=== PATIENT | female | born 1955 | race Caucasian/White ===

== ENCOUNTER 2020-03-01 07:33 | Outpatient (CLI) | payer BC, SELFPAY ==
--- NOTE | 2020-03-01 07:39 | US_ITS ---
WS: [id number] DIAGNOSTIC BILATERAL DIGITAL MAMMOGRAM WITH CAD LEFT breast ultrasound, limited HISTORY: LT BREAST MASS COMPARISON: 08/14/2010 05/18/2009 TECHNIQUE: Bilateral craniocaudad, mediolateral oblique, and mediolateral views are submitted. Spot c ompression LEFT CC. Computer aided detection utilized. Breast composition: The breasts are heterogeneously dense, which may obscure small masses. Palpable m arker is placed along the inferior medial LEFT breast posteriorly. No definite mass is identified. Th ere may be a nodule posterior against the chest wall beyond the [id number] imaging. This area will be better evaluated by ultrasound. Mild increased density upper outer quadrant LEFT breast. There is a benign calcification in the RIGHT breast. LEFT breast ultrasound, limited. In the region of palpable abnormality there is a hypoechoic mass measuring 1.8 x 0.8 x 1.4 cm with so me mild peripheral increased vascularity. Mass is at the posterior 8:00 axis, 3 cm from the nipple. M argins are slightly irregular but not spiculated. This corresponds to the palpable abnormality. Addit ional evaluation upper outer quadrant is negative. Ultrasound-guided biopsy recommended of the mass in the LEFT breast at 8:00. Notified Rey CORINNA Cox at 03/01/2020 12:16 PM. Unable to contact [facility] at this time as the clin ic was closed. US/US breast LT limited* [id number] IMPRESSION: BI-RADS: 4B-Suspicious: Intermediate FOLLOW UP: Biopsy Recommended
== END 2020-03-01 07:34 | disposition home or self-care (01) ==
LOC: RADSHAW 07:35
PROVIDERS: Family Provider Nurse Practitioner Family; PCP Nurse Practitioner Family; Visit Provider Nurse Practitioner Family
DX: N63.24 Unspecified lump in the left breast, lower inner quadrant (principal)
CPT/HCPCS: 76642; 77066

== ENCOUNTER 2020-03-09 06:46 | Outpatient (CLI) | payer BC, SELFPAY ==
--- NOTE | 2020-03-09 06:58 | US_ITS ---
WS: [id number] ULTRASOUND SOFT TISSUES LEFT axilla HISTORY: lymph node enlargement COMPARISON: None available. TECHNIQUE: 2-D and color Doppler imaging is submitted. There is a single normal lymph node in the LEFT axilla measuring 13 mm. There is a normal preserved f atty hilum. Normal hypoechoic cortex. The central hilar vasculature is normal. There is no asymmetry or focal enlargement the lymph node. This lymph node is very closely associated with the arteries and veins in the axilla. US/US soft tissue/extremity [id number] IMPRESSION: Single normal LEFT axillary lymph node. No biopsy will be performed today due t o its normal appearance and the adjacent surrounding vascular structures.
--- NOTE | 2020-03-09 07:18 | US_ITS ---
WS: [id number] ULTRASOUND-GUIDED LEFT BREAST BIOPSY HISTORY: LEFT BREAST MASS COMPARISON: 03/01/2020 Procedure, risks and complications are explained to the patient. Medications are reviewed. Consent is obtained. The mass in the LEFT breast is localized with ultrasound. Palpable mass at 8:00 LEFT breast. Skin is cleansed with ChloraPrep and anesthetized with 1% buffered lidocaine. Small dermatome is made. Under sterile conditions mass is biopsied with a 14-gauge Achieve needle. Multiple core biopsies are perfor med. Material placed in formalin and sent to pathology for review. No complications encountered. Breast tissue marker (Bard ultrasound enhanced ribbon): Single Patient left the radiology suite with no complications. Patient is instructed to return to [facility] [place] or [facility] with any concerns. 1. Uncomplicated core needle biopsy LEFT breast at 8:00. 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 RECOMMENDATION: Follow-up with Dr. Blood and oncology.
[2020-03-29 15:50] LABS: Miscellaneous Test See Scanned Lab Rpt
== END 2020-03-09 06:47 | disposition home or self-care (01) ==
PROVIDERS: PCP Nurse Practitioner Family; Visit Provider Surgery
DX: R92.8 Other abnormal and inconclusive findings on diagnostic imaging of breast (principal); C50.912 Malignant neoplasm of unspecified site of left female breast; R59.9 Enlarged lymph nodes, unspecified
CPT/HCPCS: 19083; 76882; 76942; 88305; J2001

== ENCOUNTER 2020-04-04 14:47 | Outpatient (CLI) | payer BC, SELFPAY ==
--- NOTE | 2020-04-04 17:37 | ONC CON_ITS ---
Dr. Nowak New Patient Note Patient: Paris Bae Unit #: [id number]: 1955 Dicatated By: Petra Nowak M.D.Date of Visit: Apr 04, 2020 Onc MED New Patient/Consult Referring Physician: Shakira Recinos History of Present Illness: Ms. Paris Bae, is a 65-year-old female with a history of progressive left breast mass underwent mammogram on March 07, 2020 which showed in the region of palpable abnormality there is a hypoechoic mass measuring 1.8 x 0.8 x 1.4 cm with some mild peripheral increased vascularity at 8 o'clock position 3 cm from the nipple. And right breast showed benign calcification., On March 09, 2020 she underwent ultrasound guided left breast mass biopsy which showed high-grade invasive ductal carcinoma with chronic inflammation surrounding the tumor. Prognostic profiling confirmed triple negative disease e.g. ER less than 1% positive ME less than 1% and HER-2/jasmyn negative. Patient denies any bony pains, denies any weight loss, denies any nipple discharge, denies any headaches blurred vision double vision, denies any jaundice. Patient has no history of previous breast biopsies, no family history of breast cancer, menarche started at age 13 and she is G3, with no miscarriages. No breast-feeding. Past Medical History: Ms. Bae's medical history is unremarkable. Past Surgical History: Ms. Bae's surgical/procedural history consists of breast biopsy, colonoscopy, and exploratory laparotomy. Medications: Citalopram Hydrobromide 1 Tablet (of 40 mg) Oral daily Allergies: No Known Allergies. Social History: Ms. Bae is . Ms. Bae quit smoking 30 years ago but had smoked for 5 years. She has no history of drinking. Ms. Bae reports the following support systems: lives with spouse, significant other, family, or friends, lives in own house, supportive family/friends willing to assist with needs, and adequate transportation available for expected visits. Her diet consists of regular meals. She indicates her activity level as: regular exercise. Family History: Ms. Bae's mother at age 69: stomach cancer. Ms. Bae's father at age 72: lung cancer. Ms. Bae has 1 brother who is : colon cancer. Review Of Symptoms: Review of Systems is not available for this patient. Vital Signs: Performed on Apr 04, 2020 16:11: 0, 23.05, 1.63 sq.m, 63.50 in, 100 %, 56 /min (LOW), 18 /min, 115/59 mm(hg), 97.8 F (LOW), and 132.2 lbs (HIGH). Performance Status: 0 - Fully active, able to carry on all predisease activities without restrictions. (ECOG) Physical Examination: ENMT - No mouth sores, no thrush, no jaundice, Respiratory - Lungs are clear, Cardiovascular - Regular rate and rhythm of heart, Breasts - Tenderness and fullness in left lower quadrant with mild erythema at biopsy site but no discharge, no nipple discharge or retraction. Right breast no mass palpable. There is about 1 cm questionable mass palpable bilateral axilla nontender and mobile, lymph node versus prominent connective tissue, Abdomen - Soft, bowel sounds present, Extremities - No visible edema or rash. Lab/Imaging: Most recent lab results are not available for this patient. Impression: High-grade invasive ductal carcinoma per ultrasound-guided left breast biopsy done on March 09, 2020 prognostic profiling showed triple negative disease, ER less than 1%, ME less than 1% and HER-2/jasmyn negative, Ki-67 95%. Plan: Discussed with patient regarding her disease status and treatment options, being triple negative, patient would be candidate for chemotherapy either neoadjuvant or adjuvant. Patient has small size breast but would consider breast preservation if is possible, in that case neoadjuvant chemotherapy is an appropriate option moreover good response to neoadjuvant chemotherapy may have prognostic value. But on physical exam she has palpable abnormality in both axilla more prominent on the left, although lymph drainage for left breast inner quadrant area, most likely, is internal mammary region lymph nodes. In that case we will consider CT PET scan to complete staging work-up as well as evaluate bilateral axillary prominence e.g. to rule out metastatic disease. In the meantime we will obtain echocardiogram as in case neoadjuvant chemotherapy is considered, will consider dose dense Adriamycin/Cytoxan every 2 weeks x 4 followed by weekly Taxol x12 followed by evaluation for lumpectomy versus mastectomy based on the response to neoadjuvant chemotherapy. We will also request Dr. vivar for Port-A-Cath placement. All the side effects possible benefits associated with chemotherapy with Adriamycin/Cytoxan/Taxol including but not limited to bone marrow suppression, hair loss, generalized weakness and fatigue, peripheral neuropathy, cystitis were mentioned further teaching will be done by chemotherapy nurse. Patient return to clinic after CT PET scan and echocardiogram for further discussion and planning. Signed By: Petra Nowak M.D. <<Signature on File>>
== END 2020-04-04 14:48 | disposition home or self-care (01) ==
LOC: ONCMED 14:55
PROVIDERS: PCP Nurse Practitioner Family; Referring Provider Nurse Practitioner Family; Visit Provider Internal Medicine Hematology & Oncology
DX: C50.512 Malignant neoplasm of lower-outer quadrant of left female breast (principal); Z17.0 Estrogen receptor positive status [ER+]
CPT/HCPCS: 99203

== ENCOUNTER 2020-04-10 09:51 | Day surgery (SDC) | payer BC, SELFPAY ==
[2020-04-07 11:01] VITALS: BMI 23.3
--- NOTE | 2020-04-10 | SCC_ITS ---
24.3 seconds of fluoroscopic guidance, for a cumulative dose of 2.14 mGy, was provided to Dr. Blood by the radiology department. C-arm images of the chest were saved for the patient's permanent record. [facility]
--- NOTE | 2020-04-10 10:00 | SC_ITS ---
WS: [id number] INTRAOPERATIVE TECHNIQUE: 5 Spot fluoroscopic images for intraoperative purposes. FLUOROSCOPY TIME: 20.9 seconds CLINICAL INFORMATION: Port-A-Cath placement COMPARISON: None. FINDINGS: Right Port-A-Cath tip in the mid to distal SVC. No pneumothorax. SC/C-arm FL for CVA [id number] IMPRESSION: Images obtained for intraoperative purposes.
[2020-04-10 10:05] VITALS: BP 117/59; PULSE 58; RESP 18; TEMP 37.4; O2SAT 99
[2020-04-10] MEDS: sodium chloride 0.9% 1,000 ML 30 ML IV (10:22)
[2020-04-10] MEDS: sodium chloride 0.9% 1,000 ML 100 ML IV (10:25)
--- NOTE | 2020-04-10 10:26 | ANES.PREANE2 ---
Pre-Anesthetic Assessment Pre-Anesthetic Assessment: Height/Weight: Height 1.61 m Weight 60.781 kg Temp Pulse Resp BP Pulse Ox 99.4 F 58 L 18 117/59 99 04/10/20 10:05 04/10/20 10:05 04/10/20 10:05 04/10/20 10:05 04/10/20 10:05 Preop Diagnosis: Breast cancer requiring long-term IV access Proposed Procedure: Operation Date: 04/10/20 11:20 Proposed Procedures p Portacath Placement 60290 C50.919(Not Applicable) - Stuart Blood MD Was Beta Nory taken within 24 hours: N/A Last intake: Intake Last Liquid Date 04/09/20 Last Liquid Time 19:00 Last Solid Date 04/09/20 Last Solid Time 16:00 Social: Social History: No alcohol and No tobacco Exam: Pre-Anes Outpt Exam: alert, oriented x 3, clear to auscultation bilaterally and regular rate & rhythm Airway: Submandibular: WNL Cervical ROM: WNL MP: 1 History/ROS: No significant complaints Pulmonary: Pulmonary: None reported CV/HEM: CV/HEM: None reported : : None reported Hepatic: Hepatic: None reported GI: GI: None reported Metabolic: Metabolic: None reported Neuropsych: Neuropsych: None reported Anesthetic Plan: ASA status: 2 Anesthesia: MAC Meds/Allergies Current Medications: Current Medications Generic Name Dose Route Start Last Admin Trade Name Freq PRN Reason Stop Dose Admin Sodium Chloride 1,000 mls @ 30 ml s/hr 04/10/20 10:00 04/10/20 10:22 Sodium Chloride 0.9% IV 04/11/20 09:59 30 mls/hr .Q24H ESTRADA Administration PFSH Anesthesia PFSH: Medical History Invasive ductal carcinoma of breast Surgical History History of colonoscopy History of exploratory laparotomy Family History Denies family history of Anesthesia complication Bleeding disorder Social History Smoking and tobacco status: never smoked Data Anesthesia Cardiac Studies: No Data to Display
--- NOTE | 2020-04-10 11:43 | W.PM.OPSUD ---
Surgery/Procedure H&P Update DATE OF PROCEDURE: April 10, 2020 DATE H&P PERFORMED: 04/06/20 H&P UPDATE INFORMATION: I have reviewed H&P completed within last 30 days, I have examined patient prior to procedure and No changes to prior documentation PREOP DIAGNOSIS: Breast cancer requiring long-term IV access PRIMARY INDICATION FOR PROCEDURE: The same PLANNED PROCEDURE: Operation Date: 04/10/20 11:20 Proposed Procedures p Portacath Placement 36445 C50.919(Not Applicable) - Stuart Blood MD
[2020-04-10] MEDS: heparin, porcine 1,000 unit/mL INJ 10 mL 10000 UNIT HE (13:14)
[2020-04-10] MEDS: lidocaine 2% INJ 20 mL INJECTION (13:17)
--- NOTE | 2020-04-10 13:21 | PM.OP ---
Operative Report Date of procedure: April 10, 2020 Pre-op Diagnosis: Breast cancer requiring long-term IV access Post-op diagnosis: same Procedure Done: Right subclavian vein PowerPort placement Under fluoroscopic guidance and all interpretation was done by me through the whole entire procedure Surgeon: Stuart Blood Professor Of Practice: technologies division chair Santos Circulating nurses Leela and Jocelyne Anesthesia: MAC (Sidra Alberto) Estimated blood loss (mL): 15 Condition: stable Disposition: same day Brief History: This is a pleasant 65 years old female patient with known history of left breast cancer was diagnosed with triple negative disease and will require neoadjuvant chemotherapy . plan of care; After thorough history physical examination and reviewing the chart, I counseled the patient for Port-A-Cath placement, indications, risks including pneumothorax and injury of major vascular structures, benefits,indications and alternatives were all discussed with the patient, patient understands and is interested to proceed. Rationale was carefully and clearly discussed with the patient.Appropriate informed consent have been reviewed and signed. Procedure: Patient was identified in the holding area and taken to the operative room and placed in supine position IV propofol was given by the anesthesia provider ,both arms were tucked,Time-out was done verifying the patient's name/date of /planned procedure and destination after the procedure, all were in agreement. SCDs confirmed to be functioning, preoperative antibiotics administered per protocol, and beta trevor protocol was confirmed, appropriate positioning of the patient was done by me. Medications were reviewed to assess for anticoagulant usage. Risks and benefits and prevention of central line associated blood stream infection (CLABSI) were discussed with the patient/CPOA, and a consent was obtained. Monitors were in place and monitored throughout the procedure. All necessary supplies were available prior to start. Hand hygiene was completed prior to starting. Maximum barrier technique was utilized including a sterile gown, sterile gloves with a hat and mask. Site was was prepped with [chlorhexidine] and a full body drape was placed. 5 mL of 2% lidocaine was injected into the skin with a 25 gauge needle. Prep& drape was done under the usual sterile technique, lidocaine 2% was injected at the site of the stick, started by right subclavian stick that retrieved venous blood was obtained from the first stick, a guidewire was then threaded and under the guidance of fluoroscopy position was confirmed to be in the IVC and my interpretation, there was some PVC changes and I had to pull on the wire back and PVCs were gone, at that point the guidewire was secured to the drapes with a hemostat and the needle was taken out, attention was then deviated towards creation of a pocket for the port were lidocaine 2% was injected using an 15 blade knife skin incision was created dissection using the Bovie to create a pocket for the Port-A-Cath to be accommodated, hemostasis was secured, after the port being appropriately flushed it was inserted into the pocket and a tunneler was used to accommodate the catheter of the port cath to be delivered through the incision first created at the site of the stick, at that point under fluoroscopy an estimated length was measured for the catheter and was cut at the designed level, followed by that a dilator with the sheath introduced onto the guidewire the dilator and the wire were retrieved and the catheter of the port was introduced via the sheath where it was peeled off and the catheter maintained to be in the SVC that was confirmed with fluoroscopy, and the fluoroscopy interpretation was done by me throughout the entire procedure. The port was kept in its original pocket and was flushing well, 3-0 Vicryl deep subdermal interrupted sutures, skin was then closed by 4-0 Monocryl as subcuticular closure. The stick site was closed by 3-0 Vicryl and Dermabond was used followed by dressing. Patient tolerated the procedure well was taken to the recovery area Count was correct at the end of the procedure I was present for the whole entire procedure. Position of the catheter was checked with a postoperative chest x-ray and it was in good position without evidence of pneumothorax
--- NOTE | 2020-04-10 13:25 | XR_ITS ---
WS: [id number] CHEST XRAY TECHNIQUE: Portable chest. CLINICAL INFORMATION: Right subclavian PowerPort placement COMPARISON: None. FINDINGS: Right Port-A-Cath with tip in the distal SVC. No pneumothorax. Heart: Normal cardiac silhouette. Lungs: Lungs are clear. No consolidation or pleural effusion. Bones: Normal visualized bony structures. XR/XR chest 1V portable [id number] IMPRESSION: Right Port-A-Cath with tip in good position
[2020-04-10 13:31] VITALS: BP 144/67; PULSE 61; RESP 18; TEMP 36.6; O2SAT 97
[2020-04-10 13:44] VITALS: BP 114/62; PULSE 53; RESP 18; O2SAT 98
== END 2020-04-10 14:05 | disposition home or self-care (01) ==
PROVIDERS: PCP Nurse Practitioner Family; Visit Provider Surgery
PROC: (CPT 36561; principal; 2020-04-10 11:20)
DX: C50.919 Malignant neoplasm of unspecified site of unspecified female breast (principal)
CPT/HCPCS: 36561; 12345; 71045; 76000; 77001; C1788; J0690; J1644; J2704; J3010; J7030

== ENCOUNTER 2020-04-11 10:09 | Outpatient (CLI) | payer BC, SELFPAY ==
--- NOTE | 2020-04-11 10:19 | USCV_ITS ---
Paris Bae Age: 65 Gender: F : 1955 Exam Date: 04/11/2020 10:38 Ordering Phys: Petra Nowak MD Technologist: Los Valderrama Exam Location: [facility] [place] Indication: HIGH RISK MED BP: 100 / 60 HR: 52 Rhythm: Sinus Technical Quality: MEASUREMENTS (Male / Female) Normal Values 2D ECHO LV Diastolic Diameter PLAX 3.3 cm 4.2 - 5.9 / 3.9 - 5.3 cm LV Systolic Diameter PLAX 2.8 cm IVS Diastolic Thickness 1.0 cm 0.6 - 1.0 / 0.6 - 0.9 cm IVS Systolic Thickness 1.3 cm LVPW Diastolic Thickness 1.1 cm 0.6 - 1.0 / 0.6 - 0.9 cm LVPW Systolic Thickness 1.6 cm LVOT Diameter 2.0 cm LV Ejection Fraction 2D Teich 32.9 % LV Ejection Fraction MOD 2C 63.4 % LV Ejection Fraction 2C AL 61.6 % LA Diameter 3.7 cm LA Width 4.1 cm LA Height 4.4 cm RA Width 3.6 cm RA Height 4.1 cm M-MODE LV Diastolic Diameter MM 4.6 cm 4.2 - 5.9 / 3.9 - 5.3 cm LV Systolic Diameter MM 2.8 cm LV Ejection Fraction MM Teich 71.2 % IVS Diastolic Thickness MM 0.7 cm 0.6 - 1.0 / 0.6 - 0.9 cm IVS Systolic Thickness MM 1.3 cm LVPW Diastolic Thickness MM 1.0 cm 0.6 - 1.0 / 0.6 - 0.9 cm LVPW Systolic Thickness MM 1.4 cm RV Diastolic Diameter MM 1.5 cm Aortic Annulus Diameter 3.5 cm LA Ao Ratio MM 1.1 MV E Point Septal Separation 0.6 cm DOPPLER AV Peak Velocity 151.0 cm/s LVOT Peak Velocity 106.0 cm/s AV Area Cont Eq vti 2.7 cm squared AV Area Cont Eq pk 2.3 cm squared MV Area PHT 5.0 cm squared Mitral E to A Ratio 1.0 MV E' Velocity 13.0 cm/s Mitral E to MV E' Ratio 5.8 Mitral E to LV E' Lateral Ratio 6.2 Mitral E to LV E' Septal Ratio 5.5 TR Peak Velocity 187.0 cm/s TR Peak Gradient 14.0 mmHg TV Peak E Velocity 87.0 cm/s Right Atrial Pressure 3.0 mmHg Pulmonary Artery Systolic Pressu 17.0 mmHg FINDINGS Left Ventricle Normal left ventricular size and systolic function, EF 65 %. Mild left ventricular hypertrophy. No regional wall motion abnormalities. Right Ventricle The right ventricle is normal in size and function. Right Atrium The right atrium is normal in size. Left Atrium The left atrium is normal in size. Mitral Valve Thickened mitral valve. Mild mitral valve regurgitation. Aortic Valve Thickened aortic valve. Moderate aortic valve regurgitation. Tricuspid Valve No gross abnormalities noted Pulmonic Valve Pulmonic valve not well visualized. Pericardium No pericardial effusion. Aorta Mildly dilated aortic root measuring 3.6 cm in diameter CONCLUSIONS Normal left ventricular size and systolic function, EF 65 %. Mild left ventricular hypertrophy. No regional wall motion abnormalities. Thickened mitral valve. Mild mitral valve regurgitation. Thickened aortic valve. Moderate aortic valve regurgitation. Mildly dilated aortic root measuring 3.6 cm in diameter. There is no pericardial effusion. There are no intracardiac masses. No previous study is available for comparison. Dr Emilee Mathew MD FAC (Electronically Signed) Final Date: 11 April 2020 18:50 S
== END 2020-04-11 10:10 | disposition home or self-care (01) ==
LOC: RAD 10:11
PROVIDERS: PCP Nurse Practitioner Family; Visit Provider Internal Medicine Hematology & Oncology
DX: C50.512 Malignant neoplasm of lower-outer quadrant of left female breast (principal); I08.0 Rheumatic disorders of both mitral and aortic valves; Z79.899 Other long term (current) drug therapy
CPT/HCPCS: 93306

== ENCOUNTER 2020-05-15 05:38 | Outpatient (RCR) | payer BC, SELFPAY ==
[2020-05-08 08:58] LABS: Basophils % 0.8 %; Eosinophils # 0.2 10^3/uL (0.0-0.8); Eosinophils % 3.1 %; Hematocrit 36.5 % (37.0-47.0); Hemoglobin 11.7 g/dL (11.5-15.3); Lymphocytes # 1.8 10^3/uL (0.8-4.8); Lymphocytes % 35.3 %; Mean Corpuscular HGB Conc 32.1 g/dL (30.0-36.0); Mean Corpuscular Hemoglobin 29.7 pg (28.0-34.0); Mean Corpuscular Volume 92.6 fL (81-99); Monocytes # 0.5 10^3/uL (0.2-0.9); Monocytes % 10.5 %; Neutrophils # 2.57 10^3/uL (1.8-7.7); Neutrophils % 50.1 %; Nucleated Red Blood Cells % 0 %; Platelet Count 237 10^3/cmm (130-400); Red Blood Count 3.94 10^6/uL (4.1-5.3); Red Cell Distribution Width 12.1 % (12.1-15.1); White Blood Count 5.1 10^3/uL (4.0-10.0)
[2020-05-08 09:16] LABS: Alanine Aminotransferase 8 U/L (0-33); Albumin Level 4.3 g/dL (3.5-5.2); Alkaline Phosphatase 29 IU/L (35-105); Anion Gap 13.4 (5-19); Aspartate Amino Transferase 17 U/L (0-32); Blood Urea Nitrogen 13 mg/dL (8-23); Calcium 8.9 mg/dL (8.5-10.5); Carbon Dioxide 26 mmol/L (22-29); Chloride 104 mmol/L (98-107); Globulin 3.3 g/dL (1.3-4.6); Glomerular Filtration Rate 124.6 mL/min (90-130); Glucose 110 mg/dL (65-115); Osmolality Calculated 285 mOsm/kg (285-295); Potassium 4.4 mmol/L (3.5-5.1); Sodium 139 mmol/L (136-145); Total Bilirubin 0.5 mg/dL (0.15-1.2); Total Protein 7.6 g/dL (6.6-8.7)
[2020-05-08] MEDS: sodium chloride 0.9% 250 ML 999 ML IV (11:10)
[2020-05-08] MEDS: pegfilgrastim 6 mg/0.6 mL Kit (onpro) SUBCUT (13:35)
--- NOTE | 2020-05-08 17:06 | ONC FU_ITS ---
Dr. Nowak follow up note Patient: Paris Bae Unit #: [id number]: 1955 Dicatated By: Petra Nowak M.D.Date of Visit:May 08, 2020 Onc Med Follow-up/Prog Note History of Present Illness: Ms. Paris Bae, is a 65-year-old female with a history of progressive left breast mass underwent mammogram on March 07, 2020 which showed in the region of palpable abnormality there is a hypoechoic mass measuring 1.8 x 0.8 x 1.4 cm with some mild peripheral increased vascularity at 8 o'clock position 3 cm from the nipple. And right breast showed benign calcification., On March 09, 2020 she underwent ultrasound guided left breast mass biopsy which showed high-grade invasive ductal carcinoma with chronic inflammation surrounding the tumor. Prognostic profiling confirmed triple negative disease e.g. ER less than 1% positive NH less than 1% and HER-2/jasmyn negative. Because of location And locally advanced disease e.g. inner lower quadrant left breast, follow-up CT PET scan done on on May 02, 2020 showed left breast mass in the lower inner quadrant measuring 5.8 x 3.1 cm demonstrate SUV of 23.20 Level 1 left axillary lymph node demonstrates a maximum SUV of 1.62 no other abnormality seen, no distant mets seen Left lower paratracheal 1.0 x 2.2 cm lymph node demonstrating maximum SUV of 2.59 reflect inflammatory changes only Echocardiogram done on April 11, 2020 showed ejection fractions 65% with mild left ventricular hypertrophy Patient denies any bony pains, denies any weight loss, denies any nipple discharge, denies any headaches blurred vision double vision, denies any jaundice. Patient has no history of previous breast biopsies, no family history of breast cancer, menarche started at age 13 and she is G3, with no miscarriages. No breast-feeding. Came for follow-up, denies any specific complaint except progressive fullness and overlying skin changes in her left breast lesion., No traumabut no fever chills, no nausea or vomiting, no diarrhea constipation Medications: Citalopram Hydrobromide 1 Tablet (of 40 mg) Oral daily Allergies: No Known Allergies. Review of Systems: Constitutional - Appetite is good and weight is stable. No fever, night sweats, or hot flashes. Energy level is good, ENMT - No sinus congestion/drainage. No mouth sores. No sore throat or difficulty swallowing, Hematologic/Lymphatic - No abnormal bruising or bleeding, Respiratory - No shortness of breath. No cough. No pleuritic pain or hemoptysis, Cardiovascular - No angina pain. No palpitations, Gastrointestinal - No nausea or vomiting. No heartburn or acid reflux. No diarrhea or constipation. No blood in the stool or black stools, Genitourinary (F) - No dysuria or hematuria. No urinary frequency. No urgency or incontinence, Musculoskeletal - No joint or bone pain, Integumentary - Pt reports redness and swelling around left breast, Neurologic - No headache or dizziness. No numbness or tingling. No other focal neurologic symptoms, Psychiatric - No anxiety or depression. No insomnia. Vital Signs: Performed on May 08, 2020 10:04 Height - 63.50 in Weight - 132.2 lbs BSA - 1.63 sq.m BMI - 23.05 Temperature - 98.4 F Pulse - 65 /min Respiration - 20 /min BP - 125/56 mm(hg) O2 Sat - 99 % Pain - 3 Performance Status: 0 - Fully active, able to carry on all predisease activities without restrictions. (ECOG) Physical Examination: Respiratory - Lungs are clear, Cardiovascular - Regular rate and rhythm of heart, Breasts - Redness and fullness in her left lower breast more in the inner lower quadrant, about 6 cm sized mass palpable, mobile, nontender, no nipple discharge, Gastrointestinal - Soft, bowel sounds present, Extremities - No visible edema. Lab/Imaging: Most recent lab results are not available for this patient. Impression: High-grade invasive ductal carcinoma per ultrasound-guided left breast biopsy done on March 09, 2020 prognostic profiling showed triple negative disease, ER less than 1%, NH less than 1% and HER-2/jasmyn negative, Ki-67 95%. Staging CT PET scan done on May 02, 2020 showed left breast mass in lower inner quadrant sized 5.8 x 3.1 cm hypermetabolic mass with SUV of 23.20 With no distant metastatic disease , Clinical stage II, (more than 5 cm) N0,M0 Echocardiogram done on April 11, 2020 showed ejection fraction 65% Started on neoadjuvant chemotherapy with dose dense Adriamycin Cytoxan every 2 weeks with Neulasta support x4 followed by Taxol on May 08, 2020 Plan: Discussed with patient regarding her labs white blood count 5.1 hemoglobin 11.7 crit 36.5 platelets 237,000 CMP within normal limits, echo done on April 11, 2020 showed ejection fraction within normal range at 65%, CT PET scan done on May 02, 2020 showed locally advanced disease in left breast inner quadrant size more than 5 cm with no lymphadenopathy or distant mets Clinically, patient is doing well, now being started on neoadjuvant chemotherapy for locally advanced, triple negative left breast carcinoma as neoadjuvant chemotherapy carries prognostic value e.g. if good response, better prognosis, and as well as may assist surgeon to obtain clear surgical margins as clinically it appears tumor replacing one third of her small breast.. Patient will proceed with her first cycle of chemotherapy with dose dense Adriamycin/Cytoxan with Neulasta support to prevent chemotherapy-induced neutropenia/leukopenia and then she will return to clinic in 1 week with CBC CMP. Signed By: Petra Nowak M.D. <<Signature on File>>
[2020-05-15 12:12] LABS: Basophils % 3.3 %; Eosinophils # 0.1 10^3/uL (0.0-0.8); Eosinophils % 13.2 %; Hematocrit 34.1 % (37.0-47.0); Lymphocytes # 0.7 10^3/uL (0.8-4.8); Lymphocytes % 74.7 %; Mean Corpuscular HGB Conc 32.3 g/dL (30.0-36.0); Mean Corpuscular Hemoglobin 29.1 pg (28.0-34.0); Mean Corpuscular Volume 90.2 fL (81-99); Mean Platelet Volume 11.5 fL (7.4-10.4); Monocytes % 3.3 %; Neutrophils % 5.5 %; Nucleated Red Blood Cells % 0 %; Platelet Count 111 10^3/cmm (130-400); Red Blood Count 3.78 10^6/uL (4.1-5.3); Red Cell Distribution Width 11.5 % (12.1-15.1)
[2020-05-15 12:24] LABS: Alanine Aminotransferase 6 U/L (0-33); Albumin Level 4.1 g/dL (3.5-5.2); Alkaline Phosphatase 33 IU/L (35-105); Anion Gap 14.1 (5-19); Aspartate Amino Transferase 11 U/L (0-32); Blood Urea Nitrogen 16 mg/dL (8-23); Calcium 9.2 mg/dL (8.5-10.5); Carbon Dioxide 27 mmol/L (22-29); Chloride 100 mmol/L (98-107); Globulin 3.1 g/dL (1.3-4.6); Glomerular Filtration Rate 124.6 mL/min (90-130); Glucose 97 mg/dL (65-115); Osmolality Calculated 280 mOsm/kg (285-295); Potassium 4.1 mmol/L (3.5-5.1); Sodium 137 mmol/L (136-145); Total Bilirubin 0.3 mg/dL (0.15-1.2); Total Protein 7.2 g/dL (6.6-8.7)
[2020-05-15 12:58] LABS: White Blood Count 0.9 10^3/uL (4.0-10.0)
[2020-05-15 12:59] LABS: Neutrophils # 0.05 10^3/uL (1.8-7.7); Slide Review Slide Review Perform
--- NOTE | 2020-05-16 18:42 | ONC FU_ITS ---
Dr. Nowak follow up note Patient: Paris Bae Unit #: [id number]: 1955 Dicatated By: Petra Nowak M.D.Date of Visit:May 15, 2020 Onc Med Follow-up/Prog Note History of Present Illness: Ms. Paris Bae, is a 65-year-old female with a history of progressive left breast mass underwent mammogram on March 07, 2020 which showed in the region of palpable abnormality there is a hypoechoic mass measuring 1.8 x 0.8 x 1.4 cm with some mild peripheral increased vascularity at 8 o'clock position 3 cm from the nipple. And right breast showed benign calcification., On March 09, 2020 she underwent ultrasound guided left breast mass biopsy which showed high-grade invasive ductal carcinoma with chronic inflammation surrounding the tumor. Prognostic profiling confirmed triple negative disease e.g. ER less than 1% positive [place] less than 1% and HER-2/jasmyn negative. Because of location And locally advanced disease e.g. inner lower quadrant left breast, follow-up CT PET scan done on on May 02, 2020 showed left breast mass in the lower inner quadrant measuring 5.8 x 3.1 cm demonstrate SUV of 23.20 Level 1 left axillary lymph node demonstrates a maximum SUV of 1.62 no other abnormality seen, no distant mets seen Left lower paratracheal 1.0 x 2.2 cm lymph node demonstrating maximum SUV of 2.59 reflect inflammatory changes only Echocardiogram done on April 11, 2020 showed ejection fractions 65% with mild left ventricular hypertrophy Patient denies any bony pains, denies any weight loss, denies any nipple discharge, denies any headaches blurred vision double vision, denies any jaundice. Patient has no history of previous breast biopsies, no family history of breast cancer, menarche started at age 13 and she is G3, with no miscarriages. No breast-feeding. Started on neoadjuvant chemotherapy with dose dense Adriamycin/Cytoxan with Neulasta support on May 08, 2020 Came for follow-up, complaining of generalized weakness and fatigue and off and on low-grade fever up to 100.4 for the last couple of days, no nausea or vomiting, no sore throat, no burning micturition or dysuria but patient did notice some discharge from lower inner left breast where she had small pustule and also feeling lightheaded and dizzy as she did not drink enough fluids in the last day or 2. Medications: Citalopram Hydrobromide 1 Tablet (of 40 mg) Oral daily Allergies: No Known Allergies. Review of Systems: Constitutional - Appetite is good and weight is stable. Positive for fever. No night sweats, or hot flashes. Energy level is good, ENMT - No sinus congestion/drainage. No mouth sores. No sore throat or difficulty swallowing, Hematologic/Lymphatic - No abnormal bruising or bleeding, Respiratory - No shortness of breath. No cough. No pleuritic pain or hemoptysis, Cardiovascular - No angina pain. No palpitations, Gastrointestinal - No nausea or vomiting. No heartburn or acid reflux. No diarrhea or constipation. No blood in the stool or black stools, Genitourinary (F) - No dysuria or hematuria. No urinary frequency. No urgency or incontinence, Musculoskeletal - No joint or bone pain, Integumentary - Pt reports redness and swelling around left breast, Neurologic - No headache or dizziness. No numbness or tingling. No other focal neurologic symptoms, Psychiatric - No anxiety or depression. No insomnia. Vital Signs: Performed on May 15, 2020 13:00 Height - 63.50 in Weight - 128.2 lbs (LOW) BSA - 1.61 sq.m BMI - 22.35 Temperature - 98.9 F (HIGH) Pulse - 56 /min (LOW) Respiration - 18 /min BP - 114/57 mm(hg) O2 Sat - 98 % Pain - 0 Performance Status: 2 - Ambulatory/capable of all self-care, unable to perform any work activities. Up and about more than 50% of waking hours. (ECOG) Physical Examination: Respiratory - Lungs are clear, Cardiovascular - Regular rate and rhythm of heart, Gastrointestinal - Soft, bowel sounds present, Extremities - No visible edema or rash, Oral exam, dry oral mucosa but no thrush. Lab/Imaging: Most recent lab results are not available for this patient. Impression: High-grade invasive ductal carcinoma per ultrasound-guided left breast biopsy done on March 09, 2020 prognostic profiling showed triple negative disease, ER less than 1%, [place] less than 1% and HER-2/jasmyn negative, Ki-67 95%. Staging CT PET scan done on May 02, 2020 showed left breast mass in lower inner quadrant sized 5.8 x 3.1 cm hypermetabolic mass with SUV of 23.20 With no distant metastatic disease , Clinical stage II, (more than 5 cm) N0,M0 Echocardiogram done on April 11, 2020 showed ejection fraction 65% Started on neoadjuvant chemotherapy with dose dense Adriamycin Cytoxan every 2 weeks with Neulasta support x4 followed by Taxol on May 08, 2020 Plan: Discussed with patient regarding her labs white blood count 0.9 hemoglobin 11 hematocrit 34.1 platelets 111,000 ANC 50 CMP within normal limits Clinically, patient is in mild to moderate distress due to generalized weakness and fatigue, probably due to dehydration as her blood pressure was 109/53 with a pulse 57 while sitting and dropped to 93/50 with a pulse 73 upon standing, other possibility could be sepsis as patient is severely neutropenic and has been running low-grade fever and recently noted discharge from her left breast primary, she was sent to the emergency room, case was discussed with ER physician for further evaluation and possible inpatient care. Signed By: Petra Nowak M.D. <<Signature on File>>
== END 2020-05-15 23:59 | disposition home or self-care (01) ==
LOC: ONCMED 05:38
PROVIDERS: PCP Nurse Practitioner Family; Visit Provider Internal Medicine Hematology & Oncology
DX: Z51.11 Encounter for antineoplastic chemotherapy (principal); C50.312 Malignant neoplasm of lower-inner quadrant of left female breast; Z17.1 Estrogen receptor negative status [ER-]; Z76.89 Persons encountering health services in other specified circumstances; Z79.899 Other long term (current) drug therapy
CPT/HCPCS: 36591; 80053; 85025; 96367; 96372; 96411; 96413; 99214; J1100; J1200; J1453; J2469; J2505; J7040; J7050; J9000; J9070

== ENCOUNTER 2020-05-15 13:46 | Inpatient (IN) | payer BC, SELFPAY ==
[2020-05-15 13:50] VITALS: BP 111/60; PULSE 54; RESP 18; TEMP 36.9; O2SAT 99; BMI 21.9
--- NOTE | 2020-05-15 14:49 | XR_ITS ---
WS: [id number] EXAM: AP CHEST: PORTABLE UPRIGHT DATE OF EXAM: 05/15/2020, 1546 hours COMPARISON: Prior chest x-ray from 04/10/2020 HISTORY: Patient is 65 years old with low blood pressure, low white blood cell count, dehydrated. Chemotherapy last Friday. FINDINGS: The cardiac silhouette is normal in size. The mediastinal contours are similar. Right subclavian p ort catheter remains in place ending in the distal SVC region. Hilar regions are normal. The pulmon camille vascularity is normal. Chronic lung changes seen. Lungs are clear of consolidation. No infiltrat e, effusion or pneumothorax. There are findings of a lateral left T6 rib fracture of uncertain age. XR/XR chest 1V [id number] IMPRESSION: Chronic lung changes. No acute pulmonary disease. Lateral left T6 rib fracture uncertain age.
--- NOTE | 2020-05-15 14:53 | PC.NURSE ---
Chaperoned breast exam with Dr Hutchins. Pt left breast reddened and warm to touch with drainage from biopsy site. Pt reports induration that started after her biopsy.
[2020-05-15] MEDS: piperacillin-tazobactam 3.375 GM in sodium chloride 0.9% (plus) 50 ML IV (15:20)
--- NOTE | 2020-05-15 15:25 | US_ITS ---
WS: [id number] ULTRASOUND LEFT BREAST HISTORY: breast abscess COMPARISON: 03/09/2020 TECHNIQUE: 2-D and Doppler. Solid collection with very small amount of adjacent fluid at 8:00, 3 cm from the nipple. This collect ion measures 3.5 x 2.1 x 3.6 cm. Corresponds to the area of the previously described neoplasm on 03/09. There is some very mild peripheral increased vascularity. There is very minimal liquid compone nt and no liquefaction. US/US breast LT limited* [id number] IMPRESSION: BI-RADS: 6-Known Biopsy-Proven Malignancy FOLLOW-UP: See Report Patient has a known LEFT breast neoplasm for which chemotherapy is being perfor med prior to surgery. Collection at the site of erythema is a solid mass with v alba little drainable component. No abscess.
[2020-05-15 15:26] VITALS: BP 108/73
[2020-05-15 15:35] LABS: Add Urine Microscopic? NO
[2020-05-15 15:38] LABS: Lactic Sepsis W/Reflex 0.9 mmol/L (0.5-2.2)
[2020-05-15 15:42] LABS: Bilirubin Urine Neg (NEGATIVE); Blood Urine Neg (Negative); Glucose Urine UA Norm (Normal); Ketones Urine Negative (Negative); Leukocyte Esterase Urine Negative (Negative); Nitrate Urine Negative (Negative); Protein Urine Neg (Negative); Urine Appearance Clear (CLEAR); Urine Color Straw (Yellow); Urobilinogen Urine Norm (Negative); pH Urine 7 (5-7)
[2020-05-15 15:49] LABS: Procalcitonin 0.11 ng/mL (0-0.5)
--- NOTE | 2020-05-15 15:49 | ED_ITS ---
HPI - Recheck/Abnormal Lab/Rx General: Chief Complaint: Recheck/Abnormal Lab/Rx Stated Complaint: low wb count/dehydrated Time Seen by Provider: 05/15/20 14:16 History of Present Illness: HPI narrative: This 65-year-old female was recently diagnosed with left breast cancer last month following a biopsy of a breast lump that was discovered 2 months ago. She has been seen by oncology and was started on chemotherapy 1 week ago. She was started with Adriamycin/Cytoxan and Neulasta. She went to the oncology clinic today for 1 week check and was found to be severely neutropenic. She was therefore sent here for evaluation. She had also complained about drainage from the biopsy site on her left breast. She complained of purulent drainage. The patient denies nausea or vomiting. She however had a low-grade fever last week and temperature has been about 99 today at home. She otherwise appears to be doing well MD complaint: abnormal lab Review of Systems General: Reports: 10 or more systems reviewed and unremarkable except in HPI and below Const: Reports: fever(s); Denies: chills or body aches Eyes: Denies: change in vision or blurry vision ENMT: Denies: throat pain, enlarged tonsils, odynophagia, hoarseness, mouth pain or swelling of lips/tongue Card: Denies: palpitations, irregular heart rhythm, edema or swelling of feet/ankles Resp: Denies: dyspnea, productive cough or non-productive cough GI: Denies: abdominal pain, nausea or vomiting : Denies: flank pain, difficulty voiding, dysuria, urinary frequency, urinary urgency or urinary hesitancy Musc: Denies: neck pain, back pain or extremity swelling Skin/Breast: Denies: rash, pruritus or erythema Neuro: Denies: headache(s), numbness in extremities or weakness in extremities Endo: Denies: polyuria, polydipsia or tired all the time PFSH ED PFSH: Medical History (Reviewed 05/15/20 @ 16:47 by Morena Hutchins MD, [facility] [place]) Invasive ductal carcinoma of breast Port-A-Cath in place (~03/2020) Surgical History (Reviewed 05/15/20 @ 16:47 by Morena Hutchins MD, [facility] [place]) History of colonoscopy History of exploratory laparotomy Family History (Reviewed 05/15/20 @ 16:47 by Morena Hutchins MD, [facility] [place]) Denies family history of Anesthesia complication Bleeding disorder Social History (Reviewed 05/15/20 @ 16:47 by Morena Hutchins MD, [facility] [place]) Smoking and tobacco status: never smoked Physical Exam Const: COMMON NORMALS: no acute distress, average body habitus, patient oriented x3, no limitations, healthy appearing, alert and well nourished HENMT: COMMON NORMALS: normocephalic, atraumatic and moist oral mucous membranes HEAD & SCALP: normocephalic and atraumatic Neck/C-Spine: COMMON NORMALS: no meningeal signs and no JVD Chest: BREAST/AXILLA INSPECTION: Yes abnormal inspection of the breast (There is about a 4 cm area of induration with an open area. The indurated area is also erythematous and warm and mildly tender. I was unable to express any drainage from the wound.) left lower inner Resp: COMMON NORMALS: normal respiratory effort, No retractions, No use of accessory muscles, clear to auscultation bilaterally and percussion normal AUSCULTATION: clear to auscultation bilaterally PERCUSSION: percussion normal Cardio: COMMON NORMALS: no JVD, regular rate, regular rhythm, S1 normal heart sound present, S2 normal heart sound present, No gallops present (Cardio), No clicks present (Cardio), No murmurs present (Cardio), No rub (Cardio) and Peripheral pulses 2+ throughout RATE: regular rate RHYTHM: regular rhythm HEART SOUNDS: S1 normal heart sound present and S2 normal heart sound present PERIPHERAL PULSES: Peripheral pulses 2+ throughout GI: COMMON NORMALS: Normal to inspection, nondistended, normoactive bowel sounds present, Soft to palpation, non-tender, No hepatosplenomegaly present, no masses and no bruits PALPATION: Yes Soft to palpation and Yes No hepatosplenomegaly present Extremity: COMMON NORMALS: normal to inspection, full ROM, capillary refill normal, no calf tenderness and no pedal edema Neuro: COMMON NORMALS: patient oriented x3 SENSORIUM/ORIENTATION: Yes alert MENINGEAL SIGNS: Yes no meningeal signs Skin: COMMON NORMALS: no rashes or lesions noted, no wounds, turgor normal, no jaundice, no petechiae and no mottling GENERAL SKIN EXAM: no rashes or lesions noted and turgor normal Course Consultations: Consultation #1: Discussed with Dr. Nowak, her oncologist and he advised that the patient be admitted, cultures obtained, started on broad- spectrum antibiotics. He expects that her white cell count will start to rise since she has received Neulasta. Time: 14:33 Consultation #2: Spoke with Dr. Chloé Hercules, hospitalist and she kindly accepted the patient to her service Time: 15:10 Vital Signs: Vital signs: Vital Signs Temperature 98.4 F 05/15/20 13:50 Pulse Rate 54 L 05/15/20 13:50 Respiratory Rate 18 05/15/20 13:50 Blood Pressure 111/60 05/15/20 13:50 Pulse Oximetry 99 05/15/20 13:50 MDM - Recheck/Abnormal Lab/Rx MDM Narrative: Medical decision making narrative: 65-year-old female with a recent diagnosis of left breast cancer who presents emergency department with severe neutropenia and drainage from a left breast biopsy site. She is admitted to the hospitalist service for broad-spectrum antibiotics, wound care. She is placed on neutropenic precautions. Medical Records: Attestation: I reviewed the patient's medical records. Lab Data: Attestation: I reviewed the patient's lab results. Labs: Lab Results 05/15/20 05/15/20 05/15/20 Range/Units 15:04 15:14 15:14 Lactic Acid 0.9 (0.5-2.2) mmol/L Procalcitonin 0.11 (0-0.5) ng/mL Urine Color Straw (Yellow) Urine Appearance Clear (CLEAR) Urine pH 7 (5-7) Ur Specific Gravit y 1.010 (1.005-1.030) Urine Protein Neg (Negative) Urine Glucose (UA) Norm (Normal) Urine Ketones Negative (Negative) Urine Blood Neg (Negative) Urine Nitrate Negative (Negative) Urine Bilirubin Neg (NEGATIVE) Urine Urobilinogen Norm (Negative) mg/dL Ur Leukocyte Nilsa ase Negative (Negative) Imaging Data^: US: Radiologist's impression: [address] [address] Ultrasound Report Signed Patient: Paris Bae [place] #: [id number] : 7Acct#:[id number] Age/Sex: 65 / FADM Date: 05/15/20 Loc: ERRoom/Bed: Attending Dr: Ordering Provider/Ordering MD: Morena Hutchins MD, [facility] [place] Date of Service: 05/15/20 Procedure(s): US breast LT limited* [id number] Accession Number(s): [id number] Report Number: [id number] WS: [id number] ULTRASOUND LEFT BREAST HISTORY: breast abscess COMPARISON: 03/09/2020 TECHNIQUE: 2-D and Doppler. Solid collection with very small amount of adjacent fluid at 8:00, 3 cm from the nipple. This collection measures 3.5 x 2.1 x 3.6 cm. Corresponds to the area of the previously described neoplasm on 03/09/2020. There is some very mild peripheral increased vascularity. There is very minimal liquid component and no liquefaction. US/US breast LT limited* [id number] IMPRESSION: BI-RADS: 6-Known Biopsy-Proven Malignancy FOLLOW-UP: See Report Patient has a known LEFT breast neoplasm for which chemotherapy is being performed prior to surgery. Collection at the site of erythema is a solid mass with very little drainable component. No abscess. Dictated By:Brittney Parker DO Signed By:Brittney Parker DOSigned Date/Time:05/15/20 1555 DD/ 1549 CXR: Radiologist's impression: [address] [address] XRay Report Signed Patient: Paris Bae #: [id number] : 7Acct#:[id number] Age/Sex: 65 / FADM Date: 05/15/20 Loc: ERRoom/Bed: Attending Dr: Ordering Provider/Ordering MD: Morena Hutchins MD, [facility] [place] Date of Service: 05/15/20 Procedure(s): XR chest 1V [id number] Accession Number(s): [id number] Report Number: [id number] WS: [id number] EXAM: AP CHEST: PORTABLE UPRIGHT DATE OF EXAM: 05/15/2020, 1546 hours COMPARISON: Prior chest x-ray from 04/10/2020 HISTORY: Patient is 65 years old with low blood pressure, low white blood cell count, dehydrated. Chemotherapy last Friday. FINDINGS: The cardiac silhouette is normal in size. The mediastinal contours are similar. Right subclavian port catheter remains in place ending in the distal SVC region. Hilar regions are normal. The pulmonary vascularity is normal. Chronic lung changes seen. Lungs are clear of consolidation. No infiltrate, effusion or pneumothorax. There are findings of a lateral left T6 rib fracture of uncertain age. XR/XR chest 1V [id number] IMPRESSION: Chronic lung changes. No acute pulmonary disease. Lateral left T6 rib fracture uncertain age. 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
[2020-05-15 16:00] VITALS: BP 119/92; PULSE 74; RESP 16; O2SAT 99
--- NOTE | 2020-05-15 16:06 | PC.NURSE ---
VO WITH READBACK FROM DR. SHELL TO INCREASE RATE OF ZOYSN TO 100ML/HR. RATE THEN INCREASED TO 100ML/HR ON ZOYSN 3.375/ 50ML.
--- NOTE | 2020-05-15 16:32 | PC.NURSE ---
ATTEMPTED REPORT NURSE UNAVAILABLE.
[2020-05-15] MEDS: vancomycin 750 MG in sodium chloride 0.9% 250 ML 250 MG IV (16:33)
--- NOTE | 2020-05-15 16:47 | PC.NURSE ---
REPORT GIVEN TO NICK TRIVEDI.
[2020-05-15 16:50] VITALS: PULSE 76; RESP 14; O2SAT 99
--- NOTE | 2020-05-15 17:20 | P.HP_ITS ---
Providers/Chief Complaint Admitting Physician: Myrtle Bragg MD Primary Care Provider: Brooke Rey APN Chief Complaint: low wb count/dehydrated History of Present Illness Paris Bae is a 65 year old female recently dignosed to have High-grade invasive ductal carcinoma per ultrasound-guided left breast biopsy done on March 09, 2020. Started on neoadjuvant chemotherapy with dose dense Adriamycin Cytoxan every 2 weeks with Neulasta support x4 followed by Taxol on May 08, 2020. Presented in outpatient follow up to Dr. Nowak today where noted to have abnormal labs with WBc 0.9, ANC 0.05, hb 11, plt 11. no bleeding. From [facility] there was concern for cellulitis around the recent biopsy site. US breast noted Solid collection with very small amount of adjacent fluid at 8:00, 3 cm from the nipple. This collection measures 3.5 x 2.1 x 3.6 cm. Corresponds to the area of the previously described neoplasm on 03/09/2020. No abscess. He states that the area of erythema and cellulitis started soon after she underwent a biopsy. Initially it was thought she may have an underlying hematoma. However the this is slowly continued to progress to the point where she was unable to wear a bra because of pain. After starting chemo a week ago, she states that the cellulitis became a little bit worse, had some pus pointing which eventually burst and drained fluid. There is no current drainage at this time. Since the drainage she thinks that this is getting better. Over the past week she has had some low-grade fevers of 100.4. At the oncology office today, she was noted to appear somewhat dehydrated, and felt weak, had orthostatic blood pressure drop with concomitant tachycardia and was therefore sent over for IV antibiotics and hydration. Review of Systems General: Reports: 10 or more systems reviewed and unremarkable except in HPI and below Const: Reports: fever(s) and chills; Denies: body aches Eyes: Denies: change in vision, blurry vision or photophobia ENMT: Reports: hoarseness; Denies: throat pain, enlarged tonsils, odynophagia or nasal congestion Card: Denies: chest pain, palpitations, irregular heart rhythm, edema, swelling of feet/ankles, lightheadedness, pre-syncope, dyspnea on exertion or orthopnea Resp: Denies: dyspnea, productive cough, non-productive cough, wheezing, stridor, pain on inspiration, change in phlegm color, hemoptysis or chest congestion GI: Denies: abdominal pain, nausea, vomiting, hematemesis, coffee ground emesis, dysphagia, heartburn, diarrhea, constipation, GI cramping, change in stool character, hematochezia or melena : Denies: flank pain, difficulty voiding, dysuria, urinary frequency, urinary urgency, urinary hesitancy or hematuria Musc: Denies: neck pain, back pain, extremity pain, joint swelling, joint warmth or deformity Neuro: Denies: headache(s), numbness in extremities, weakness in extremities, sensory changes, difficulty walking, frequent falls, dizziness, vertigo, behavioral changes, Slurred speech present or seizure-like activity Psych: Denies: anxiety, depression, suicidal ideation or homicidal ideation Endo: Denies: polyuria, polydipsia, tired all the time, cold intolerance or hot flashes Lam/Lymph: Denies: easy bruising or easy bleeding Medications/Allergies Home Medications Medication Instructions Recorded Confirmed Last Taken Type citalopram [Celexa] 40 mg PO DAILY 04/07/20 05/15/20 05/15/20 History ibuprofen 200 mg PO PRN 05/15/20 05/15/20 05/14/20 History Allergies Allergy/AdvReac Type Severity Reaction Status Date / Time No Known Allergies Allergy Verified 05/15/20 14:13 PFSH Acute PFSH: Medical History Invasive ductal carcinoma of breast Port-A-Cath in place (~03/2020) Surgical History History of colonoscopy History of exploratory laparotomy Family History Denies family history of Anesthesia complication Bleeding disorder Social History Smoking and tobacco status: never smoked Vitals/I&O/Wt Last Vital Signs Temp 98.4 F 05/15/20 13:50 Pulse 76 05/15/20 16:50 Resp 14 05/15/20 16:50 BP 119/92 05/15/20 16:00 Pulse Ox 99 05/15/20 16:50 Weight last 48 hrs Weight 58.06 kg Physical Exam Narrative: EXAM NARRATIVE: GEN: Awake, alert and oriented, no acute distress CVS: S1S2 N RS: CTA B/L Abd: Soft, nt/nd , bs+ VELVET WEAVER: no focal neuro deficits Ext: left breast 7 o clock position with induration, warmth and erythema, no gross drainage at this time. Overlying warmth and mild tenderness + Data Micro: Microbiology 05/15/20 15:10 Blood Culture - Preliminary Blood SPECIMEN COLLECTED 05/15/20 15:14 Blood Culture - Preliminary Blood SPECIMEN COLLECTED A&P Assessment and plan (1) Severe neutropenia: Status: Acute (2) Invasive ductal carcinoma of breast: Status: Acute Qualifiers: Laterality: left Qualified Code(s): C50.912 - Malignant neoplasm of unspecified site of left female breast (3) Cellulitis of breast: Status: Acute Additional A&P Information Admit to inpatient. #Febrile neutropenia. Most likely source at this time appears to be left breast cellulitis which a ppears to have worsened over the past week. She has low-grade temperature of 100.4, which may be related to cellulitis versus neutropenic state. Last received Neulasta on day of chemo about 1 week ago. Hold off on any additional fill gastrim at this time. Start her on broad-spectrum antibiotic coverage with cefepime and vancomycin. Would prefer to keep both agents to cover additionally for Pseudomonas as long as she remains neutropenic. ANC is currently at 50 neutropenic precautions no other symptoms such as abd pain/nausea/vomiting/diarrhea # left breast cellulitis abx coverage as above Us without signs of underlying abscess If any drainage noted, will send for cx Full code Dvt ppx: lovenox Attestations Medical Necessity Statement*: need for iv abx, fever and neutropenia Coding Level of Care Code Acute Cobol Application Developer for [facility] Fwd Diagnoses Severe neutropenia D70.9 Invasive ductal carcinoma of breast C50.912 Laterality: left Cellulitis of breast N61.0
[2020-05-15 17:56] VITALS: BP 100/50; PULSE 65; RESP 18; TEMP 36.9; O2SAT 100
[2020-05-15] MEDS: enoxaparin 40 mg/0.4 mL Syringe SUBCUT (18:34)
[2020-05-15] MEDS: dextrose 5%-sod chloride 0.9% 1,000 ML 75 ML IV (19:04)
[2020-05-15 20:00] VITALS: BP 95/53; PULSE 71; RESP 20; TEMP 37; O2SAT 99
[2020-05-15] MEDS: cefepime 2,000 MG in sodium chloride 0.9% (plus) 50 ML 100 MG IV (21:14)
[2020-05-16] VITALS (7 sets, daily range): BP systolic 97–105; BP diastolic 47–62; PULSE 55–70; RESP 14–20; TEMP 36.8–37.3; O2SAT 97–98
[2020-05-16] MEDS: vancomycin 1,000 MG in sodium chloride 0.9% 250 ML 250 MG IV ×2 (03:11→13:33)
[2020-05-16] MEDS: cefepime 2,000 MG in sodium chloride 0.9% (plus) 50 ML 100 MG IV ×3 (03:14→18:21)
[2020-05-16 04:31] LABS: Eosinophils # 0.2 10^3/uL (0.0-0.8); Eosinophils % 15.7 %; Hematocrit 31.8 % (37.0-47.0); Hemoglobin 10.2 g/dL (11.5-15.3); Lymphocytes # 0.7 10^3/uL (0.8-4.8); Lymphocytes % 68.6 %; Mean Corpuscular HGB Conc 32.1 g/dL (30.0-36.0); Mean Corpuscular Hemoglobin 29.4 pg (28.0-34.0); Mean Corpuscular Volume 91.6 fL (81-99); Monocytes # 0.1 10^3/uL (0.2-0.9); Monocytes % 6.9 %; Neutrophils % 6.8 %; Nucleated Red Blood Cells % 0 %; Platelet Count 80 10^3/cmm (130-400); Red Blood Count 3.47 10^6/uL (4.1-5.3); Red Cell Distribution Width 11.6 % (12.1-15.1)
[2020-05-16 04:57] LABS: Anion Gap 10.7 (5-19); Blood Urea Nitrogen 18 mg/dL (8-23); Calcium 8.8 mg/dL (8.5-10.5); Carbon Dioxide 27 mmol/L (22-29); Chloride 105 mmol/L (98-107); Glomerular Filtration Rate 124.6 mL/min (90-130); Glucose 117 mg/dL (65-115); Osmolality Calculated 284 mOsm/kg (285-295); Potassium 4.7 mmol/L (3.5-5.1); Sodium 138 mmol/L (136-145)
[2020-05-16] MEDS: dextrose 5%-sod chloride 0.9% 1,000 ML 75 ML IV (05:47)
[2020-05-16 05:53] LABS: Slide Review Slide Review Perform
[2020-05-16 05:54] LABS: Neutrophils # 0.07 10^3/uL (1.8-7.7)
[2020-05-16] MEDS: citalopram 20 mg Tablet 40 MG PO (09:52)
--- NOTE | 2020-05-16 11:14 | PC.CHAP ---
Pastoral Care Encounter/Spiritual Assessment Type of Contact [] Declined manager game visit [] Patient/Family/Request visit [] Outpatient visit [] Follow-up visit [] Physician referral [] Code/Alert [] Routine visit [] Staff referral [] Actively dying [] Patient sleeping [] Family support [] [] Out of room [] Palliative care [] [] Receiving care in room [] Pre-surgical visit [] Trauma [] Long length of stay [] ICU visit [x] Other: Isolation Relational/Emotional Strength [] Patient feels connected with others/family/visitors/staff [] Distress [] Loneliness/isolation [] Abandonment Spirituality of Patient [] Person of Anny [] Attends Holiness of their Anny [] Believes in Prayer [] Reads Bible or Latter Day materials [] There are Spiritual issues to be addressed Home Health Physical Therapist Interventions [] Prayer [] Active listening [] Non-anxious presence [] Spiritual/emotional support [] Crisis/trauma care [] Spiritual counseling [] Bereavement support [] Provided bereavement packet [] Provided Bible/devotional materials [] Provided toy/stuffed animal, coloring book to patient or family member [] Provided Communion [] Anointing/[place] [] Salvation [] Completed spiritual assessment [] Other: Impact on Illness or Injury [] Angry [] Fearful [] Anxious [] Often cries [] Exhaustion [] Unable to work [] Unable to attend latter-day [] Unable to walk/stand [] Unable to read [] Unable to drive [] Unable to eat/drink [] Unable to sleep [] Unable to be with family [] Patient intubated [] Other: Summary Isolation Time spent with patient 5 mins
--- NOTE | 2020-05-16 12:46 | PM.PN ---
Subjective Subjective: Interval history: . Cellulitis appears to be improving today. continues to be neutropenic, ANC is at 70 today. No further fevers. 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 Data : 05/16/20 03:58 05/16/20 03:58 Micro: Microbiology 05/15/20 15:10 Blood Culture - Preliminary Blood SPECIMEN COLLECTED 05/15/20 15:14 Blood Culture - Preliminary Blood SPECIMEN COLLECTED A&P Assessment and plan (1) Severe neutropenia: Status: Acute (2) Invasive ductal carcinoma of breast: Status: Acute Qualifiers: Laterality: left Qualified Code(s): C50.912 - Malignant neoplasm of unspecified site of left female breast (3) Cellulitis of breast: Status: Acute Additional A&P Information Admit to inpatient. #Fever and neutropenia. Most likely source at this time appears to be left breast cellulitis which appears to have worsened over the past week. Currently improving on empiric antimicrobial regimen of cefepime and vancomycin. Last received Neulasta on day of chemo about 1 week ago. Hold off on any additional fill gastrim at this time. This was discussed with her outpatient oncologist Dr. Nowak. Would prefer to keep both agents to cover additionally for Pseudomonas as long as she remains neutropenic. ANC is currently at 70 neutropenic precautions no other symptoms such as abd pain/nausea/vomiting/diarrhea Have improving cellulitis, anticipate discharge in the next 24 hours on an empiric regimen of Augmentin and levofloxacin. # left breast cellulitis abx coverage as above Us without signs of underlying abscess If any drainage noted, will send for cx Full code Dvt ppx: lovenox Attestations Medical Necessity Statement*: Ongoing need for IV antibiotics Coding Level of Care Code Acute Sweeping Compound Blender for Chg Fwd Diagnoses Severe neutropenia D70.9 Invasive ductal carcinoma of breast C50.912 Laterality: left Cellulitis of breast N61.0
[2020-05-16] MEDS: enoxaparin 40 mg/0.4 mL Syringe SUBCUT (17:05)
[2020-05-17] MEDS: dextrose 5%-sod chloride 0.9% 1,000 ML 75 ML IV ×2 (00:02→09:16)
[2020-05-17] MEDS: vancomycin 1,000 MG in sodium chloride 0.9% 250 ML 250 MG IV (03:00)
[2020-05-17 04:00] VITALS: BP 92/49; PULSE 52; TEMP 36.7; O2SAT 98
[2020-05-17] MEDS: cefepime 2,000 MG in sodium chloride 0.9% (plus) 50 ML 100 MG IV ×2 (05:00→11:58)
[2020-05-17 07:40] VITALS: BP 110/64; PULSE 52; RESP 18; TEMP 36.7; O2SAT 98
[2020-05-17] MEDS: citalopram 20 mg Tablet 40 MG PO (09:16)
[2020-05-17 10:49] LABS: Eosinophils # 0.2 10^3/uL (0.0-0.8); Eosinophils % 11.3 %; Hematocrit 31.6 % (37.0-47.0); Hemoglobin 10.1 g/dL (11.5-15.3); Lymphocytes % 48.3 %; Mean Corpuscular Hemoglobin 29.9 pg (28.0-34.0); Mean Corpuscular Volume 93.5 fL (81-99); Mean Platelet Volume 11.9 fL (7.4-10.4); Monocytes # 0.3 10^3/uL (0.2-0.9); Monocytes % 12.8 %; Neutrophils % 24.6 %; Nucleated Red Blood Cells % 0 %; Platelet Count 104 10^3/cmm (130-400); Red Blood Count 3.38 10^6/uL (4.1-5.3); Red Cell Distribution Width 11.4 % (12.1-15.1)
[2020-05-17 11:11] VITALS: BP 102/48; PULSE 58; RESP 18; TEMP 36.8; O2SAT 99
[2020-05-17 11:24] LABS: Slide Review Slide Review Perform
--- NOTE | 2020-05-17 12:24 | PM.DCS ---
Discharge Providers Date of Admission: 05/15/20 15:54 Date of Discharge: May 17, 2020 Attending Provider at Admission: Myrtle Bragg MD Attending Provider at Discharge: Myrtle Bragg MD Primary Care Provider: Brooke Rey APN Diagnoses at Discharge Discharge Diagnosis (1) Severe neutropenia: Status: Acute (2) Invasive ductal carcinoma of breast: Status: Acute Qualifiers: Laterality: left Qualified Code(s): C50.912 - Malignant neoplasm of unspecified site of left female breast (3) Cellulitis of breast: Status: Acute Reason for Visit Reason for Visit: low wb count/dehydrated Hospital Course Discharge Summary: Paris Bae is a 65 year old female recently dignosed to have High-grade invasive ductal carcinoma per ultrasound-guided left breast biopsy done on March 09, 2020. Started on neoadjuvant chemotherapy with dose dense Adriamycin Cytoxan every 2 weeks with Neulasta support x4 followed by Taxol on May 08, 2020. Presented in outpatient follow up to Dr. Nowak today where noted to have abnormal labs with WBc 0.9, ANC 0.05, hb 11, plt 11. no bleeding. She had also been experiencing some redness and cellulitic changes since she underwent a breast biopsy in February. Postchemotherapy she noted that this area was becoming more warm tender with occasional discharge over left medial breast. Overall picture was concerning that of cellulitis. Ultrasound was done which did not show any underlying abscess, she was treated empirically with cefepime and vancomycin during the admission and improved. Cellulitis is nearly resolved at this time. Erythema persists, however the tenderness and warmth is gone. There has been no noted discharge during the course of admission. Her white blood cell count has continued to improve. ANC is up from 50 to 500 at the day of discharge. Total count is at 2000. She is being discharged today on Levofloxacin. She will follow-up with Dr. Nowak as an outpatient in 1 week at which time Levaquin may be discontinued if cellulitis and neutropenia is resolved. She has remained afebrile since admission. Had fever of 100.4 prior to admission. 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 Discharge Data Data Completed and Pending: Completed Studies During Hospitalization Category Date Time Status XR chest 1V [id number] Stat Exams 05/15/20 14:49 Completed US breast LT limi carmen* [id number] Urgent Ultrasound 05/15/20 15:25 Completed Pending at discharge Category Date Time Status Blood Culture Sta t Lab 05/15/20 15:10 Results Vancomycin Trough Timed Lab 05/17/20 13:00 Ordered Labs from last 24 hours 05/17/20 10:21 WBC 2.0 L RBC 3.38 L Hgb 10.1 L Hct 31.6 L MCV 93.5 MCH 29.9 MCHC 32.0 RDW 11.4 L Plt Count 104 L MPV 11.9 H Neut % (Auto) 24.6 Lymph % (Auto) 48.3 [place] % (Auto) 12.8 Eos % (Auto) 11.3 Baso % (Auto) 2.0 Neut # (Auto) 0.50 L* Lymph # (Auto) 1.0 [place] # (Auto) 0.3 Eos # (Auto) 0.2 Baso # (Auto) 0.0 Nucleated RBC % (a uto) 0 Nucleated RBCs # 0.0 Vitals: Last Vital Signs Temp 98.2 F 05/17/20 11:11 Pulse 58 L 05/17/20 11:11 Resp 18 05/17/20 11:11 BP 102/48 05/17/20 11:11 Pulse Ox 99 05/17/20 11:11 Discharge Plan Discharge Patient Disposition: Home Condition: Stable Prescriptions: New levofloxacin [Levaquin] 750 mg tablet 750 mg PO DAILY 10 Days RF: 0 Continued citalopram [Celexa] 40 mg Tablet 40 mg PO DAILY RF: 0 ibuprofen 200 mg Tablet 200 mg PO PRN RF: 0 Discharge Orders: Discharge Order (Routine); Ordered 05/17/20 Ordered By: Myrtle Bragg Referrals: Petra Nowak MD [Staff Physician] - 1 week Discharge Diet: Usual diet and As Directed Discharge Activity: Resume usual activity Discharge Attestations Time Spent in Discharge Care*: less than 30 min Quality Metrics Clinical Quality Measures During this hospital stay, did patient experience: None Coding Level of Care Code Acute Manager Ethics for Chg Fwd Diagnoses Severe neutropenia D70.9 Invasive ductal carcinoma of breast C50.912 Laterality: left Cellulitis of breast N61.0
[2020-05-17 13:23] VITALS: BP 102/48; PULSE 58; RESP 18; TEMP 36.8; O2SAT 99
== END 2020-05-17 14:01 | disposition home or self-care (01) | DRG 810 ==
LOC: ER 14:16 → MEDSURG 16:27
PROVIDERS: Family Medicine; Admitting Provider Student in an Organized Health Care Education/Training Program; PCP Nurse Practitioner Family; Visit Provider Student in an Organized Health Care Education/Training Program
DX: D70.1 Agranulocytosis secondary to cancer chemotherapy (principal); E86.0 Dehydration; C50.912 Malignant neoplasm of unspecified site of left female breast; N61.0 Mastitis without abscess
CPT/HCPCS: 12345; 36415; 71045; 76642; 80048; 81003; 83605; 84145; 85025; 87040; 96372; 99283; J0692; J1650; J2543; J3370; J7050

== ENCOUNTER 2020-05-29 05:35 | Outpatient (RCR) | payer BC, SELFPAY ==
[2020-05-19 11:03] LABS: Basophils # 0.1 10^3/uL (0.0-0.1); Eosinophils # 0.2 10^3/uL (0.0-0.8); Eosinophils % 2.6 %; Hematocrit 30.8 % (37.0-47.0); Hemoglobin 9.7 g/dL (11.5-15.3); Lymphocytes # 1.6 10^3/uL (0.8-4.8); Lymphocytes % 27.8 %; Mean Corpuscular HGB Conc 31.5 g/dL (30.0-36.0); Mean Corpuscular Volume 92.2 fL (81-99); Monocytes # 0.8 10^3/uL (0.2-0.9); Monocytes % 13.1 %; Neutrophils # 2.85 10^3/uL (1.8-7.7); Neutrophils % 49.9 %; Nucleated Red Blood Cells % 0 %; Platelet Count 193 10^3/cmm (130-400); Red Blood Count 3.34 10^6/uL (4.1-5.3); Red Cell Distribution Width 11.8 % (12.1-15.1); White Blood Count 5.7 10^3/uL (4.0-10.0)
[2020-05-19 11:11] LABS: Slide Review Slide Review Perform
[2020-05-19 11:25] LABS: Alanine Aminotransferase 6 U/L (0-33); Alkaline Phosphatase 31 IU/L (35-105); Anion Gap 11.3 (5-19); Aspartate Amino Transferase 11 U/L (0-32); Blood Urea Nitrogen 15 mg/dL (8-23); Calcium 8.3 mg/dL (8.5-10.5); Carbon Dioxide 27 mmol/L (22-29); Chloride 104 mmol/L (98-107); Globulin 2.6 g/dL (1.3-4.6); Glomerular Filtration Rate 124.6 mL/min (90-130); Glucose 109 mg/dL (65-115); Osmolality Calculated 283 mOsm/kg (285-295); Potassium 4.3 mmol/L (3.5-5.1); Sodium 138 mmol/L (136-145); Total Bilirubin 0.2 mg/dL (0.15-1.2); Total Protein 6.6 g/dL (6.6-8.7)
[2020-05-22] MEDS: sodium chloride 0.9% 250 ML 999 ML IV (09:35)
[2020-05-22] MEDS: pegfilgrastim 6 mg/0.6 mL Kit (onpro) SUBCUT (11:43)
--- NOTE | 2020-05-23 21:43 | ONC FU_ITS ---
[facility] Patient Note Patient: Paris Bae Unit #: [id number]: 1955 Dictated By: Rey MensahDate of Visit: May 22, 2020 Onc MED Follow-Up/Prog Note Chief Complaint: Left breast cancer History of Present Illness: Ms. Bae is a 65-year-old female with a history of progressive left breast mass. She underwent mammogram on March 07, 2020 which showed in the region of palpable abnormality. There was a hypoechoic mass measuring 1.8 x 0.8 x 1.4 cm with some mild peripheral increased vascularity at 8 o'clock position 3 cm from the nipple. And right breast showed benign calcification., On March 09, 2020 she underwent ultrasound guided left breast mass biopsy which showed high-grade invasive ductal carcinoma with chronic inflammation surrounding the tumor. Prognostic profiling confirmed triple negative disease e.g. ER less than 1% positive, [place] less than 1% and HER-2/jasmyn negative. Because of location and locally advanced disease e.g. inner lower quadrant left breast, a follow-up CT PET scan was done on on May 02, 2020. It reported the left breast mass in the lower inner quadrant measuring 3.1x 5.8 cm demonstrate SUV of 23.20; Level 1 left axillary lymph node demonstrates a maximum SUV of 1.62 no other abnormality seen, no distant mets seen; Left lower paratracheal 1.0 x 2.2 cm lymph node demonstrating maximum SUV of 2.59 reflecting inflammatory changes only. Echocardiogram done on April 11, 2020 showed ejection fractions 65% with mild left ventricular hypertrophy Ms Bae has no history of previous breast biopsies; no family history of breast cancer. menarche started at age 13 and she is G3, with no miscarriages. No breast-feeding. Ms Bae started on neoadjuvant chemotherapy with dose dense Adriamycin/Cytoxan with Neulasta support on May 08, 2020. Despite the Neulasta, she developed severe chemotherapy induced neutropenia on day 8 with an ANC of 5. She was [place] [facility] [place] for severe neutropenia with fever of 100.6 and left breast abcess. She was treated with IV antibiotics and discharged on levofloxacinon 05/16/2020.. She is here today for followup and is due for ruby 2 adriamycin/Cytoxan. She states she is doing well. She states that the drainage has stopped in the left breast and the area that was open before has now scabbed over. She states is not nearly as red and is no longer tender. She did start the antibiotics on for 10 days. She states she feels good. Her energy waxes and wanes but for the most part is good. She states that because the antibiotic she is now having some yeast infection in her perineal area. She states it is worse in the anal area right now. She has not been on any antifungal treatment. She denies any fever or chills. She denies any mouth sores, sore throat or difficulty swallowing. She has began to have some alopecia. She states that her hair is coming out of all handfuls . She has not had complete alopecia yet. She denies any nausea or vomiting. She denies any pain. She states her bowels have been normal for her. She states her appetite is good. She denies any nausea or vomiting. She states she just felt a little washed out the first few days after treatment but thinks this was more related to the infection than anything. Her ECOG is 0. Past Medical History: Ms. Bae's medical history is unremarkable. Past Surgical History: Breast biopsy Colonoscopy Exploratory laparotomy Allergies: No Known Allergies. Medications: Citalopram Hydrobromide 1 Tablet (of 40 mg) Oral daily Family History: Ms. Bae's mother at age 69: stomach cancer. Ms. Bae's father at age 72: lung cancer. Ms. Bae has 1 brother who is : colon cancer. Social History: Ms. Bae is . Ms. Bae quit smoking 30 years ago but had smoked for 5 years. She has no history of drinking. Ms. Bae reports the following support systems: lives with spouse, significant other, family, or friends, lives in own house, supportive family/friends willing to assist with needs, and adequate transportation available for expected visits. Her diet consists of regular meals. She indicates her activity level as: regular exercise. Review Of Symptoms: Constitutional Denies fevers, chills, night sweats, excessive fatigue or weight loss. Having hair thinning/loss. Allergic/Immunologic No reactions. Eyes Denies significant visual changes. No diplopia. No amaurosis. ENMT Denies changes in hearing, sore throat, mouth sores, difficulty or changes in swallowing ability, and/or sinus drainage. Endocrine No diabetes, thyroid disease or hormone replacement. Denies hot flashes or night sweats. Hematologic/Lymphatic Denies easy bruising or bleeding. The patient denies any tender or palpable lymph nodes. Respiratory Denies dyspnea on exertion, chest pain, cough or hemoptysis. Denies orthopnea. Cardiovascular Denies anginal chest pain, palpitations or orthopnea. Gastrointestinal Denies nausea, vomiting, diarrhea, GI bleeding, or constipation. Denies change in bowel habits and/or stool color, no heartburn or early satiety. Genitourinary (F) No hematuria, hesitancy, incontinence, vaginal bleeding, discharge or other problems with urination. Musculoskeletal Denies joint pain, swelling or redness. No decreased range of motion. Integumentary Denies chronic rashes, inflammation, ulcerations or skin changes. Neurologic Denies headache, blurred vision, and no areas of focal weakness or numbness. Normal gait. No sensory problems. Psychiatric Denies insomnia, depression, jelena or mood swings. Vital Signs: Performed on May 22, 2020 08:52 Height - 63.50 in Weight - 132.0 lbs (HIGH) BSA - 1.63 sq.m BMI - 23.02 Temperature - 98.3 F (LOW) Pulse - 67 /min Respiration - 17 /min BP - 115/52 mm(hg) O2 Sat - 100 % Pain - 0,0 - Fully active, able to carry on all predisease activities without restrictions. (ECOG) Physical Examination: Constitutional Alert, oriented, no acute distress. Skin pink, warm and dry. Head Normocephalic; atraumatic. Eyes Conjunctivae and sclerae are clear and without icterus. Pupils are reactive and equal. Neck Supple without masses or thyromegaly. No jugular venous distension. Hematologic/Lymphatic No petechiae or purpura. No tender or palpable lymph nodes in the cervical or supraclavicular areas. Respiratory Lungs are clear to auscultation without rhonchi or wheezing. Cardiovascular Regular rate and rhythm of heart without murmurs,clicks, gallops or rubs. Breasts Left breast has small scabbed area at 3 o'clock position. lower part of the LEFT breast is mildly erythematous but no swelling, warmth or streaking. Right breast is unremarkable. Back/Spine Non-tender to palpation. Extremities No visible deformities, no cyanosis, clubbing or edema. Musculoskeletal No tenderness or swelling, normal range of motion without obvious weakness. Integumentary No rashes or lesions. Neurologic No sensory or motor deficits, normal cerebellar function, normal gait. Psychiatric Alert and oriented times three. Coherent speech. Verbalizes understanding of our discussions today. Laboratory:see below from 05/19/2020 Impression: High-grade invasive ductal carcinoma per ultrasound-guided left breast biopsy done on March 09, 2020 prognostic profiling showed triple negative disease, ER less than 1%, [place] less than 1% and HER-2/jasmyn negative, Ki-67 95%. Staging CT PET scan done on May 02, 2020 showed left breast mass in lower inner quadrant sized 5.8 x 3.1 cm hypermetabolic mass with SUV of 23.20 With no distant metastatic disease , Clinical stage II, (more than 5 cm) N0,M0 Echocardiogram done on April 11, 2020 showed ejection fraction 65% Started on neoadjuvant chemotherapy with dose dense Adriamycin Cytoxan every 2 weeks with Neulasta support x4 followed by Taxol on May 08, 2020. She developed severe chemotherapy induced neutropenia with a day 8 ANC of 5. This did require hospital admission and she received IV antibiotics for a left breast abscess. She was discharged on oral levofloxacin on 05/16/2020. The breast abscess did clear with the antibiotics. Her neutropenia has recovered as well. Plan: 1. Proceed with cycle 2 Adriamycin Cytoxan. She will continue the Neulasta support. 2. I have asked her to complete her current dose of levofloxacin. Will make sure it is refilled in case her ANC drops again or she develops any signs or symptoms of the left breast abscess. It is currently healed. 3. Labs from 821 were reviewed in detail and discussed with Ms. Bae and a copy was given to her. WBC 5.7, hemoglobin 9.7 platelets 193,000 ANC 2850 potassium 4.3 creatinine 0.5 LFTs were normal. 4. We will also give her prescription for Diflucan 100 mg p.o. daily for 7 days for treatment of antibiotic-induced yeast in the perineal area. 5. We will plan to follow-up with CBC in 1 week and visit with CBC CMP in 2 weeks at which time she will be due for cycle 3 Adriamycin Cytoxan. 5. Mrs. Bae instructed to contact us in interim should questions or problems arise. 6. It is noted that on her chest x-ray from admission on 05/15/2020 that there was a lateral left T6 rib fracture of uncertain age. There is no signs of bone metastasis on her PET/CT from May 02, 2020. She is not complaining of any pain. Signed By: Rey Mensah-, AOCNP Petra Nowak MD <<Signature on File>>
== END 2020-05-29 23:59 | disposition home or self-care (01) ==
LOC: ONCMED 05:35
PROVIDERS: Internal Medicine Hematology & Oncology; PCP Nurse Practitioner Family; Visit Provider Nurse Practitioner
DX: Z51.11 Encounter for antineoplastic chemotherapy (principal); C50.312 Malignant neoplasm of lower-inner quadrant of left female breast; D70.1 Agranulocytosis secondary to cancer chemotherapy; T45.1X5A Adverse effect of antineoplastic and immunosuppressive drugs, initial encounter; Z17.1 Estrogen receptor negative status [ER-]; Z79.899 Other long term (current) drug therapy; Z87.891 Personal history of nicotine dependence
CPT/HCPCS: 36591; 80053; 85025; 96367; 96372; 96411; 96413; 99214; J1100; J1200; J1453; J2469; J2505; J7040; J7050; J9000; J9070

== ENCOUNTER 2020-06-11 14:28 | Emergency (ER) | payer BC, SELFPAY ==
[2020-06-11 14:28] VITALS: BP 122/70; PULSE 77; RESP 18; O2SAT 100
[2020-06-11 14:30] VITALS: BP 108/61; PULSE 70; RESP 17; TEMP 37.1; O2SAT 98; BMI 23.0
--- NOTE | 2020-06-11 14:46 | ED_ITS ---
HPI - Weakness General: Chief complaint: General Medical Stated complaint: CHEMO FRIDAY NEEDS FLUIDS Time Seen by Provider: 06/11/20 14:38 Source: patient Mode of arrival: ambulatory Limitations: no limitations History of Present Illness: HPI Narrative: 65-year-old female who has a history of breast cancer and is currently on chemotherapy. Patient continued to receive chemotherapy last Friday and she states that she has been feeling severely weak and worn down since then. She has had nausea with no vomiting. Patient states that she is felt like this after every chemo treatment. She feels like she needs IV fluids. She denies any fever. Denies any vomiting or diarrhea. Complaint: generalized weakness Onset (ago): day(s) Associated symptoms: Reports nausea; Denies chest pain, chills, dysuria, easy bruising or fever(s) Review of Systems Const: Denies: fever(s), chills, body aches or change in appetite Eyes: Denies: blurry vision or eye discomfort ENMT: Denies: throat pain or dental pain Card: Denies: chest pain Resp: Denies: dyspnea GI: Reports: nausea : Denies: dysuria Musc: Denies: neck pain or back pain Skin/Breast: Denies: rash Neuro: Reports: weakness in extremities Psych: Denies: depression Lam/Lymph: Denies: easy bruising All/Imm: Denies: urticaria PFSH ED PFSH: Medical History Invasive ductal carcinoma of breast Port-A-Cath in place (~03/2020) Surgical History History of colonoscopy History of exploratory laparotomy Family History Denies family history of Anesthesia complication Bleeding disorder Social History Smoking and tobacco status: never smoked Physical Exam Const: COMMON NORMALS: no acute distress, patient oriented x3 and healthy appearing HENMT: COMMON NORMALS: normocephalic and atraumatic HEAD & SCALP: normocephalic and atraumatic Eye: COMMON NORMALS: Equal, round and reactive pupils present and EOMs intact bilaterally PUPIL: Yes Equal, round and reactive pupils present Neck/C-Spine: COMMON NORMALS: full ROM and supple Chest: COMMONS NORMALS: normal inspection of the chest and normal palpation of entire chest wall Resp: COMMON NORMALS: normal respiratory effort, No retractions, No use of accessory muscles and clear to auscultation bilaterally AUSCULTATION: clear to auscultation bilaterally Cardio: COMMON NORMALS: regular rate, regular rhythm and No murmurs present (Cardio) RATE: regular rate RHYTHM: regular rhythm GI: COMMON NORMALS: Normal to inspection, nondistended, normoactive bowel sounds present, Soft to palpation, non-tender and no masses PALPATION: Yes Soft to palpation Extremity: COMMON NORMALS: normal to inspection and full ROM Neuro: COMMON NORMALS: patient oriented x3, moves all extremities and no focal motor deficits Psych: COMMON NORMALS: mental status grossly normal, Normal thought process present and cooperative THOUGHT PROCESS: Normal thought process present Skin: COMMON NORMALS: no rashes or lesions noted and no wounds GENERAL SKIN EXAM: no rashes or lesions noted Course Vital Signs: Vital signs: Vital Signs Temperature 98.8 F 06/11/20 14:30 Pulse Rate 79 06/11/20 16:28 Respiratory Rate 17 06/11/20 16:28 Blood Pressure 128/75 06/11/20 16:28 Pulse Oximetry 100 06/11/20 16:28 MDM - Weakness MDM Narrative: Medical decision making narrative: Patient presents here with generalized weakness likely from her chemo. She feels improved after IV fluids. Lab work here is normal. She is to follow-up with her PCP as scheduled return if worsening. She understands and agrees to the plan. Lab Data: Labs: Lab Results 06/11/20 06/11/20 Range/Units 14:58 14:58 WBC 11.8 H (4.0-10.0) 10^3/ uL RBC 3.37 L (4.1-5.3) 10^6/u L Hgb 10.0 L (11.5-15.3) g/dL Hct 30.6 L (37.0-47.0) % MCV 90.8 (81-99) fL MCH 29.7 (28.0-34.0) pg MCHC 32.7 (30.0-36.0) g/dL RDW 13.5 (12.1-15.1) % Plt Count 139 (130-400) 10^3/c mm MPV 10.3 (7.4-10.4) fL Neut % (Auto) 93.8 % Lymph % (Auto) 5.1 % [place] % (Auto) 0.5 % Eos % (Auto) 0.3 % Baso % (Auto) 0.3 % Neut # (Auto) 9.29 H (1.8-7.7) 10^3/u L Lymph # (Auto) 0.6 L (0.8-4.8) 10^3/u L [place] # (Auto) 0.1 L (0.2-0.9) 10^3/u L Eos # (Auto) 0.0 (0.0-0.8) 10^3/u L Baso # (Auto) 0.0 (0.0-0.1) 10^3/u L Nucleated RBC % (a uto) 0 % Nucleated RBCs # 0.0 /100WBC Sodium 136 (136-145) mmol/L Potassium 4.1 (3.5-5.1) mmol/L Chloride 103 (98-107) mmol/L Carbon Dioxide 21 L (22-29) mmol/L Anion Gap 16.1 (5-19) BUN 17 (8-23) mg/dL Creatinine 0.5 (0.5-0.9) mg/dL GFR Calculation 124.6 (90-130) mL/min Glucose 114 (65-115) mg/dL Calculated Osmolal ity 279 L (285-295) mOsm/k g Calcium 8.8 (8.5-10.5) mg/dL Total Bilirubin 0.5 (0.15-1.2) mg/dL AST 12 (0-32) U/L ALT 9 (0-33) U/L Alkaline Phosphata se 59 (35-105) IU/L Total Protein 6.3 L (6.6-8.7) g/dL Albumin 3.8 (3.5-5.2) g/dL Globulin 2.5 (1.3-4.6) g/dL Discharge Plan Discharge Patient Disposition: Home Clinical Impression: Weakness, Invasive ductal carcinoma of breast Condition: Stable Prescriptions: No Action citalopram [Celexa] 40 mg Tablet 40 mg PO DAILY RF: 0 ibuprofen 200 mg Tablet 200 mg PO PRN RF: 0 Discharge Orders: Discharge Order (Routine); Ordered 06/11/20 Ordered By: Malik Hale Referrals: Candido,CORINNA Cox [Primary Care Provider] - 4-7 days Discharge Diet: Advance as tolerated Discharge Activity: Resume usual activity Coding Level of Care 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
[2020-06-11 15:04] LABS: Basophils % 0.3 %; Eosinophils % 0.3 %; Hematocrit 30.6 % (37.0-47.0); Lymphocytes # 0.6 10^3/uL (0.8-4.8); Lymphocytes % 5.1 %; Mean Corpuscular HGB Conc 32.7 g/dL (30.0-36.0); Mean Corpuscular Hemoglobin 29.7 pg (28.0-34.0); Mean Corpuscular Volume 90.8 fL (81-99); Mean Platelet Volume 10.3 fL (7.4-10.4); Monocytes # 0.1 10^3/uL (0.2-0.9); Monocytes % 0.5 %; Neutrophils # 9.29 10^3/uL (1.8-7.7); Nucleated Red Blood Cells % 0 %; Platelet Count 139 10^3/cmm (130-400); Red Blood Count 3.37 10^6/uL (4.1-5.3); Red Cell Distribution Width 13.5 % (12.1-15.1); White Blood Count 11.8 10^3/uL (4.0-10.0)
[2020-06-11] MEDS: sodium chloride 0.9% 1,000 ML 999 ML IV (15:18)
[2020-06-11 15:28] VITALS: BP 159/82; PULSE 79; RESP 18; O2SAT 99
[2020-06-11 15:29] LABS: Alanine Aminotransferase 9 U/L (0-33); Albumin Level 3.8 g/dL (3.5-5.2); Alkaline Phosphatase 59 IU/L (35-105); Anion Gap 16.1 (5-19); Aspartate Amino Transferase 12 U/L (0-32); Blood Urea Nitrogen 17 mg/dL (8-23); Calcium 8.8 mg/dL (8.5-10.5); Carbon Dioxide 21 mmol/L (22-29); Chloride 103 mmol/L (98-107); Globulin 2.5 g/dL (1.3-4.6); Glomerular Filtration Rate 124.6 mL/min (90-130); Glucose 114 mg/dL (65-115); Osmolality Calculated 279 mOsm/kg (285-295); Potassium 4.1 mmol/L (3.5-5.1); Sodium 136 mmol/L (136-145); Total Bilirubin 0.5 mg/dL (0.15-1.2); Total Protein 6.3 g/dL (6.6-8.7)
[2020-06-11 15:34] LABS: Neutrophils % 93.8 %
[2020-06-11 15:35] LABS: Slide Review Slide Review Perform
[2020-06-11 16:28] VITALS: BP 128/75; PULSE 79; RESP 17; O2SAT 100
[2020-06-11 17:26] VITALS: BP 126/74; PULSE 78; RESP 18; O2SAT 98
== END 2020-06-11 17:27 | disposition home or self-care (01) ==
PROVIDERS: Emergency Provider Emergency Medicine; PCP Nurse Practitioner Family
DX: R53.1 Weakness (principal); C50.919 Malignant neoplasm of unspecified site of unspecified female breast; Z79.899 Other long term (current) drug therapy
CPT/HCPCS: 12345; 80053; 85025; 96360; 99282; 99283; J1642; J7030

== ENCOUNTER 2020-06-26 05:40 | Outpatient (RCR) | payer BC, SELFPAY ==
[2020-06-06 10:43] LABS: Basophils % 0.5 %; Eosinophils % 0.3 %; Hematocrit 31.5 % (37.0-47.0); Hemoglobin 10.1 g/dL (11.5-15.3); Lymphocytes # 1.3 10^3/uL (0.8-4.8); Lymphocytes % 16.1 %; Mean Corpuscular HGB Conc 32.1 g/dL (30.0-36.0); Mean Corpuscular Hemoglobin 29.7 pg (28.0-34.0); Mean Corpuscular Volume 92.6 fL (81-99); Mean Platelet Volume 10.3 fL (7.4-10.4); Monocytes % 12.4 %; Neutrophils % 66.9 %; Nucleated Red Blood Cells % 0 %; Platelet Count 220 10^3/cmm (130-400); Red Cell Distribution Width 12.8 % (12.1-15.1); White Blood Count 7.9 10^3/uL (4.0-10.0)
[2020-06-06 11:02] LABS: Alanine Aminotransferase 17 U/L (0-33); Alkaline Phosphatase 36 IU/L (35-105); Anion Gap 13.8 (5-19); Aspartate Amino Transferase 17 U/L (0-32); Blood Urea Nitrogen 14 mg/dL (8-23); Calcium 8.6 mg/dL (8.5-10.5); Carbon Dioxide 26 mmol/L (22-29); Chloride 106 mmol/L (98-107); Globulin 2.6 g/dL (1.3-4.6); Glomerular Filtration Rate 124.6 mL/min (90-130); Glucose 129 mg/dL (65-115); Osmolality Calculated 292 mOsm/kg (285-295); Potassium 3.8 mmol/L (3.5-5.1); Sodium 142 mmol/L (136-145); Total Bilirubin 0.2 mg/dL (0.15-1.2); Total Protein 6.6 g/dL (6.6-8.7)
[2020-06-06] MEDS: sodium chloride 0.9% 250 ML 999 ML IV (12:43)
[2020-06-06] MEDS: pegfilgrastim 6 mg/0.6 mL Kit (onpro) SUBCUT (14:35)
--- NOTE | 2020-06-10 15:58 | ONC FU_ITS ---
Nancy Aguayo Patient Note Patient: Paris Bae Unit #: [id number]: 1955 Dictated By: Rey MensahDate of Visit: Jun 06, 2020 Onc MED Follow-Up/Prog Note Chief Complaint: Left breast cancer History of Present Illness: Ms. Bae is a 65-year-old female with a history of progressive left breast mass. She underwent mammogram on March 07, 2020 which showed in the region of palpable abnormality. There was a hypoechoic mass measuring 1.8 x 0.8 x 1.4 cm with some mild peripheral increased vascularity at 8 o'clock position 3 cm from the nipple. And right breast showed benign calcification., On March 09, 2020 she underwent ultrasound guided left breast mass biopsy which showed high-grade invasive ductal carcinoma with chronic inflammation surrounding the tumor. Prognostic profiling confirmed triple negative disease e.g. ER less than 1% positive, OH less than 1% and HER-2/jasmyn negative. Because of location and locally advanced disease e.g. inner lower quadrant left breast, a follow-up CT PET scan was done on on May 02, 2020. It reported the left breast mass in the lower inner quadrant measuring 3.1x 5.8 cm demonstrate SUV of 23.20; Level 1 left axillary lymph node demonstrates a maximum SUV of 1.62 no other abnormality seen, no distant mets seen; Left lower paratracheal 1.0 x 2.2 cm lymph node demonstrating maximum SUV of 2.59 reflecting inflammatory changes only. Echocardiogram done on April 11, 2020 showed ejection fractions 65% with mild left ventricular hypertrophy Ms Bae has no history of previous breast biopsies; no family history of breast cancer. menarche started at age 13 and she is G3, with no miscarriages. No breast-feeding. Ms Bae started on neoadjuvant chemotherapy with dose dense Adriamycin/Cytoxan with Neulasta support on May 08, 2020. Despite the Neulasta, she developed severe chemotherapy induced neutropenia on day 8 with an ANC of 5. She was admitted to [facility] [place] on 05/15/2020 for severe neutropenia and left breast abcess. She was treated with IV antibiotics and discharged on levofloxacinon 05/16/2020.. She is here today for followup and is due for ruby 3 adriamycin/Cytoxan. Overall she is done well. She has developed a rash over the last week on her anterior chest wall. It is red raised lesions that are very itchy. She states is not on her arms or legs but she did note some itching on her back. She denies any shortness of breath orthopnea. She has had no fever or chills. She states that she did have some really lightheadedness after her last treatment lasted about for 5 days just right after treatment and she had significant constipation. The lightheadedness and the constipation both are resolved currently. She states they lasted 4 to 6 days. She denies any nausea. She said no vomiting. She states her bowels are moving normal now. She is eating good. Energy is fair and she is active. She denies any mouth sores, sore throat or difficulty swallowing. She denies any neuropathy. She is had almost complete alopecia at this point. She denies any bladder symptoms. She did take antibiotics for prophylaxis due to chemo induced neutropenia and did develop some yeast infection symptoms. She did take fluconazole not resolved. She does have refills in the event that she needs to repeat that process. Other than the rash and the lightheadedness/constipation she has no new concerns today. Her ECOG is 1. Past Medical History: Ms. Bae's medical history is unremarkable. Past Surgical History: Breast biopsy Colonoscopy Exploratory laparotomy Allergies: No Known Allergies. Medications: Citalopram Hydrobromide 1 Tablet (of 40 mg) Oral daily Family History: Ms. Bae's mother at age 69: stomach cancer. Ms. Bae's father at age 72: lung cancer. Ms. Bae has 1 brother who is : colon cancer. Social History: Ms. Bae is . Ms. Bae quit smoking 30 years ago but had smoked for 5 years. She has no history of drinking. Ms. Bae reports the following support systems: lives with spouse, significant other, family, or friends, lives in own house, supportive family/friends willing to assist with needs, and adequate transportation available for expected visits. Her diet consists of regular meals. She indicates her activity level as: regular exercise. Review Of Symptoms: Constitutional Denies fevers, chills, night sweats, excessive fatigue or weight loss. Having hair thinning/loss. Allergic/Immunologic No reactions. Eyes Denies significant visual changes. No diplopia. No amaurosis. ENMT Denies changes in hearing, sore throat, mouth sores, difficulty or changes in swallowing ability, and/or sinus drainage. Endocrine No diabetes, thyroid disease or hormone replacement. Denies hot flashes or night sweats. Hematologic/Lymphatic Denies easy bruising or bleeding. The patient denies any tender or palpable lymph nodes. Respiratory Denies dyspnea on exertion, chest pain, cough or hemoptysis. Denies orthopnea. Cardiovascular Denies anginal chest pain, palpitations or orthopnea. Gastrointestinal Denies nausea, vomiting, diarrhea, GI bleeding, or constipation. Denies change in bowel habits and/or stool color, no heartburn or early satiety. Genitourinary (F) No hematuria, hesitancy, incontinence, vaginal bleeding, discharge or other problems with urination. Musculoskeletal Denies joint pain, swelling or redness. No decreased range of motion. Integumentary itchy rash on chest wall-has been there about 1 week-not improving. No pustules. Neurologic Denies headache, blurred vision, and no areas of focal weakness or numbness. Normal gait. No sensory problems. Psychiatric Denies insomnia, depression, jelena or mood swings. Vital Signs: Performed on Jun 06, 2020 11:38 Height - 63.50 in Weight - 128.8 lbs (LOW) BSA - 1.61 sq.m BMI - 22.46 Temperature - 99.4 F (HIGH) Pulse - 55 /min (LOW) Respiration - 18 /min BP - 93/49 mm(hg) O2 Sat - 99 % Pain - 0,0 - Fully active, able to carry on all predisease activities without restrictions. (ECOG) Physical Examination: Constitutional Alert, oriented, no acute distress. Skin pink, warm and dry. Head Normocephalic; atraumatic. Eyes Conjunctivae and sclerae are clear and without icterus. Pupils are reactive and equal. Neck Supple without masses or thyromegaly. No jugular venous distension. Hematologic/Lymphatic No petechiae or purpura. No tender or palpable lymph nodes in the cervical or supraclavicular areas. Respiratory Lungs are clear to auscultation without rhonchi or wheezing. Cardiovascular Regular rate and rhythm of heart without murmurs,clicks, gallops or rubs. Chest red, raised, papules without pustules noted scattered across chest wall and mild on back. Itching. Back/Spine Non-tender to palpation. Extremities No visible deformities, no cyanosis, clubbing or edema. Musculoskeletal No tenderness or swelling, normal range of motion without obvious weakness. Integumentary No rashes or lesions. Neurologic No sensory or motor deficits, normal cerebellar function, normal gait. Psychiatric Alert and oriented times three. Coherent speech. Verbalizes understanding of our discussions today. Laboratory:Test performed on Jun 06, 2020 10:08 Sodium 142 mmol/L Potassium 3.8 mmol/L Chloride 106 mmol/L CO2 26 mmol/L Anion Gap 13.8 BUN 14 mg/dL Creatinine 0.5 mg/dL Cr Clearance (Est) 109.0200 mL/min eGFR 124.6 mL/min Glucose 129 mg/dL Calcium 8.6 mg/dL Protein, Total 6.6 g/dL Albumin 4.0 g/dL Globulin 2.6 g/dL Bilirubin, Total 0.2 mg/dL ALT (SGPT) 17 U/L AST (SGOT) 17 U/L Alkaline Phosphatase 36 IU/L WBC 7.9 10 3/uL RBC 3.40 10 6/uL HGB 10.1 g/dL HCT 31.5 % MCV 92.6 fL MCH 29.7 pg MCHC 32.1 g/dL RDW 12.8 % Platelet Count 220 10 3/cmm MPV 10.3 fL Neutrophils 5.30 10 3/uL Lymphocytes 1.3 10 3/uL Monocytes 1.0 10 3/uL Eosinophils 0.0 10 3/uL Basophils 0.0 10 3/uL Neutrophil % 66.9 % Lymphocyte % 16.1 % Monocyte % 12.4 % Eosinophil % 0.3 % Basophils % 0.5 % NRBC % 0 % Impression: High-grade invasive ductal carcinoma per ultrasound-guided left breast biopsy done on March 09, 2020 prognostic profiling showed triple negative disease, ER less than 1%, OH less than 1% and HER-2/jasmyn negative, Ki-67 95%. Staging CT PET scan done on May 02, 2020 showed left breast mass in lower inner quadrant sized 5.8 x 3.1 cm hypermetabolic mass with SUV of 23.20 With no distant metastatic disease , Clinical stage II, (more than 5 cm) N0,M0 Echocardiogram done on April 11, 2020 showed ejection fraction 65% Started on neoadjuvant chemotherapy with dose dense Adriamycin Cytoxan every 2 weeks with Neulasta support x 4 followed by Taxol on May 08, 2020. She developed severe chemotherapy induced neutropenia with a day 8 ANC of 5. This did require hospital admission and she received IV antibiotics for a left breast abscess. She was discharged on oral levofloxacin on 05/16/2020. The breast abscess did clear with the antibiotics. Her neutropenia has recovered as well. Plan: 1. Proceed with cycle 3 Adriamycin Cytoxan. She will continue the Neulasta support. 2. Solu-Medrol Dosepak as directed on the pack for treatment of her rash. It is uncertain if this is due to the Levaquin, the Neulasta, the Diflucan, the chemotherapy, etc. 3. Labs from today were reviewed in detail and discussed with Ms. Bae and a copy was given to her. WBC 7.9, hemoglobin 10.1, platelets 220,000, ANC is 5300. Random glucose 129 creatinine 0.5 LFTs are normal. 4. We will refill her prescription for Diflucan 100 mg p.o. daily for 7 days for treatment of antibiotic-induced yeast in the perineal area. 5. We will plan to follow-up with CBC in 1 week and visit with CBC CMP in 2 weeks at which time she will be due for cycle 4 Adriamycin Cytoxan. 5. Mrs. Bae instructed to contact us in interim should questions or problems arise. 6. It is noted that on her chest x-ray from admission on 05/15/2020 that there was a lateral left T6 rib fracture of uncertain age. There is no signs of bone metastasis on her PET/CT from May 02, 2020. She is not complaining of any pain. Signed By: AMANDEEP Mensah, STANISLAV Nowka MD <<Signature on File>>
[2020-06-19 09:34] LABS: Basophils # 0.1 10^3/uL (0.0-0.1); Eosinophils % 0.1 %; Hematocrit 27.5 % (37.0-47.0); Hemoglobin 8.8 g/dL (11.5-15.3); Lymphocytes % 11.6 %; Mean Corpuscular Hemoglobin 29.8 pg (28.0-34.0); Mean Corpuscular Volume 93.2 fL (81-99); Mean Platelet Volume 10.5 fL (7.4-10.4); Monocytes % 11.6 %; Neutrophils # 5.82 10^3/uL (1.8-7.7); Neutrophils % 69.4 %; Nucleated Red Blood Cells % 0 %; Platelet Count 195 10^3/cmm (130-400); Red Blood Count 2.95 10^6/uL (4.1-5.3); Red Cell Distribution Width 14.3 % (12.1-15.1); White Blood Count 8.4 10^3/uL (4.0-10.0)
[2020-06-19 09:59] LABS: Alanine Aminotransferase 7 U/L (0-33); Albumin Level 3.9 g/dL (3.5-5.2); Alkaline Phosphatase 34 IU/L (35-105); Anion Gap 13.6 (5-19); Aspartate Amino Transferase 12 U/L (0-32); Blood Urea Nitrogen 9 mg/dL (8-23); Calcium 8.4 mg/dL (8.5-10.5); Carbon Dioxide 26 mmol/L (22-29); Chloride 108 mmol/L (98-107); Globulin 2.5 g/dL (1.3-4.6); Glomerular Filtration Rate 124.6 mL/min (90-130); Glucose 109 mg/dL (65-115); Osmolality Calculated 297 mOsm/kg (285-295); Potassium 3.6 mmol/L (3.5-5.1); Sodium 144 mmol/L (136-145); Total Bilirubin 0.2 mg/dL (0.15-1.2); Total Protein 6.4 g/dL (6.6-8.7)
[2020-06-19 10:30] LABS: Slide Review Slide Review Perform
[2020-06-19] MEDS: sodium chloride 0.9% 500 ML IV (11:10)
--- NOTE | 2020-06-19 11:11 | ONC FU_ITS ---
Dr. Nowak follow up note Patient: Paris Bae Unit #: [id number]: 1955 Dicatated By: Petra Nowak M.D.Date of Visit:Jun 19, 2020 Onc Med Follow-up/Prog Note History of Present Illness: Ms. Bae is a 65-year-old female with a history of progressive left breast mass. She underwent mammogram on March 07, 2020 which showed in the region of palpable abnormality. There was a hypoechoic mass measuring 1.8 x 0.8 x 1.4 cm with some mild peripheral increased vascularity at 8 o'clock position 3 cm from the nipple. And right breast showed benign calcification., On March 09, 2020 she underwent ultrasound guided left breast mass biopsy which showed high-grade invasive ductal carcinoma with chronic inflammation surrounding the tumor. Prognostic profiling confirmed triple negative disease e.g. ER less than 1% positive, FL less than 1% and HER-2/jasmyn negative. Because of location and locally advanced disease e.g. inner lower quadrant left breast, a follow-up CT PET scan was done on on May 02, 2020. It reported the left breast mass in the lower inner quadrant measuring 3.1x 5.8 cm demonstrate SUV of 23.20; Level 1 left axillary lymph node demonstrates a maximum SUV of 1.62 no other abnormality seen, no distant mets seen; Left lower paratracheal 1.0 x 2.2 cm lymph node demonstrating maximum SUV of 2.59 reflecting inflammatory changes only. Echocardiogram done on April 11, 2020 showed ejection fractions 65% with mild left ventricular hypertrophy Ms Bae has no history of previous breast biopsies; no family history of breast cancer. menarche started at age 13 and she is G3, with no miscarriages. No breast-feeding. Ms Bae started on neoadjuvant chemotherapy with dose dense Adriamycin/Cytoxan with Neulasta support on May 08, 2020. Despite the Neulasta, she developed severe chemotherapy induced neutropenia on day 8 with an ANC of 5. She was admitted to [facility] [place] on 05/15/2020 for severe neutropenia and left breast abcess. She was treated with IV antibiotics and discharged on levofloxacinon 05/16/2020.. Came for follow-up, complaining of diarrhea but now improving, also complaining of right shoulder pain but no swelling and earlier movement in her right shoulder were restricted but now improving as well as right shoulder pain. Also complaining of generalized weakness and fatigue, patient said she went to hospital recently and got IV fluid that did help. Also had episode of fresh blood in her rectum, which resolved on its own.No fever chills, no nausea or vomiting . Medications: Citalopram Hydrobromide 1 Tablet (of 40 mg) Oral daily Allergies: No Known Allergies. Review of Systems: Constitutional - Appetite is good and weight is stable. Positive for fever. No night sweats, or hot flashes. Energy level is good, ENMT - No sinus congestion/drainage. No mouth sores. No sore throat or difficulty swallowing, Hematologic/Lymphatic - No abnormal bruising or bleeding, Respiratory - No shortness of breath. No cough. No pleuritic pain or hemoptysis, Cardiovascular - No angina pain. No palpitations, Gastrointestinal - No nausea or vomiting. No heartburn or acid reflux. Positive for diarrhea and constipation. No blood in the stool or black stools, Genitourinary (F) - No dysuria or hematuria. No urinary frequency. No urgency or incontinence, Musculoskeletal - No joint or bone pain, Neurologic - No headache or dizziness. No numbness or tingling. No other focal neurologic symptoms, Psychiatric - No anxiety or depression. No insomnia. Vital Signs: Performed on Jun 19, 2020 10:34 Height - 63.50 in Weight - 129.2 lbs (HIGH) BSA - 1.62 sq.m BMI - 22.53 Temperature - 99.7 F (HIGH) Pulse - 69 /min Respiration - 22 /min BP - 105/47 mm(hg) O2 Sat - 100 % Pain - 3 Performance Status: 1 - No physically strenuous activity, but ambulatory and able to carry out light or sedentary work (e.g. office work, light house work). (ECOG) Physical Examination: Respiratory - Lungs are clear, Cardiovascular - Regular rate and rhythm of heart, Gastrointestinal - Soft, bowel sounds present, Extremities - Trace edema. Lab/Imaging: Test performed on Jun 06, 2020 10:08 Sodium 142 mmol/L Potassium 3.8 mmol/L Chloride 106 mmol/L CO2 26 mmol/L Anion Gap 13.8 BUN 14 mg/dL Creatinine 0.5 mg/dL Cr Clearance (Est) 109.0200 mL/min eGFR 124.6 mL/min Glucose 129 mg/dL Calcium 8.6 mg/dL Protein, Total 6.6 g/dL Albumin 4.0 g/dL Globulin 2.6 g/dL Bilirubin, Total 0.2 mg/dL ALT (SGPT) 17 U/L AST (SGOT) 17 U/L Alkaline Phosphatase 36 IU/L Impression: High-grade invasive ductal carcinoma per ultrasound-guided left breast biopsy done on March 09, 2020 prognostic profiling showed triple negative disease, ER less than 1%, FL less than 1% and HER-2/jasmyn negative, Ki-67 95%. Staging CT PET scan done on May 02, 2020 showed left breast mass in lower inner quadrant sized 5.8 x 3.1 cm hypermetabolic mass with SUV of 23.20 With no distant metastatic disease , Clinical stage II, (more than 5 cm) N0,M0 Echocardiogram done on April 11, 2020 showed ejection fraction 65% Started on neoadjuvant chemotherapy with dose dense Adriamycin Cytoxan every 2 weeks with Neulasta support x 4 followed by Taxol on May 08, 2020. She developed severe chemotherapy induced neutropenia with a day 8 ANC of 5. This did require hospital admission and she received IV antibiotics for a left breast abscess. She was discharged on oral levofloxacin on 05/16/2020. The breast abscess did clear with the antibiotics. Her neutropenia has recovered as well. Plan: Discussed with patient regarding her labs white blood count 8.4 hemoglobin 8.8 hematocrit 27.5 platelets 195,000 CMP within normal limits Clinically, patient is doing reasonably well now with generalized weakness and fatigue which could be multifactorial including due to chemotherapy as well as mild dehydration due to diarrhea and diarrhea could be due to Pepto which she was taking for constipation. Patient was advised to stop taking Pepto and we will hold her chemotherapy for 1 week and give her normal saline 500 cc today and monitor her hemoglobin as well as electrolytes, then she will return to clinic in 1 week with CBC CMP and magnesiumAs far as right shoulder pain is concerned, there is no swelling or focal tenderness, could be musculoskeletal in origin, patient was advised to use heating pad and [id number] NSAID if needed. If no improvement will consider radiological evaluation Signed By: Petra Nowak M.D. <<Signature on File>>
[2020-06-26 08:30] LABS: Basophils # 0.1 10^3/uL (0.0-0.1); Basophils % 0.4 %; Eosinophils % 0.2 %; Hemoglobin 9.7 g/dL (11.5-15.3); Lymphocytes # 0.6 10^3/uL (0.8-4.8); Lymphocytes % 4.4 %; Mean Corpuscular HGB Conc 32.3 g/dL (30.0-36.0); Mean Corpuscular Hemoglobin 29.5 pg (28.0-34.0); Mean Corpuscular Volume 91.2 fL (81-99); Mean Platelet Volume 9.6 fL (7.4-10.4); Monocytes # 1.6 10^3/uL (0.2-0.9); Monocytes % 11.1 %; Neutrophils # 12.07 10^3/uL (1.8-7.7); Neutrophils % 83.3 %; Nucleated Red Blood Cells % 0 %; Platelet Count 378 10^3/cmm (130-400); Red Blood Count 3.29 10^6/uL (4.1-5.3); Red Cell Distribution Width 14.5 % (12.1-15.1); White Blood Count 14.5 10^3/uL (4.0-10.0)
[2020-06-26 08:56] LABS: Alanine Aminotransferase 13 U/L (0-33); Albumin Level 3.9 g/dL (3.5-5.2); Alkaline Phosphatase 31 IU/L (35-105); Anion Gap 13.8 (5-19); Aspartate Amino Transferase 21 U/L (0-32); Blood Urea Nitrogen 17 mg/dL (8-23); Calcium 9.1 mg/dL (8.5-10.5); Carbon Dioxide 24 mmol/L (22-29); Chloride 104 mmol/L (98-107); Glomerular Filtration Rate 124.6 mL/min (90-130); Glucose 133 mg/dL (65-115); Magnesium 1.9 mg/dL (1.7-2.3); Osmolality Calculated 289 mOsm/kg (285-295); Potassium 3.8 mmol/L (3.5-5.1); Sodium 138 mmol/L (136-145); Total Bilirubin 0.3 mg/dL (0.15-1.2); Total Protein 6.9 g/dL (6.6-8.7)
[2020-06-26 11:26] LABS: SARS Covid-2 Antigen Negative (Negative)
--- NOTE | 2020-07-02 20:25 | ONC FU_ITS ---
[facility] Patient Note Patient: Paris Bae Unit #: [id number]: 1955 Dictated By: Petra Nowak M.D.Date of Visit: Jun 26, 2020 Onc MED Follow-Up/Prog Note Chief Complaint: Left breast cancer History of Present Illness: Ms. Bae is a 65-year-old female with a history of progressive left breast mass. She underwent mammogram on March 07, 2020 which showed in the region of palpable abnormality. There was a hypoechoic mass measuring 1.8 x 0.8 x 1.4 cm with some mild peripheral increased vascularity at 8 o'clock position 3 cm from the nipple. And right breast showed benign calcification., On March 09, 2020 she underwent ultrasound guided left breast mass biopsy which showed high-grade invasive ductal carcinoma with chronic inflammation surrounding the tumor. Prognostic profiling confirmed triple negative disease e.g. ER less than 1% positive, WV less than 1% and HER-2/jasmyn negative. Because of location and locally advanced disease e.g. inner lower quadrant left breast, a follow-up CT PET scan was done on on May 02, 2020. It reported the left breast mass in the lower inner quadrant measuring 3.1x 5.8 cm demonstrate SUV of 23.20; Level 1 left axillary lymph node demonstrates a maximum SUV of 1.62 no other abnormality seen, no distant mets seen; Left lower paratracheal 1.0 x 2.2 cm lymph node demonstrating maximum SUV of 2.59 reflecting inflammatory changes only. Echocardiogram done on April 11, 2020 showed ejection fractions 65% with mild left ventricular hypertrophy Ms Bae has no history of previous breast biopsies; no family history of breast cancer. menarche started at age 13 and she is G3, with no miscarriages. No breast-feeding. Ms Bae started on neoadjuvant chemotherapy with dose dense Adriamycin/Cytoxan with Neulasta support on May 08, 2020. Despite the Neulasta, she developed severe chemotherapy induced neutropenia on day 8 with an ANC of 50. She was admitted to [facility] [place] on 05/15/2020 for severe neutropenia and left breast abcess. She was treated with IV antibiotics and discharged on levofloxacinon 05/16/2020. Ms. Bae is here today for follow-up. She is due for Adriamycin Cytoxan. Her last treatment was on June 06, 2020. She continues with growth factor support with Neulasta. Her treatment was held last week due to generalized weakness fatigue and mild dehydration due to diarrhea. She had been taking Pepto-Bismol per Dr. Nowak's note. She is here today for consideration of treatment. She continues to have persistent diarrhea and states she really has no improvement in her overall generalized weakness and fatigue. She states it is no worse but certainly no better. She denies any fever or chills. She has had no signs or symptoms of infection for at least the last 72 hours. She states her wpvfoh-ci-get tested positive but was asymptomatic. The earepx-hw-dzp did come to Ms. Bae house about 7-8 days ago but Ms. Bae was not in direct contact with her and stayed in the bedroom during the dqelqn-[id number]'s visit. She states that she has had a low-grade fever although she has not checked it over the last couple of days. She denies any cough. She has had no hemoptysis. She denies any new shortness of breath. She denies headaches or vision changes. She continues to have fatigue but no worse than prior to being around the [id number]. She states she just felt achy. Her temperature here in the clinic today is 100.3 thus warranting a COVID-19 swab. She denies any cough or shortness of breath. She states her breathing has not been a problem. She denies any wheezing. She denies nausea or vomiting. She just had the persistent diarrhea. It sounds as if she has tried Lomotil but not consistently. She denies any bladder concerns. She denies any new pain other than the shoulder pain she has been having over the last couple of weeks. Was initially felt to be from Neulasta however her last Neulasta injection was on June 07, 2020. She has not had any pain medication for the shoulder but it is keeping her up at night and keeping her from doing her ADLs. Her ECOG currently is 2. . Past Medical History: Ms. Ashleys medical history is unremarkable. Past Surgical History: Breast biopsy Colonoscopy Exploratory laparotomy Allergies: No Known Allergies. Medications: Citalopram Hydrobromide 1 Tablet (of 40 mg) Oral daily traMADol HCl 1 Tablet (of 50 mg) Oral q 4 hours PRN Family History: Ms. Bae's mother at age 69: stomach cancer. Ms. Bae's father at age 72: lung cancer. Ms. Bae has 1 brother who is : colon cancer. Social History: Ms. Bae is . Ms. Bae quit smoking 30 years ago but had smoked for 5 years. She has no history of drinking. Ms. Bae reports the following support systems: lives with spouse, significant other, family, or friends, lives in own house, supportive family/friends willing to assist with needs, and adequate transportation available for expected visits. Her diet consists of regular meals. She indicates her activity level as: regular exercise. Review Of Symptoms: Constitutional Denies fevers, chills, night sweats, excessive fatigue or weight loss. Low grade fever for several days. Allergic/Immunologic No reactions. Eyes Denies significant visual changes. No diplopia. No amaurosis. ENMT Denies changes in hearing, sore throat, mouth sores, difficulty or changes in swallowing ability, and/or sinus drainage. Endocrine No diabetes, thyroid disease or hormone replacement. Denies hot flashes or night sweats. Hematologic/Lymphatic Denies easy bruising or bleeding. The patient denies any tender or palpable lymph nodes. Respiratory Denies dyspnea on exertion, chest pain, cough or hemoptysis. Denies orthopnea. Cardiovascular Denies anginal chest pain, palpitations or orthopnea. Gastrointestinal Denies nausea, vomiting, GI bleeding, or constipation. Denies change in bowel habits and/or stool color, no heartburn or early satiety. persistent diarrhea Genitourinary (F) No hematuria, hesitancy, incontinence, vaginal bleeding, discharge or other problems with urination. Musculoskeletal Denies joint pain, swelling or redness. No decreased range of motion. Generalized bone pain-shoulder, arms, legs, knees and back Integumentary rash resolved Neurologic Denies headache, blurred vision, and no areas of focal weakness or numbness. Limping today due to knee pain. No sensory problems. Psychiatric Denies insomnia, depression, jelena or mood swings. Vital Signs: Performed on Jun 26, 2020 09:40 Height - 63.50 in Weight - 125.6 lbs (LOW) BSA - 1.60 sq.m BMI - 21.90 Temperature - 100.3 F (HIGH) Pulse - 95 /min Respiration - 20 /min BP - 101/60 mm(hg) O2 Sat - 98 % Pain - 9,1 - No physically strenuous activity, but ambulatory and able to carry out light or sedentary work (e.g. office work, light house work). (ECOG) Physical Examination: Constitutional Alert, oriented, no acute distress. Skin pink, warm and dry. Head Normocephalic; atraumatic. Eyes Conjunctivae and sclerae are clear and without icterus. Pupils are reactive and equal. Neck Supple without masses or thyromegaly. No jugular venous distension. Hematologic/Lymphatic No petechiae or purpura. No tender or palpable lymph nodes in the cervical or supraclavicular areas. Respiratory Lungs are clear to auscultation without rhonchi or wheezing. Cardiovascular Regular rate and rhythm of heart without murmurs,clicks, gallops or rubs. Back/Spine Non-tender to palpation. Extremities No visible deformities, no cyanosis, clubbing or edema. Musculoskeletal No tenderness or swelling, normal range of motion without obvious weakness. Integumentary No rashes or lesions. Neurologic No sensory or motor deficits, normal cerebellar function, normal gait. Psychiatric Alert and oriented times three. Coherent speech. Verbalizes understanding of our discussions today. Laboratory:Test performed on Jun 26, 2020 10:25 SARS CoV-2 Ag Negative The results are negative with the test specificity 100%, sensitivity 97%, and positive predictive value 100%. If the patient shows clinical signs and symptoms of SARS-CoV-2, kindly defer to a NAAT detection method. Test performed on Jun 26, 2020 10:00 C. Difficile, PCR C. difficile toxin B gene DNA detected CCRB Y CCRBTECH GOOAM CCRBTO LEDAS2 CCRDATE1 20200626 CCRTIME1 1225 CDIFFMAX P Test performed on Jun 26, 2020 08:13 Magnesium 1.9 mg/dL Sodium 138 mmol/L Potassium 3.8 mmol/L Chloride 104 mmol/L CO2 24 mmol/L Anion Gap 13.8 BUN 17 mg/dL Creatinine 0.5 mg/dL Cr Clearance (Est) 109.0200 mL/min eGFR 124.6 mL/min Glucose 133 mg/dL Osmolality - Calculated 289 mOsm/kg Calcium 9.1 mg/dL Protein, Total 6.9 g/dL Albumin 3.9 g/dL Globulin 3.0 g/dL Bilirubin, Total 0.3 mg/dL ALT (SGPT) 13 U/L AST (SGOT) 21 U/L Alkaline Phosphatase 31 IU/L WBC 14.5 10 3/uL RBC 3.29 10 6/uL HGB 9.7 g/dL HCT 30.0 % MCV 91.2 fL MCH 29.5 pg MCHC 32.3 g/dL RDW 14.5 % Platelet Count 378 10 3/cmm MPV 9.6 fL Neutrophils 12.07 10 3/uL Lymphocytes 0.6 10 3/uL Monocytes 1.6 10 3/uL Eosinophils 0.0 10 3/uL Basophils 0.1 10 3/uL Neutrophil % 83.3 % Lymphocyte % 4.4 % Monocyte % 11.1 % Eosinophil % 0.2 % Basophils % 0.4 % NRBC % 0 % Impression: High-grade invasive ductal carcinoma per ultrasound-guided left breast biopsy done on March 09, 2020 prognostic profiling showed triple negative disease, ER less than 1%, WV less than 1% and HER-2/jasmyn negative, Ki-67 95%. Staging CT PET scan done on May 02, 2020 showed left breast mass in lower inner quadrant sized 5.8 x 3.1 cm hypermetabolic mass with SUV of 23.20 With no distant metastatic disease , Clinical stage II, (more than 5 cm) N0,M0 Echocardiogram done on April 11, 2020 showed ejection fraction 65% Started on neoadjuvant chemotherapy with dose dense Adriamycin Cytoxan every 2 weeks with Neulasta support x 4 followed by Taxol on May 08, 2020. She developed severe chemotherapy induced neutropenia with a day 8 ANC of 5. This did require hospital admission and she received IV antibiotics for a left breast abscess. She was discharged on oral levofloxacin on 05/16/2020. The breast abscess did clear with the antibiotics. Her neutropenia has recovered as well. Her last chemotherapy was on 06/06/2020. Plan: 1. Delay planned treatment today due to persistent diarrhea, generalized bone pain and low grade fever. 2. COVID-19 rapid screening today: REPORTED NEGATIVE 3. Cipro 500 mg po BID x 7 days for persistent diarrhea and low grade fever. 4. Stool sample today for C-diff testing due to persistent diarrhea. This was reported as POSITIVE: Flagyl 500 mg 1 3 times daily for 10 days was added to the Cipro prescription. 5. Hydrocodone 5/325 mg 11 or 2 every 4-6 hours prn pain. 6. Lomotil prn diarrhea. 7. Today's labs were reviewed in detail and discussed with Ms Bae and a copy was given to her. WBC 14.6, hemoglobin 9.7, platelets 378,000 ANC is 12,000 potassium 3.8 random glucose 133 creatinine 0.5 BUN is 17 LFTs are normal magnesium 1.9. Her weight is down 3-1/2 pounds from last visit. Blood pressure stable 101/60. 8. We will plan to see her back in 1 week with CBC CMP and follow-up of her generalized fatigue, low-grade fever and now C. difficile diagnosis. 9. Ms. Bae instructed to call us in the interim should questions or problems arise. Signed By: AMARA Mensah, AOISABEL Nowak M.D. <<Signature on File>>
== END 2020-06-28 23:59 | disposition home or self-care (01) ==
LOC: ONCMED 05:40
PROVIDERS: Nurse Practitioner; PCP Nurse Practitioner Family; Visit Provider Internal Medicine Hematology & Oncology
DX: Z51.12 Encounter for antineoplastic immunotherapy (principal); Z51.11 Encounter for antineoplastic chemotherapy; C50.512 Malignant neoplasm of lower-outer quadrant of left female breast; Z17.1 Estrogen receptor negative status [ER-]; D70.1 Agranulocytosis secondary to cancer chemotherapy; T45.1X5A Adverse effect of antineoplastic and immunosuppressive drugs, initial encounter; A04.72 Enterocolitis due to Clostridium difficile, not specified as recurrent
CPT/HCPCS: 36591; 80053; 83735; 85025; 87426; 87493; 96360; 96361; 96367; 96372; 96413; 96417; 99214; J1100; J1200; J1453; J2405; J2505; J7040; J7050; J9000; J9070

== ENCOUNTER 2020-07-08 11:32 | Emergency (ER) | payer BC, SELFPAY ==
[2020-07-08 11:57] VITALS: BP 96/62; PULSE 91; RESP 14; TEMP 36.7; O2SAT 100; BMI 22.1
[2020-07-08 12:42] LABS: Basophils % 1.2 %; Eosinophils # 0.1 10^3/uL (0.0-0.8); Eosinophils % 1.5 %; Hematocrit 31.8 % (37.0-47.0); Hemoglobin 10.3 g/dL (11.5-15.3); Lymphocytes # 0.5 10^3/uL (0.8-4.8); Lymphocytes % 13.8 %; Mean Corpuscular HGB Conc 32.4 g/dL (30.0-36.0); Mean Corpuscular Hemoglobin 29.2 pg (28.0-34.0); Mean Corpuscular Volume 90.1 fL (81-99); Mean Platelet Volume 10.5 fL (7.4-10.4); Monocytes % 0.3 %; Neutrophils # 2.76 10^3/uL (1.8-7.7); Neutrophils % 82.9 %; Nucleated Red Blood Cells % 0 %; Platelet Count 230 10^3/cmm (130-400); Red Blood Count 3.53 10^6/uL (4.1-5.3); Red Cell Distribution Width 15.6 % (12.1-15.1); White Blood Count 3.3 10^3/uL (4.0-10.0)
[2020-07-08 12:55] LABS: Alanine Aminotransferase 8 U/L (0-33); Albumin Level 3.9 g/dL (3.5-5.2); Alkaline Phosphatase 24 IU/L (35-105); Anion Gap 14.5 (5-19); Aspartate Amino Transferase 12 U/L (0-32); Blood Urea Nitrogen 11 mg/dL (8-23); Calcium 9.4 mg/dL (8.5-10.5); Carbon Dioxide 22 mmol/L (22-29); Chloride 102 mmol/L (98-107); Creatine Phosphokinase 13 U/L (26-192); Globulin 2.6 g/dL (1.3-4.6); Glomerular Filtration Rate 161.2 mL/min (90-130); Glucose 122 mg/dL (65-115); Lactic Sepsis W/Reflex 0.8 mmol/L (0.5-2.2); Lipase 24 U/L (13-60); Magnesium 1.9 mg/dL (1.7-2.3); Osmolality Calculated 281 mOsm/kg (285-295); Potassium 3.5 mmol/L (3.5-5.1); Sodium 135 mmol/L (136-145); Total Bilirubin 0.5 mg/dL (0.15-1.2); Total Protein 6.5 g/dL (6.6-8.7)
[2020-07-08] MEDS: ondansetron 2 mg/ML SDV 2 mL 4 MG IVP (12:56)
[2020-07-08] MEDS: sodium chloride 0.9% 1,000 ML 999 ML IV ×2 (12:56→15:34)
[2020-07-08 12:57] LABS: Slide Review Slide Review Perform
[2020-07-08 13:15] VITALS: BP 100/56; PULSE 88; RESP 18; O2SAT 97
[2020-07-08 14:15] VITALS: BP 103/60; PULSE 88; RESP 18; O2SAT 98
--- NOTE | 2020-07-08 14:20 | W.ED.NAVMDI ---
HPI - Nausea/Vomiting/Diarrhea General: Chief complaint: Nausea/Vomiting/Diarrhea Stated complaint: sent her after chemo for fluids Time Seen by Provider: 07/08/20 12:06 History of Present Illness: HPI Narrative: This patient is a 65-year-old female who presents today with nausea vomiting and diarrhea. She is being treated for cancer and had chemotherapy on Friday. She said this is happened one other time with the same treatment and she had to come in later in the week for fluids. She does not feel like there is nothing different about this episode. She has some medicine for nausea at home and says it does help somewhat. She has not really been able to keep anything down and what she does keep down she says she loses in the diarrhea. She denies abdominal pain. She feels like she has had some low-grade fevers which is also typical after her chemotherapy. Her oncologist is Dr. Nowak. elicited complaint: nausea, vomiting and diarrhea Pertinent past history: other (Chemotherapy) Onset (ago): day(s) (5) Description of vomiting: watery Description of diarrhea: watery Associated nausea: Yes Associated abdominal pain: No Associated symtoms: Reports fatigue, malaise and nausea; Denies change in vision, chest pain or headache(s) Review of Systems General: Reports: 10 or more systems reviewed and unremarkable except in HPI and below Const: Reports: fever(s), fatigue and malaise; Denies: chills Eyes: Denies: change in vision ENMT: Denies: odynophagia Card: Denies: chest pain or swelling of feet/ankles Resp: Reports: dyspnea; Denies: productive cough or non-productive cough GI: Reports: nausea : Denies: flank pain or difficulty voiding Musc: Denies: neck pain or back pain Skin/Breast: Denies: rash Neuro: Denies: headache(s), numbness in extremities or weakness in extremities Lam/Lymph: Denies: easy bruising or easy bleeding PFSH ED PFSH: Medical History Invasive ductal carcinoma of breast Port-A-Cath in place (~03/2020) Surgical History History of colonoscopy History of exploratory laparotomy Family History Denies family history of Anesthesia complication Bleeding disorder Social History Smoking and tobacco status: never smoked Physical Exam Const: COMMON NORMALS: no acute distress, patient oriented x3, no limitations and alert GENERAL APPEARANCE: cooperative and comfortable HENMT: HEAD & SCALP: normal to inspection FACE & SINUS: normal facial exam Eye: GENERAL EYE: appearance normal, both eyes and all related structures Neck/C-Spine: COMMON NORMALS: supple, no meningeal signs and no JVD Chest: COMMONS NORMALS: normal inspection of the chest Resp: COMMON NORMALS: normal respiratory effort, No use of accessory muscles and clear to auscultation bilaterally AUSCULTATION: clear to auscultation bilaterally Cardio: COMMON NORMALS: no JVD, regular rate, regular rhythm and No murmurs present (Cardio) RATE: regular rate RHYTHM: regular rhythm GI: COMMON NORMALS: Normal to inspection, nondistended, normoactive bowel sounds present, Soft to palpation and non-tender INSPECTION: Yes normal to inspection AUSCULTATION: Yes normoactive bowel sounds PALPATION: Yes Soft to palpation Back/Pelvis: COMMON NORMALS: thoracic and lumbar spine normal to inspection Extremity: COMMON NORMALS: normal to inspection Neuro: COMMON NORMALS: patient oriented x3, moves all extremities, no focal motor deficits and no sensory deficits noted SENSORIUM/ORIENTATION: Yes alert MENINGEAL SIGNS: Yes no meningeal signs Psych: COMMON NORMALS: mental status grossly normal, cooperative and normal affect Skin: COMMON NORMALS: no rashes or lesions noted and turgor normal GENERAL SKIN EXAM: no rashes or lesions noted and turgor normal Course ED course: This patient felt much better after some fluids. She had some mild evidence of a UTI and given her immunocompromise status I did elect to go ahead and treat this. She got a dose of Rocephin in the ER and a prescription for cephalexin. I encouraged her to follow-up with her oncologist to let them know about her reactions in case that impacts further treatments. Vital Signs: Vital signs: Vital Signs Temperature 98.0 F 07/08/20 11:57 Pulse Rate 88 07/08/20 16:11 Respiratory Rate 18 07/08/20 16:11 Blood Pressure 97/67 07/08/20 16:11 Pulse Oximetry 99 07/08/20 16:11 MDM - Nausea/Vomiting/Diarrhea Lab Data: Labs: Lab Results 07/08/20 07/08/20 07/08/20 Range/Units 12:25 12:25 12:25 WBC 3.3 L (4.0-10.0) 10^3/ uL RBC 3.53 L (4.1-5.3) 10^6/u L Hgb 10.3 L (11.5-15.3) g/dL Hct 31.8 L (37.0-47.0) % MCV 90.1 (81-99) fL MCH 29.2 (28.0-34.0) pg MCHC 32.4 (30.0-36.0) g/dL RDW 15.6 H (12.1-15.1) % Plt Count 230 (130-400) 10^3/c mm MPV 10.5 H (7.4-10.4) fL Neut % (Auto) 82.9 % Lymph % (Auto) 13.8 % [place] % (Auto) 0.3 % Eos % (Auto) 1.5 % Baso % (Auto) 1.2 % Neut # (Auto) 2.76 (1.8-7.7) 10^3/u L Lymph # (Auto) 0.5 L (0.8-4.8) 10^3/u L [place] # (Auto) 0.0 L (0.2-0.9) 10^3/u L Eos # (Auto) 0.1 (0.0-0.8) 10^3/u L Baso # (Auto) 0.0 (0.0-0.1) 10^3/u L Nucleated RBC % (a uto) 0 % Nucleated RBCs # 0.0 /100WBC Sodium 135 L (136-145) mmol/L Potassium 3.5 (3.5-5.1) mmol/L Chloride 102 (98-107) mmol/L Carbon Dioxide 22 (22-29) mmol/L Anion Gap 14.5 (5-19) BUN 11 (8-23) mg/dL Creatinine 0.4 L (0.5-0.9) mg/dL GFR Calculation 161.2 H (90-130) mL/min Glucose 122 H (65-115) mg/dL Calculated Osmolal ity 281 L (285-295) mOsm/k g Lactic Acid 0.8 (0.5-2.2) mmol/L Calcium 9.4 (8.5-10.5) mg/dL Magnesium 1.9 (1.7-2.3) mg/dL Total Bilirubin 0.5 (0.15-1.2) mg/dL AST 12 (0-32) U/L ALT 8 (0-33) U/L Alkaline Phosphata se 24 L (35-105) IU/L Creatine Kinase 13 L (26-192) U/L Total Protein 6.5 L (6.6-8.7) g/dL Albumin 3.9 (3.5-5.2) g/dL Globulin 2.6 (1.3-4.6) g/dL Lipase 24 (13-60) U/L Urine Color (Yellow) Urine Appearance (CLEAR) Urine pH (5-7) Ur Specific Gravit y (1.005-1.030) Urine Protein (Negative) Urine Glucose (UA) (Normal) Urine Ketones (Negative) Urine Blood (Negative) Urine Nitrate (Negative) Urine Bilirubin (Negative) Urine Urobilinogen (Negative) mg/dL Ur Leukocyte [place] ase (Negative) Urine RBC (0-2) /hpf Urine WBC (0-5) /hpf Ur Squamous Epith Cells (0-5) /hpf Amorphous Sediment /hpf Urine Bacteria (NONE) /hpf Urine Mucus /hpf 10/10/20 Range/Units 14:05 WBC (4.0-10.0) 10^3/ uL RBC (4.1-5.3) 10^6/u L Hgb (11.5-15.3) g/dL Hct (37.0-47.0) % MCV (81-99) fL MCH (28.0-34.0) pg MCHC (30.0-36.0) g/dL RDW (12.1-15.1) % Plt Count (130-400) 10^3/c mm MPV (7.4-10.4) fL Neut % (Auto) % Lymph % (Auto) % [place] % (Auto) % Eos % (Auto) % Baso % (Auto) % Neut # (Auto) (1.8-7.7) 10^3/u L Lymph # (Auto) (0.8-4.8) 10^3/u L [place] # (Auto) (0.2-0.9) 10^3/u L Eos # (Auto) (0.0-0.8) 10^3/u L Baso # (Auto) (0.0-0.1) 10^3/u L Nucleated RBC % (a uto) % Nucleated RBCs # /100WBC Sodium (136-145) mmol/L Potassium (3.5-5.1) mmol/L Chloride (98-107) mmol/L Carbon Dioxide (22-29) mmol/L Anion Gap (5-19) BUN (8-23) mg/dL Creatinine (0.5-0.9) mg/dL GFR Calculation (90-130) mL/min Glucose (65-115) mg/dL Calculated Osmolal ity (285-295) mOsm/k g Lactic Acid (0.5-2.2) mmol/L Calcium (8.5-10.5) mg/dL Magnesium (1.7-2.3) mg/dL Total Bilirubin (0.15-1.2) mg/dL AST (0-32) U/L ALT (0-33) U/L Alkaline Phosphata se (35-105) IU/L Creatine Kinase (26-192) U/L Total Protein (6.6-8.7) g/dL Albumin (3.5-5.2) g/dL Globulin (1.3-4.6) g/dL Lipase (13-60) U/L Urine Color Dark yellow (Yellow) Urine Appearance Sl hazy (CLEAR) Urine pH 6 (5-7) Ur Specific Gravit y 1.020 (1.005-1.030) Urine Protein Neg (Negative) Urine Glucose (UA) Norm (Normal) Urine Ketones Negative (Negative) Urine Blood Neg (Negative) Urine Nitrate Negative (Negative) Urine Bilirubin Neg (Negative) Urine Urobilinogen Norm (Negative) mg/dL Ur Leukocyte [place] ase Trace H (Negative) Urine RBC None (0-2) /hpf Urine WBC 5-10 H (0-5) /hpf Ur Squamous Epith Cells Rare (0-5) /hpf Amorphous Sediment 2+ /hpf Urine Bacteria Trace (NONE) /hpf Urine Mucus 1+ /hpf Discharge Plan Discharge Patient Disposition: Home Clinical Impression: Dehydration, Chemotherapy induced nausea and vomiting, Chemotherapy induced diarrhea, Acute UTI Condition: Stable Prescriptions: New cephalexin 250 mg capsule 250 mg PO TID 7 Days Qty: 21 RF: 0 No Action citalopram [Celexa] 40 mg Tablet 40 mg PO DAILY RF: 0 ibuprofen 200 mg Tablet 200 mg PO PRN RF: 0 Discharge Orders: Discharge Order (Routine); Ordered 07/08/20 Ordered By: Petra Graves Referrals: Brooke Rey APN [Primary Care Provider] - Discharge Diet: Advance as tolerated Discharge Activity: Resume usual activity Patient Instructions: Dehydration (ED) Activity Restrictions/Additional Instructions: Return to the emergency department if you are unable to tolerate food or fluids. You may start the antibiotic for the urinary tract infection tomorrow morning. Follow-up with your doctor to let them know how you are doing. Discharge Date/Time: 07/08/20 17:00 Coding Level of Care Code ED High Speed Warper Tender for Chg Fwd Exam Comprehensive
[2020-07-08 14:32] LABS: Urine Appearance SL Hazy (CLEAR); Urine Color Dark Yellow (Yellow); pH Urine 6 (5-7)
[2020-07-08 14:33] LABS: Add Urine Culture? No; Add Urine Microscopic? YES; Amorphous Sediment Urine 2+ /hpf; Bacteria Urine TRACE /hpf; Bilirubin Urine Neg (Negative); Blood Urine Neg (Negative); Glucose Urine UA Norm (Normal); Ketones Urine Negative (Negative); Leukocyte Esterase Urine Trace (Negative); Mucus Urine 1+ /hpf; Nitrate Urine Negative (Negative); Protein Urine Neg (Negative); Squamous Epithelial Cell Urine RARE /hpf (0-5); Urobilinogen Urine Norm (Negative)
[2020-07-08 15:00] VITALS: BP 102/58; PULSE 88; RESP 18; O2SAT 98
[2020-07-08] MEDS: cefTRIAXone 1,000 MG in sodium chloride 0.9% (plus) 50 ML 100 MG IV (15:35)
[2020-07-08 16:00] VITALS: BP 97/67; PULSE 88; RESP 18; O2SAT 99
[2020-07-08 16:11] VITALS: BP 97/67; PULSE 88; RESP 18; O2SAT 99
== END 2020-07-08 17:00 | disposition home or self-care (01) ==
PROVIDERS: Emergency Provider Emergency Medicine; PCP Nurse Practitioner Family
DX: K52.1 Toxic gastroenteritis and colitis (principal); T45.1X5A Adverse effect of antineoplastic and immunosuppressive drugs, initial encounter; N39.0 Urinary tract infection, site not specified; E86.0 Dehydration; Z79.899 Other long term (current) drug therapy
CPT/HCPCS: 12345; 80053; 81001; 82550; 83605; 83690; 83735; 85025; 96361; 96365; 96375; 99283; 99284; J0696; J2405; J7030

== ENCOUNTER 2020-07-26 05:33 | Outpatient (RCR) | payer BC, SELFPAY ==
[2020-07-03 11:55] LABS: Basophils # 0.1 10^3/uL (0.0-0.1); Basophils % 1.9 %; Eosinophils % 0.7 %; Hematocrit 31.3 % (37.0-47.0); Lymphocytes # 1.1 10^3/uL (0.8-4.8); Lymphocytes % 18.6 %; Mean Corpuscular HGB Conc 31.9 g/dL (30.0-36.0); Mean Corpuscular Hemoglobin 28.9 pg (28.0-34.0); Mean Corpuscular Volume 90.5 fL (81-99); Mean Platelet Volume 10.1 fL (7.4-10.4); Monocytes # 0.8 10^3/uL (0.2-0.9); Monocytes % 14.2 %; Neutrophils # 3.64 10^3/uL (1.8-7.7); Neutrophils % 64.1 %; Nucleated Red Blood Cells % 0 %; Platelet Count 366 10^3/cmm (130-400); Red Blood Count 3.46 10^6/uL (4.1-5.3); Red Cell Distribution Width 14.9 % (12.1-15.1); White Blood Count 5.7 10^3/uL (4.0-10.0)
[2020-07-03 12:32] LABS: Alanine Aminotransferase 20 U/L (0-33); Albumin Level 4.1 g/dL (3.5-5.2); Alkaline Phosphatase 29 IU/L (35-105); Anion Gap 13.8 (5-19); Aspartate Amino Transferase 37 U/L (0-32); Blood Urea Nitrogen 14 mg/dL (8-23); Calcium 9.2 mg/dL (8.5-10.5); Carbon Dioxide 27 mmol/L (22-29); Chloride 101 mmol/L (98-107); Globulin 2.8 g/dL (1.3-4.6); Glomerular Filtration Rate 124.6 mL/min (90-130); Glucose 102 mg/dL (65-115); Osmolality Calculated 287 mOsm/kg (285-295); Potassium 3.8 mmol/L (3.5-5.1); Sodium 138 mmol/L (136-145); Total Bilirubin 0.2 mg/dL (0.15-1.2); Total Protein 6.9 g/dL (6.6-8.7)
--- NOTE | 2020-07-03 14:42 | ONC FU_ITS ---
Dr. Nowak follow up note Patient: Paris Bae Unit #: [id number]: 1955 Dicatated By: Petra Nowak M.D.Date of Visit:Jul 03, 2020 Onc Med Follow-up/Prog Note History of Present Illness: Ms. Bae is a 65-year-old female with a history of progressive left breast mass. She underwent mammogram on March 07, 2020 which showed in the region of palpable abnormality. There was a hypoechoic mass measuring 1.8 x 0.8 x 1.4 cm with some mild peripheral increased vascularity at 8 o'clock position 3 cm from the nipple. And right breast showed benign calcification., On March 09, 2020 she underwent ultrasound guided left breast mass biopsy which showed high-grade invasive ductal carcinoma with chronic inflammation surrounding the tumor. Prognostic profiling confirmed triple negative disease e.g. ER less than 1% positive, GA less than 1% and HER-2/jasmyn negative. Because of location and locally advanced disease e.g. inner lower quadrant left breast, a follow-up CT PET scan was done on on May 02, 2020. It reported the left breast mass in the lower inner quadrant measuring 3.1x 5.8 cm demonstrate SUV of 23.20; Level 1 left axillary lymph node demonstrates a maximum SUV of 1.62 no other abnormality seen, no distant mets seen; Left lower paratracheal 1.0 x 2.2 cm lymph node demonstrating maximum SUV of 2.59 reflecting inflammatory changes only. Echocardiogram done on April 11, 2020 showed ejection fractions 65% with mild left ventricular hypertrophy Ms Bae has no history of previous breast biopsies; no family history of breast cancer. menarche started at age 13 and she is G3, with no miscarriages. No breast-feeding. Ms Bae started on neoadjuvant chemotherapy with dose dense Adriamycin/Cytoxan with Neulasta support on May 08, 2020. Despite the Neulasta, she developed severe chemotherapy induced neutropenia on day 8 with an ANC of 50. She was admitted to [facility] [place] on 05/15/2020 for severe neutropenia and left breast abcess. She was treated with IV antibiotics and discharged on levofloxacinon 05/16/2020. Came for follow-up, denies any specific complaints, no fever chills, no nausea or vomiting, no diarrhea or constipation, shoulder pain resolves with treatment of diarrhea with antibiotics. Tolerating neoadjuvant chemotherapy well . Medications: Citalopram Hydrobromide 1 Tablet (of 40 mg) Oral daily, traMADol HCl 1 Tablet (of 50 mg) Oral q 4 hours PRN Allergies: No Known Allergies. Review of Systems: Review of Systems is not available for this patient. Vital Signs: Performed on Jul 03, 2020 12:53 Height - 63.50 in Weight - 122.8 lbs (LOW) BSA - 1.58 sq.m BMI - 21.41 Temperature - 99.4 F (HIGH) Pulse - 66 /min Respiration - 18 /min BP - 107/53 mm(hg) O2 Sat - 99 % Pain - 5 Performance Status: 0 - Fully active, able to carry on all predisease activities without restrictions. (ECOG) Physical Examination: Respiratory - Lungs are clear, Cardiovascular - Regular rate and rhythm of heart, Gastrointestinal - Soft, bowel sounds present, Extremities - No visible edema or rash. Lab/Imaging: Test performed on Jun 26, 2020 10:25 SARS CoV-2 Ag Negative The results are negative with the test specificity 100%, sensitivity 97%, and positive predictive value 100%. If the patient shows clinical signs and symptoms of SARS-CoV-2, kindly defer to a NAAT detection method. Test performed on Jun 26, 2020 10:00 C. Difficile, PCR C. difficile toxin B gene DNA detected CCRB Y CCRBTECH GOOAM CCRBTO LEDAS2 CCRDATE1 20200626 CCRTIME1 1225 CDIFFMAX P Test performed on Jun 26, 2020 08:13 Magnesium 1.9 mg/dL Sodium 138 mmol/L Potassium 3.8 mmol/L Chloride 104 mmol/L CO2 24 mmol/L Anion Gap 13.8 BUN 17 mg/dL Creatinine 0.5 mg/dL Cr Clearance (Est) 109.0200 mL/min eGFR 124.6 mL/min Glucose 133 mg/dL Osmolality - Calculated 289 mOsm/kg Calcium 9.1 mg/dL Protein, Total 6.9 g/dL Albumin 3.9 g/dL Globulin 3.0 g/dL Bilirubin, Total 0.3 mg/dL ALT (SGPT) 13 U/L AST (SGOT) 21 U/L Alkaline Phosphatase 31 IU/L WBC 14.5 10 3/uL RBC 3.29 10 6/uL HGB 9.7 g/dL HCT 30.0 % MCV 91.2 fL MCH 29.5 pg MCHC 32.3 g/dL RDW 14.5 % Platelet Count 378 10 3/cmm MPV 9.6 fL Neutrophils 12.07 10 3/uL Lymphocytes 0.6 10 3/uL Monocytes 1.6 10 3/uL Eosinophils 0.0 10 3/uL Basophils 0.1 10 3/uL Neutrophil % 83.3 % Lymphocyte % 4.4 % Monocyte % 11.1 % Eosinophil % 0.2 % Basophils % 0.4 % NRBC % 0 % Impression: High-grade invasive ductal carcinoma per ultrasound-guided left breast biopsy done on March 09, 2020 prognostic profiling showed triple negative disease, ER less than 1%, GA less than 1% and HER-2/jasmyn negative, Ki-67 95%. Staging CT PET scan done on May 02, 2020 showed left breast mass in lower inner quadrant sized 5.8 x 3.1 cm hypermetabolic mass with SUV of 23.20 With no distant metastatic disease , Clinical stage II, (more than 5 cm) N0,M0 Echocardiogram done on April 11, 2020 showed ejection fraction 65% Started on neoadjuvant chemotherapy with dose dense Adriamycin Cytoxan every 2 weeks with Neulasta support x 4 followed by Taxol on May 08, 2020. She developed severe chemotherapy induced neutropenia with a day 8 ANC of 5. This did require hospital admission and she received IV antibiotics for a left breast abscess. She was discharged on oral levofloxacin on 05/16/2020. The breast abscess did clear with the antibiotics. Her neutropenia has recovered as well. Her last chemotherapy was on 06/06/2020. Plan: Discussed with patient regarding her labs white blood count 5.7 hemoglobin 10 hematocrit 31.3 platelets 366,000 CMP within normal limits Clinically, patient is doing well, tolerating neoadjuvant chemotherapy with Adriamycin/Cytoxan well but with expected side effects. We will proceed with cycle #4/4 of Adriamycin/Cytoxan today with Neulasta support to prevent chemotherapy-induced neutropenia and then she will return to clinic in 2 weeks with CBC CMP and follow-up ultrasound of left breast to assess disease response And if shows good response then will consider switching her to weekly Taxol x12 neoadjuvant fashion. Signed By: Petra Nowak M.D. <<Signature on File>>
[2020-07-03] MEDS: sodium chloride 0.9% 250 ML 999 ML IV (14:55)
[2020-07-03] MEDS: pegfilgrastim 6 mg/0.6 mL Kit (onpro) SUBCUT (16:30)
--- NOTE | 2020-07-05 15:00 | US_ITS ---
WS: [id number] ULTRASOUND BREAST LEFT TECHNIQUE: Ultrasound left breast focused area of concern. CLINICAL INFORMATION: BREAST CANCER COMPARISON: May 15, 2020 and March 09, 2020 FINDINGS: Ultrasound left breast at the 8:00 position 3 cm from the nipple. Comparison prior examination May 15, 2020. Continued decrease in size of the left breast neoplasm at the 8:00 position. Previously th is measured 3.5 x 2.1 x 3.6 cm with heterogeneous echogenicity. Continued decrease in size today with an ovoid configuration measuring approximately 4.0 x 0.7 x 1.9 cm. Persistent central echogenic biop sy clip. Today the lesion has a hypoechoic heterogeneous appearance with decreased soft tissue compon ent. US/US breast LT complete [id number] IMPRESSION: Interval improvement of the left breast neoplasm with neoadjuvant therapy descr ibed above. BI-RADS 6: Known biopsy-proven malignancy Follow up: See report
[2020-07-13] MEDS: sodium chloride 0.9% 1,000 ML 999 ML IV (12:00)
== END 2020-07-29 23:59 | disposition home or self-care (01) ==
LOC: ONCMED 05:33
PROVIDERS: PCP Nurse Practitioner Family; Visit Provider Internal Medicine Hematology & Oncology
DX: Z51.11 Encounter for antineoplastic chemotherapy (principal); C50.312 Malignant neoplasm of lower-inner quadrant of left female breast; A04.72 Enterocolitis due to Clostridium difficile, not specified as recurrent; D70.1 Agranulocytosis secondary to cancer chemotherapy; T45.1X5A Adverse effect of antineoplastic and immunosuppressive drugs, initial encounter; Z17.1 Estrogen receptor negative status [ER-]; Z79.899 Other long term (current) drug therapy
CPT/HCPCS: 76641; 80053; 85025; 87493; 96360; 96367; 96372; 96413; 96417; 99214; J1100; J1200; J1453; J2405; J2505; J7030; J7040; J7050; J9000; J9070

== ENCOUNTER 2020-08-07 05:33 | Outpatient (RCR) | payer BC, SELFPAY ==
[2020-08-04] MEDS: sodium chloride 0.9% 1,000 ML 999 ML IV (09:22)
[2020-08-04 09:31] LABS: Hematocrit 28.6 % (37.0-47.0); Hemoglobin 9.1 g/dL (11.5-15.3); Mean Corpuscular HGB Conc 31.8 g/dL (30.0-36.0); Mean Corpuscular Hemoglobin 29.9 pg (28.0-34.0); Mean Corpuscular Volume 94.1 fL (81-99); Mean Platelet Volume 10.6 fL (7.4-10.4); Platelet Count 169 10^3/cmm (130-400); Red Blood Count 3.04 10^6/uL (4.1-5.3); Red Cell Distribution Width 17.3 % (12.1-15.1); White Blood Count 2.9 10^3/uL (4.0-10.0)
[2020-08-04 09:49] LABS: Alanine Aminotransferase 6 U/L (0-33); Alkaline Phosphatase 22 IU/L (35-105); Anion Gap 14.2 (5-19); Aspartate Amino Transferase 13 U/L (0-32); Blood Urea Nitrogen 13 mg/dL (8-23); Calcium 9.3 mg/dL (8.5-10.5); Carbon Dioxide 25 mmol/L (22-29); Chloride 102 mmol/L (98-107); Globulin 3.1 g/dL (1.3-4.6); Glomerular Filtration Rate 124.6 mL/min (90-130); Glucose 117 mg/dL (65-115); Osmolality Calculated 287 mOsm/kg (285-295); Potassium 3.2 mmol/L (3.5-5.1); Sodium 138 mmol/L (136-145); Total Bilirubin 0.4 mg/dL (0.15-1.2); Total Protein 7.1 g/dL (6.6-8.7)
[2020-08-04 10:51] LABS: Slide Review Slide Review Perform
[2020-08-04 10:56] LABS: Absolute Neutrophil 1.7 10^3/cmm (1.4-6.5); Absolute Segmented Neutrophil 1.4 10/cmm (1.6-7.1); Band Neutrophils Absolute 0.3 10^3/cmm (0.0-1.2); Eosinophils 1 %; Lymphocytes 21 %; Monocytes Absolute 0.5 10^3/cmm (0.1-0.6); Platelet Estimate Normal (Normal); Segmented Neutrophils 48 %; Total Cells Counted 100 (0-100)
--- NOTE | 2020-08-07 10:05 | ONC FU_ITS ---
Dr. Nowak follow up note Patient: Paris Bae Unit #: [id number]: [id number] Dicatated By: Petra Nowak M.D.Date of Visit:Aug 07, 2020 Onc Med Follow-up/Prog Note History of Present Illness: Ms. Bae is a 65-year-old female with a history of progressive left breast mass. She underwent mammogram on March 07, 2020 which showed in the region of palpable abnormality. There was a hypoechoic mass measuring 1.8 x 0.8 x 1.4 cm with some mild peripheral increased vascularity at 8 o'clock position 3 cm from the nipple. And right breast showed benign calcification., On March 09, 2020 she underwent ultrasound guided left breast mass biopsy which showed high-grade invasive ductal carcinoma with chronic inflammation surrounding the tumor. Prognostic profiling confirmed triple negative disease e.g. ER less than 1% positive, UT less than 1% and HER-2/jasmyn negative. Because of location and locally advanced disease e.g. inner lower quadrant left breast, a follow-up CT PET scan was done on on May 02, 2020. It reported the left breast mass in the lower inner quadrant measuring 3.1x 5.8 cm demonstrate SUV of 23.20; Level 1 left axillary lymph node demonstrates a maximum SUV of 1.62 no other abnormality seen, no distant mets seen; Left lower paratracheal 1.0 x 2.2 cm lymph node demonstrating maximum SUV of 2.59 reflecting inflammatory changes only. Echocardiogram done on April 11, 2020 showed ejection fractions 65% with mild left ventricular hypertrophy Ms Bae has no history of previous breast biopsies; no family history of breast cancer. menarche started at age 13 and she is G3, with no miscarriages. No breast-feeding. Ms Bae started on neoadjuvant chemotherapy with dose dense Adriamycin/Cytoxan with Neulasta support on May 08, 2020. Despite the Neulasta, she developed severe chemotherapy induced neutropenia on day 8 with an ANC of 50. [place] [facility] [place] for severe neutropenia and left breast abcess. She was treated with IV antibiotics and discharged on levofloxacinon 05/16/2020.Subsequently patient tolerated neoadjuvant chemotherapy with Adriamycin/Cytoxan and recommended completed 4 cycles on July 03, 2020 but subsequently patient developed diarrhea and C. difficile was done which came back positive treated with antibiotics and the repeat C. difficile on July 13 was still positive and patient stayed on antibiotics till last week and now came to office today complaining of bone pains and off and on diarrhea but being controlled with Imodium and was also running fever as high as 101.4 on last Friday. Patient had a follow-up left breast sonogram done on July 05, 2020 which showed interval improvement of left breast neoplasm with neoadjuvant chemotherapy. Patient is complaining of generalized weakness and fatigue, no sore throat, no dysuria, no productive cough. No port site tenderness. . Medications: Citalopram Hydrobromide 1 Tablet (of 40 mg) Oral daily, traMADol HCl 1 Tablet (of 50 mg) Oral q 4 hours PRN Allergies: No Known Allergies. Review of Systems: Constitutional - Appetite is good and weight is stable. Positive for fever. No night sweats, or hot flashes. Energy level is fair, ENMT - No sinus congestion/drainage. No mouth sores. No sore throat or difficulty swallowing, Hematologic/Lymphatic - No abnormal bruising or bleeding, Respiratory - No shortness of breath. No cough. No pleuritic pain or hemoptysis, Cardiovascular - No angina pain. No palpitations, Gastrointestinal - No nausea or vomiting. No heartburn or acid reflux. Positive for diarrhea and constipation. No blood in the stool or black stools, Genitourinary (F) - No dysuria or hematuria. No urinary frequency. No urgency or incontinence, Musculoskeletal - Pt reports occasional bone pain, Integumentary - Pt reports tenderness around left breast, Neurologic - No headache or dizziness. No numbness or tingling. No other focal neurologic symptoms, Psychiatric - No anxiety or depression. No insomnia. Vital Signs: Performed on Aug 07, 2020 09:22 Height - 63.50 in Weight - 117.4 lbs (LOW) BSA - 1.55 sq.m BMI - 20.47 Temperature - 99.6 F (HIGH) Pulse - 84 /min Respiration - 20 /min BP - 108/60 mm(hg) O2 Sat - 97 % Pain - 7 Performance Status: 1 - No physically strenuous activity, but ambulatory and able to carry out light or sedentary work (e.g. office work, light house work). (ECOG) Physical Examination: Respiratory - Lungs are clear to auscultation, Cardiovascular - Regular rate and rhythm of heart, Breasts - Left breast exam shows no nipple discharge no overlying skin changes no palpable mass or tenderness no left axillary lymph node palpated., Port-A-Cath in the right chest shows no tenderness .no skin changes, Gastrointestinal - Soft, bowel sounds present, Extremities - No visible edema or rash. Lab/Imaging: Test performed on Jul 03, 2020 11:05 Sodium 138 mmol/L Potassium 3.8 mmol/L Chloride 101 mmol/L CO2 27 mmol/L Anion Gap 13.8 BUN 14 mg/dL Creatinine 0.5 mg/dL Cr Clearance (Est) 109.0200 mL/min eGFR 124.6 mL/min Glucose 102 mg/dL Osmolality - Calculated 287 mOsm/kg Calcium 9.2 mg/dL Protein, Total 6.9 g/dL Albumin 4.1 g/dL Globulin 2.8 g/dL Bilirubin, Total 0.2 mg/dL ALT (SGPT) 20 U/L AST (SGOT) 37 U/L Alkaline Phosphatase 29 IU/L WBC 5.7 10 3/uL RBC 3.46 10 6/uL HGB 10.0 g/dL HCT 31.3 % MCV 90.5 fL MCH 28.9 pg MCHC 31.9 g/dL RDW 14.9 % Platelet Count 366 10 3/cmm MPV 10.1 fL Neutrophils 3.64 10 3/uL Lymphocytes 1.1 10 3/uL Monocytes 0.8 10 3/uL Eosinophils 0.0 10 3/uL Basophils 0.1 10 3/uL Neutrophil % 64.1 % Lymphocyte % 18.6 % Monocyte % 14.2 % Eosinophil % 0.7 % Basophils % 1.9 % NRBC % 0 % Test performed on Jun 26, 2020 10:25 SARS CoV-2 Ag Negative The results are negative with the test specificity 100%, sensitivity 97%, and positive predictive value 100%. If the patient shows clinical signs and symptoms of SARS-CoV-2, kindly defer to a NAAT detection method. Test performed on Jun 26, 2020 10:00 C. Difficile, PCR C. difficile toxin B gene DNA detected CCRB Y CCRBTECH GOOAM CCRBTO LEDAS2 CCRDATE1 [id number] CCRTIME1 1225 CDIFFMAX P Test performed on Jun 26, 2020 08:13 Magnesium 1.9 mg/dL Test performed on Jun 19, 2020 08:40 CBC Slide Review Slide Review Perform SLIDE REVIEW AGREES WITH AUTOMATED RESULTS ST Impression: High-grade invasive ductal carcinoma per ultrasound-guided left breast biopsy done on March 09, 2020 prognostic profiling showed triple negative disease, ER less than 1%, UT less than 1% and HER-2/jasmyn negative, Ki-67 95%. Staging CT PET scan done on May 02, 2020 showed left breast mass in lower inner quadrant sized 5.8 x 3.1 cm hypermetabolic mass with SUV of 23.20 With no distant metastatic disease , Clinical stage II, (more than 5 cm) N0,M0 Echocardiogram done on April 11, 2020 showed ejection fraction 65% Started on neoadjuvant chemotherapy with dose dense Adriamycin Cytoxan every 2 weeks with Neulasta support x 4 followed by Taxol on May 08, 2020. She developed severe chemotherapy induced neutropenia with a day 8 ANC of 5. This did require hospital admission and she received IV antibiotics for a left breast abscess. She was discharged on oral levofloxacin on 05/16/2020. The breast abscess did clear with the antibiotics. Her neutropenia has recovered as well. Tolerated further treatment with Adriamycin Cytoxan well and completed Adriamycin/Cytoxan x4 on July 03, 2020. Further neoadjuvant chemotherapy with Taxol was delayed because of persistent leukopenia and C. difficile positive diarrhea Plan: Discussed with patient regarding her labs white blood count 2.9 hemoglobin 9.1 hematocrit 28.6 platelets [id number], ANC 1700 CMP within normal limits except potassium 3.2 Clinically, patient doing reasonably well but no in mild to moderate distress because of persistent diarrhea and generalized bone pains and off and on fever, and feverish feeling, as per patient her fever was 101.4 on last Friday, and etiology of fever remained unclear but could be due to persistent C. difficile diarrhea and other concern is if she has a port colonization and or recurrence of left breast abscess although on exam there was no tenderness or mass palpable and her follow-up sonogram done recently showed significant improvement in her left breast primary with neoadjuvant chemotherapy. Because of persistent fever or feverish feeling and persistent neutropenia and diarrhea, it was decided to admit her to the hospital for further evaluation. And will suggest hospitalist to consider blood culture from Port-A-Cath and antibiotic infusion through Port-A-Cath and also follow her for C. difficile diarrhea and consult surgery regarding left breast evaluation as patient has history of locally advanced breast cancer now being treated with neoadjuvant chemotherapy which was complicated by development of left breast abscess after her first cycle of neoadjuvant chemotherapy in April 2020. Patient was scheduled to start her further neoadjuvant chemotherapy with weekly Taxol today but her lab work-up shows persistent neutropenia/leukopenia, will hold her chemotherapy and also get approval for Neupogen 480 mcg subcu daily for 3 days in between weekly Taxol, to maintain chemotherapy schedule and minimize risk of chemotherapy-induced neutropenia. In the meantime we will send her to the ER for evaluation regarding persistent fever, C. difficile positive diarrhea, no concern but recurrence of left breast abscess although left breast exam is unremarkable or Port-A-Cath infection. Signed By: Petra Nowak M.D. <<Signature on File>>
== END 2020-08-07 09:30 | disposition home or self-care (01) ==
LOC: ONCMED 05:33
PROVIDERS: PCP Nurse Practitioner Family; Visit Provider Internal Medicine Hematology & Oncology
DX: D70.1 Agranulocytosis secondary to cancer chemotherapy (principal); T45.1X5A Adverse effect of antineoplastic and immunosuppressive drugs, initial encounter; C50.512 Malignant neoplasm of lower-outer quadrant of left female breast; A04.72 Enterocolitis due to Clostridium difficile, not specified as recurrent; Z17.1 Estrogen receptor negative status [ER-]; Z79.899 Other long term (current) drug therapy
CPT/HCPCS: 80053; 85007; 85025; 96360; 99215; J7030

== ENCOUNTER 2020-08-07 10:03 | Emergency (ER) | payer BC, SELFPAY ==
[2020-08-07 10:04] VITALS: BP 108/71; PULSE 87; RESP 16; TEMP 36.4; O2SAT 95; BMI 20.7
--- NOTE | 2020-08-07 10:10 | XR_ITS ---
WS: [id number] XR chest 1V portable [id number] REASON FOR EXAM: dyspnea/cough FINDINGS: The chest is unchanged compared to 05/15/2020. The heart and mediastinum are within normal limits. Properly positioned chemotherapy infusion port ov er the right chest with the catheter through the left subclavian vein into the superior vena cava. No active pulmonary parenchymal or pleural disease is identified. No significant abnormality of the b luciano thorax. XR/XR chest 1V portable [id number] IMPRESSION: No acute abnormality.
--- NOTE | 2020-08-07 10:27 | ED_ITS ---
HPI - General Adult General: Chief complaint: General Medical Stated complaint: Skin infection/Sent from oncology Time Seen by Provider: 08/07/20 10:08 History of Present Illness: HPI narrative: 65-year-old female presents the emergency room with a known history of breast cancer and complaints of diarrhea fever and shortness of breath. She has had significant difficulty tolerating the treatment. She has stage II triple negative breast cancer, there was no evidence of any distant metastasis on PET scan. She initially went through Adriamycin treatment and now is supposed to be on Taxol but has been off for the last month. She is convinced that she is getting infections from her port. She has diarrhea regularly she is taken some Imodium for it that helps she denies any hematochezia recently there is 1 mention of some bright red blood per rectum and a note from the oncologist which she says she has not had any lately. She has had a bit of a cough and shortness of breath. Onset (ago): week(s) Location: abdomen Radiation: non-radiation Severity: moderate Quality: aching Pain Consistency: constant Relieving factors: none Exacerbating factors: none Associated symptoms: Reports cough, dyspnea, headache(s), malaise and nausea; Deny chest pain, confusion, diaphoresis, decreased appetite, fevers/chills, rash, palpitations, seizures, short of breath, syncope or vomiting Review of Systems Const: Reports: malaise; Denies: diaphoresis Card: Denies: chest pain, palpitations or syncope Resp: Reports: dyspnea GI: Reports: nausea; Denies: vomiting Skin/Breast: Denies: rash Neuro: Reports: headache(s); Denies: confusion [facility] ED PFSH: Medical History (Updated 08/08/20 @ 06:14 by Jimbo Rodrigues DO) Invasive ductal carcinoma of breast Port-A-Cath in place (~03/2020) Triple negative malignant neoplasm of breast (~02/2020) Surgical History History of colonoscopy History of exploratory laparotomy Family History Denies family history of Anesthesia complication Bleeding disorder Social History Smoking and tobacco status: never smoked Physical Exam Const: COMMON NORMALS: no acute distress GENERAL APPEARANCE: cooperative and comfortable ORIENTATION/CONSCIOUSNESS: Yes awake, Yes oriented to person, Yes oriented to place and Yes oriented to time HENMT: COMMON NORMALS: normocephalic, atraumatic and hearing grossly normal bilaterally HEAD & SCALP: normocephalic and atraumatic Eye: COMMON NORMALS: Equal, round and reactive pupils present, EOMs intact bi laterally, conjunctivae normal and no scleral icterus CONJUNCTIVA: Yes conjunctivae normal PUPIL: Yes Equal, round and reactive pupils present Neck/C-Spine: COMMON NORMALS: full ROM, no lymphadenopathy, supple and no JVD Lymph: LYMPHATIC: no lymphadenopathy noted and no lymphedema noted Resp: COMMON NORMALS: normal respiratory effort, No retractions, No use of accessory muscles and clear to auscultation bilaterally AUSCULTATION: clear to auscultation bilaterally Cardio: COMMON NORMALS: no JVD, regular rate, regular rhythm and No murmurs present (Cardio) RATE: regular rate RHYTHM: regular rhythm GI: COMMON NORMALS: Soft to palpation and No hepatosplenomegaly present AUSCULTATION: Yes normoactive bowel sounds PALPATION: Yes Soft to palpation, No Tenderness to palpation present (GI), No Guarding due to palpation present (GI) and Yes No hepatosplenomegaly present Extremity: COMMON NORMALS: normal to inspection, capillary refill normal, no clubbing, cyanosis or edema, no calf tenderness and no pedal edema Neuro: SENSORIUM/ORIENTATION: Yes oriented to person, Yes oriented to place and Yes oriented to time Skin: COMMON NORMALS: no rashes or lesions noted GENERAL SKIN EXAM: no rashes or lesions noted Course Vital Signs: Vital signs: Vital Signs Temperature 97.5 F L 08/07/20 10:04 Pulse Rate 75 08/07/20 15:44 Respiratory Rate 15 08/07/20 15:44 Blood Pressure 128/86 08/07/20 15:44 Pulse Oximetry 99 08/07/20 15:44 MDM - General Adult MDM Narrative: Medical decision making narrative: Called Dr. Nowak who had called ahead about this patient to the emergency room. At this point there is no sign of sepsis. Cultures are pending and we have a repeat C. difficile which is pending. At this point I believe the patient could safely be sent home. Cultures are pending, Covid is negative. She was positive for occult blood but her hemoglobin is stable she has not had any gross hematuria. Follow-up with Dr. Nowak later this week to review blood cultures and C. difficile results. If she has any worsening problems return to the emergency room Lab Data: Labs: Lab Results 08/07/20 08/07/20 08/07/20 Range/Units 10:43 10:48 10:48 WBC 6.3 (4.0-10.0) 10^3/ uL RBC 3.05 L (4.1-5.3) 10^6/u L Hgb 9.1 L (11.5-15.3) g/dL Hct 29.0 L (37.0-47.0) % MCV 95.1 (81-99) fL MCH 29.8 (28.0-34.0) pg MCHC 31.4 (30.0-36.0) g/dL RDW 16.7 H (12.1-15.1) % Plt Count 279 (130-400) 10^3/c mm MPV 10.3 (7.4-10.4) fL Neut % (Auto) 61.9 % Lymph % (Auto) 17.9 % [place] % (Auto) 17.8 % Eos % (Auto) 1.0 % Baso % (Auto) 0.8 % Neut # (Auto) 3.90 (1.8-7.7) 10^3/u L Lymph # (Auto) 1.1 (0.8-4.8) 10^3/u L [place] # (Auto) 1.1 H (0.2-0.9) 10^3/u L Eos # (Auto) 0.1 (0.0-0.8) 10^3/u L Baso # (Auto) 0.1 (0.0-0.1) 10^3/u L Nucleated RBC % (a uto) 0 % Nucleated RBCs # 0.0 /100WBC Fibrinogen 470 (174-498) mg/dL D-Dimer 1.12 H (0-0.59) ug/mIFE U Specimen Type Arterial Sample Site Radial, left ABG pH 7.45 (7.35-7.45) ABG pCO2 37.5 (35-45) mmHg ABG pO2 70.3 L (80.0-100.0) mmH g ABG HCO3 25.9 (22-26) mmol/L ABG O2 Saturation 95.8 ABG Base Excess 1.9 (-2.0-2.0) mmol/ L Troy Test Pos A-a O2 Gradient 4.3 L (5-10) mmHg Hematocrit 28.1 L (37-47) % Hgb O2 Saturation 93.7 L (95-100) % Carboxyhemoglobin 1.5 (0.4-20.1) %THgb Methemoglobin 0.7 (0.4-1.5) % Total Hemoglobin 9.2 L (12-16) g/dL Sodium 143.0 (131-143) mmol/L Potassium 3.4 L (3.5-5.0) mmol/L Glucose 96.0 (70-115) mg/dL Ionized Calcium 1.2 (1.1-1.4) mmol/L O2 Delivery Device Room air FiO2 21.0 % Director Prison ID Ed Chloride (98-107) mmol/L Carbon Dioxide (22-29) mmol/L Anion Gap (5-19) BUN (8-23) mg/dL Creatinine (0.5-0.9) mg/dL GFR Calculation (90-130) mL/min Calculated Osmolal ity (285-295) mOsm/k g Lactic Acid (0.5-2.2) mmol/L Calcium (8.5-10.5) mg/dL Ferritin (15-150) ng/mL Total Bilirubin (0.15-1.2) mg/dL AST (0-32) U/L ALT (0-33) U/L Alkaline Phosphata se (35-105) IU/L C-Reactive Protein (0.0-4.9) mg/L Total Protein (6.6-8.7) g/dL Albumin (3.5-5.2) g/dL Globulin (1.3-4.6) g/dL Lipase (13-60) U/L Urine Color (Yellow) Urine Appearance (CLEAR) Urine pH (5-7) Ur Specific Gravit y (1.005-1.030) Urine Protein (Negative) Urine Glucose (UA) (Normal) Urine Ketones (Negative) Urine Blood (Negative) Urine Nitrate (Negative) Urine Bilirubin (Negative) Urine Urobilinogen (Negative) mg/dL Ur Leukocyte Nilsa ase (Negative) SARS-CoV-2 Ag (Rap id) (Negative) 08/07/20 08/07/20 08/07/20 Range/Units 10:48 10:48 10:48 WBC (4.0-10.0) 10^3/ uL RBC (4.1-5.3) 10^6/u L Hgb (11.5-15.3) g/dL Hct (37.0-47.0) % MCV (81-99) fL MCH (28.0-34.0) pg MCHC (30.0-36.0) g/dL RDW (12.1-15.1) % Plt Count (130-400) 10^3/c mm MPV (7.4-10.4) fL Neut % (Auto) % Lymph % (Auto) % [place] % (Auto) % Eos % (Auto) % Baso % (Auto) % Neut # (Auto) (1.8-7.7) 10^3/u L Lymph # (Auto) (0.8-4.8) 10^3/u L [place] # (Auto) (0.2-0.9) 10^3/u L Eos # (Auto) (0.0-0.8) 10^3/u L Baso # (Auto) (0.0-0.1) 10^3/u L Nucleated RBC % (a uto) % Nucleated RBCs # /100WBC Fibrinogen (174-498) mg/dL D-Dimer (0-0.59) ug/mIFE U Specimen Type Sample Site ABG pH (7.35-7.45) ABG pCO2 (35-45) mmHg ABG pO2 (80.0-100.0) mmH g ABG HCO3 (22-26) mmol/L ABG O2 Saturation ABG Base Excess (-2.0-2.0) mmol/ L Troy Test A-a O2 Gradient (5-10) mmHg Hematocrit (37-47) % Hgb O2 Saturation (95-100) % Carboxyhemoglobin (0.4-20.1) %THgb Methemoglobin (0.4-1.5) % Total Hemoglobin (12-16) g/dL Sodium 140 (131-143) mmol/L Potassium 3.3 L (3.5-5.0) mmol/L Glucose 100 (70-115) mg/dL Ionized Calcium (1.1-1.4) mmol/L O2 Delivery Device FiO2 % Director Prison ID Chloride 104 (98-107) mmol/L Carbon Dioxide 24 (22-29) mmol/L Anion Gap 15.3 (5-19) BUN 11 (8-23) mg/dL Creatinine 0.4 L (0.5-0.9) mg/dL GFR Calculation 161.2 H (90-130) mL/min Calculated Osmolal ity 289 (285-295) mOsm/k g Lactic Acid 0.7 (0.5-2.2) mmol/L Calcium 9.2 (8.5-10.5) mg/dL Ferritin 540 H (15-150) ng/mL Total Bilirubin 0.3 (0.15-1.2) mg/dL AST 21 (0-32) U/L ALT 9 (0-33) U/L Alkaline Phosphata se 24 L (35-105) IU/L C-Reactive Protein 16.5 H (0.0-4.9) mg/L Total Protein 6.9 (6.6-8.7) g/dL Albumin 3.7 (3.5-5.2) g/dL Globulin 3.2 (1.3-4.6) g/dL Lipase 16 (13-60) U/L Urine Color (Yellow) Urine Appearance (CLEAR) Urine pH (5-7) Ur Specific Gravit y (1.005-1.030) Urine Protein (Negative) Urine Glucose (UA) (Normal) Urine Ketones (Negative) Urine Blood (Negative) Urine Nitrate (Negative) Urine Bilirubin (Negative) Urine Urobilinogen (Negative) mg/dL Ur Leukocyte Nilsa ase (Negative) SARS-CoV-2 Ag (Rap id) Negative (Negative) 08/07/20 Range/Units 11:27 WBC (4.0-10.0) 10^3/ uL RBC (4.1-5.3) 10^6/u L Hgb (11.5-15.3) g/dL Hct (37.0-47.0) % MCV (81-99) fL MCH (28.0-34.0) pg MCHC (30.0-36.0) g/dL RDW (12.1-15.1) % Plt Count (130-400) 10^3/c mm MPV (7.4-10.4) fL Neut % (Auto) % Lymph % (Auto) % [place] % (Auto) % Eos % (Auto) % Baso % (Auto) % Neut # (Auto) (1.8-7.7) 10^3/u L Lymph # (Auto) (0.8-4.8) 10^3/u L [place] # (Auto) (0.2-0.9) 10^3/u L Eos # (Auto) (0.0-0.8) 10^3/u L Baso # (Auto) (0.0-0.1) 10^3/u L Nucleated RBC % (a uto) % Nucleated RBCs # /100WBC Fibrinogen (174-498) mg/dL D-Dimer (0-0.59) ug/mIFE U Specimen Type Sample Site ABG pH (7.35-7.45) ABG pCO2 (35-45) mmHg ABG pO2 (80.0-100.0) mmH g ABG HCO3 (22-26) mmol/L ABG O2 Saturation ABG Base Excess (-2.0-2.0) mmol/ L Troy Test A-a O2 Gradient (5-10) mmHg Hematocrit (37-47) % Hgb O2 Saturation (95-100) % Carboxyhemoglobin (0.4-20.1) %THgb Methemoglobin (0.4-1.5) % Total Hemoglobin (12-16) g/dL Sodium (131-143) mmol/L Potassium (3.5-5.0) mmol/L Glucose (70-115) mg/dL Ionized Calcium (1.1-1.4) mmol/L O2 Delivery Device FiO2 % Director Prison ID Chloride (98-107) mmol/L Carbon Dioxide (22-29) mmol/L Anion Gap (5-19) BUN (8-23) mg/dL Creatinine (0.5-0.9) mg/dL GFR Calculation (90-130) mL/min Calculated Osmolal ity (285-295) mOsm/k g Lactic Acid (0.5-2.2) mmol/L Calcium (8.5-10.5) mg/dL Ferritin (15-150) ng/mL Total Bilirubin (0.15-1.2) mg/dL AST (0-32) U/L ALT (0-33) U/L Alkaline Phosphata se (35-105) IU/L C-Reactive Protein (0.0-4.9) mg/L Total Protein (6.6-8.7) g/dL Albumin (3.5-5.2) g/dL Globulin (1.3-4.6) g/dL Lipase (13-60) U/L Urine Color Dark yellow (Yellow) Urine Appearance Clear (CLEAR) Urine pH 6 (5-7) Ur Specific Gravit y 1.030 (1.005-1.030) Urine Protein Neg (Negative) Urine Glucose (UA) Norm (Normal) Urine Ketones 2+ H (Negative) Urine Blood Neg (Negative) Urine Nitrate Negative (Negative) Urine Bilirubin Neg (Negative) Urine Urobilinogen Norm (Negative) mg/dL Ur Leukocyte Nilsa ase Negative (Negative) SARS-CoV-2 Ag (Rap id) (Negative) Discharge Plan Discharge Patient Disposition: Home Clinical Impression: Triple negative malignant neoplasm of breast, Port-A-Cath in place Condition: Stable Prescriptions: No Action citalopram [Celexa] 40 mg Tablet 40 mg PO DAILY RF: 0 ibuprofen 200 mg Tablet 200 mg PO Q6H PRN (Reason: Pain) RF: 0 Discharge Orders: Discharge Order (Routine); Ordered 08/07/20 Ordered By: Jimbo Rodrigues Referrals: Candido,CORINNA Cox [Primary Care Provider] - Discharge Diet: Usual diet Discharge Activity: Increase activity as tolerated Activity Restrictions/Additional Instructions: C. difficile is pending we will discharge you home and follow-up with Dr. Nowak as previously scheduled. He will follow up with a blood cultures in the C. difficile results. Coding Level of Care Code ED P[employer] Hat[employer] Manager for Colette Fwd Exam Comprehensive
[2020-08-07 10:53] LABS: ABG PCO2 37.5 mmHg (35-45); ABG PH Result 7.45 (7.35-7.45); Alveolar-Arterial Oxygen Gradi 4.3 mmHg (5-10); Arterial Blood Gas Hematocrit 28.1 % (37-47); Base Excess ABG 1.9 mmol/L (-2.0-2.0); Blood Gas Allen Test Pos; Blood Gas Operator Identificat ED; Blood Gas Sample Site Radial, left; Blood Gas Sample Type Arterial; Carboxyhemoglobin 1.5 %THgb (0.4-20.1); HCO3 ABG 25.9 mmol/L (22-26); HGB O2 Sat 93.7 % (95-100); Ionized Calcium Level - ABG 1.2 mmol/L (1.1-1.4); Methemoglobin 0.7 % (0.4-1.5); Oxygen Device ROOM AIR; Oxygen Saturation ABG 95.8; PO2 ABG 70.3 mmHg (80.0-100.0); Potassium Level - ABG 3.4 mmol/L (3.5-5.0); Total Hemoglobin 9.2 g/dL (12-16)
[2020-08-07 10:59] VITALS: O2SAT 97
[2020-08-07 11:07] LABS: Basophils # 0.1 10^3/uL (0.0-0.1); Basophils % 0.8 %; Eosinophils # 0.1 10^3/uL (0.0-0.8); Hemoglobin 9.1 g/dL (11.5-15.3); Lymphocytes # 1.1 10^3/uL (0.8-4.8); Lymphocytes % 17.9 %; Mean Corpuscular HGB Conc 31.4 g/dL (30.0-36.0); Mean Corpuscular Hemoglobin 29.8 pg (28.0-34.0); Mean Corpuscular Volume 95.1 fL (81-99); Mean Platelet Volume 10.3 fL (7.4-10.4); Monocytes # 1.1 10^3/uL (0.2-0.9); Monocytes % 17.8 %; Neutrophils % 61.9 %; Nucleated Red Blood Cells % 0 %; Platelet Count 279 10^3/cmm (130-400); Red Blood Count 3.05 10^6/uL (4.1-5.3); Red Cell Distribution Width 16.7 % (12.1-15.1); White Blood Count 6.3 10^3/uL (4.0-10.0)
[2020-08-07 11:14] LABS: Fibrinogen 470 mg/dL (174-498)
[2020-08-07 11:17] LABS: D Dimer 1.12 ug/mIFEU (0-0.59)
[2020-08-07 11:20] LABS: Lactic Sepsis W/Reflex 0.7 mmol/L (0.5-2.2)
[2020-08-07 11:21] LABS: Alanine Aminotransferase 9 U/L (0-33); Albumin Level 3.7 g/dL (3.5-5.2); Alkaline Phosphatase 24 IU/L (35-105); Anion Gap 15.3 (5-19); Aspartate Amino Transferase 21 U/L (0-32); Blood Urea Nitrogen 11 mg/dL (8-23); C Reactive Protein 16.5 mg/L (0.0-4.9); Calcium 9.2 mg/dL (8.5-10.5); Carbon Dioxide 24 mmol/L (22-29); Chloride 104 mmol/L (98-107); Ferritin 540 ng/mL (15-150); Globulin 3.2 g/dL (1.3-4.6); Glomerular Filtration Rate 161.2 mL/min (90-130); Glucose 100 mg/dL (65-115); Lipase 16 U/L (13-60); Osmolality Calculated 289 mOsm/kg (285-295); Potassium 3.3 mmol/L (3.5-5.1); Sodium 140 mmol/L (136-145); Total Bilirubin 0.3 mg/dL (0.15-1.2); Total Protein 6.9 g/dL (6.6-8.7)
[2020-08-07 11:22] LABS: SARS Covid-2 Antigen Negative (Negative)
[2020-08-07 11:32] LABS: Add Urine Microscopic? NO
[2020-08-07 11:35] LABS: Bilirubin Urine Neg (Negative); Blood Urine Neg (Negative); Glucose Urine UA Norm (Normal); Ketones Urine 2+ (Negative); Leukocyte Esterase Urine Negative (Negative); Nitrate Urine Negative (Negative); Protein Urine Neg (Negative); Urine Appearance Clear (CLEAR); Urine Color Dark Yellow (Yellow); Urobilinogen Urine Norm (Negative); pH Urine 6 (5-7)
--- NOTE | 2020-08-07 12:09 | CT_ITS ---
WS: [id number] CTA OF THE CHEST WITH PULMONARY EMBOLISM PROTOCOL TECHNIQUE: High-resolution contrast enhanced CTA of the chest with coronal and sagittal reformatted i mages with pulmonary embolism protocol. MIP images are also reviewed. CLINICAL INFORMATION: dyspnea/cough COMPARISON: None. DLP: 404.[address] scans at [facility] use at least one of these dose optimization techniques: automat ed exposure control; mA and/or kV adjustment per patient size (includes targeted exams where dose is matched to clinical indication); or iterative reconstruction. FINDINGS: Proximal main pulmonary arteries are patent. Segmental and subsegmental pulmonary arteries appear pat ent. No evidence for pulmonary embolus. Normal caliber thoracic aorta. Moderate chronic emphysematous changes. No acute pulmonary infiltrates. Subsegmental atelectasis in the lung bases. No focal pneumo tigre or pleural fluid. Adrenal glands are normal. Hypertrophic changes thoracic spine. CT/CT angio chest PE protcl [id number] IMPRESSION: 1. No acute pulmonary embolus. 2. Moderate chronic emphysematous changes. No acute pulmonary infiltrates. 3. No mediastinal or hilar lymphadenopathy. 4. No other significant findings. Attempted notification Jimbo Rodrigues DO at 08/07/2020 2:34 PM.
[2020-08-07] MEDS: potassium chloride oral liq 20 mEq/15 mL UDC 40 MEQ PO (12:25)
[2020-08-07] MEDS: sodium chloride 0.9% 1,000 ML 999 ML IV (12:26)
[2020-08-07] MEDS: iohexol 350 mg/mL 100 mL Btl IV (14:11)
[2020-08-07 15:44] VITALS: BP 128/86; PULSE 75; RESP 15; O2SAT 99
--- NOTE | 2020-08-08 10:06 | PC.NURSE ---
lab called with a positive c-diff. info left with dr. nguyen
== END 2020-08-07 15:45 | disposition home or self-care (01) ==
PROVIDERS: Emergency Provider Family Medicine; PCP Nurse Practitioner Family
DX: C50.919 Malignant neoplasm of unspecified site of unspecified female breast (principal); Z79.899 Other long term (current) drug therapy
CPT/HCPCS: 12345; 36600; 71045; 71275; 80051; 80053; 81003; 82274; 82330; 82728; 82805; 83605; 83690; 85025; 85378; 85384; 86140; 87040; 87426; 87493; 96360; 99282; 99284; J7030; Q9967

== ENCOUNTER → 2020-08-28 10:29 | Outpatient (BNVA) | payer MEDICAID, SELFPAY | PROVIDERS: PCP Nurse Practitioner Family; Visit Provider Internal Medicine Hematology & Oncology | DX: C50.919 Malignant neoplasm of unspecified site of unspecified female breast (principal) | CPT/HCPCS: 80053; 85025 ==

== ENCOUNTER 2020-08-30 05:41 | Outpatient (RCR) | payer BC, SELFPAY ==
--- NOTE | 2020-08-30 12:46 | ONC FU_ITS ---
Dr. Nowak follow up note Patient: Paris Bae Unit #: [id number]: [id number] Dicatated By: Petra Nowak M.D.Date of Visit:Aug 30, 2020 Onc Med Follow-up/Prog Note History of Present Illness: Ms. Bae is a 65-year-old female with a history of progressive left breast mass. She underwent mammogram on March 07, 2020 which showed in the region of palpable abnormality. There was a hypoechoic mass measuring 1.8 x 0.8 x 1.4 cm with some mild peripheral increased vascularity at 8 o'clock position 3 cm from the nipple. And right breast showed benign calcification., On March 09, 2020 she underwent ultrasound guided left breast mass biopsy which showed high-grade invasive ductal carcinoma with chronic inflammation surrounding the tumor. Prognostic profiling confirmed triple negative disease e.g. ER less than 1% positive, IA less than 1% and HER-2/jasmyn negative. Because of location and locally advanced disease e.g. inner lower quadrant left breast, a follow-up CT PET scan was done on on May 02, 2020. It reported the left breast mass in the lower inner quadrant measuring 3.1x 5.8 cm demonstrate SUV of 23.20; Level 1 left axillary lymph node demonstrates a maximum SUV of 1.62 no other abnormality seen, no distant mets seen; Left lower paratracheal 1.0 x 2.2 cm lymph node demonstrating maximum SUV of 2.59 reflecting inflammatory changes only. Echocardiogram done on April 11, 2020 showed ejection fractions 65% with mild left ventricular hypertrophy Ms Bae has no history of previous breast biopsies; no family history of breast cancer. menarche started at age 13 and she is G3, with no miscarriages. No breast-feeding. Ms Bae started on neoadjuvant chemotherapy with dose dense Adriamycin/Cytoxan with Neulasta support on May 08, 2020. Despite the Neulasta, she developed severe chemotherapy induced neutropenia on day 8 with an ANC of 50. She was admitted to [facility] [place] 05/15/2020 for severe neutropenia and left breast abcess. She was treated with IV antibiotics and discharged on levofloxacinon 05/16/2020.Subsequently patient tolerated neoadjuvant chemotherapy with Adriamycin/Cytoxan and recommended completed 4 cycles on July 03, 2020 but subsequently patient developed diarrhea and C. difficile was done which came back positive treated with antibiotics and the repeat C. difficile on July 13 was still positive and patient stayed on antibiotics till last week And continued to have bone pains and off and on diarrhea but being controlled with Imodium and was also running fever as high as 101.4 on last Friday. Patient had a follow-up left breast sonogram done on July 05, 2020 which showed interval improvement of left breast neoplasm with neoadjuvant chemotherapy. Came for follow-up, denies any specific complaints, no fever chills, no nausea or vomiting, no diarrhea or constipation, no bony pains overall feeling much better. . Medications: Citalopram Hydrobromide 1 Tablet (of 40 mg) Oral daily, traMADol HCl 1 Tablet (of 50 mg) Oral q 4 hours PRN Allergies: No Known Allergies. Review of Systems: Review of Systems is not available for this patient. Vital Signs: Performed on Aug 30, 2020 11:57 Height - 63.50 in Weight - 115.4 lbs (LOW) BSA - 1.54 sq.m BMI - 20.12 Temperature - 99.0 F (HIGH) Pulse - 97 /min Respiration - 18 /min BP - 104/60 mm(hg) O2 Sat - 100 % Pain - 0 Performance Status: 0 - Fully active, able to carry on all predisease activities without restrictions. (ECOG) Physical Examination: Respiratory - Lungs are clear to auscultation, Cardiovascular - Regular rate and rhythm of heart, Gastrointestinal - Soft, bowel sounds present, Extremities - No visible edema or rash. Lab/Imaging: Test performed on Aug 04, 2020 09:14 Sodium 138 mmol/L Potassium 3.2 mmol/L Chloride 102 mmol/L CO2 25 mmol/L Anion Gap 14.2 BUN 13 mg/dL Creatinine 0.5 mg/dL Cr Clearance (Est) 96.82 mL/min eGFR 124.6 mL/min Glucose 117 mg/dL Osmolality - Calculated 287 mOsm/kg Calcium 9.3 mg/dL Protein, Total 7.1 g/dL Albumin 4.0 g/dL Globulin 3.1 g/dL Bilirubin, Total 0.4 mg/dL ALT (SGPT) 6 U/L AST (SGOT) 13 U/L Alkaline Phosphatase 22 IU/L WBC 2.9 10 3/uL Manual Segs % 48 % Manual Bands % 12.0 % RBC 3.04 10 6/uL HGB 9.1 g/dL Manual Lymphs % 21 % Atypical Lymphs % 0.0 % HCT 28.6 % MCV 94.1 fL Total Cells Counted 100 Manual Monos % 18.0 % MCH 29.9 pg Manual Eos % 1 % MCHC 31.8 g/dL Manual Basos % 0.0 % RDW 17.3 % Platelet Count 169 10 3/cmm MPV 10.6 fL CBC Slide Review Slide Review Perform Platelet Estimate Normal Manual Segs Abs 1.4 10/cmm Manual Bands Abs 0.3 10 3/cmm Manual Neutrophils Abs 1.7 10 3/cmm Manual Monocytes Abs 0.5 10 3/cmm Manual Eosinophils Abs 0.0 10 3/cmm Manual Basophils Abs 0.0 10 3/cmm Test performed on Jul 03, 2020 11:05 Neutrophils 3.64 10 3/uL Lymphocytes 1.1 10 3/uL Monocytes 0.8 10 3/uL Eosinophils 0.0 10 3/uL Basophils 0.1 10 3/uL Neutrophil % 64.1 % Lymphocyte % 18.6 % Monocyte % 14.2 % Eosinophil % 0.7 % Basophils % 1.9 % NRBC % 0 % Test performed on Jun 26, 2020 10:25 SARS CoV-2 Ag Negative The results are negative with the test specificity 100%, sensitivity 97%, and positive predictive value 100%. If the patient shows clinical signs and symptoms of SARS-CoV-2, kindly defer to a NAAT detection method. Test performed on Jun 26, 2020 10:00 C. Difficile, PCR C. difficile toxin B gene DNA detected CCRB Y CCRBTECH GOOAM CCRBTO LEDAS2 CCRDATE1 [id number] CCRTIME1 1225 CDIFFMAX P Test performed on Jun 26, 2020 08:13 Magnesium 1.9 mg/dL Impression: High-grade invasive ductal carcinoma per ultrasound-guided left breast biopsy done on March 09, 2020 prognostic profiling showed triple negative disease, ER less than 1%, IA less than 1% and HER-2/jasmyn negative, Ki-67 95%. Staging CT PET scan done on May 02, 2020 showed left breast mass in lower inner quadrant sized 5.8 x 3.1 cm hypermetabolic mass with SUV of 23.20 With no distant metastatic disease , Clinical stage II, (more than 5 cm) N0,M0 Echocardiogram done on April 11, 2020 showed ejection fraction 65% Started on neoadjuvant chemotherapy with dose dense Adriamycin Cytoxan every 2 weeks with Neulasta support x 4 followed by Taxol on May 08, 2020. She developed severe chemotherapy induced neutropenia with a day 8 ANC of 5. This did require hospital admission and she received IV antibiotics for a left breast abscess. She was discharged on oral levofloxacin on 05/16/2020. The breast abscess did clear with the antibiotics. Her neutropenia has recovered as well. Tolerated further treatment with Adriamycin Cytoxan well and completed Adriamycin/Cytoxan x4 on July 03, 2020. Further neoadjuvant chemotherapy with Taxol was delayed because of persistent leukopenia and C. difficile positive diarrhea Plan: .Discussed with patient regarding her labs white blood count 4.2 hemoglobin 10.3 hematocrit 33.8 platelets 294,000 CMP within normal limits Clinically, patient doing well, tolerating neoadjuvant chemotherapy well, now has completed 4 cycles of Adriamycin Cytoxan well except posttreatment period Was was complicated by C. difficile infection which caused delay in starting further neoadjuvant chemotherapy with Taxol. Her follow-up breast sonogram after 4 cycles of Adriamycin Cytoxan showed excellent response. Came for follow-up and to restart her neoadjuvant chemotherapy now with a Taxol, but patient has decided to proceed with surgery and would consider chemotherapy after that. Patient is considering left modified mastectomy with sentinel lymph node as she is reluctant to consider radiation therapy to the left chest wall but patient was informed as at the time of diagnosis her tumor was more than 5 cm, she may need postop radiation therapy regardless whether she opted for left breast lumpectomy or mastectomy. At patient request, will hold further neoadjuvant chemotherapy with Taxol and refer her to surgery . Patient will see Dr. vivar tomorrow for further discussion. We will see her back after her surgery and review her final pathology report and consider further chemotherapy with Taxol weekly x12 followed by evaluation for radiation therapy. Signed By: Petra Nowak M.D. <<Signature on File>>
== END 2020-09-28 23:59 | disposition home or self-care (01) ==
LOC: ONCMED 05:41
PROVIDERS: PCP Nurse Practitioner Family; Visit Provider Internal Medicine Hematology & Oncology
DX: C50.512 Malignant neoplasm of lower-outer quadrant of left female breast (principal); Z17.1 Estrogen receptor negative status [ER-]; D70.1 Agranulocytosis secondary to cancer chemotherapy; T45.1X5A Adverse effect of antineoplastic and immunosuppressive drugs, initial encounter; A04.72 Enterocolitis due to Clostridium difficile, not specified as recurrent; Z79.899 Other long term (current) drug therapy
CPT/HCPCS: 99214

== ENCOUNTER → 2020-09-07 15:13 | Outpatient (BNVA) | payer MEDICAID, SELFPAY | PROVIDERS: PCP Nurse Practitioner Family; Visit Provider Surgery | DX: C50.919 Malignant neoplasm of unspecified site of unspecified female breast (principal) | CPT/HCPCS: 87635 ==

== ENCOUNTER → 2020-10-05 14:54 | Outpatient (BNVA) | payer OTHER, SELFPAY | PROVIDERS: PCP Nurse Practitioner Family; Visit Provider Surgery | DX: Z20.828 Contact with and (suspected) exposure to other viral communicable diseases (principal); C50.919 Malignant neoplasm of unspecified site of unspecified female breast | CPT/HCPCS: 87635 ==

== ENCOUNTER 2020-10-10 10:02 | Day surgery (SDC) | payer OTHER, MEDICAID, SELFPAY ==
[2020-10-09 13:43] VITALS: BMI 22.3
[2020-10-10] VITALS (8 sets, daily range): BP systolic 108–124; BP diastolic 51–73; PULSE 47–72; RESP 16–18; TEMP 36.3–36.8; O2SAT 94–100
[2020-10-10] MEDS: sodium chloride 0.9% 1,000 ML 30 ML IV (08:00)
--- NOTE | 2020-10-10 10:14 | NM_ITS ---
WS: [id number] SENTINEL NODE TECHNIQUE: Left sentinel node injection CLINICAL INFORMATION: breast cancer COMPARISON: None. PROCEDURE: The procedure including risks, benefits, and complications were discussed; the patient agr eed to proceed. Patient was prepped and draped in usual sterile fashion. Subsequently, 1% lidocaine p reservative-free was administered at the 12:00, 3:00, 6:00, and 9:00 o'clock positions for local anes thesia. Subsequently, 4 aliquots of filtered technetium 99m sulfur colloid was injected into the subc utaneous soft tissues. A total dose of 1.0 mCi was administered. Patient tolerated the procedure well with no immediate complications. OR/NM sentinel node inject [id number] IMPRESSION: Uncomplicated left breast sentinel node injection with a total dose of 1.0 mCi.
--- NOTE | 2020-10-10 11:36 | ANES.PREANE2 ---
Pre-Anesthetic Assessment Pre-Anesthetic Assessment: Height/Weight: Height 1.63 m Weight 58.967 kg Preop Diagnosis: Left breast cancer Proposed Procedure: Operation Date: 10/10/20 11:00 Proposed Procedures p Mastectomy Simple [id number] C50.919(Left) - Stuart Blood MD s Sentinal Lymph Node Biopsy(Left) - Stuart Blood MD Was Beta Nory taken within 24 hours: N/A Last intake: Intake Last Liquid Date 10/09/20 Last Liquid Time 20:00 Last Solid Date 10/10/20 Last Solid Time 20:00 Social: Social History: No alcohol and No tobacco Exam: Pre-Anes Outpt Exam: alert, oriented x 3, clear to auscultation bilaterally and regular rate & rhythm Airway: Submandibular: WNL Cervical ROM: WNL MP: 2 Dentition: Partials Neuropsych: Neuropsych: Anxiety Anesthetic Plan: ASA status: 2 PFSH Anesthesia PFSH: Medical History Invasive ductal carcinoma of breast Port-A-Cath in place (~03/2020) Triple negative malignant neoplasm of breast (~02/2020) Surgical History History of colonoscopy History of exploratory laparotomy Family History Denies family history of Anesthesia complication Bleeding disorder Social History Smoking and tobacco status: never smoked Data Anesthesia Cardiac Studies: No Data to Display
--- NOTE | 2020-10-10 11:37 | P.HP_ITS ---
Same Day Surgery H&P Indication for Procedure/HPI DATE OF PROCEDURE: October 10, 2020 CHIEF COMPLAINT/INDICATIONFOR SURGICAL PROCEDURE: Left Breast Cancer PREOP DIAGNOSIS: Left breast cancer PLANNED PROCEDRUE: Operation Date: 10/10/20 11:00 Proposed Procedures p Mastectomy Simple [id number] C50.919(Left) - Stuart Blood MD s Sentinal Lymph Node Biopsy(Left) - Stuart Blood MD This is a pleasant 65 years old female patient well-known to me from previous clinical encounter as patient was previously diagnosed with High-grade invasive ductal carcinoma per ultrasound-guided left breast biopsy done on March 09, 2020 prognostic profiling showed triple negative disease, ER less than 1%, OH less than 1% and HER-2/jasmyn negative, Ki-67 95%. Patient undergone neoadjuvant chemotherapy via a right upper chest Port-A-Cath that I did place few months ago. Patient comes today to discuss potential mastectomy and sentinel lymph node biopsy Interim history 10/10/2020 Patient comes today for left total mastectomy and a sentinel lymph node biopsy of the left axillary nodes. ROS All systems have been reviewed negative except as per the above or per problem list Medications/Allergies* Home Medications Medication Instructions Recorded Confirmed Type citalopram [Celexa] 40 mg PO DAILY 04/07/20 10/10/20 History ibuprofen 200 mg PO Q6H PRN 05/15/20 10/10/20 History Allergies/Adverse Reactions Allergy/AdvReac Type Severity Reaction Status Date / Time No Known Allergies Allergy Verified 10/10/20 11:43 Pertinent History/Comorbid Conditions* Medical History (Updated 08/08/20 @ 06:14 by Jimbo Rodrigues DO) Invasive ductal carcinoma of breast Port-A-Cath in place (~03/2020) Triple negative malignant neoplasm of breast (~02/2020) Surgical History (Updated 03/09/20 @ 08:21 by Stuart Blood MD) History of colonoscopy History of exploratory laparotomy Family History (Updated 03/08/20 @ 14:34 by ANA ROSA Fraire) Denies family history of Anesthesia complication Bleeding disorder Social History Smoking and tobacco status: never smoked Pertinent Exam Findings alert, oriented x 3, clear to auscultation bilaterally, regular rate & rhythm, operative site marked and procedure specific exam findings (Left breast examination was done in the presence of female junior systems analyst Sebastian) Pertinent Data PERTINENT DATA: No clinically palpable masses left breast examination Recommendations Surgery/Procedure today (Left total mastectomy and sentinel lymph node biopsy of the left axilla) Coding Level of Care Code Acute Industrial Machine Operator for Colette Zarate
[2020-10-10] MEDS: heparin 5,000 unit/mL INJ 1 mL 2000 UNIT SUBCUT (12:07)
[2020-10-10] MEDS: isosulfan blue 10 mg/mL SDV 5mL SUBCUT (12:17)
--- NOTE | 2020-10-10 14:19 | P.OP_ITS ---
Operative Report Date of procedure: October 10, 2020 Pre-op Diagnosis: Left breast cancer Post-op diagnosis: same Procedure Done: Left total mastectomy and sentinel lymph node biopsy of the left axilla. Implants: 15 [place] rounded Jamal drain Specimens removed/disposition: [place] lymph node #1 in vivo 445 and ex vivo 207 [place] lymph node #2 in vivo 145 and ex vivo 91 Left total mastectomy short sutures marked superior and long sutures marked lateral Surgeon: Stuart Blood Bag Shaker: Surgical techShameka Gottlieb and Radha Circulating nurses Loreta and Sirisha Anesthesia: General (LMA manager home Janie) Estimated blood loss (mL): 50 Condition: stable Disposition: same day Brief History: This is a pleasant 65 years old female patient with history of invasive ductal carcinoma with hormonal status ER less than 1% positive, AR less than 1% and HER-2/jasmyn negative. Patient undergone neoadjuvant chemotherapy and she was counseled for left total mastectomy there after and a sentinel lymph node biopsy of the left axilla. Informed consent per chart Procedure: In the nuclear medicine suite,Procedure was explained to the patient. Informed consent obtained. Time out was performed. The correct breast was marked. The skin at the adrenal skin interface was marked at the 12:00, 3:00, 6:00, 9:00 positions and prepped in a sterile manner. At the skin markings, the subcutaneous soft tissues were anesthetized with buffered 1% lidocaine. At each site, single aliquots of technetium 99m filtered sulfur colloid were administered into the subcutaneous soft tissues (total activity of 1.1 mCi). No apparent post procedure complication. Few hours later, the patient was taken to the operating room after marking the left breast and axilla by myself in the holding area in the presence of female java architect SHIKHA Scanlon, and general anesthesia was induced,Time-out was done verifying the patient's name/date of /planned procedure and destination after the procedure, all were in agreement. SCDs confirmed to be functioning, preoperative antibiotics administered per protocol, and beta trevor protocol was confirmed, appropriate positioning of the patient was done by me. patient was placed in supine position, with her left side being towards the edge of the table, and hand-held gamma probe was used to identify the location of the hottest spot in the axilla .prep and drape was done for the chest including left breast and left arm and axilla, time-out was done verifying the patient's name medical record number and destination after the procedure, all were in agreement, IV antibiotics were given with induction. Lymphazurin blue dye was injected at the subareolar region by myself, this was massaged gently for 5 minutes.Prior to the incision, lidocaine 2% was injected at the incision site, incision was then made over the left axilla at one of the skin crease, the probe was placed in contact with the node/stained blue after appropriate dissect, and a lymph node was excised in its entirety. Opal counts as follows [place] lymph node #1 in vivo 445 and ex vivo 207 [place] lymph node #2 in vivo 145 and ex vivo 91 The above lymph nodes were placed in formalin and passed to the circulating nurse for permanent pathology No additional hot spots were detected, or blue lymphatics were identified.No clinically abnormal nodes were palpated. Irrigation was done then hemostasis was achieved using medium size clips and Bovie cautery, after thorough irrigation of the left axilla, and the wound was closed in layers later using interrupted 3-0 Vicryl followed by 4-0 Monocryl followed by surgical glue. Attention now was deviated towards the left total mastectomy Skin incision(using a fresh 15 blade knife )was made that encompassed the nipple area complex and the previous biopsy scar passed in a generally transverse/oblique direction across the breast Flaps were raised in the avascular plane between the subcutaneous tissue and breast tissue from the clavicle superiorly, the sternum medially, the anterior rectus sheath inferiorly, and anterior border of the latissimus dorsi muscle laterally. Hemostasis was achieved of the flaps. Next the breast tissue underlying pectoralis fascia were excised from the pectoralis major muscle, progressing from medially to laterally in the avascular plane.At the lateral border of the pectoralis major muscle, the breast tissue was swung laterally.A total mastectomy of the left breast was then achieved, the specimen was oriented in the form of short sutures superior and long sutures lateral and passed to the circulating nurse for permanent pathology The wound was irrigated and hemostasis was achieved. A round Jamal drains 15 Northern Irish were placed and brought out through the inferior flap,towards the left pectoral region, drain was stitched to the skin,wound was then closed using deep subdermal 2-0 Vicryl , followed by skin miguel, dry dressing, drain dressings, Telfa, fluffs on top and sports bra was applied. Counts of sponges, needles and instruments were completed at the end of the procedure I was present for the whole entire procedure Patient was then extubated and taken to the recovery room in stable condition
--- NOTE | 2020-10-10 14:36 | SUR.PHASEI ---
PT TO PACU SLEEPY BUT DOES OPEN EYES TO VOICE BUT QUICKLY BACK TO SLEEP WITH GOOD RESP EFFORT VSS. IV PATENT DRESSING TO LT CHEST D/I BRA IN PLACE DRAIN COMPRESSED WITH SMALL AMT RED DRAINAGE NOTED.
--- NOTE | 2020-10-10 14:39 | SUR.PHASEI ---
PT AWAKES EASILY VERBALIZED NO PAIN OR NAUSEA PT ON RA TRIAL
--- NOTE | 2020-10-10 15:31 | ANE.PACU2 ---
Inpatient post-anesthesia follow up: Airway intact: Yes Vital signs: Temperature 97.6 F Pulse Rate 58 Respiratory Rate 16 Blood Pressure 121/51 Pulse Oximetry 96 Oxygen Delivery Me thod Room Air Oxygen Flow Rate 8 Fraction of Inspir ed Oxygen Hydration adequate: Yes Nausea and vomiting: No Pain level: 2 Mental status: Baseline
--- NOTE | 2020-10-10 16:37 | PC.NURSE ---
1600-DRAIN CARE AND DRESSING CHANGE DEMONSTRATED BY KANIKA HALL RN AND DANIEL SCOTT RN TO PT AND HER . WRITTEN INSTRUCTIONS WERE GIVEN ALONG WITH AN DRAIN OUT PUT FLOW SHEET AND MEASURING CUP. PT DEMONSTRATED BACK TO ME HOW TO EMPTY DRAIN.
== END 2020-10-10 16:34 | disposition home or self-care (01) ==
PROVIDERS: PCP Nurse Practitioner Family; Visit Provider Surgery
PROC: (CPT 19303; principal; 2020-10-10 11:00)
PROC: (CPT 19303; 2020-10-10 11:00)
DX: C50.912 Malignant neoplasm of unspecified site of left female breast (principal)
CPT/HCPCS: 19303; 38525; 12345; 38792; 88305; 88309; 96372; A9541; J0690; J1100; J1170; J1644; J2250; J2405; J2704; J3010; J7030; Q9968

== ENCOUNTER 2020-10-17 14:56 | Emergency (ER) | payer OTHER, MEDICAID, SELFPAY ==
[2020-10-17 15:00] VITALS: BP 103/68; PULSE 113; RESP 16; TEMP 36.7; O2SAT 98; BMI 22.3
--- NOTE | 2020-10-17 16:13 | XRR_ITS ---
PROCEDURE INFORMATION: Exam: XR Chest, 1 View Exam date and time: 10/17/2020 4:16 PM Age: 65 years old Clinical indication: Other: Post mastectomy pain, reduced breath sounds; Prior surgery TECHNIQUE: Imaging protocol: XR of the chest Views: 1 view. COMPARISON: CR XR chest 1V portable [id number] 08/07/2020 10:31 AM FINDINGS: Tubes, catheters and devices: Stable right Mediport catheter. Surgical clips over the left axilla. Drainage tube over the left chest. Lungs: Unremarkable. No consolidation. Pleural space: Unremarkable. No pleural effusion. No pneumothorax. Heart/Mediastinum: Unremarkable. No cardiomegaly. Bones/joints: Unremarkable. Soft tissues: Absent left breast shadow with horizontal row of skin miguel over the left chest consistent with recent left mastectomy. XR/XR chest 1V portable [id number] IMPRESSION: 1. Stable right Mediport catheter. 2. Absent left breast shadow with horizontal row of skin miguel over the left chest consistent with recent left mastectomy.
--- NOTE | 2020-10-17 16:15 | ECG_ITS ---
[facility] Test Date: 2020-10-17 Pat Name: Paris Bae Department: Room: Gender: Female Manager Customer: : 1955 Requested By: Hitesh Alamo Order Number: [id number] Acevedo MD: Avril Peralta M.D. Measurements Intervals Shell Rate: 60 P: 73 HI: 192 QRS: 63 QRSD: 94 T: 73 QT: 426 QTc: 428 Interpretive Statements SINUS RHYTHM MODERATE ST DEPRESSION [0.05+ mV ST DEPRESSION] No previous ECG available for comparison Electronically Signed On 10-17-2020 19:57:41 WEB DEVELOPMENT DIRECTOR by Avril Peralta M.D. [id number]
--- NOTE | 2020-10-17 16:17 | W.ED.DIZZY ---
HPI - Dizziness General: Chief Complaint: Dizziness Stated Complaint: KIMBERLY not DRAINING, DIZZY, LT HEADED Time Seen by Provider: 10/17/20 16:03 History of Present Illness: HPI Narrative: The patient is a 65-year-old female with past medical history invasive ductal carcinoma in her left breast with a mastectomy 6 days ago. She has a KIMBERLY drain which she says she thinks is clogged as it only drained 15 cc this morning. There is a few cc bloody drainage in the tube. She says she thinks she had a fever last night but she is not sure as she did not measure her temperature. Denies chills, sweats, nausea, vomiting, diarrhea, abdominal pain. She complains of chronic right wrist pain as well which she has had since she started the chemo. There is some erythema below her surgical scar which is warm and tender which she says is also new since her visit yesterday. Dr. Blood perform the surgery Associated symptoms: Denies chest pain, chills, cough, headache(s), nausea, nasal congestion, palpitations or short of breath Review of Systems General: Reports: 10 or more systems reviewed and unremarkable except in HPI and below Const: Denies: chills Eyes: Denies: change in vision, blurry vision or eye redness ENMT: Denies: throat pain, swelling of lips/tongue, ear or mastoid pain or nasal congestion Card: Denies: chest pain, palpitations, irregular heart rhythm, edema, dyspnea on exertion or orthopnea Resp: Denies: dyspnea, productive cough or non-productive cough GI: Denies: nausea : Denies: flank pain, difficulty voiding, urinary frequency or urinary urgency Musc: Denies: neck pain, back pain, extremity pain, joint pain, joint redness, limited range of motion or muscle weakness Skin/Breast: Reports: rash; Denies: pruritus, erythema, skin pain or skin tenderness Neuro: Denies: headache(s) Psych: Denies: anxiety or depression Endo: Denies: polyuria All/Imm: Denies: urticaria, throat swelling or tongue swelling PFSH ED PFSH: Medical History Invasive ductal carcinoma of breast Port-A-Cath in place (~03/2020) Triple negative malignant neoplasm of breast (~02/2020) Surgical History History of colonoscopy History of exploratory laparotomy Family History Denies family history of Anesthesia complication Bleeding disorder Social History Smoking and tobacco status: never smoked Physical Exam Const: COMMON NORMALS: no acute distress, average body habitus, patient oriented x3, no limitations, healthy appearing, alert and well nourished GENERAL APPEARANCE: cooperative, comfortable, well kempt and well developed ORIENTATION/CONSCIOUSNESS: Yes awake, Yes oriented to person, Yes oriented to place and Yes oriented to time HENMT: COMMON NORMALS: normocephalic, external ears normal and Normal external nose present HEAD & SCALP: normal to inspection and normocephalic NOSE: Normal external nose present EXTERNAL EAR: Yes external ears normal MOUTH: Normal oral and palatal mucosa present THROAT: posterior oropharynx normal Eye: COMMON NORMALS: Equal, round and reactive pupils present and EOMs intact bilaterally GENERAL EYE: appearance normal, both eyes and all related structures PUPIL: Yes Equal, round and reactive pupils present Neck/C-Spine: COMMON NORMALS: full ROM, no lymphadenopathy, no meningeal signs and no JVD GENERAL: Yes normal visual inspection Lymph: LYMPHATIC: no lymphadenopathy noted Chest: COMMONS NORMALS: normal inspection of the chest and normal palpation of entire chest wall Resp: COMMON NORMALS: normal respiratory effort, No retractions, No use of accessory muscles, clear to auscultation bilaterally and percussion normal EFFORT & INSPECTION: Yes able to speak in complete sentences AUSCULTATION: clear to auscultation bilaterally PERCUSSION: percussion normal Cardio: COMMON NORMALS: no JVD, regular rhythm, S1 normal heart sound present, S2 normal heart sound present and Peripheral pulses 2+ throughout RATE: tachycardic (Rate 113 on arrival) RHYTHM: regular rhythm HEART SOUNDS: S1 normal heart sound present and S2 normal heart sound present PERIPHERAL PULSES: Peripheral pulses 2+ throughout GI: COMMON NORMALS: Normal to inspection, nondistended, normoactive bowel sounds present, Soft to palpation, non-tender and no masses INSPECTION: Yes normal to inspection PALPATION: Yes Soft to palpation : COMMON NORMALS: Yes no CVA tenderness BLADDER/KIDNEY EXAM: Yes no CVA tenderness Back/Pelvis: COMMON NORMALS: no CVA tenderness, thoracic and lumbar spine normal to inspection, no thoracic nor lumbar tenderness and thoraco-lumbar ROM normal Extremity: COMMON NORMALS: normal to inspection, full ROM, capillary refill normal, no joint enlargement and no pedal edema GENERAL: Yes normal exam except as noted Neuro: COMMON NORMALS: patient oriented x3, CN's II-XII intact bilaterally, moves all extremities, no focal motor deficits, no sensory deficits noted and gait normal SENSORIUM/ORIENTATION: Yes alert, Yes oriented to person, Yes oriented to place and Yes oriented to time MENINGEAL SIGNS: Yes no meningeal signs Psych: COMMON NORMALS: mental status grossly normal, Normal thought process present, cooperative, normal affect and speech normal APPEARANCE: Yes well kempt ATTITUDE: Yes calm SPEECH: Yes normal speech THOUGHT PROCESS: Normal thought process present Skin: COMMON NORMALS: no rashes or lesions noted NARRATIVE SKIN EXAM: Examination of her chest reveals a mastectomy recently performed approximately age 6 days. Inferior to the surgical scar there are several centimeters of erythema which is warm and mildly tender possibly representing a cellulitis. There are a few cc of bloody drainage from the KIMBERLY drain GENERAL SKIN EXAM: no rashes or lesions noted Course Vital Signs: Vital signs: Vital Signs Temperature 98.1 F 10/17/20 15:00 Pulse Rate 75 10/17/20 17:38 Respiratory Rate 16 10/17/20 17:38 Blood Pressure 101/54 10/17/20 17:38 Pulse Oximetry 98 10/17/20 17:38 MDM - Dizziness MDM Narrative: Medical decision making narrative: The patient comes in for a possible wound infection. She feels much better after liter of fluids. I milked her KIMBERLY drain and it began to drain serous drainage and showed her how to do this as well. I discussed with Dr. Blood who recommended discharging her with Bactrim and possibly seeing her tomorrow afternoon if she would like, otherwise follow-up as they already have planned. Return to the ER with worsening symptoms Lab Data: Labs: Lab Results 10/17/20 10/17/20 10/17/20 Range/Units 16:35 16:35 16:35 WBC 10.7 H (4.0-10.0) 10^3/ uL RBC 3.62 L (4.1-5.3) 10^6/u L Hgb 10.7 L (11.5-15.3) g/dL Hct 33.5 L (37.0-47.0) % MCV 92.5 (81-99) fL MCH 29.6 (28.0-34.0) pg MCHC 31.9 (30.0-36.0) g/dL RDW 13.8 (12.1-15.1) % Plt Count 286 (130-400) 10^3/c mm MPV 10.3 (7.4-10.4) fL Neut % (Auto) 76.5 % Lymph % (Auto) 11.1 % [place] % (Auto) 9.5 % Eos % (Auto) 2.2 % Baso % (Auto) 0.3 % Neut # (Auto) 8.18 H (1.8-7.7) 10^3/u L Lymph # (Auto) 1.2 (0.8-4.8) 10^3/u L [place] # (Auto) 1.0 H (0.2-0.9) 10^3/u L Eos # (Auto) 0.2 (0.0-0.8) 10^3/u L Baso # (Auto) 0.0 (0.0-0.1) 10^3/u L Nucleated RBC % (a uto) 0 % Nucleated RBCs # 0.0 /100WBC Sodium 135 L (136-145) mmol/L Potassium 3.9 (3.5-5.1) mmol/L Chloride 99 (98-107) mmol/L Carbon Dioxide 24 (22-29) mmol/L Anion Gap 15.9 (5-19) BUN 13 (8-23) mg/dL Creatinine 0.5 (0.5-0.9) mg/dL GFR Calculation 124.6 (90-130) mL/min Glucose 107 (65-115) mg/dL Calculated Osmolal ity 281 L (285-295) mOsm/k g Lactate 0.9 (0.5-2.2) mmol/L Calcium 9.2 (8.5-10.5) mg/dL Total Bilirubin 0.3 (0.15-1.2) mg/dL AST 20 (0-32) U/L ALT 18 (0-33) U/L Alkaline Phosphata se 45 (35-105) IU/L Troponin T Baselin e (0-10) ng/L Total Protein 7.2 (6.6-8.7) g/dL Albumin 3.9 (3.5-5.2) g/dL Globulin 3.3 (1.3-4.6) g/dL 10/17/20 Range/Units 16:35 WBC (4.0-10.0) 10^3/ uL RBC (4.1-5.3) 10^6/u L Hgb (11.5-15.3) g/dL Hct (37.0-47.0) % MCV (81-99) fL MCH (28.0-34.0) pg MCHC (30.0-36.0) g/dL RDW (12.1-15.1) % Plt Count (130-400) 10^3/c mm MPV (7.4-10.4) fL Neut % (Auto) % Lymph % (Auto) % [place] % (Auto) % Eos % (Auto) % Baso % (Auto) % Neut # (Auto) (1.8-7.7) 10^3/u L Lymph # (Auto) (0.8-4.8) 10^3/u L [place] # (Auto) (0.2-0.9) 10^3/u L Eos # (Auto) (0.0-0.8) 10^3/u L Baso # (Auto) (0.0-0.1) 10^3/u L Nucleated RBC % (a uto) % Nucleated RBCs # /100WBC Sodium (136-145) mmol/L Potassium (3.5-5.1) mmol/L Chloride (98-107) mmol/L Carbon Dioxide (22-29) mmol/L Anion Gap (5-19) BUN (8-23) mg/dL Creatinine (0.5-0.9) mg/dL GFR Calculation (90-130) mL/min Glucose (65-115) mg/dL Calculated Osmolal ity (285-295) mOsm/k g Lactate (0.5-2.2) mmol/L Calcium (8.5-10.5) mg/dL Total Bilirubin (0.15-1.2) mg/dL AST (0-32) U/L ALT (0-33) U/L Alkaline Phosphata se (35-105) IU/L Troponin T Baselin e 12 H (0-10) ng/L Total Protein (6.6-8.7) g/dL Albumin (3.5-5.2) g/dL Globulin (1.3-4.6) g/dL Discharge Plan Discharge Patient Disposition: Home Clinical Impression: Erythema, Acute dehydration Condition: Stable Prescriptions: New Bactrim DS 800-160 mg tablet 1 tab PO BID 10 Days Qty: 20 RF: 0 No Action citalopram [Celexa] 40 mg Tablet 40 mg PO DAILY RF: 0 ibuprofen 200 mg Tablet 400 mg PO PRN PRN (Reason: Pain) RF: 0 Hold Instructions: Resume on 10/14/20. hydrocodone-acetaminophen [[place]] 5-325 mg tablet 1 tab PO Q6H PRN (Reason: pain) Qty: 28 RF: 0 Discharge Orders: Discharge ED (Routine); Ordered 10/17/20 Ordered By: Hitesh lAamo Discharge Diet: Advance as tolerated Patient Instructions: Cellulitis Activity Restrictions/Additional Instructions: You have some erythema to your surgical scar. It is unclear if this is an infection or not but we will place you on Bactrim twice a day for 10 days to see if this helps. I have also shown you how to milk the tube to your KIMBERLY drain to get the small blood clots out and continue draining from the wound. Please call Dr. Blood tomorrow for an afternoon appointment if you would like to see him then. Keep your appointment on also. Return to the ER if your symptoms worsen. Please drink lots of fluids Coding Level of Care Code ED Energy And Conservation Technician for Colette Fwd Exam Comprehensive
[2020-10-17 16:52] LABS: Basophils % 0.3 %; Eosinophils # 0.2 10^3/uL (0.0-0.8); Eosinophils % 2.2 %; Hematocrit 33.5 % (37.0-47.0); Hemoglobin 10.7 g/dL (11.5-15.3); Lymphocytes # 1.2 10^3/uL (0.8-4.8); Lymphocytes % 11.1 %; Mean Corpuscular HGB Conc 31.9 g/dL (30.0-36.0); Mean Corpuscular Hemoglobin 29.6 pg (28.0-34.0); Mean Corpuscular Volume 92.5 fL (81-99); Mean Platelet Volume 10.3 fL (7.4-10.4); Monocytes % 9.5 %; Neutrophils # 8.18 10^3/uL (1.8-7.7); Neutrophils % 76.5 %; Nucleated Red Blood Cells % 0 %; Platelet Count 286 10^3/cmm (130-400); Red Blood Count 3.62 10^6/uL (4.1-5.3); Red Cell Distribution Width 13.8 % (12.1-15.1); White Blood Count 10.7 10^3/uL (4.0-10.0)
[2020-10-17 17:02] VITALS: BP 102/60; O2SAT 98
[2020-10-17] MEDS: acetaminophen 325 mg Tablet 650 MG PO (17:02)
[2020-10-17] MEDS: piperacillin-tazobactam 3.375 GM in sodium chloride 0.9% (plus) 50 ML IV (17:02)
[2020-10-17] MEDS: sodium chloride 0.9% 1,000 ML 999 ML IV (17:02)
[2020-10-17 17:12] LABS: Lactate (Lactic Acid level) 0.9 mmol/L (0.5-2.2)
[2020-10-17 17:13] LABS: Alanine Aminotransferase 18 U/L (0-33); Albumin Level 3.9 g/dL (3.5-5.2); Alkaline Phosphatase 45 IU/L (35-105); Anion Gap 15.9 (5-19); Aspartate Amino Transferase 20 U/L (0-32); Blood Urea Nitrogen 13 mg/dL (8-23); Calcium 9.2 mg/dL (8.5-10.5); Carbon Dioxide 24 mmol/L (22-29); Chloride 99 mmol/L (98-107); Creatinine Clr Calc Pharmacy 102.5507; Globulin 3.3 g/dL (1.3-4.6); Glomerular Filtration Rate 124.6 mL/min (90-130); Glucose 107 mg/dL (65-115); Osmolality Calculated 281 mOsm/kg (285-295); Potassium 3.9 mmol/L (3.5-5.1); Sodium 135 mmol/L (136-145); Total Bilirubin 0.3 mg/dL (0.15-1.2); Total Protein 7.2 g/dL (6.6-8.7); Troponin(5th) Baseline 12 ng/L (0-10)
[2020-10-17 17:38] VITALS: BP 101/54; PULSE 75; RESP 16; O2SAT 98
[2020-10-17] MEDS: vancomycin 1,000 MG in sodium chloride 0.9% 250 ML 250 MG IV (17:45)
[2020-10-17 18:28] VITALS: BP 102/54; PULSE 87; RESP 16; O2SAT 98
== END 2020-10-17 18:28 | disposition home or self-care (01) ==
PROVIDERS: Emergency Provider Family Medicine
DX: L53.9 Erythematous condition, unspecified (principal); E86.0 Dehydration
CPT/HCPCS: 12345; 36415; 71045; 80053; 83605; 84484; 85025; 87040; 93005; 96365; 96367; 99283; 99284; J2543; J3370; J7030; J7050

== ENCOUNTER 2020-10-27 10:29 | Outpatient (RCR) | payer OTHER, MEDICAID, SELFPAY | END 2020-10-29 23:59 | disposition home or self-care (01) | LOC: ONCMED 10:29 | PROVIDERS: Visit Provider Internal Medicine Hematology & Oncology | DX: Z45.2 Encounter for adjustment and management of vascular access device (principal) | CPT/HCPCS: 96523 ==

== ENCOUNTER → 2020-10-31 14:25 | Outpatient (BNVA) | payer OTHER, MEDICAID, SELFPAY | PROVIDERS: Visit Provider Nurse Practitioner Family | DX: M25.531 Pain in right wrist (principal) | CPT/HCPCS: 73110 ==

== ENCOUNTER → 2020-11-02 10:17 | Outpatient (BNVA) | payer OTHER, SELFPAY | PROVIDERS: Visit Provider Nurse Practitioner Family | DX: M25.50 Pain in unspecified joint (principal) | CPT/HCPCS: 80053; 84550; 85025; 85651; 86038; 86140; 86431 ==

== ENCOUNTER 2020-11-23 08:07 | Outpatient (RCR) | payer OTHER, MEDICAID, SELFPAY ==
--- NOTE | 2020-11-23 11:29 | ONC FU_ITS ---
Dr. Nowak follow up note Patient: Paris Bae Unit #: [id number]: 1955 Dicatated By: Petra Nowak M.D.Date of Visit:Nov 23, 2020 Onc Med Follow-up/Prog Note History of Present Illness: Ms. Bae is a 65-year-old female with a history of progressive left breast mass. She underwent mammogram on March 07, 2020 which showed in the region of palpable abnormality. There was a hypoechoic mass measuring 1.8 x 0.8 x 1.4 cm with some mild peripheral increased vascularity at 8 o'clock position 3 cm from the nipple. And right breast showed benign calcification., On March 09, 2020 she underwent ultrasound guided left breast mass biopsy which showed high-grade invasive ductal carcinoma with chronic inflammation surrounding the tumor. Prognostic profiling confirmed triple negative disease e.g. ER less than 1% positive, DC less than 1% and HER-2/jasmyn negative. Because of location and locally advanced disease e.g. inner lower quadrant left breast, a follow-up CT PET scan was done on on May 02, 2020. It reported the left breast mass in the lower inner quadrant measuring 3.1x 5.8 cm demonstrate SUV of 23.20; Level 1 left axillary lymph node demonstrates a maximum SUV of 1.62 no other abnormality seen, no distant mets seen; Left lower paratracheal 1.0 x 2.2 cm lymph node demonstrating maximum SUV of 2.59 reflecting inflammatory changes only. Echocardiogram done on April 11, 2020 showed ejection fractions 65% with mild left ventricular hypertrophy Ms Bae has no history of previous breast biopsies; no family history of breast cancer. menarche started at age 13 and she is G3, with no miscarriages. No breast-feeding. Ms Bae started on neoadjuvant chemotherapy with dose dense Adriamycin/Cytoxan with Neulasta support on May 08, 2020. Despite the Neulasta, she developed severe chemotherapy induced neutropenia on day 8 with an ANC of 50. She was admitted to [facility] on 05/15/2020 for severe neutropenia and left breast abcess. She was treated with IV antibiotics and discharged on levofloxacinon 05/16/2020.Subsequently patient tolerated neoadjuvant chemotherapy with Adriamycin/Cytoxan and recommended completed 4 cycles on July 03, 2020 but subsequently patient developed diarrhea and C. difficile was done which came back positive treated with antibiotics and the repeat C. difficile on July 13 was still positive and patient stayed on antibiotics till last week And continued to have bone pains and off and on diarrhea but being controlled with Imodium and was also running fever as high as 101.4 on last Friday. Patient had a follow-up left breast sonogram done on July 05, 2020 which showed interval improvement of left breast neoplasm with neoadjuvant chemotherapy. Because of persistent neutropenia despite of Neulasta and C. difficile infection/diarrhea, patient decided to proceed with surgery after 4 cycles of dose dense AC and eventually underwent left total mastectomy with sentinel lymph node biopsy of left axilla on October 10, 2020 and final pathology report showed no evidence of malignancy in 1 lymph node and no residual carcinoma identified in the left breast e.g. complete remission Came for follow-up, denies any specific complaints today, no fever chills, no nausea or vomiting, no diarrhea constipation, patient has recovered well from the left modified radical mastectomy with sentinel lymph node left axilla. Now here to discuss about adjuvant chemotherapy With the Taxol . Medications: Citalopram Hydrobromide 1 Tablet (of 40 mg) Oral daily, traMADol HCl 1 Tablet (of 50 mg) Oral q 4 hours PRN Allergies: No Known Allergies. Review of Systems: Review of Systems is not available for this patient. Vital Signs: Performed on Nov 23, 2020 10:41 Height - 63.50 in Weight - 97.7 lbs (LOW) BSA - 1.43 sq.m BMI - 17.04 (LOW) Temperature - 96.9 F (LOW) Pulse - 69 /min Respiration - 18 /min BP - 130/69 mm(hg) O2 Sat - 98 % Pain - 3 Performance Status: 0 - Fully active, able to carry on all predisease activities without restrictions. (ECOG) Physical Examination: Respiratory - Lungs are clear to auscultation, Cardiovascular - Regular rate and rhythm of heart, Gastrointestinal - Soft, bowel sounds present, Extremities - No visible edema. Lab/Imaging: Test performed on Aug 28, 2020 12:01 Glucose 116 mg/dL BUN 14 mg/dL Creatinine 0.5 mg/dL Cr Clearance (Est) 96.82 mL/min Sodium 141 mmol/L Potassium 3.8 mmol/L Chloride 103 mmol/L CO2 24 mmol/L Calcium 9.8 mg/dL Protein, Total 7.4 g/dL Albumin 4.4 g/dL Globulin 3 g/dL Bilirubin, Total 0.2 mg/dL Alkaline Phosphatase 33 IU/L AST (SGOT) 21 IU/L ALT (SGPT) 14 IU/L WBC 4.2 10^9/L RBC 3.4 10^12/L HGB 10.3 g/dL HCT 33.8 % MCV 99.4 fl MCH 30.3 pg MCHC 30.5 g/dL RDW 15.3 % Platelet Count 294 10^9/L Neutrophils (Gran) 2.33 10^9/L Lymphocytes 1.3 10^9/L Monocytes 0.4 10^9/L Eosinophils 0.2 10^9/L Basophils 0 10^9/L Test performed on Aug 04, 2020 09:14 Anion Gap 14.2 eGFR 124.6 mL/min Osmolality - Calculated 287 mOsm/kg Manual Segs % 48 % Manual Bands % 12.0 % Manual Lymphs % 21 % Atypical Lymphs % 0.0 % Total Cells Counted 100 Manual Monos % 18.0 % Manual Eos % 1 % Manual Basos % 0.0 % MPV 10.6 fL CBC Slide Review Slide Review Perform Platelet Estimate Normal Manual Segs Abs 1.4 10/cmm Manual Bands Abs 0.3 10 3/cmm Manual Neutrophils Abs 1.7 10 3/cmm Manual Monocytes Abs 0.5 10 3/cmm Manual Eosinophils Abs 0.0 10 3/cmm Manual Basophils Abs 0.0 10 3/cmm Test performed on Jul 03, 2020 11:05 Neutrophil % 64.1 % Lymphocyte % 18.6 % Monocyte % 14.2 % Eosinophil % 0.7 % Basophils % 1.9 % NRBC % 0 % Test performed on Jun 26, 2020 10:25 SARS CoV-2 Ag Negative The results are negative with the test specificity 100%, sensitivity 97%, and positive predictive value 100%. If the patient shows clinical signs and symptoms of SARS-CoV-2, kindly defer to a NAAT detection method. Test performed on Jun 26, 2020 10:00 C. Difficile, PCR C. difficile toxin B gene DNA detected CCRB Y CCRBTECH GOOAM CCRBTO LEDAS2 CCRDATE1 [id number] CCRTIME1 1225 CDIFFMAX P Test performed on Jun 26, 2020 08:13 Magnesium 1.9 mg/dL Impression: High-grade invasive ductal carcinoma per ultrasound-guided left breast biopsy done on March 09, 2020 prognostic profiling showed triple negative disease, ER less than 1%, DC less than 1% and HER-2/jasmyn negative, Ki-67 95%. Staging CT PET scan done on May 02, 2020 showed left breast mass in lower inner quadrant sized 5.8 x 3.1 cm hypermetabolic mass with SUV of 23.20 With no distant metastatic disease , Clinical stage II, (more than 5 cm) N0,M0 Echocardiogram done on April 11, 2020 showed ejection fraction 65% Started on neoadjuvant chemotherapy with dose dense Adriamycin Cytoxan every 2 weeks with Neulasta support x 4 followed by Taxol on May 08, 2020. She developed severe chemotherapy induced neutropenia with a day 8 ANC of 5. This did require hospital admission and she received IV antibiotics for a left breast abscess. She was discharged on oral levofloxacin on 05/16/2020. The breast abscess did clear with the antibiotics. Her neutropenia has recovered as well. Tolerated further treatment with Adriamycin Cytoxan well and completed Adriamycin/Cytoxan x4 on July 03, 2020. Further neoadjuvant chemotherapy with Taxol was delayed because of persistent leukopenia and C. difficile positive diarrhea Eventually patient decided to proceed with surgery and on October 10, 2020 she underwent left total mastectomy with sentinel lymph node biopsy of left axilla and final pathology report showed no evidence of disease in the breast and and sentinel lymph node from left axilla e.g. complete remission Plan: .Discussed with patient regarding her disease status, patient underwent left total mastectomy with sentinel lymph node biopsy of left axilla recently and final pathology report showed no evidence of malignancy in the axillary lymph node as well as in the left breast, that needs excellent response to neoadjuvant chemotherapy with dose dense Adriamycin Cytoxan. Now adjuvant chemotherapy with single agent Taxol is under consideration. All the side effects possible benefits including but not limited to bone marrow suppression, hair loss, nausea vomiting, peripheral neuropathy, allergic reaction, hyperglycemia due to steroids was mentioned, further teaching will done by chemotherapy nurse, will consider Taxol 80 mg/m??? weekly x12, will obtain approval from her insurance prior to the treatment and then will do CBC CMP and BRCA I and II on the day of chemo and then we will see her back 1 week after chemotherapy is initiated with CBC CMP As her primary tumor was more than 5 cm, will refer her to radiation oncology for evaluation for postmastectomy radiation therapy Signed By: Petra Nowak M.D. <<Signature on File>>
== END 2020-11-26 23:59 | disposition home or self-care (01) ==
LOC: ONCMED 08:07
PROVIDERS: Visit Provider Internal Medicine Hematology & Oncology
DX: C50.512 Malignant neoplasm of lower-outer quadrant of left female breast (principal); Z17.1 Estrogen receptor negative status [ER-]; D70.1 Agranulocytosis secondary to cancer chemotherapy; T45.1X5A Adverse effect of antineoplastic and immunosuppressive drugs, initial encounter; A04.72 Enterocolitis due to Clostridium difficile, not specified as recurrent; Z90.12 Acquired absence of left breast and nipple; Z92.21 Personal history of antineoplastic chemotherapy; Z79.899 Other long term (current) drug therapy
CPT/HCPCS: 96523; 99215

== ENCOUNTER 2020-11-28 14:02 | Outpatient (CLI) | payer OTHER, SELFPAY | END 2020-11-28 14:03 | disposition home or self-care (01) | LOC: SPT 14:02 | PROVIDERS: PCP Nurse Practitioner Family; Visit Provider Orthopaedic Surgery | DX: Z46.89 Encounter for fitting and adjustment of other specified devices (principal); M25.531 Pain in right wrist | CPT/HCPCS: L3809 ==

== ENCOUNTER → 2020-12-15 10:45 | Outpatient (BNVA) | payer OTHER, SELFPAY | PROVIDERS: PCP Nurse Practitioner Family; Visit Provider Obstetrics & Gynecology | DX: Z12.4 Encounter for screening for malignant neoplasm of cervix (principal); N95.2 Postmenopausal atrophic vaginitis | CPT/HCPCS: 88175 ==

== ENCOUNTER → 2020-12-19 13:05 | Outpatient (BNVA) | payer OTHER, SELFPAY | PROVIDERS: PCP Nurse Practitioner Family; Visit Provider Obstetrics & Gynecology | DX: R10.2 Pelvic and perineal pain (principal) | CPT/HCPCS: 76830 ==

== ENCOUNTER 2020-12-25 05:20 | Outpatient (RCR) | payer OTHER, SELFPAY ==
[2020-12-04 10:18] LABS: Basophils % 0.2 %; Hematocrit 35.6 % (37.0-47.0); Hemoglobin 11.3 g/dL (11.5-15.3); Lymphocytes # 0.5 10^3/uL (0.8-4.8); Lymphocytes % 11.6 %; Mean Corpuscular HGB Conc 31.7 g/dL (30.0-36.0); Mean Corpuscular Hemoglobin 29.2 pg (28.0-34.0); Mean Platelet Volume 10.6 fL (7.4-10.4); Neutrophils # 3.52 10^3/uL (1.8-7.7); Neutrophils % 86.7 %; Nucleated Red Blood Cells % 0 %; Platelet Count 198 10^3/cmm (130-400); Red Blood Count 3.87 10^6/uL (4.1-5.3); Red Cell Distribution Width 13.7 % (12.1-15.1); White Blood Count 4.1 10^3/uL (4.0-10.0)
[2020-12-04 10:44] LABS: Alanine Aminotransferase 11 U/L (0-33); Albumin Level 4.4 g/dL (3.5-5.2); Alkaline Phosphatase 38 IU/L (35-105); Anion Gap 17.1 (5-19); Aspartate Amino Transferase 17 U/L (0-32); Blood Urea Nitrogen 20 mg/dL (8-23); Calcium 9.6 mg/dL (8.5-10.5); Carbon Dioxide 24 mmol/L (22-29); Chloride 102 mmol/L (98-107); Globulin 3.2 g/dL (1.3-4.6); Glucose 159 mg/dL (65-115); Osmolality Calculated 294 mOsm/kg (285-295); Potassium 4.1 mmol/L (3.5-5.1); Sodium 139 mmol/L (136-145); Total Bilirubin 0.3 mg/dL (0.15-1.2); Total Protein 7.6 g/dL (6.6-8.7)
[2020-12-04] MEDS: acetaminophen 325 mg Tablet 650 MG PO (11:35)
[2020-12-04] MEDS: famotidine 20 mg/2 mL INJ IVP (11:44)
[2020-12-04] MEDS: sodium chloride 0.9% 250 ML 75 ML IV (11:44)
[2020-12-04] MEDS: ondansetron 2 mg/ML SDV 2 mL 8 MG IV (11:51)
[2020-12-04] MEDS: sodium chloride 0.9% (100 ml) 100 ML 400 ML (12:20)
[2020-12-04] MEDS: diphenhydrAMINE 50 mg/mL SDV 1mL 25 MG IV (12:20)
[2020-12-11 08:54] LABS: Basophils % 0.3 %; Hematocrit 35.8 % (37.0-47.0); Hemoglobin 11.5 g/dL (11.5-15.3); Lymphocytes # 0.4 10^3/uL (0.8-4.8); Lymphocytes % 11.3 %; Mean Corpuscular HGB Conc 32.1 g/dL (30.0-36.0); Mean Corpuscular Hemoglobin 28.9 pg (28.0-34.0); Mean Corpuscular Volume 89.9 fL (81-99); Monocytes % 0.3 %; Neutrophils # 3.41 10^3/uL (1.8-7.7); Neutrophils % 87.6 %; Nucleated Red Blood Cells % 0 %; Platelet Count 201 10^3/cmm (130-400); Red Blood Count 3.98 10^6/uL (4.1-5.3); Red Cell Distribution Width 13.6 % (12.1-15.1); White Blood Count 3.9 10^3/uL (4.0-10.0)
[2020-12-11 09:17] LABS: Alanine Aminotransferase 17 U/L (0-33); Albumin Level 4.2 g/dL (3.5-5.2); Alkaline Phosphatase 41 IU/L (35-105); Anion Gap 14.8 (5-19); Aspartate Amino Transferase 23 U/L (0-32); Blood Urea Nitrogen 22 mg/dL (8-23); Calcium 9.3 mg/dL (8.5-10.5); Carbon Dioxide 21 mmol/L (22-29); Chloride 100 mmol/L (98-107); Globulin 3.1 g/dL (1.3-4.6); Glomerular Filtration Rate 124.6 mL/min (90-130); Glucose 162 mg/dL (65-115); Osmolality Calculated 281 mOsm/kg (285-295); Potassium 3.8 mmol/L (3.5-5.1); Sodium 132 mmol/L (136-145); Total Bilirubin 0.3 mg/dL (0.15-1.2); Total Protein 7.3 g/dL (6.6-8.7)
[2020-12-11 10:14] LABS: Slide Review Slide Review Perform
[2020-12-11] MEDS: sodium chloride 0.9% 250 ML 75 ML IV (11:00)
[2020-12-11] MEDS: famotidine 20 mg/2 mL INJ IVP (11:00)
[2020-12-11] MEDS: ondansetron 2 mg/ML SDV 2 mL 8 MG IVP (11:02)
[2020-12-11] MEDS: diphenhydrAMINE 50 mg/mL SDV 1mL 25 MG IVP (11:04)
[2020-12-11] MEDS: acetaminophen 325 mg Tablet 650 MG PO (11:06)
--- NOTE | 2020-12-11 17:09 | ONC FU_ITS ---
Dr. Nowak follow up note Patient: Paris Bae Unit #: [id number]: 1955 Dicatated By: Petra Nowak M.D.Date of Visit:Dec 11, 2020 Onc Med Follow-up/Prog Note History of Present Illness: Ms. Bae is a 65-year-old female with a history of progressive left breast mass. She underwent mammogram on March 07, 2020 which showed in the region of palpable abnormality. There was a hypoechoic mass measuring 1.8 x 0.8 x 1.4 cm with some mild peripheral increased vascularity at 8 o'clock position 3 cm from the nipple. And right breast showed benign calcification., On March 09, 2020 she underwent ultrasound guided left breast mass biopsy which showed high-grade invasive ductal carcinoma with chronic inflammation surrounding the tumor. Prognostic profiling confirmed triple negative disease e.g. ER less than 1% positive, CO less than 1% and HER-2/jasmyn negative. Because of location and locally advanced disease e.g. inner lower quadrant left breast, a follow-up CT PET scan was done on on May 02, 2020. It reported the left breast mass in the lower inner quadrant measuring 3.1x 5.8 cm demonstrate SUV of 23.20; Level 1 left axillary lymph node demonstrates a maximum SUV of 1.62 no other abnormality seen, no distant mets seen; Left lower paratracheal 1.0 x 2.2 cm lymph node demonstrating maximum SUV of 2.59 reflecting inflammatory changes only. Echocardiogram done on April 11, 2020 showed ejection fractions 65% with mild left ventricular hypertrophy Ms Bae has no history of previous breast biopsies; no family history of breast cancer. menarche started at age 13 and she is G3, with no miscarriages. No breast-feeding. Ms Bae started on neoadjuvant chemotherapy with dose dense Adriamycin/Cytoxan with Neulasta support on May 08, 2020. Despite the Neulasta, she developed severe chemotherapy induced neutropenia on day 8 with an ANC of 50. She was admitted to [facility] on 05/15/2020 for severe neutropenia and left breast abcess. She was treated with IV antibiotics and discharged on levofloxacinon 05/16/2020.Subsequently patient tolerated neoadjuvant chemotherapy with Adriamycin/Cytoxan and recommended completed 4 cycles on July 03, 2020 but subsequently patient developed diarrhea and C. difficile was done which came back positive treated with antibiotics and the repeat C. difficile on July 13 was still positive and patient stayed on antibiotics till last week And continued to have bone pains and off and on diarrhea but being controlled with Imodium and was also running fever as high as 101.4 on last Friday. Patient had a follow-up left breast sonogram done on July 05, 2020 which showed interval improvement of left breast neoplasm with neoadjuvant chemotherapy. Because of persistent neutropenia despite of Neulasta and C. difficile infection/diarrhea, patient decided to proceed with surgery after 4 cycles of dose dense AC and eventually underwent left total mastectomy with sentinel lymph node biopsy of left axilla on October 10, 2020 and final pathology report showed no evidence of malignancy in 1 lymph node and no residual carcinoma identified in the left breast e.g. complete remission Started on weekly Taxol x12 on December 04, 2020 Came for follow-up, denies any specific complaints except off and on vaginal discomfort/pain but no discharge no bleeding, no fever chills, no nausea or vomiting, no diarrhea constipation, no peripheral numbness, tolerated first cycle of weekly Taxol well . Medications: Citalopram Hydrobromide 1 Tablet (of 40 mg) Oral daily, traMADol HCl 1 Tablet (of 50 mg) Oral q 4 hours PRN Allergies: No Known Allergies. Review of Systems: Review of Systems is not available for this patient. Vital Signs: Performed on Dec 11, 2020 09:52 Height - 63.50 in Weight - 127.2 lbs (HIGH) BSA - 1.60 sq.m BMI - 22.18 Temperature - 98 F (LOW) Pulse - 92 /min Respiration - 18 /min BP - 124/56 mm(hg) O2 Sat - 97 % Pain - 0 Fatigue - 0 Performance Status: 1 - No physically strenuous activity, but ambulatory and able to carry out light or sedentary work (e.g. office work, light house work). (ECOG) Physical Examination: Respiratory - Lungs are clear to auscultation, Cardiovascular - Regular rate and rhythm of heart, Gastrointestinal - Soft, bowel sounds present, Extremities - No visible edema. Lab/Imaging: Test performed on Dec 04, 2020 09:50 Sodium 139 mmol/L Potassium 4.1 mmol/L Chloride 102 mmol/L CO2 24 mmol/L Anion Gap 17.1 BUN 20 mg/dL Creatinine 0.6 mg/dL Cr Clearance (Est) 67.1400 mL/min eGFR 101.0 mL/min Glucose 159 mg/dL Osmolality - Calculated 294 mOsm/kg Calcium 9.6 mg/dL Protein, Total 7.6 g/dL Albumin 4.4 g/dL Globulin 3.2 g/dL Bilirubin, Total 0.3 mg/dL ALT (SGPT) 11 U/L AST (SGOT) 17 U/L Alkaline Phosphatase 38 IU/L WBC 4.1 10 3/uL RBC 3.87 10 6/uL HGB 11.3 g/dL HCT 35.6 % MCV 92.0 fL MCH 29.2 pg MCHC 31.7 g/dL RDW 13.7 % Platelet Count 198 10 3/cmm MPV 10.6 fL Neutrophils 3.52 10 3/uL Lymphocytes 0.5 10 3/uL Monocytes 0.0 10 3/uL Eosinophils 0.0 10 3/uL Basophils 0.0 10 3/uL Neutrophil % 86.7 % Lymphocyte % 11.6 % Monocyte % 1.0 % Eosinophil % 0.0 % Basophils % 0.2 % NRBC % 0 % Test performed on Aug 04, 2020 09:14 Manual Segs % 48 % Manual Bands % 12.0 % Manual Lymphs % 21 % Atypical Lymphs % 0.0 % Total Cells Counted 100 Manual Monos % 18.0 % Manual Eos % 1 % Manual Basos % 0.0 % CBC Slide Review Slide Review Perform Platelet Estimate Normal Manual Segs Abs 1.4 10/cmm Manual Bands Abs 0.3 10 3/cmm Manual Neutrophils Abs 1.7 10 3/cmm Manual Monocytes Abs 0.5 10 3/cmm Manual Eosinophils Abs 0.0 10 3/cmm Manual Basophils Abs 0.0 10 3/cmm Test performed on Jun 26, 2020 10:25 SARS CoV-2 Ag Negative The results are negative with the test specificity 100%, sensitivity 97%, and positive predictive value 100%. If the patient shows clinical signs and symptoms of SARS-CoV-2, kindly defer to a NAAT detection method. Test performed on Jun 26, 2020 10:00 C. Difficile, PCR C. difficile toxin B gene DNA detected CCRB Y CCRBTECH GOOAM CCRBTO LEDAS2 CCRDATE1 [id number] CCRTIME1 1225 CDIFFMAX P Test performed on Jun 26, 2020 08:13 Magnesium 1.9 mg/dL Impression: High-grade invasive ductal carcinoma per ultrasound-guided left breast biopsy done on March 09, 2020 prognostic profiling showed triple negative disease, ER less than 1%, CO less than 1% and HER-2/jasmyn negative, Ki-67 95%. Staging CT PET scan done on May 02, 2020 showed left breast mass in lower inner quadrant sized 5.8 x 3.1 cm hypermetabolic mass with SUV of 23.20 With no distant metastatic disease , Clinical stage II, (more than 5 cm) N0,M0 Echocardiogram done on April 11, 2020 showed ejection fraction 65% Started on neoadjuvant chemotherapy with dose dense Adriamycin Cytoxan every 2 weeks with Neulasta support x 4 followed by Taxol on May 08, 2020. She developed severe chemotherapy induced neutropenia with a day 8 ANC of 5. This did require hospital admission and she received IV antibiotics for a left breast abscess. She was discharged on oral levofloxacin on 05/16/2020. The breast abscess did clear with the antibiotics. Her neutropenia has recovered as well. Tolerated further treatment with Adriamycin Cytoxan well and completed Adriamycin/Cytoxan x4 on July 03, 2020. Further neoadjuvant chemotherapy with Taxol was delayed because of persistent leukopenia and C. difficile positive diarrhea Eventually patient decided to proceed with surgery and on October 10, 2020 she underwent left total mastectomy with sentinel lymph node biopsy of left axilla and final pathology report showed no evidence of disease in the breast and and sentinel lymph node from left axilla e.g. complete remission Started on weekly Taxol x12 on December 04, 2020 Plan: Discussed with patient regarding her labs white blood count 3.9 hemoglobin 11.5 hematocrit 35.8 platelets 201,000 CMP within normal limits Clinically, patient doing well with no new signs symptom suggestive of disease progression, tolerating adjuvant chemotherapy with weekly Taxol well. We will proceed with next weekly dose of Taxol today and then return to clinic in 1 week with CBC CMP As far as vaginal discomfort/pain is concerned, will refer her to [facility] for evaluation Signed By: Petra Nowak M.D. <<Signature on File>>
[2020-12-18 14:08] LABS: Hematocrit 33.7 % (37.0-47.0); Hemoglobin 10.9 g/dL (11.5-15.3); Lymphocytes # 0.4 10^3/uL (0.8-4.8); Lymphocytes % 12.7 %; Mean Corpuscular HGB Conc 32.3 g/dL (30.0-36.0); Mean Corpuscular Hemoglobin 29.7 pg (28.0-34.0); Mean Corpuscular Volume 91.8 fL (81-99); Mean Platelet Volume 11.4 fL (7.4-10.4); Monocytes % 0.6 %; Neutrophils # 2.77 10^3/uL (1.8-7.7); Neutrophils % 86.1 %; Nucleated Red Blood Cells % 0 %; Platelet Count 205 10^3/cmm (130-400); Red Blood Count 3.67 10^6/uL (4.1-5.3); Red Cell Distribution Width 14.1 % (12.1-15.1); White Blood Count 3.2 10^3/uL (4.0-10.0)
[2020-12-18 14:26] LABS: Alanine Aminotransferase 18 U/L (0-33); Albumin Level 4.3 g/dL (3.5-5.2); Alkaline Phosphatase 39 IU/L (35-105); Anion Gap 16.4 (5-19); Aspartate Amino Transferase 20 U/L (0-32); Blood Urea Nitrogen 19 mg/dL (8-23); Calcium 8.9 mg/dL (8.5-10.5); Carbon Dioxide 22 mmol/L (22-29); Chloride 101 mmol/L (98-107); Glomerular Filtration Rate 124.6 mL/min (90-130); Glucose 151 mg/dL (65-115); Osmolality Calculated 285 mOsm/kg (285-295); Potassium 4.4 mmol/L (3.5-5.1); Sodium 135 mmol/L (136-145); Total Bilirubin 0.3 mg/dL (0.15-1.2); Total Protein 7.3 g/dL (6.6-8.7)
[2020-12-18 14:44] LABS: Slide Review Slide Review Perform
[2020-12-18] MEDS: acetaminophen 325 mg Tablet 650 MG PO (15:50)
[2020-12-18] MEDS: sodium chloride 0.9% 250 ML 75 ML IV (15:50)
[2020-12-18] MEDS: famotidine 20 mg/2 mL INJ IVP (15:50)
[2020-12-18] MEDS: ondansetron 2 mg/ML SDV 2 mL 8 MG IVP (15:52)
[2020-12-18] MEDS: diphenhydrAMINE 50 mg/mL SDV 1mL 25 MG IVP (15:55)
--- NOTE | 2020-12-18 23:12 | ONC FU_ITS ---
Nancy Aguayo Patient Note Patient: Paris Bae Unit #: [id number]: 1955 Dictated By: Rey MensahDate of Visit: Dec 18, 2020 Onc MED Follow-Up/Prog Note Chief Complaint: Left breast cancer History of Present Illness: Ms. Bae is a 65-year-old female with a history of progressive left breast mass. She underwent mammogram on March 07, 2020 which showed in the region of palpable abnormality. There was a hypoechoic mass measuring 1.8 x 0.8 x 1.4 cm with some mild peripheral increased vascularity at 8 o'clock position 3 cm from the nipple. And right breast showed benign calcification., On March 09, 2020 she underwent ultrasound guided left breast mass biopsy which showed high-grade invasive ductal carcinoma with chronic inflammation surrounding the tumor. Prognostic profiling confirmed triple negative disease e.g. ER less than 1% positive, OR less than 1% and HER-2/jasmyn negative. Because of location and locally advanced disease e.g. inner lower quadrant left breast, a follow-up CT PET scan was done on on May 02, 2020. It reported the left breast mass in the lower inner quadrant measuring 3.1x 5.8 cm demonstrate SUV of 23.20; Level 1 left axillary lymph node demonstrates a maximum SUV of 1.62 no other abnormality seen, no distant mets seen; Left lower paratracheal 1.0 x 2.2 cm lymph node demonstrating maximum SUV of 2.59 reflecting inflammatory changes only. Echocardiogram done on April 11, 2020 showed ejection fractions 65% with mild left ventricular hypertrophy Ms Bae has no history of previous breast biopsies; no family history of breast cancer. menarche started at age 13 and she is G3, with no miscarriages. No breast-feeding. Ms Bae started on neoadjuvant chemotherapy with dose dense Adriamycin/Cytoxan with Neulasta support on May 08, 2020. Despite the Neulasta, she developed severe chemotherapy induced neutropenia on day 8 with an ANC of 50. She was admitted to [facility] on 05/15/2020 for severe neutropenia and left breast abcess. She was treated with IV antibiotics and discharged on levofloxacinon 05/16/2020.Subsequently patient tolerated neoadjuvant chemotherapy with Adriamycin/Cytoxan and recommended completed 4 cycles on July 03, 2020 but subsequently patient developed diarrhea and C. difficile was done which came back positive treated with antibiotics and the repeat C. difficile on July 13 was still positive and patient stayed on antibiotics till last week And continued to have bone pains and off and on diarrhea but being controlled with Imodium and was also running fever as high as 101.4 on last Friday. Patient had a follow-up left breast sonogram done on July 05, 2020 which showed interval improvement of left breast neoplasm with neoadjuvant chemotherapy. Because of persistent neutropenia despite of Neulasta and C. difficile infection/diarrhea, patient decided to proceed with surgery after 4 cycles of dose dense AC and eventually underwent left total mastectomy with sentinel lymph node biopsy of left axilla on October 10, 2020 and final pathology report showed no evidence of malignancy in 1 lymph node and no residual carcinoma identified in the left breast e.g. complete remission Started on weekly Taxol x12 on December 04, 2020 Ms. Bae is here today for follow-up. She is due for week 3 of 12 of her Taxol. She reports that she is doing well overall. She has seen [facility] gynecology for her vaginal pain and is due to see them again later this week for what sounds like a vaginal ultrasound. She denies any fever or chills. She denies mouth sores, sore throat or difficulty swallowing. She states that she has not had any alopecia as of yet. She has good energy. She denies any shortness of breath orthopnea. She denies any neuropathy. She states her bowels and bladder are normal for her. Her ECOG is 1. . Past Medical History: C. Diff in 2019 Past Surgical History: Breast biopsy Colonoscopy Exploratory laparotomy Allergies: No Known Allergies. Medications: Citalopram Hydrobromide 1 Tablet (of 40 mg) Oral daily traMADol HCl 1 Tablet (of 50 mg) Oral q 4 hours PRN Family History: Ms. Bae's mother at age 69: stomach cancer. Ms. Bae's father at age 72: lung cancer. Ms. Bae has 1 brother who is : colon cancer. Social History: Ms. Bae is . Ms. Bae quit smoking 31 years ago but had smoked for 5 years. She has no history of drinking. Ms. Bae reports the following support systems: lives with spouse, significant other, family, or friends, lives in own house, supportive family/friends willing to assist with needs, and adequate transportation available for expected visits. Her diet consists of regular meals. She indicates her activity level as: regular exercise. Review Of Symptoms: Constitutional Denies fevers, chills, night sweats, excessive fatigue or weight loss. Allergic/Immunologic No reactions. Eyes Denies significant visual changes. No diplopia. No amaurosis. ENMT Denies changes in hearing, sore throat, mouth sores, difficulty or changes in swallowing ability, and/or sinus drainage. Hematologic/Lymphatic Denies easy bruising or bleeding. The patient denies any tender or palpable lymph nodes. Respiratory Denies dyspnea on exertion, chest pain, cough or hemoptysis. Denies orthopnea. Cardiovascular Denies anginal chest pain, palpitations or orthopnea. Gastrointestinal Denies nausea, vomiting, GI bleeding, or constipation. Denies change in bowel habits and/or stool color, no heartburn or early satiety. Genitourinary (F) No hematuria, hesitancy, incontinence, vaginal bleeding, discharge or other problems with urination. Musculoskeletal Denies joint pain, swelling or redness. No decreased range of motion. Integumentary Denies chronic rashes, inflammation, ulcerations or skin changes. Neurologic Denies headache, blurred vision, and no areas of focal weakness or numbness. No sensory problems. Psychiatric Denies insomnia, depression, jelena or mood swings. Vital Signs: Performed on Dec 18, 2020 14:58 Height - 63.50 in Weight - 124.2 lbs (LOW) BSA - 1.59 sq.m BMI - 21.66 Temperature - 98.2 F (LOW) Pulse - 92 /min Respiration - 18 /min BP - 112/62 mm(hg) O2 Sat - 97 % Pain - 0 Fatigue - 0,1 - No physically strenuous activity, but ambulatory and able to carry out light or sedentary work (e.g. office work, light house work). (ECOG) Physical Examination: Constitutional Alert, oriented, no acute distress. Skin pink, warm and dry. Head Normocephalic; atraumatic. Eyes Conjunctivae and sclerae are clear and without icterus. Pupils are reactive and equal. Neck Supple without masses or thyromegaly. No jugular venous distension. Hematologic/Lymphatic No petechiae or purpura. No tender or palpable lymph nodes in the cervical or supraclavicular areas. Respiratory Lungs are clear to auscultation without rhonchi or wheezing. Cardiovascular Regular rate and rhythm of heart without murmurs,clicks, gallops or rubs. Back/Spine Non-tender to palpation. Extremities No visible deformities, no cyanosis, clubbing or edema. Musculoskeletal No tenderness or swelling, normal range of motion without obvious weakness. Integumentary No rashes or lesions. Neurologic No sensory or motor deficits, normal cerebellar function, normal gait. Psychiatric Alert and oriented times three. Coherent speech. Verbalizes understanding of our discussions today. Laboratory:Test performed on Dec 18, 2020 13:00 Sodium 135 mmol/L Potassium 4.4 mmol/L Chloride 101 mmol/L CO2 22 mmol/L Anion Gap 16.4 BUN 19 mg/dL Creatinine 0.5 mg/dL Cr Clearance (Est) 104.9000 mL/min eGFR 124.6 mL/min Glucose 151 mg/dL Osmolality - Calculated 285 mOsm/kg Calcium 8.9 mg/dL Protein, Total 7.3 g/dL Albumin 4.3 g/dL Globulin 3.0 g/dL Bilirubin, Total 0.3 mg/dL ALT (SGPT) 18 U/L AST (SGOT) 20 U/L Alkaline Phosphatase 39 IU/L WBC 3.2 10 3/uL RBC 3.67 10 6/uL HGB 10.9 g/dL HCT 33.7 % MCV 91.8 fL MCH 29.7 pg MCHC 32.3 g/dL RDW 14.1 % Platelet Count 205 10 3/cmm MPV 11.4 fL Neutrophils 2.77 10 3/uL Lymphocytes 0.4 10 3/uL Monocytes 0.0 10 3/uL Eosinophils 0.0 10 3/uL Basophils 0.0 10 3/uL Neutrophil % 86.1 % Lymphocyte % 12.7 % Monocyte % 0.6 % Eosinophil % 0.0 % Basophils % 0.0 % NRBC % 0 % CBC Slide Review Slide Review Perform REVIEW AGREES WITH AUTOMATED DIFF Impression: High-grade invasive ductal carcinoma per ultrasound-guided left breast biopsy done on March 09, 2020 prognostic profiling showed triple negative disease, ER less than 1%, OR less than 1% and HER-2/jasmyn negative, Ki-67 95%. Staging CT PET scan done on May 02, 2020 showed left breast mass in lower inner quadrant sized 5.8 x 3.1 cm hypermetabolic mass with SUV of 23.20 With no distant metastatic disease , Clinical stage II, (more than 5 cm) N0,M0 Echocardiogram done on April 11, 2020 showed ejection fraction 65% Started on neoadjuvant chemotherapy with dose dense Adriamycin Cytoxan every 2 weeks with Neulasta support x 4 followed by Taxol on May 08, 2020. She developed severe chemotherapy induced neutropenia with a day 8 ANC of 5. This did require hospital admission and she received IV antibiotics for a left breast abscess. She was discharged on oral levofloxacin on 05/16/2020. The breast abscess did clear with the antibiotics. Her neutropenia has recovered as well. Tolerated further treatment with Adriamycin Cytoxan well and completed Adriamycin/Cytoxan x4 on July 03, 2020. Further neoadjuvant chemotherapy with Taxol was delayed because of persistent leukopenia and C. difficile positive diarrhea Eventually patient decided to proceed with surgery and on October 10, 2020 she underwent left total mastectomy with sentinel lymph node biopsy of left axilla and final pathology report showed no evidence of disease in the breast and and sentinel lymph node from left axilla e.g. complete remission Started on weekly Taxol x12 on December 04, 2020 Plan: PROBLEMS ADDRESSED TODAY 1. 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 She is currently under going chemotherapy with weekly Taxol x12. She had completed 4 cycles of Adriamycin Cytoxan however her chemotherapy was complicated by severe chemotherapy-induced neutropenia and she developed a left breast abscess. The abscess did clear with antibiotics and her neutropenia recovered and she was able to complete the Adriamycin Cytoxan on July 03, 2020. Further neoadjuvant chemotherapy with Taxol was delayed because of persistent leukopenia and C. difficile positive diarrhea. She eventually proceeded with surgery on October 10, 2020 at which time she underwent left total mastectomy with sentinel node biopsy of the left axilla. The final pathology reported no evidence of disease in the breast and the sentinel lymph node from the left axilla was negative. She was able to start on weekly Taxol on December 04, 2020. B. We will proceed with week 3/12 Taxol. Steroid compliance confirmed. C. Today's labs reviewed in detail and discussed with Ms. Bae and a copy was given to her. WBC 3.2, hemoglobin 10.9, platelets 205,000, ANC is 2770. Her creatinine is 0.5 random glucose 151 likely steroid-induced, potassium 4.4 LFTs are normal. Her weight is stable today. 2. She is following with [facility] gynecology for recurrent vaginal pain. It sounds as if she is due for vaginal ultrasound later this week. 3. Follow-up plan A. She will be seen back in 1 week with CBC CMP for consideration of week 4/12 Taxol. B. She is reminded to take her premed steroids prior to the Taxol. C. Mrs. Bae instructed to contact us in the interim should questions or problems arise. Signed By: Rey Mensah-, [facility] Petra Nowak MD <<Signature on File>>
[2020-12-25 11:35] LABS: Basophils % 0.4 %; Hematocrit 33.8 % (37.0-47.0); Hemoglobin 10.9 g/dL (11.5-15.3); Lymphocytes # 0.3 10^3/uL (0.8-4.8); Lymphocytes % 12.8 %; Mean Corpuscular HGB Conc 32.2 g/dL (30.0-36.0); Mean Corpuscular Hemoglobin 29.6 pg (28.0-34.0); Mean Corpuscular Volume 91.8 fL (81-99); Mean Platelet Volume 10.2 fL (7.4-10.4); Monocytes % 0.8 %; Neutrophils # 2.06 10^3/uL (1.8-7.7); Neutrophils % 85.2 %; Nucleated Red Blood Cells % 0 %; Platelet Count 205 10^3/cmm (130-400); Red Blood Count 3.68 10^6/uL (4.1-5.3); White Blood Count 2.4 10^3/uL (4.0-10.0)
[2020-12-25 11:55] LABS: Alanine Aminotransferase 12 U/L (0-33); Albumin Level 4.1 g/dL (3.5-5.2); Alkaline Phosphatase 40 IU/L (35-105); Aspartate Amino Transferase 15 U/L (0-32); Blood Urea Nitrogen 22 mg/dL (8-23); Carbon Dioxide 23 mmol/L (22-29); Chloride 102 mmol/L (98-107); Globulin 2.8 g/dL (1.3-4.6); Glucose 171 mg/dL (65-115); Osmolality Calculated 289 mOsm/kg (285-295); Sodium 136 mmol/L (136-145); Total Bilirubin 0.2 mg/dL (0.15-1.2); Total Protein 6.9 g/dL (6.6-8.7)
[2020-12-25] MEDS: sodium chloride 0.9% 250 ML 75 ML IV (13:43)
[2020-12-25] MEDS: famotidine 20 mg/2 mL INJ IVP (13:43)
[2020-12-25] MEDS: acetaminophen 325 mg Tablet 650 MG PO (13:44)
[2020-12-25] MEDS: diphenhydrAMINE 50 mg/mL SDV 1mL 25 MG IVP (13:44)
[2020-12-25] MEDS: ondansetron 2 mg/ML SDV 2 mL 8 MG IVP (13:57)
--- NOTE | 2020-12-25 15:49 | ONC FU_ITS ---
Nancy Aguayo Patient Note Patient: Paris Bae Unit #: [id number]: 1955 Dictated By: Rey MensahDate of Visit: Dec 25, 2020 Onc MED Follow-Up/Prog Note Chief Complaint: Left breast cancer History of Present Illness: Ms. Bae is a 65-year-old female with a history of progressive left breast mass. She underwent mammogram on March 07, 2020 which showed in the region of palpable abnormality. There was a hypoechoic mass measuring 1.8 x 0.8 x 1.4 cm with some mild peripheral increased vascularity at 8 o'clock position 3 cm from the nipple. And right breast showed benign calcification., On March 09, 2020 she underwent ultrasound guided left breast mass biopsy which showed high-grade invasive ductal carcinoma with chronic inflammation surrounding the tumor. Prognostic profiling confirmed triple negative disease e.g. ER less than 1% positive, WY less than 1% and HER-2/jasmyn negative. Because of location and locally advanced disease e.g. inner lower quadrant left breast, a follow-up CT PET scan was done on on May 02, 2020. It reported the left breast mass in the lower inner quadrant measuring 3.1x 5.8 cm demonstrate SUV of 23.20; Level 1 left axillary lymph node demonstrates a maximum SUV of 1.62 no other abnormality seen, no distant mets seen; Left lower paratracheal 1.0 x 2.2 cm lymph node demonstrating maximum SUV of 2.59 reflecting inflammatory changes only. Echocardiogram done on April 11, 2020 showed ejection fractions 65% with mild left ventricular hypertrophy Ms Bae has no history of previous breast biopsies; no family history of breast cancer. menarche started at age 13 and she is G3, with no miscarriages. No breast-feeding. Ms Bae started on neoadjuvant chemotherapy with dose dense Adriamycin/Cytoxan with Neulasta support on May 08, 2020. Despite the Neulasta, she developed severe chemotherapy induced neutropenia on day 8 with an ANC of 50. She was admitted to [facility] on 05/15/2020 for severe neutropenia and left breast abcess. She was treated with IV antibiotics and discharged on levofloxacinon 05/16/2020.Subsequently patient tolerated neoadjuvant chemotherapy with Adriamycin/Cytoxan and recommended completed 4 cycles on July 03, 2020 but subsequently patient developed diarrhea and C. difficile was done which came back positive treated with antibiotics and the repeat C. difficile on July 13 was still positive and patient stayed on antibiotics till last week And continued to have bone pains and off and on diarrhea but being controlled with Imodium and was also running fever as high as 101.4 on last Friday. Patient had a follow-up left breast sonogram done on July 05, 2020 which showed interval improvement of left breast neoplasm with neoadjuvant chemotherapy. Because of persistent neutropenia despite of Neulasta and C. difficile infection/diarrhea, patient decided to proceed with surgery after 4 cycles of dose dense AC and eventually underwent left total mastectomy with sentinel lymph node biopsy of left axilla on October 10, 2020 and final pathology report showed no evidence of malignancy in 1 lymph node and no residual carcinoma identified in the left breast e.g. complete remission Started on weekly Taxol x12 on December 04, 2020 Ms. Bae is here today for follow-up. She is due for week 4 of 12 of her Taxol. She reports that she is doing well overall. She is following with [facility] gynecology for her vaginal pain and she did have a vaginal ultrasound recently. She is still waiting to discuss that with Dr Motley. She does have an appointment to see [facility] this Friday. Regards to her treatment. She has no new concerns. She is tolerating it well. She states her appetite is good. She denies any fever or chills. She has had no diarrhea or constipation. True nausea. Her activity remains good. She denies any orthopnea. She has had no chest pain or palpitations. She denies edema. She denies any neuropathy symptoms at present. She denies any hearing changes. She denies mouth sores, sore throat or difficulty swallowing. Her ECOG is 1. . Past Medical History: C. Diff in 2019 Past Surgical History: Breast biopsy Colonoscopy Exploratory laparotomy Allergies: No Known Allergies. Medications: Citalopram Hydrobromide 1 Tablet (of 40 mg) Oral daily Family History: Ms. Bae's mother at age 69: stomach cancer. Ms. Bae's father at age 72: lung cancer. Ms. Bae has 1 brother who is : colon cancer. Social History: Ms. Bae is . Ms. Bae quit smoking 31 years ago but had smoked for 5 years. She has no history of drinking. Ms. Bae reports the following support systems: lives with spouse, significant other, family, or friends, lives in own house, supportive family/friends willing to assist with needs, and adequate transportation available for expected visits. Her diet consists of regular meals. She indicates her activity level as: regular exercise. Review Of Symptoms: Constitutional Denies fevers, chills, night sweats, excessive fatigue or weight loss. Allergic/Immunologic No reactions. Eyes Denies significant visual changes. No diplopia. No amaurosis. ENMT Denies changes in hearing, sore throat, mouth sores, difficulty or changes in swallowing ability, and/or sinus drainage. Endocrine No diabetes, thyroid disease or hormone replacement. Denies hot flashes or night sweats. Hematologic/Lymphatic Denies easy bruising or bleeding. The patient denies any tender or palpable lymph nodes. Respiratory Denies dyspnea on exertion, chest pain, cough or hemoptysis. Denies orthopnea. Cardiovascular Denies anginal chest pain, palpitations or orthopnea. Gastrointestinal Denies nausea, vomiting, GI bleeding, or constipation. Denies change in bowel habits and/or stool color, no heartburn or early satiety. Genitourinary (F) No hematuria, hesitancy, incontinence, vaginal bleeding, discharge or other problems with urination. Musculoskeletal Denies joint pain, swelling or redness. No decreased range of motion. Integumentary Denies chronic rashes, inflammation, ulcerations or skin changes. Some changes on fingernails looks like streaks of white under my nail . Neurologic Denies headache, blurred vision, and no areas of focal weakness or numbness. No sensory problems. Psychiatric Denies insomnia, depression, jelena or mood swings. Vital Signs: Performed on Dec 25, 2020 13:01 Height - 63.50 in Weight - 125.4 lbs (HIGH) BSA - 1.59 sq.m BMI - 21.87 Temperature - 97.8 F (LOW) Pulse - 87 /min Respiration - 19 /min BP - 113/61 mm(hg) O2 Sat - 97 % Pain - 0,1 - No physically strenuous activity, but ambulatory and able to carry out light or sedentary work (e.g. office work, light house work). (ECOG) Physical Examination: Constitutional Alert, oriented, no acute distress. Skin pink, warm and dry. Head Normocephalic; atraumatic. Eyes Conjunctivae and sclerae are clear and without icterus. Pupils are reactive and equal. Neck Supple without masses or thyromegaly. No jugular venous distension. Respiratory Lungs are clear to auscultation without rhonchi or wheezing. Cardiovascular Regular rate and rhythm of heart without murmurs,clicks, gallops or rubs. Back/Spine Non-tender to palpation. Extremities No visible deformities, no cyanosis, clubbing or edema. Musculoskeletal No tenderness or swelling, normal range of motion without obvious weakness. Integumentary No rashes or lesions. Nails are intact and do not appear to be loose. Some irregularity of the nails with white lines in the nail, no redness or exudate. Neurologic No sensory or motor deficits, normal cerebellar function, normal gait. Psychiatric Alert and oriented times three. Coherent speech. Verbalizes understanding of our discussions today. Laboratory:Test performed on Dec 25, 2020 11:19 Sodium 136 mmol/L Potassium 4.0 mmol/L Chloride 102 mmol/L CO2 23 mmol/L Anion Gap 15.0 BUN 22 mg/dL Creatinine 0.6 mg/dL Cr Clearance (Est) 87.4200 mL/min eGFR 101.0 mL/min Glucose 171 mg/dL Osmolality - Calculated 289 mOsm/kg Calcium 9.0 mg/dL Protein, Total 6.9 g/dL Albumin 4.1 g/dL Globulin 2.8 g/dL Bilirubin, Total 0.2 mg/dL ALT (SGPT) 12 U/L AST (SGOT) 15 U/L Alkaline Phosphatase 40 IU/L WBC 2.4 10 3/uL RBC 3.68 10 6/uL HGB 10.9 g/dL HCT 33.8 % MCV 91.8 fL MCH 29.6 pg MCHC 32.2 g/dL RDW 14.0 % Platelet Count 205 10 3/cmm MPV 10.2 fL Neutrophils 2.06 10 3/uL Lymphocytes 0.3 10 3/uL Monocytes 0.0 10 3/uL Eosinophils 0.0 10 3/uL Basophils 0.0 10 3/uL Neutrophil % 85.2 % Lymphocyte % 12.8 % Monocyte % 0.8 % Eosinophil % 0.0 % Basophils % 0.4 % NRBC % 0 % Test performed on Dec 18, 2020 13:00 CBC Slide Review Slide Review Perform REVIEW AGREES WITH AUTOMATED DIFF Test performed on Aug 04, 2020 09:14 Manual Segs % 48 % Manual Bands % 12.0 % Manual Lymphs % 21 % Atypical Lymphs % 0.0 % Total Cells Counted 100 Manual Monos % 18.0 % Manual Eos % 1 % Manual Basos % 0.0 % Platelet Estimate Normal Manual Segs Abs 1.4 10/cmm Manual Bands Abs 0.3 10 3/cmm Manual Neutrophils Abs 1.7 10 3/cmm Manual Monocytes Abs 0.5 10 3/cmm Manual Eosinophils Abs 0.0 10 3/cmm Manual Basophils Abs 0.0 10 3/cmm Impression: High-grade invasive ductal carcinoma per ultrasound-guided left breast biopsy done on March 09, 2020 prognostic profiling showed triple negative disease, ER less than 1%, WY less than 1% and HER-2/jasmyn negative, Ki-67 95%. Staging CT PET scan done on May 02, 2020 showed left breast mass in lower inner quadrant sized 5.8 x 3.1 cm hypermetabolic mass with SUV of 23.20 With no distant metastatic disease , Clinical stage II, (more than 5 cm) N0,M0 Echocardiogram done on April 11, 2020 showed ejection fraction 65% Started on neoadjuvant chemotherapy with dose dense Adriamycin Cytoxan every 2 weeks with Neulasta support x 4 followed by Taxol on May 08, 2020. She developed severe chemotherapy induced neutropenia with a day 8 ANC of 5. This did require hospital admission and she received IV antibiotics for a left breast abscess. She was discharged on oral levofloxacin on 05/16/2020. The breast abscess did clear with the antibiotics. Her neutropenia has recovered as well. Tolerated further treatment with Adriamycin Cytoxan well and completed Adriamycin/Cytoxan x4 on July 03, 2020. Further neoadjuvant chemotherapy with Taxol was delayed because of persistent leukopenia and C. difficile positive diarrhea Eventually patient decided to proceed with surgery and on October 10, 2020 she underwent left total mastectomy with sentinel lymph node biopsy of left axilla and final pathology report showed no evidence of disease in the breast and and sentinel lymph node from left axilla e.g. complete remission Started on weekly Taxol x12 on December 04, 2020 Plan: PROBLEMS ADDRESSED TODAY 1. 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 She is currently under going chemotherapy with weekly Taxol x12. She had completed 4 cycles of Adriamycin Cytoxan however her chemotherapy was complicated by severe chemotherapy-induced neutropenia and she developed a left breast abscess. The abscess did clear with antibiotics and her neutropenia recovered and she was able to complete the Adriamycin Cytoxan on July 03, 2020. Further neoadjuvant chemotherapy with Taxol was delayed because of persistent leukopenia and C. difficile positive diarrhea. She eventually proceeded with surgery on October 10, 2020 at which time she underwent left total mastectomy with sentinel node biopsy of the left axilla. The final pathology reported no evidence of disease in the breast and the sentinel lymph node from the left axilla was negative. She was able to start on weekly Taxol on December 04, 2020. B. We will proceed with week 4/12 Taxol. Steroid compliance confirmed. C. Today's labs reviewed in detail and discussed with Ms. Bae and a copy was given to her. He 2.4, hemoglobin 10.9, platelets 205,000 and ANC is 0. Potassium 4.0, random glucose 171, creatinine 0.6 LFTs are normal. 2. She is following with [facility] gynecology for recurrent vaginal pain. A. She states she sees Dr. Motley this Friday for follow-up and discussion of her recent ultrasound. 3. Follow-up plan A. She will be Been back in 1 week with CBC CMP for consideration of week 5/12 Taxol. B. She is reminded to take her premed steroids prior to the Taxol. C. Mrs. Bae instructed to contact us in the interim should questions or problems arise. D. I will put in a request for prior authorization for Neupogen in the interim as her ANC is dropping. She may require growth factor support after her treatment next week. Signed By: Rey Mensah-EUSEBIO, AOISABEL Nowak MD <<Signature on File>>
== END 2020-12-27 23:59 | disposition home or self-care (01) ==
LOC: ONCMED 05:20
PROVIDERS: Internal Medicine Hematology & Oncology; PCP Nurse Practitioner Family; Visit Provider Nurse Practitioner
DX: Z51.11 Encounter for antineoplastic chemotherapy (principal); C50.512 Malignant neoplasm of lower-outer quadrant of left female breast; Z17.1 Estrogen receptor negative status [ER-]; D70.1 Agranulocytosis secondary to cancer chemotherapy; T45.1X5A Adverse effect of antineoplastic and immunosuppressive drugs, initial encounter; A04.72 Enterocolitis due to Clostridium difficile, not specified as recurrent; Z79.899 Other long term (current) drug therapy
CPT/HCPCS: 80053; 85025; 96367; 96375; 96413; 99214; J1100; J1200; J2405; J3490; J7050; J9267

== ENCOUNTER 2021-01-25 05:40 | Outpatient (RCR) | payer OTHER, MEDICAID, SELFPAY ==
[2021-01-01 12:05] LABS: Hematocrit 33.4 % (37.0-47.0); Hemoglobin 10.6 g/dL (11.5-15.3); Lymphocytes # 0.3 10^3/uL (0.8-4.8); Lymphocytes % 20.8 %; Mean Corpuscular HGB Conc 31.7 g/dL (30.0-36.0); Mean Corpuscular Volume 91.3 fL (81-99); Mean Platelet Volume 10.5 fL (7.4-10.4); Monocytes % 0.7 %; Neutrophils # 1.16 10^3/uL (1.8-7.7); Neutrophils % 77.8 %; Nucleated Red Blood Cells % 0 %; Platelet Count 200 10^3/cmm (130-400); Red Blood Count 3.66 10^6/uL (4.1-5.3); Red Cell Distribution Width 14.6 % (12.1-15.1); White Blood Count 1.5 10^3/uL (4.0-10.0)
[2021-01-01 12:31] LABS: Alanine Aminotransferase 16 U/L (0-33); Albumin Level 4.2 g/dL (3.5-5.2); Alkaline Phosphatase 43 IU/L (35-105); Anion Gap 12.7 (5-19); Aspartate Amino Transferase 18 U/L (0-32); Blood Urea Nitrogen 16 mg/dL (8-23); Calcium 8.8 mg/dL (8.5-10.5); Carbon Dioxide 22 mmol/L (22-29); Chloride 106 mmol/L (98-107); Globulin 2.3 g/dL (1.3-4.6); Glomerular Filtration Rate 124.6 mL/min (90-130); Glucose 182 mg/dL (65-115); Osmolality Calculated 290 mOsm/kg (285-295); Potassium 3.7 mmol/L (3.5-5.1); Sodium 137 mmol/L (136-145); Total Bilirubin 0.2 mg/dL (0.15-1.2); Total Protein 6.5 g/dL (6.6-8.7)
[2021-01-03 13:44] LABS: Basophils % 0.9 %; Eosinophils % 0.6 %; Hematocrit 30.9 % (37.0-47.0); Hemoglobin 9.7 g/dL (11.5-15.3); Lymphocytes # 1.8 10^3/uL (0.8-4.8); Mean Corpuscular HGB Conc 31.4 g/dL (30.0-36.0); Mean Corpuscular Hemoglobin 29.2 pg (28.0-34.0); Mean Corpuscular Volume 93.1 fL (81-99); Mean Platelet Volume 10.4 fL (7.4-10.4); Monocytes # 0.4 10^3/uL (0.2-0.9); Monocytes % 10.5 %; Neutrophils # 1.09 10^3/uL (1.8-7.7); Neutrophils % 32.7 %; Nucleated Red Blood Cells % 0 %; Platelet Count 207 10^3/cmm (130-400); Red Blood Count 3.32 10^6/uL (4.1-5.3); Red Cell Distribution Width 15.1 % (12.1-15.1); White Blood Count 3.3 10^3/uL (4.0-10.0)
[2021-01-05 09:11] LABS: Hematocrit 32.8 % (37.0-47.0); Hemoglobin 10.6 g/dL (11.5-15.3); Mean Corpuscular HGB Conc 32.3 g/dL (30.0-36.0); Mean Corpuscular Hemoglobin 29.9 pg (28.0-34.0); Mean Corpuscular Volume 92.4 fL (81-99); Mean Platelet Volume 10.1 fL (7.4-10.4); Platelet Count 213 10^3/cmm (130-400); Red Blood Count 3.55 10^6/uL (4.1-5.3); Red Cell Distribution Width 15.3 % (12.1-15.1); White Blood Count 17.5 10^3/uL (4.0-10.0)
[2021-01-05 09:34] LABS: Slide Review Slide Review Perform
[2021-01-05 09:36] LABS: Absolute Eosinophils 0.3 10^3/cmm (0.0-0.7); Absolute Neutrophil 13.7 10^3/cmm (1.4-6.5); Absolute Segmented Neutrophil 7.9 10/cmm (1.6-7.1); Band Neutrophils Absolute 5.8 10^3/cmm (0.0-1.2); Eosinophils 2 %; Lymphocytes 8 %; Lymphocytes Absolute 1.6 10^3/cmm (1.2-3.4); Monocytes Absolute 1.9 10^3/cmm (0.1-0.6); Platelet Estimate Normal (Normal); Polychromasia Trace; Segmented Neutrophils 45 %; Total Cells Counted 100 (0-100)
--- NOTE | 2021-01-08 09:22 | PC.NURSE ---
[id number] 300mcg given on 01/05 at 0905 by Zandra Campa RN, per [facility] documentation.
[2021-01-08 12:12] LABS: Basophils % 0.3 %; Eosinophils % 0.2 %; Hematocrit 33.5 % (37.0-47.0); Hemoglobin 10.9 g/dL (11.5-15.3); Lymphocytes # 1.2 10^3/uL (0.8-4.8); Mean Corpuscular HGB Conc 32.5 g/dL (30.0-36.0); Mean Corpuscular Hemoglobin 30.1 pg (28.0-34.0); Mean Corpuscular Volume 92.5 fL (81-99); Mean Platelet Volume 10.5 fL (7.4-10.4); Monocytes # 0.6 10^3/uL (0.2-0.9); Monocytes % 6.2 %; Neutrophils # 6.09 10^3/uL (1.8-7.7); Nucleated Red Blood Cells % 0.2 %; Platelet Count 204 10^3/cmm (130-400); Red Blood Count 3.62 10^6/uL (4.1-5.3); Red Cell Distribution Width 16.2 % (12.1-15.1); White Blood Count 10.2 10^3/uL (4.0-10.0)
[2021-01-08 12:24] LABS: Alanine Aminotransferase 21 U/L (0-33); Albumin Level 4.4 g/dL (3.5-5.2); Alkaline Phosphatase 56 IU/L (35-105); Anion Gap 13.4 (5-19); Aspartate Amino Transferase 26 U/L (0-32); Blood Urea Nitrogen 18 mg/dL (8-23); Calcium 8.5 mg/dL (8.5-10.5); Carbon Dioxide 23 mmol/L (22-29); Chloride 105 mmol/L (98-107); Globulin 2.6 g/dL (1.3-4.6); Glomerular Filtration Rate 124.6 mL/min (90-130); Glucose 142 mg/dL (65-115); Osmolality Calculated 288 mOsm/kg (285-295); Potassium 4.4 mmol/L (3.5-5.1); Sodium 137 mmol/L (136-145); Total Bilirubin 0.2 mg/dL (0.15-1.2)
[2021-01-08 13:41] LABS: Slide Review Slide Review Perform
[2021-01-08] MEDS: famotidine 20 mg/2 mL INJ IVP (14:08)
[2021-01-08] MEDS: sodium chloride 0.9% 250 ML 75 ML IV (14:08)
[2021-01-08] MEDS: ondansetron 2 mg/ML SDV 2 mL 8 MG IVP (14:09)
[2021-01-08] MEDS: diphenhydrAMINE 50 mg/mL SDV 1mL 25 MG IVP (14:10)
[2021-01-08] MEDS: acetaminophen 325 mg Tablet 650 MG PO (14:14)
--- NOTE | 2021-01-11 00:23 | ONC FU_ITS ---
Nancy Aguayo Patient Note Patient: Paris Bae Unit #: [id number]: 1955 Dictated By: Rey MensahDate of Visit: Jan 01, 2021 Onc MED Follow-Up/Prog Note Chief Complaint: Left breast cancer History of Present Illness: Ms. Bae is a 65-year-old female with a history of progressive left breast mass. She underwent mammogram on March 07, 2020 which showed in the region of palpable abnormality. There was a hypoechoic mass measuring 1.8 x 0.8 x 1.4 cm with some mild peripheral increased vascularity at 8 o'clock position 3 cm from the nipple. And right breast showed benign calcification., On March 09, 2020 she underwent ultrasound guided left breast mass biopsy which showed high-grade invasive ductal carcinoma with chronic inflammation surrounding the tumor. Prognostic profiling confirmed triple negative disease e.g. ER less than 1% positive, IN less than 1% and HER-2/jasmyn negative. Because of location and locally advanced disease e.g. inner lower quadrant left breast, a follow-up CT PET scan was done on on May 02, 2020. It reported the left breast mass in the lower inner quadrant measuring 3.1x 5.8 cm demonstrate SUV of 23.20; Level 1 left axillary lymph node demonstrates a maximum SUV of 1.62 no other abnormality seen, no distant mets seen; Left lower paratracheal 1.0 x 2.2 cm lymph node demonstrating maximum SUV of 2.59 reflecting inflammatory changes only. Echocardiogram done on April 11, 2020 showed ejection fractions 65% with mild left ventricular hypertrophy Ms Bae has no history of previous breast biopsies; no family history of breast cancer. menarche started at age 13 and she is G3, with no miscarriages. No breast-feeding. Ms Bae started on neoadjuvant chemotherapy with dose dense Adriamycin/Cytoxan with Neulasta support on May 08, 2020. Despite the Neulasta, she developed severe chemotherapy induced neutropenia on day 8 with an ANC of 50. She was admitted to [facility] on 05/15/2020 for severe neutropenia and left breast abcess. She was treated with IV antibiotics and discharged on levofloxacinon 05/16/2020.Subsequently patient tolerated neoadjuvant chemotherapy with Adriamycin/Cytoxan and recommended completed 4 cycles on July 03, 2020 but subsequently patient developed diarrhea and C. difficile was done which came back positive treated with antibiotics and the repeat C. difficile on July 13 was still positive and patient stayed on antibiotics till last week And continued to have bone pains and off and on diarrhea but being controlled with Imodium and was also running fever as high as 101.4 on last Friday. Patient had a follow-up left breast sonogram done on July 05, 2020 which showed interval improvement of left breast neoplasm with neoadjuvant chemotherapy. Because of persistent neutropenia despite of Neulasta and C. difficile infection/diarrhea, patient decided to proceed with surgery after 4 cycles of dose dense AC and eventually underwent left total mastectomy with sentinel lymph node biopsy of left axilla on October 10, 2020 and final pathology report showed no evidence of malignancy in 1 lymph node and no residual carcinoma identified in the left breast e.g. complete remission Started on weekly Taxol x12 on December 04, 2020 Ms. Bae is here today for follow-up. She is due for week 5 of 12 of her Taxol. She reports that she is doing well overall. She is following with [facility] gynecology for her vaginal pain and she did have a vaginal ultrasound recently. She is following with Dr Motley. She does have an appointment to see him within the next week. She has no new concerns otherwise. She denies any fever or chills. She has had no hot flashes or night sweats that she mentions or complains of. She denies any cough or hemoptysis. She denies any shortness of breath. She states she has not had any chest pain. She states overall she feels really good. She denies any neuropathy from her paclitaxel. She did take her premed steroids this morning. She denies any nausea or vomiting. She has had no diarrhea or constipation per her report. She states she feels good she is eating well and her energy is good. Her ECOG is 0. Past Medical History: C. Diff in 2019 Past Surgical History: Breast biopsy Colonoscopy Exploratory laparotomy Allergies: No Known Allergies. Medications: Citalopram Hydrobromide 1 Tablet (of 40 mg) Oral daily Family History: Ms. Bae's mother at age 69: stomach cancer. Ms. Bae's father at age 72: lung cancer. Ms. Bae has 1 brother who is : colon cancer. Social History: Ms. Bae is . Ms. Bae quit smoking 31 years ago but had smoked for 5 years. She has no history of drinking. Ms. Bae reports the following support systems: lives with spouse, significant other, family, or friends, lives in own house, supportive family/friends willing to assist with needs, and adequate transportation available for expected visits. Her diet consists of regular meals. She indicates her activity level as: regular exercise. Review Of Symptoms: see above Vital Signs: Performed on Jan 01, 2021 13:18 Height - 63.50 in Weight - 126.2 lbs (HIGH) BSA - 1.60 sq.m BMI - 22.00 Temperature - 98.2 F (LOW) Pulse - 82 /min Respiration - 17 /min BP - 109/89 mm(hg) O2 Sat - 97 % Pain - 0,1 - No physically strenuous activity, but ambulatory and able to carry out light or sedentary work (e.g. office work, light house work). (ECOG) Physical Examination: Constitutional Alert, oriented, no acute distress. Skin pink, warm and dry. Head Normocephalic; atraumatic. Eyes Conjunctivae and sclerae are clear and without icterus. Pupils are reactive and equal. Neck Supple without masses or thyromegaly. No jugular venous distension. Hematologic/Lymphatic No petechiae or purpura. No tender or palpable lymph nodes in the cervical or supraclavicular areas. Respiratory Lungs are clear to auscultation without rhonchi or wheezing. Cardiovascular Regular rate and rhythm of heart without murmurs,clicks, gallops or rubs. Back/Spine Non-tender to palpation. Extremities No visible deformities, no cyanosis, clubbing or edema. Musculoskeletal No tenderness or swelling, normal range of motion without obvious weakness. Integumentary No rashes or lesions. Nails are intact and do not appear to be loose. Some irregularity of the nails with white lines in the nail, no redness or exudate. Neurologic No sensory or motor deficits, normal cerebellar function, normal gait. Psychiatric Alert and oriented times three. Coherent speech. Verbalizes understanding of our discussions today. Laboratory:see below Impression: High-grade invasive ductal carcinoma per ultrasound-guided left breast biopsy done on March 09, 2020 prognostic profiling showed triple negative disease, ER less than 1%, IN less than 1% and HER-2/jasmyn negative, Ki-67 95%. Staging CT PET scan done on May 02, 2020 showed left breast mass in lower inner quadrant sized 5.8 x 3.1 cm hypermetabolic mass with SUV of 23.20 With no distant metastatic disease , Clinical stage II, (more than 5 cm) N0,M0 Echocardiogram done on April 11, 2020 showed ejection fraction 65% Started on neoadjuvant chemotherapy with dose dense Adriamycin Cytoxan every 2 weeks with Neulasta support x 4 followed by Taxol on May 08, 2020. She developed severe chemotherapy induced neutropenia with a day 8 ANC of 5. This did require hospital admission and she received IV antibiotics for a left breast abscess. She was discharged on oral levofloxacin on 05/16/2020. The breast abscess did clear with the antibiotics. Her neutropenia has recovered as well. Tolerated further treatment with Adriamycin Cytoxan well and completed Adriamycin/Cytoxan x4 on July 03, 2020. Further neoadjuvant chemotherapy with Taxol was delayed because of persistent leukopenia and C. difficile positive diarrhea Eventually patient decided to proceed with surgery and on October 10, 2020 she underwent left total mastectomy with sentinel lymph node biopsy of left axilla and final pathology report showed no evidence of disease in the breast and and sentinel lymph node from left axilla e.g. complete remission Started on weekly Taxol x12 on December 04, 2020 Plan: PROBLEMS ADDRESSED TODAY 1. 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 She is currently under going chemotherapy with weekly Taxol x12. She had completed 4 cycles of Adriamycin Cytoxan however her chemotherapy was complicated by severe chemotherapy-induced neutropenia and she developed a left breast abscess. The abscess did clear with antibiotics and her neutropenia recovered and she was able to complete the Adriamycin Cytoxan on July 03, 2020. Further neoadjuvant chemotherapy with Taxol was delayed because of persistent leukopenia and C. difficile positive diarrhea. She eventually proceeded with surgery on October 10, 2020 at which time she underwent left total mastectomy with sentinel node biopsy of the left axilla. The final pathology reported no evidence of disease in the breast and the sentinel lymph node from the left axilla was negative. She was able to start on weekly Taxol on December 04, 2020. B. We will hold today's planned week 02/07 Taxol due to an ANC of 1160. It was 0 last week. C. I have requested growth factor support with Neupogen or equivalent. We may need to repeat this throughout her weekly treatments to keep her on schedule. D. Premed steroid compliance confirmed. E. Today's labs reviewed in detail and discussed with Ms. Bae and a copy was given to her. WBC 1.5, hemoglobin 10.6, platelets 200,000 ANC is 1160. Potassium 3.7 random glucose 182 due to steroid premeds. Creatinine 0.5 LFTs are normal. Her albumin is 4.2. 2. She is following with [facility] gynecology for recurrent vaginal pain. A. She states she sees Dr. Motley within the next week for follow-up and discussion of her recent ultrasound. 3. Follow-up plan We will plan to treat her this week as soon as we get growth factor support authorization. I want to make sure that we can support her neutropenia with growth factors so that we can keep her on her weekly schedule. A. Assuming that she will get treated later this week,she will be seen back in 1 week (from her treatment this week) with CBC CMP for consideration of week 03/10 Taxol. B. She is reminded to take her premed steroids prior to the Taxol. C. Mrs. Bae instructed to contact us in the interim should questions or problems arise. Signed By: eRy Mensah-, AOP Petra Nowak MD <<Signature on File>>
--- NOTE | 2021-01-11 00:46 | ONC FU_ITS ---
Nancy Aguayo Patient Note Patient: Paris Bae Unit #: [id number]: 1955 Dictated By: Rey MensahDate of Visit: Jan 08, 2021 Onc MED Follow-Up/Prog Note Chief Complaint: Left breast cancer History of Present Illness: Ms. Bae is a 65-year-old female with a history of progressive left breast mass. She underwent mammogram on March 07, 2020 which showed in the region of palpable abnormality. There was a hypoechoic mass measuring 1.8 x 0.8 x 1.4 cm with some mild peripheral increased vascularity at 8 o'clock position 3 cm from the nipple. And right breast showed benign calcification., On March 09, 2020 she underwent ultrasound guided left breast mass biopsy which showed high-grade invasive ductal carcinoma with chronic inflammation surrounding the tumor. Prognostic profiling confirmed triple negative disease e.g. ER less than 1% positive, AK less than 1% and HER-2/jasmyn negative. Because of location and locally advanced disease e.g. inner lower quadrant left breast, a follow-up CT PET scan was done on on May 02, 2020. It reported the left breast mass in the lower inner quadrant measuring 3.1x 5.8 cm demonstrate SUV of 23.20; Level 1 left axillary lymph node demonstrates a maximum SUV of 1.62 no other abnormality seen, no distant mets seen; Left lower paratracheal 1.0 x 2.2 cm lymph node demonstrating maximum SUV of 2.59 reflecting inflammatory changes only. Echocardiogram done on April 11, 2020 showed ejection fractions 65% with mild left ventricular hypertrophy Ms Bae has no history of previous breast biopsies; no family history of breast cancer. menarche started at age 13 and she is G3, with no miscarriages. No breast-feeding. Ms Bae started on neoadjuvant chemotherapy with dose dense Adriamycin/Cytoxan with Neulasta support on May 08, 2020. Despite the Neulasta, she developed severe chemotherapy induced neutropenia on day 8 with an ANC of 50. She was admitted to [facility] on 05/15/2020 for severe neutropenia and left breast abcess. She was treated with IV antibiotics and discharged on levofloxacinon 05/16/2020.Subsequently patient tolerated neoadjuvant chemotherapy with Adriamycin/Cytoxan and recommended completed 4 cycles on July 03, 2020 but subsequently patient developed diarrhea and C. difficile was done which came back positive treated with antibiotics and the repeat C. difficile on July 13 was still positive and patient stayed on antibiotics till last week And continued to have bone pains and off and on diarrhea but being controlled with Imodium and was also running fever as high as 101.4 on last Friday. Patient had a follow-up left breast sonogram done on July 05, 2020 which showed interval improvement of left breast neoplasm with neoadjuvant chemotherapy. Because of persistent neutropenia despite of Neulasta and C. difficile infection/diarrhea, patient decided to proceed with surgery after 4 cycles of dose dense AC and eventually underwent left total mastectomy with sentinel lymph node biopsy of left axilla on October 10, 2020 and final pathology report showed no evidence of malignancy in 1 lymph node and no residual carcinoma identified in the left breast e.g. complete remission Started on weekly Taxol x12 on December 04, 2020 Ms. Bae is here today for follow-up. She is due for week 5 of 12 of her Taxol. She was due for week 5 paclitaxel/Taxol last week but was significantly neutropenic with an ANC of 1160 compared to 2016 the week prior. A prior authorization was required for growth factor support with filgrastim which unfortunately took several days. She did not start growth factor support until January 03, 2021. Her ANC at that time was 1090. She received 3 doses and recheck of her neutrophil count on January 05, 2021 was 6000. Her chemotherapy was delayed 1 week due to the neutropenia and delay in authorization from her insurance company for the growth factor support. She is here to receive week 5 paclitaxel. She tolerated the growth factor support well. She denied any fever or chills. She denied any cough or any signs of infection including UTI symptoms. She states she did not have any bone pain with the growth factor filgrastim. She states she is eating good. Her energy is good. She has no new concerns today. She denies any pain. She denies any nausea or vomiting. She has had no diarrhea or constipation. Her ECOG is 0. Past Medical History: C. Diff in 2019 Past Surgical History: Breast biopsy Colonoscopy Exploratory laparotomy Allergies: No Known Allergies. Medications: Citalopram Hydrobromide 1 Tablet (of 40 mg) Oral daily Family History: Ms. Bae's mother at age 69: stomach cancer. Ms. Bae's father at age 72: lung cancer. Ms. Bae has 1 brother who is : colon cancer. Social History: Ms. Bae is . Ms. Bae quit smoking 31 years ago but had smoked for 5 years. She has no history of drinking. Ms. Bae reports the following support systems: lives with spouse, significant other, family, or friends, lives in own house, supportive family/friends willing to assist with needs, and adequate transportation available for expected visits. Her diet consists of regular meals. She indicates her activity level as: regular exercise. Vital Signs: Performed on Jan 08, 2021 13:14 Height - 63.50 in Weight - 125.2 lbs (LOW) BSA - 1.59 sq.m BMI - 21.83 Temperature - 98.2 F (LOW) Pulse - 75 /min Respiration - 18 /min BP - 113/63 mm(hg) O2 Sat - 96 % Pain - 4 Fatigue - 0,0 - Fully active, able to carry on all predisease activities without restrictions. (ECOG) Physical Examination: Constitutional Alert, oriented, no acute distress. Skin pink, warm and dry. Head Normocephalic; atraumatic. Eyes Conjunctivae and sclerae are clear and without icterus. Pupils are reactive and equal. Neck Supple without masses or thyromegaly. No jugular venous distension. Respiratory Lungs are clear to auscultation without rhonchi or wheezing. Cardiovascular Regular rate and rhythm of heart without murmurs,clicks, gallops or rubs. Back/Spine Non-tender to palpation. Extremities No visible deformities, no cyanosis, clubbing or edema. Musculoskeletal No tenderness or swelling, normal range of motion without obvious weakness. Integumentary No rashes or lesions. Neurologic No sensory or motor deficits, normal cerebellar function, normal gait. Psychiatric Alert and oriented times three. Coherent speech. Verbalizes understanding of our discussions today. Laboratory:Test performed on Jan 08, 2021 11:38 Sodium 137 mmol/L Potassium 4.4 mmol/L Chloride 105 mmol/L CO2 23 mmol/L Anion Gap 13.4 BUN 18 mg/dL Creatinine 0.5 mg/dL Cr Clearance (Est) 104.9000 mL/min eGFR 124.6 mL/min Glucose 142 mg/dL Osmolality - Calculated 288 mOsm/kg Calcium 8.5 mg/dL Protein, Total 7.0 g/dL Albumin 4.4 g/dL Globulin 2.6 g/dL Bilirubin, Total 0.2 mg/dL ALT (SGPT) 21 U/L AST (SGOT) 26 U/L Alkaline Phosphatase 56 IU/L WBC 10.2 10 3/uL RBC 3.62 10 6/uL HGB 10.9 g/dL HCT 33.5 % MCV 92.5 fL MCH 30.1 pg MCHC 32.5 g/dL RDW 16.2 % Platelet Count 204 10 3/cmm MPV 10.5 fL Neutrophils 6.09 10 3/uL Lymphocytes 1.2 10 3/uL Monocytes 0.6 10 3/uL Eosinophils 0.0 10 3/uL Basophils 0.0 10 3/uL Neutrophil % 60.0 % Lymphocyte % 12.0 % Monocyte % 6.2 % Eosinophil % 0.2 % Basophils % 0.3 % NRBC % 0.2 % CBC Slide Review Slide Review Perform REVIEW AGREES WITH MANUAL DIFF PERFORMED ON 01/05/21 Impression: High-grade invasive ductal carcinoma per ultrasound-guided left breast biopsy done on March 09, 2020 prognostic profiling showed triple negative disease, ER less than 1%, AK less than 1% and HER-2/jasmyn negative, Ki-67 95%. Staging CT PET scan done on May 02, 2020 showed left breast mass in lower inner quadrant sized 5.8 x 3.1 cm hypermetabolic mass with SUV of 23.20 With no distant metastatic disease , Clinical stage II, (more than 5 cm) N0,M0 Echocardiogram done on April 11, 2020 showed ejection fraction 65% Started on neoadjuvant chemotherapy with dose dense Adriamycin Cytoxan every 2 weeks with Neulasta support x 4 followed by Taxol on May 08, 2020. She developed severe chemotherapy induced neutropenia with a day 8 ANC of 5. This did require hospital admission and she received IV antibiotics for a left breast abscess. She was discharged on oral levofloxacin on 05/16/2020. The breast abscess did clear with the antibiotics. Her neutropenia has recovered as well. Tolerated further treatment with Adriamycin Cytoxan well and completed Adriamycin/Cytoxan x4 on July 03, 2020. Further neoadjuvant chemotherapy with Taxol was delayed because of persistent leukopenia and C. difficile positive diarrhea Eventually patient decided to proceed with surgery and on October 10, 2020 she underwent left total mastectomy with sentinel lymph node biopsy of left axilla and final pathology report showed no evidence of disease in the breast and and sentinel lymph node from left axilla e.g. complete remission Started on weekly Taxol x12 on December 04, 2020 Plan: PROBLEMS ADDRESSED TODAY 1. 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 She is currently under going chemotherapy with weekly Taxol x12. She had completed 4 cycles of Adriamycin Cytoxan however her chemotherapy was complicated by severe chemotherapy-induced neutropenia and she developed a left breast abscess. The abscess did clear with antibiotics and her neutropenia recovered and she was able to complete the Adriamycin Cytoxan on July 03, 2020. Further neoadjuvant chemotherapy with Taxol was delayed because of persistent leukopenia and C. difficile positive diarrhea. She eventually proceeded with surgery on October 10, 2020 at which time she underwent left total mastectomy with sentinel node biopsy of the left axilla. The final pathology reported no evidence of disease in the breast and the sentinel lymph node from the left axilla was negative. She was able to start on weekly Taxol on December 04, 2020. B. Proceed with week 5 paclitaxel 128 mg. This is actually delayed 1 week due to neutropenia and delay in authorization from her insurance company and allowing us to utilize growth factor support for her. Authorization was not received until Friday and she received 3 doses of the filgrastim. Her ANC on day one of the filgrastim was 1090. On day 3 it was 13,700. C. I have requested continued growth factor support with Neupogen or equivalent. We may need to repeat this throughout her weekly treatments to keep her on schedule. D. Premed steroid compliance confirmed. E. Today's labs reviewed in detail and discussed with Segnudo Catalino and a copy was given to her. WBC 10.2, hemoglobin 10.9, platelets 204,000, ANC is 6090. Potassium 4.4 random glucose 142 creatinine 0.5 LFTs are normal. Kandace. I have opted not to give her any growth factor support this week after reviewing her ANC since week 1. Her week 1 ANC was 3520. We will monitor her closely and administer the filgrastim as needed. 2. She is following with [facility] gynecology for recurrent vaginal pain. A. She did see Dr. Rodriguez on 12/29/2020. She did have vaginal ultrasound which did not show any abnormalities. She was started on estradiol for vaginal pain and she states that it has been helping some. She had been having some intermittent vaginal throbbing although she had been using the cream nightly for at least 2 weeks. She had some increased pressure in the pelvis but denied any vaginal bleeding or discharge. Dr. Rodriguez had encouraged her to use agents for vaginal dryness such as vaginal moisturizers and to continue the vaginal estrogen cream and follow-up with him in 4 weeks. She states she is feeling some better now. 3. Follow-up plan A. she will be seen back in 1 week with CBC CMP for consideration of week 03/10 Taxol. B. She is reminded to take her premed steroids prior to the Taxol. C. Mrs. Bae instructed to contact us in the interim should questions or problems arise. Signed By: Rey Mensah-, AOP Petra Nowak MD <<Signature on File>>
[2021-01-15 08:38] LABS: Hematocrit 34.8 % (37.0-47.0); Hemoglobin 11.2 g/dL (11.5-15.3); Lymphocytes # 0.3 10^3/uL (0.8-4.8); Mean Corpuscular HGB Conc 32.2 g/dL (30.0-36.0); Mean Corpuscular Hemoglobin 28.8 pg (28.0-34.0); Mean Corpuscular Volume 89.5 fL (81-99); Nucleated Red Blood Cells % 0 %; Platelet Count 204 10^3/cmm (130-400); Red Blood Count 3.89 10^6/uL (4.1-5.3); Red Cell Distribution Width 15.1 % (12.1-15.1)
[2021-01-15 08:54] LABS: Alanine Aminotransferase 23 U/L (0-33); Albumin Level 4.3 g/dL (3.5-5.2); Alkaline Phosphatase 53 IU/L (35-105); Anion Gap 15.9 (5-19); Aspartate Amino Transferase 20 U/L (0-32); Blood Urea Nitrogen 19 mg/dL (8-23); Calcium 8.9 mg/dL (8.5-10.5); Carbon Dioxide 21 mmol/L (22-29); Chloride 103 mmol/L (98-107); Globulin 2.8 g/dL (1.3-4.6); Glomerular Filtration Rate 161.2 mL/min (90-130); Glucose 222 mg/dL (65-115); Osmolality Calculated 291 mOsm/kg (285-295); Potassium 3.9 mmol/L (3.5-5.1); Sodium 136 mmol/L (136-145); Total Bilirubin 0.3 mg/dL (0.15-1.2); Total Protein 7.1 g/dL (6.6-8.7)
[2021-01-15 09:20] LABS: Neutrophils # 0.63 10^3/uL (1.8-7.7); Slide Review Slide Review Perform
[2021-01-17 12:12] LABS: Basophils # 0.1 10^3/uL (0.0-0.1); Basophils % 0.4 %; Eosinophils # 0.1 10^3/uL (0.0-0.8); Eosinophils % 0.3 %; Hemoglobin 9.5 g/dL (11.5-15.3); Lymphocytes # 2.9 10^3/uL (0.8-4.8); Lymphocytes % 10.4 %; Mean Corpuscular HGB Conc 31.7 g/dL (30.0-36.0); Mean Corpuscular Hemoglobin 29.3 pg (28.0-34.0); Mean Corpuscular Volume 92.6 fL (81-99); Mean Platelet Volume 10.9 fL (7.4-10.4); Monocytes % 3.4 %; Neutrophils # 22.02 10^3/uL (1.8-7.7); Neutrophils % 78.7 %; Nucleated Red Blood Cells % 0 %; Platelet Count 194 10^3/cmm (130-400); Red Blood Count 3.24 10^6/uL (4.1-5.3)
[2021-01-17 12:54] LABS: Slide Review Slide Review Perform
--- NOTE | 2021-01-21 20:28 | ONC FU_ITS ---
Dr. Nowak follow up note Patient: Paris Bae Unit #: [id number]: 1955 Dicatated By: Petra Nowak M.D.Date of Visit:Jan 15, 2021 Onc Med Follow-up/Prog Note History of Present Illness: Ms. aBe is a 65-year-old female with a history of progressive left breast mass. She underwent mammogram on March 07, 2020 which showed in the region of palpable abnormality. There was a hypoechoic mass measuring 1.8 x 0.8 x 1.4 cm with some mild peripheral increased vascularity at 8 o'clock position 3 cm from the nipple. And right breast showed benign calcification., On March 09, 2020 she underwent ultrasound guided left breast mass biopsy which showed high-grade invasive ductal carcinoma with chronic inflammation surrounding the tumor. Prognostic profiling confirmed triple negative disease e.g. ER less than 1% positive, AK less than 1% and HER-2/jasmyn negative. Because of location and locally advanced disease e.g. inner lower quadrant left breast, a follow-up CT PET scan was done on on May 02, 2020. It reported the left breast mass in the lower inner quadrant measuring 3.1x 5.8 cm demonstrate SUV of 23.20; Level 1 left axillary lymph node demonstrates a maximum SUV of 1.62 no other abnormality seen, no distant mets seen; Left lower paratracheal 1.0 x 2.2 cm lymph node demonstrating maximum SUV of 2.59 reflecting inflammatory changes only. Echocardiogram done on April 11, 2020 showed ejection fractions 65% with mild left ventricular hypertrophy Ms Bae has no history of previous breast biopsies; no family history of breast cancer. menarche started at age 13 and she is G3, with no miscarriages. No breast-feeding. Ms Bae started on neoadjuvant chemotherapy with dose dense Adriamycin/Cytoxan with Neulasta support on May 08, 2020. Despite the Neulasta, she developed severe chemotherapy induced neutropenia on day 8 with an ANC of 50. She was admitted to [facility] on 05/15/2020 for severe neutropenia and left breast abcess. She was treated with IV antibiotics and discharged on levofloxacinon 05/16/2020.Subsequently patient tolerated neoadjuvant chemotherapy with Adriamycin/Cytoxan and recommended completed 4 cycles on July 03, 2020 but subsequently patient developed diarrhea and C. difficile was done which came back positive treated with antibiotics and the repeat C. difficile on July 13 was still positive and patient stayed on antibiotics till last week And continued to have bone pains and off and on diarrhea but being controlled with Imodium and was also running fever as high as 101.4 on last Friday. Patient had a follow-up left breast sonogram done on July 05, 2020 which showed interval improvement of left breast neoplasm with neoadjuvant chemotherapy. Because of persistent neutropenia despite of Neulasta and C. difficile infection/diarrhea, patient decided to proceed with surgery after 4 cycles of dose dense AC and eventually underwent left total mastectomy with sentinel lymph node biopsy of left axilla on October 10, 2020 and final pathology report showed no evidence of malignancy in 1 lymph node and no residual carcinoma identified in the left breast e.g. complete remission Started on weekly Taxol x12 on December 04, 2020 Came for follow-up, denies any specific complaints, no fever chills, no nausea or vomiting, no diarrhea or constipation, no peripheral neuropathy, no mouth sores, no jaundice, tolerating weekly Taxol reasonably well . Medications: Citalopram Hydrobromide 1 Tablet (of 40 mg) Oral daily Allergies: No Known Allergies. Review of Systems: Review of Systems is not available for this patient. Vital Signs: Performed on Jan 15, 2021 09:25 Height - 63.50 in Weight - 126.4 lbs (HIGH) BSA - 1.60 sq.m BMI - 22.04 Temperature - 98.7 F Pulse - 97 /min Respiration - 18 /min BP - 118/59 mm(hg) O2 Sat - 98 % Pain - 0 Fatigue - 5 Performance Status: 1 - No physically strenuous activity, but ambulatory and able to carry out light or sedentary work (e.g. office work, light house work). (ECOG) Physical Examination: Respiratory - Lungs are clear to auscultation, Cardiovascular - Regular rate and rhythm of heart, Gastrointestinal - Soft, bowel sounds present, Extremities - No visible edema, no rash. Lab/Imaging: Test performed on Jan 08, 2021 11:38 Sodium 137 mmol/L Potassium 4.4 mmol/L Chloride 105 mmol/L CO2 23 mmol/L Anion Gap 13.4 BUN 18 mg/dL Creatinine 0.5 mg/dL Cr Clearance (Est) 104.9000 mL/min eGFR 124.6 mL/min Glucose 142 mg/dL Osmolality - Calculated 288 mOsm/kg Calcium 8.5 mg/dL Protein, Total 7.0 g/dL Albumin 4.4 g/dL Globulin 2.6 g/dL Bilirubin, Total 0.2 mg/dL ALT (SGPT) 21 U/L AST (SGOT) 26 U/L Alkaline Phosphatase 56 IU/L WBC 10.2 10 3/uL RBC 3.62 10 6/uL HGB 10.9 g/dL HCT 33.5 % MCV 92.5 fL MCH 30.1 pg MCHC 32.5 g/dL RDW 16.2 % Platelet Count 204 10 3/cmm MPV 10.5 fL Neutrophils 6.09 10 3/uL Lymphocytes 1.2 10 3/uL Monocytes 0.6 10 3/uL Eosinophils 0.0 10 3/uL Basophils 0.0 10 3/uL Neutrophil % 60.0 % Lymphocyte % 12.0 % Monocyte % 6.2 % Eosinophil % 0.2 % Basophils % 0.3 % NRBC % 0.2 % CBC Slide Review Slide Review Perform REVIEW AGREES WITH MANUAL DIFF PERFORMED ON 01/05/21 Test performed on Aug 04, 2020 09:14 Manual Segs % 48 % Manual Bands % 12.0 % Manual Lymphs % 21 % Atypical Lymphs % 0.0 % Total Cells Counted 100 Manual Monos % 18.0 % Manual Eos % 1 % Manual Basos % 0.0 % Platelet Estimate Normal Manual Segs Abs 1.4 10/cmm Manual Bands Abs 0.3 10 3/cmm Manual Neutrophils Abs 1.7 10 3/cmm Manual Monocytes Abs 0.5 10 3/cmm Manual Eosinophils Abs 0.0 10 3/cmm Manual Basophils Abs 0.0 10 3/cmm Impression: High-grade invasive ductal carcinoma per ultrasound-guided left breast biopsy done on March 09, 2020 prognostic profiling showed triple negative disease, ER less than 1%, AK less than 1% and HER-2/jasmyn negative, Ki-67 95%. Staging CT PET scan done on May 02, 2020 showed left breast mass in lower inner quadrant sized 5.8 x 3.1 cm hypermetabolic mass with SUV of 23.20 With no distant metastatic disease , Clinical stage II, (more than 5 cm) N0,M0 Echocardiogram done on April 11, 2020 showed ejection fraction 65% Started on neoadjuvant chemotherapy with dose dense Adriamycin Cytoxan every 2 weeks with Neulasta support x 4 followed by Taxol on May 08, 2020. She developed severe chemotherapy induced neutropenia with a day 8 ANC of 5. This did require hospital admission and she received IV antibiotics for a left breast abscess. She was discharged on oral levofloxacin on 05/16/2020. The breast abscess did clear with the antibiotics. Her neutropenia has recovered as well. Tolerated further treatment with Adriamycin Cytoxan well and completed Adriamycin/Cytoxan x4 on July 03, 2020. Further neoadjuvant chemotherapy with Taxol was delayed because of persistent leukopenia and C. difficile positive diarrhea Eventually patient decided to proceed with surgery and on October 10, 2020 she underwent left total mastectomy with sentinel lymph node biopsy of left axilla and final pathology report showed no evidence of disease in the breast and and sentinel lymph node from left axilla e.g. complete remission Started on weekly Taxol x12 on December 04, 2020 Plan: Discussed with patient regarding her labs white blood count 1 hemoglobin 11.2 hematocrit 34.8 platelets 204,000 ANC 6.30 CMP within normal limit except glucose 222 Clinically, patient doing well with no new signs symptom suggestive of disease progression, tolerating adjuvant chemotherapy with weekly Taxol reasonably well but with expected side effect e.g. progressive neutropenia/leukopenia, requiring Neupogen, patient did not receive Neupogen after last cycle of chemotherapy and today her white blood count/neutropenia is below desirable range so we will consider holding her chemotherapy and give her Neupogen today and tomorrow then repeat CBC on Friday if recover, will consider next weekly dose of Taxol on followed by daily Neupogen x3 to prevent chemotherapy-induced neutropenia/leukopenia and to maintain chemotherapy schedule Signed By: Petra Nowak M.D. <<Signature on File>>
[2021-01-22 08:54] LABS: Basophils % 0.3 %; Hematocrit 33.5 % (37.0-47.0); Hemoglobin 10.9 g/dL (11.5-15.3); Lymphocytes # 0.6 10^3/uL (0.8-4.8); Mean Corpuscular HGB Conc 32.5 g/dL (30.0-36.0); Mean Corpuscular Hemoglobin 29.8 pg (28.0-34.0); Mean Corpuscular Volume 91.5 fL (81-99); Mean Platelet Volume 10.2 fL (7.4-10.4); Monocytes # 0.1 10^3/uL (0.2-0.9); Monocytes % 3.3 %; Neutrophils # 2.15 10^3/uL (1.8-7.7); Neutrophils % 71.7 %; Nucleated Red Blood Cells % 0 %; Platelet Count 244 10^3/cmm (130-400); Red Blood Count 3.66 10^6/uL (4.1-5.3); Red Cell Distribution Width 15.9 % (12.1-15.1)
[2021-01-22 09:31] LABS: Alanine Aminotransferase 19 U/L (0-33); Albumin Level 4.3 g/dL (3.5-5.2); Alkaline Phosphatase 55 IU/L (35-105); Aspartate Amino Transferase 20 U/L (0-32); Blood Urea Nitrogen 15 mg/dL (8-23); Calcium 8.6 mg/dL (8.5-10.5); Carbon Dioxide 21 mmol/L (22-29); Chloride 103 mmol/L (98-107); Globulin 2.4 g/dL (1.3-4.6); Glucose 178 mg/dL (65-115); Osmolality Calculated 291 mOsm/kg (285-295); Sodium 138 mmol/L (136-145); Total Bilirubin 0.2 mg/dL (0.15-1.2); Total Protein 6.7 g/dL (6.6-8.7)
[2021-01-22] MEDS: acetaminophen 325 mg Tablet 650 MG PO (10:20)
[2021-01-22] MEDS: famotidine 20 mg/2 mL INJ IVP (10:20)
[2021-01-22] MEDS: ondansetron 2 mg/ML SDV 2 mL 8 MG IV (10:22)
[2021-01-22] MEDS: diphenhydrAMINE 50 mg/mL SDV 1mL 25 MG IV (10:24)
[2021-01-22] MEDS: sodium chloride 0.9% 250 ML 75 ML IV (10:25)
[2021-01-25 13:51] LABS: Basophils # 0.2 10^3/uL (0.0-0.1); Basophils % 0.5 %; Eosinophils # 0.1 10^3/uL (0.0-0.8); Eosinophils % 0.1 %; Hematocrit 31.9 % (37.0-47.0); Hemoglobin 10.1 g/dL (11.5-15.3); Lymphocytes # 2.3 10^3/uL (0.8-4.8); Lymphocytes % 5.9 %; Mean Corpuscular HGB Conc 31.7 g/dL (30.0-36.0); Mean Corpuscular Hemoglobin 29.4 pg (28.0-34.0); Mean Platelet Volume 10.8 fL (7.4-10.4); Monocytes # 0.2 10^3/uL (0.2-0.9); Monocytes % 0.5 %; Neutrophils # 35.77 10^3/uL (1.8-7.7); Neutrophils % 90.9 %; Nucleated Red Blood Cells % 0 %; Platelet Count 183 10^3/cmm (130-400); Red Blood Count 3.43 10^6/uL (4.1-5.3); Red Cell Distribution Width 16.4 % (12.1-15.1)
[2021-01-25 14:04] LABS: White Blood Count 39.3 10^3/uL (4.0-10.0)
== END 2021-01-26 23:59 | disposition home or self-care (01) ==
LOC: ONCMED 05:40
PROVIDERS: Internal Medicine Hematology & Oncology; Internal Medicine Medical Oncology; PCP Nurse Practitioner Family; Visit Provider Nurse Practitioner
DX: Z51.11 Encounter for antineoplastic chemotherapy (principal); C50.512 Malignant neoplasm of lower-outer quadrant of left female breast; Z17.0 Estrogen receptor positive status [ER+]; D70.1 Agranulocytosis secondary to cancer chemotherapy; T45.1X5A Adverse effect of antineoplastic and immunosuppressive drugs, initial encounter; A04.72 Enterocolitis due to Clostridium difficile, not specified as recurrent; Z79.899 Other long term (current) drug therapy
CPT/HCPCS: 36415; 36591; 80053; 85007; 85025; 96367; 96372; 96375; 96401; 96413; 99214; 99215; J1100; J1200; J2405; J3490; J7050; J9267; Q5101

== ENCOUNTER 2021-02-23 05:36 | Outpatient (RCR) | payer OTHER, MEDICAID, SELFPAY ==
[2021-01-29 09:07] LABS: Basophils % 0.5 %; Hematocrit 33.7 % (37.0-47.0); Hemoglobin 10.8 g/dL (11.5-15.3); Lymphocytes # 0.4 10^3/uL (0.8-4.8); Lymphocytes % 18.4 %; Mean Corpuscular Hemoglobin 29.8 pg (28.0-34.0); Mean Corpuscular Volume 92.8 fL (81-99); Mean Platelet Volume 10.4 fL (7.4-10.4); Monocytes % 1.5 %; Neutrophils # 1.52 10^3/uL (1.8-7.7); Neutrophils % 77.6 %; Nucleated Red Blood Cells % 0 %; Platelet Count 265 10^3/cmm (130-400); Red Blood Count 3.63 10^6/uL (4.1-5.3); Red Cell Distribution Width 16.2 % (12.1-15.1)
[2021-01-29 09:43] LABS: Alanine Aminotransferase 21 U/L (0-33); Alkaline Phosphatase 60 IU/L (35-105); Aspartate Amino Transferase 21 U/L (0-32); Blood Urea Nitrogen 17 mg/dL (8-23); Calcium 8.4 mg/dL (8.5-10.5); Carbon Dioxide 23 mmol/L (22-29); Chloride 104 mmol/L (98-107); Globulin 2.3 g/dL (1.3-4.6); Glucose 151 mg/dL (65-115); Osmolality Calculated 288 mOsm/kg (285-295); Sodium 137 mmol/L (136-145); Total Bilirubin 0.2 mg/dL (0.15-1.2); Total Protein 6.3 g/dL (6.6-8.7)
[2021-01-29] MEDS: sodium chloride 0.9% 250 ML 75 ML IV (10:45)
[2021-01-29] MEDS: ondansetron 2 mg/ML SDV 2 mL 8 MG IVP (10:48)
[2021-01-29] MEDS: acetaminophen 325 mg Tablet 650 MG PO (10:50)
[2021-01-29] MEDS: famotidine 20 mg/2 mL INJ IVP (10:51)
[2021-01-29] MEDS: diphenhydrAMINE 50 mg/mL SDV 1mL 25 MG IVP (10:53)
[2021-02-05 09:03] LABS: Basophils # 0.1 10^3/uL (0.0-0.1); Basophils % 0.9 %; Hematocrit 33.2 % (37.0-47.0); Hemoglobin 10.7 g/dL (11.5-15.3); Lymphocytes # 1.1 10^3/uL (0.8-4.8); Lymphocytes % 16.5 %; Mean Corpuscular HGB Conc 32.2 g/dL (30.0-36.0); Mean Corpuscular Hemoglobin 29.9 pg (28.0-34.0); Mean Corpuscular Volume 92.7 fL (81-99); Mean Platelet Volume 10.9 fL (7.4-10.4); Monocytes # 0.2 10^3/uL (0.2-0.9); Monocytes % 2.3 %; Nucleated Red Blood Cells % 0 %; Platelet Count 243 10^3/cmm (130-400); Red Blood Count 3.58 10^6/uL (4.1-5.3); Red Cell Distribution Width 16.8 % (12.1-15.1); White Blood Count 6.4 10^3/uL (4.0-10.0)
[2021-02-05 09:27] LABS: Slide Review Slide Review Perform
[2021-02-05 09:28] LABS: Neutrophils % 80.3 %
[2021-02-05 09:30] LABS: Alanine Aminotransferase 16 U/L (0-33); Albumin Level 4.1 g/dL (3.5-5.2); Alkaline Phosphatase 66 IU/L (35-105); Anion Gap 15.2 (5-19); Aspartate Amino Transferase 17 U/L (0-32); Blood Urea Nitrogen 18 mg/dL (8-23); Calcium 8.7 mg/dL (8.5-10.5); Carbon Dioxide 24 mmol/L (22-29); Chloride 103 mmol/L (98-107); Globulin 2.4 g/dL (1.3-4.6); Glucose 182 mg/dL (65-115); Osmolality Calculated 293 mOsm/kg (285-295); Potassium 4.2 mmol/L (3.5-5.1); Sodium 138 mmol/L (136-145); Total Bilirubin 0.2 mg/dL (0.15-1.2); Total Protein 6.5 g/dL (6.6-8.7)
--- NOTE | 2021-02-05 10:14 | ONC FU_ITS ---
Dr. Nowak follow up note Patient: Paris Bae Unit #: [id number]: 1955 Dicatated By: Petra Nowak M.D.Date of Visit:February 05, 2021 Onc Med Follow-up/Prog Note History of Present Illness: Ms. Bae is a 65-year-old female with a history of progressive left breast mass. She underwent mammogram on March 07, 2020 which showed in the region of palpable abnormality. There was a hypoechoic mass measuring 1.8 x 0.8 x 1.4 cm with some mild peripheral increased vascularity at 8 o'clock position 3 cm from the nipple. And right breast showed benign calcification., On March 09, 2020 she underwent ultrasound guided left breast mass biopsy which showed high-grade invasive ductal carcinoma with chronic inflammation surrounding the tumor. Prognostic profiling confirmed triple negative disease e.g. ER less than 1% positive, WI less than 1% and HER-2/jasmyn negative. Because of location and locally advanced disease e.g. inner lower quadrant left breast, a follow-up CT PET scan was done on on May 02, 2020. It reported the left breast mass in the lower inner quadrant measuring 3.1x 5.8 cm demonstrate SUV of 23.20; Level 1 left axillary lymph node demonstrates a maximum SUV of 1.62 no other abnormality seen, no distant mets seen; Left lower paratracheal 1.0 x 2.2 cm lymph node demonstrating maximum SUV of 2.59 reflecting inflammatory changes only. Echocardiogram done on April 11, 2020 showed ejection fractions 65% with mild left ventricular hypertrophy Ms Bae has no history of previous breast biopsies; no family history of breast cancer. menarche started at age 13 and she is G3, with no miscarriages. No breast-feeding. Ms Bae started on neoadjuvant chemotherapy with dose dense Adriamycin/Cytoxan with Neulasta support on May 08, 2020. Despite the Neulasta, she developed severe chemotherapy induced neutropenia on day 8 with an ANC of 50. She was admitted to [facility] on 05/15/2020 for severe neutropenia and left breast abcess. She was treated with IV antibiotics and discharged on levofloxacinon 05/16/2020.Subsequently patient tolerated neoadjuvant chemotherapy with Adriamycin/Cytoxan and recommended completed 4 cycles on July 03, 2020 but subsequently patient developed diarrhea and C. difficile was done which came back positive treated with antibiotics and the repeat C. difficile on July 13 was still positive and patient stayed on antibiotics till last week And continued to have bone pains and off and on diarrhea but being controlled with Imodium and was also running fever as high as 101.4 on last Friday. Patient had a follow-up left breast sonogram done on July 05, 2020 which showed interval improvement of left breast neoplasm with neoadjuvant chemotherapy. Because of persistent neutropenia despite of Neulasta and C. difficile infection/diarrhea, patient decided to proceed with surgery after 4 cycles of dose dense AC and eventually underwent left total mastectomy with sentinel lymph node biopsy of left axilla on October 10, 2020 and final pathology report showed no evidence of malignancy in 1 lymph node and no residual carcinoma identified in the left breast e.g. complete remission Started on weekly Taxol x12 on December 04, 2020 Came for follow-up, denies any specific complaints, no fever chills, no nausea or vomiting, no diarrhea or constipation, no peripheral numbness, tolerating weekly Taxol well. . Medications: Citalopram Hydrobromide 1 Tablet (of 40 mg) Oral daily Allergies: No Known Allergies. Review of Systems: Review of Systems is not available for this patient. Vital Signs: Performed on February 05, 2021 09:49 Height - 63.50 in Weight - 130.4 lbs (HIGH) BSA - 1.62 sq.m BMI - 22.74 Temperature - 98.5 F Pulse - 70 /min Respiration - 18 /min BP - 125/54 mm(hg) O2 Sat - 97 % Pain - 0 Performance Status: 0 - Fully active, able to carry on all predisease activities without restrictions. (ECOG) Physical Examination: Respiratory - Lungs are clear to auscultation, Cardiovascular - Regular rate and rhythm of heart, Gastrointestinal - Soft, bowel sounds present, Extremities - No visible edema or rash. Lab/Imaging: Test performed on January 29, 2021 08:50 Sodium 137 mmol/L Potassium 4.0 mmol/L Chloride 104 mmol/L CO2 23 mmol/L Anion Gap 14.0 BUN 17 mg/dL Creatinine 0.6 mg/dL Cr Clearance (Est) 87.4200 mL/min eGFR 101.0 mL/min Glucose 151 mg/dL Osmolality - Calculated 288 mOsm/kg Calcium 8.4 mg/dL Protein, Total 6.3 g/dL Albumin 4.0 g/dL Globulin 2.3 g/dL Bilirubin, Total 0.2 mg/dL ALT (SGPT) 21 U/L AST (SGOT) 21 U/L Alkaline Phosphatase 60 IU/L WBC 2.0 10 3/uL RBC 3.63 10 6/uL HGB 10.8 g/dL HCT 33.7 % MCV 92.8 fL MCH 29.8 pg MCHC 32.0 g/dL RDW 16.2 % Platelet Count 265 10 3/cmm MPV 10.4 fL Neutrophils 1.52 10 3/uL Lymphocytes 0.4 10 3/uL Monocytes 0.0 10 3/uL Eosinophils 0.0 10 3/uL Basophils 0.0 10 3/uL Neutrophil % 77.6 % Lymphocyte % 18.4 % Monocyte % 1.5 % Eosinophil % 0.0 % Basophils % 0.5 % NRBC % 0 % Test performed on Jan 08, 2021 11:38 CBC Slide Review Slide Review Perform REVIEW AGREES WITH MANUAL DIFF PERFORMED ON 01/05/21 Impression: High-grade invasive ductal carcinoma per ultrasound-guided left breast biopsy done on March 09, 2020 prognostic profiling showed triple negative disease, ER less than 1%, WI less than 1% and HER-2/jasmyn negative, Ki-67 95%. Staging CT PET scan done on May 02, 2020 showed left breast mass in lower inner quadrant sized 5.8 x 3.1 cm hypermetabolic mass with SUV of 23.20 With no distant metastatic disease , Clinical stage II, (more than 5 cm) N0,M0 Echocardiogram done on April 11, 2020 showed ejection fraction 65% Started on neoadjuvant chemotherapy with dose dense Adriamycin Cytoxan every 2 weeks with Neulasta support x 4 followed by Taxol on May 08, 2020. She developed severe chemotherapy induced neutropenia with a day 8 ANC of 5. This did require hospital admission and she received IV antibiotics for a left breast abscess. She was discharged on oral levofloxacin on 05/16/2020. The breast abscess did clear with the antibiotics. Her neutropenia has recovered as well. Tolerated further treatment with Adriamycin Cytoxan well and completed Adriamycin/Cytoxan x4 on July 03, 2020. Further neoadjuvant chemotherapy with Taxol was delayed because of persistent leukopenia and C. difficile positive diarrhea Eventually patient decided to proceed with surgery and on October 10, 2020 she underwent left total mastectomy with sentinel lymph node biopsy of left axilla and final pathology report showed no evidence of disease in the breast and and sentinel lymph node from left axilla e.g. complete remission Started on weekly Taxol x12 on December 04, 2020 Plan: Discussed with patient regarding her labs white blood count 6.4 hemoglobin 10.7 g hematocrit 33.2 platelets 243,000 ANC 4600, CMP within normal limits Clinically, patient is doing well with no new signs symptoms, tolerating adjuvant chemotherapy with weekly Taxol well, will proceed with next dose today and then she will continue with daily Neupogen x4 in between treatment to prevent chemotherapy-induced neutropenia and to maintain chemotherapy schedule. Return to clinic in 1 week with CBC CMP Signed By: Petra Nowak M.D. <<Signature on File>>
[2021-02-05] MEDS: sodium chloride 0.9% 250 ML 75 ML IV (10:25)
[2021-02-05] MEDS: famotidine 20 mg/2 mL INJ IVP (10:26)
[2021-02-05] MEDS: acetaminophen 325 mg Tablet 650 MG PO (10:26)
[2021-02-05] MEDS: ondansetron 2 mg/ML SDV 2 mL 8 MG IVP (10:28)
[2021-02-05] MEDS: diphenhydrAMINE 50 mg/mL SDV 1mL 25 MG IVP (10:32)
--- NOTE | 2021-02-06 20:47 | ONC FU_ITS ---
[facility] Patient Note Patient: Paris Bae Unit #: [id number]: 1955 Dictated By: Rey MensahDate of Visit: January 29, 2021 Onc MED Follow-Up/Prog Note Chief Complaint: Left breast cancer History of Present Illness: Ms. Bae is a 65-year-old female with a history of progressive left breast mass. She underwent mammogram on March 07, 2020 which showed in the region of palpable abnormality. There was a hypoechoic mass measuring 1.8 x 0.8 x 1.4 cm with some mild peripheral increased vascularity at 8 o'clock position 3 cm from the nipple. And right breast showed benign calcification., On March 09, 2020 she underwent ultrasound guided left breast mass biopsy which showed high-grade invasive ductal carcinoma with chronic inflammation surrounding the tumor. Prognostic profiling confirmed triple negative disease e.g. ER less than 1% positive, ND less than 1% and HER-2/jasmyn negative. Because of location and locally advanced disease e.g. inner lower quadrant left breast, a follow-up CT PET scan was done on on May 02, 2020. It reported the left breast mass in the lower inner quadrant measuring 3.1x 5.8 cm demonstrate SUV of 23.20; Level 1 left axillary lymph node demonstrates a maximum SUV of 1.62 no other abnormality seen, no distant mets seen; Left lower paratracheal 1.0 x 2.2 cm lymph node demonstrating maximum SUV of 2.59 reflecting inflammatory changes only. Echocardiogram done on April 11, 2020 showed ejection fractions 65% with mild left ventricular hypertrophy Ms Bae has no history of previous breast biopsies; no family history of breast cancer. menarche started at age 13 and she is G3, with no miscarriages. No breast-feeding. Ms Bae started on neoadjuvant chemotherapy with dose dense Adriamycin/Cytoxan with Neulasta support on May 08, 2020. Despite the Neulasta, she developed severe chemotherapy induced neutropenia on day 8 with an ANC of 50. She was admitted to [facility] on 05/15/2020 for severe neutropenia and left breast abcess. She was treated with IV antibiotics and discharged on levofloxacinon 05/16/2020.Subsequently patient tolerated neoadjuvant chemotherapy with Adriamycin/Cytoxan and recommended completed 4 cycles on July 03, 2020 but subsequently patient developed diarrhea and C. difficile was done which came back positive treated with antibiotics and the repeat C. difficile on July 13 was still positive and patient stayed on antibiotics till last week And continued to have bone pains and off and on diarrhea but being controlled with Imodium and was also running fever as high as 101.4 on last Friday. Patient had a follow-up left breast sonogram done on July 05, 2020 which showed interval improvement of left breast neoplasm with neoadjuvant chemotherapy. Because of persistent neutropenia despite of Neulasta and C. difficile infection/diarrhea, patient decided to proceed with surgery after 4 cycles of dose dense AC and eventually underwent left total mastectomy with sentinel lymph node biopsy of left axilla on October 10, 2020 and final pathology report showed no evidence of malignancy in 1 lymph node and no residual carcinoma identified in the left breast e.g. complete remission Started on weekly Taxol x12 on December 04, 2020 Mrs. Bae is here today for follow-up. She is due for week 7/12 of weekly paclitaxel. She has had chemotherapy induced neutropenia requiring support with filgrastim in between treatments. Her last filgrastim dose was on January 25, 2021. Her ANC on that date was 35,770. She has had some bone pain with the Neupogen but states it is relieved with pain medication and Tylenol. She has had some lower extremity swelling in her feet and legs. She states her shoes are tight at times. She has had some dizziness off and on. She denies any syncope or falls. She denies any TIA type symptoms. She states her appetite is fair. Energy is good overall. She states that she probably is not drinking water as well as that she should but is trying. She denies any new pain other than the bone pain with the growth factors. She has had no mouth sores sore throat or difficulty swallowing. She denies any problems with the peripheral neuropathy. Her ECOG is 1. Past Medical History: C. Diff in 2019 Past Surgical History: Breast biopsy Colonoscopy Exploratory laparotomy Allergies: No Known Allergies. Medications: Citalopram Hydrobromide 1 Tablet (of 40 mg) Oral daily Family History: Ms. Bae's mother at age 69: stomach cancer. Ms. Bae's father at age 72: lung cancer. Ms. Bae has 1 brother who is : colon cancer. Social History: Ms. Bae is . Ms. Bae quit smoking 31 years ago but had smoked for 5 years. She has no history of drinking. Ms. Bae reports the following support systems: lives with spouse, significant other, family, or friends, lives in own house, supportive family/friends willing to assist with needs, and adequate transportation available for expected visits. Her diet consists of regular meals. She indicates her activity level as: regular exercise. Review Of Symptoms: <See Above> Vital Signs: Performed on January 29, 2021 12:23 Height - 63.50 in Temperature - 99.7 F (HIGH) Pulse - 76 /min Respiration - 16 /min BP - 104/53 mm(hg) O2 Sat - 95 % (LOW) Pain - 0 Performed on January 29, 2021 10:02 Height - 63.50 in Weight - 129.6 lbs (HIGH) BSA - 1.62 sq.m BMI - 22.60 Temperature - 98.6 F Pulse - 79 /min Respiration - 18 /min BP - 119/70 mm(hg) O2 Sat - 96 % Pain - 5,1 - No physically strenuous activity, but ambulatory and able to carry out light or sedentary work (e.g. office work, light house work). (ECOG) Physical Examination: Constitutional Alert, oriented, no acute distress. Skin pink, warm and dry. Head Normocephalic; atraumatic. Eyes Conjunctivae and sclerae are clear and without icterus. Pupils are reactive and equal. Respiratory Lungs are clear to auscultation without rhonchi or wheezing. Cardiovascular Regular rate and rhythm of heart without murmurs,clicks, gallops or rubs. Back/Spine Non-tender to palpation. Extremities No visible deformities, no cyanosis, clubbing or edema. Musculoskeletal No tenderness or swelling, normal range of motion without obvious weakness. Neurologic No sensory or motor deficits, normal cerebellar function, normal gait. Psychiatric Alert and oriented times three. Coherent speech. Verbalizes understanding of our discussions today. Laboratory:Test performed on January 29, 2021 08:50 Sodium 137 mmol/L Potassium 4.0 mmol/L Chloride 104 mmol/L CO2 23 mmol/L Anion Gap 14.0 BUN 17 mg/dL Creatinine 0.6 mg/dL Cr Clearance (Est) 87.4200 mL/min eGFR 101.0 mL/min Glucose 151 mg/dL Osmolality - Calculated 288 mOsm/kg Calcium 8.4 mg/dL Protein, Total 6.3 g/dL Albumin 4.0 g/dL Globulin 2.3 g/dL Bilirubin, Total 0.2 mg/dL ALT (SGPT) 21 U/L AST (SGOT) 21 U/L Alkaline Phosphatase 60 IU/L WBC 2.0 10 3/uL RBC 3.63 10 6/uL HGB 10.8 g/dL HCT 33.7 % MCV 92.8 fL MCH 29.8 pg MCHC 32.0 g/dL RDW 16.2 % Platelet Count 265 10 3/cmm MPV 10.4 fL Neutrophils 1.52 10 3/uL Lymphocytes 0.4 10 3/uL Monocytes 0.0 10 3/uL Eosinophils 0.0 10 3/uL Basophils 0.0 10 3/uL Neutrophil % 77.6 % Lymphocyte % 18.4 % Monocyte % 1.5 % Eosinophil % 0.0 % Basophils % 0.5 % NRBC % 0 % Impression: High-grade invasive ductal carcinoma per ultrasound-guided left breast biopsy done on March 09, 2020 prognostic profiling showed triple negative disease, ER less than 1%, ND less than 1% and HER-2/jasmyn negative, Ki-67 95%. Staging CT PET scan done on May 02, 2020 showed left breast mass in lower inner quadrant sized 5.8 x 3.1 cm hypermetabolic mass with SUV of 23.20 With no distant metastatic disease , Clinical stage II, (more than 5 cm) N0,M0 Echocardiogram done on April 11, 2020 showed ejection fraction 65% Started on neoadjuvant chemotherapy with dose dense Adriamycin Cytoxan every 2 weeks with Neulasta support x 4 followed by Taxol on May 08, 2020. She developed severe chemotherapy induced neutropenia with a day 8 ANC of 5. This did require hospital admission and she received IV antibiotics for a left breast abscess. She was discharged on oral levofloxacin on 05/16/2020. The breast abscess did clear with the antibiotics. Her neutropenia has recovered as well. Tolerated further treatment with Adriamycin Cytoxan well and completed Adriamycin/Cytoxan x4 on July 03, 2020. Further neoadjuvant chemotherapy with Taxol was delayed because of persistent leukopenia and C. difficile positive diarrhea Eventually patient decided to proceed with surgery and on October 10, 2020 she underwent left total mastectomy with sentinel lymph node biopsy of left axilla and final pathology report showed no evidence of disease in the breast and and sentinel lymph node from left axilla e.g. complete remission Started on weekly Taxol x12 on December 04, 2020 Plan/Problems Addressed at this Visit: 1. High-grade invasive ductal carcinoma of the left breast She is currently under going chemotherapy with weekly Taxol x12. She had completed 4 cycles of Adriamycin Cytoxan however her chemotherapy was complicated by severe chemotherapy-induced neutropenia and she developed a left breast abscess. The abscess did clear with antibiotics and her neutropenia recovered and she was able to complete the Adriamycin Cytoxan on July 03, 2020. Further neoadjuvant chemotherapy with Taxol was delayed because of persistent leukopenia and C. difficile positive diarrhea. She eventually proceeded with surgery on October 10, 2020 at which time she underwent left total mastectomy with sentinel node biopsy of the left axilla. The final pathology reported no evidence of disease in the breast and the sentinel lymph node from the left axilla was negative. She was able to start on weekly Taxol on December 04, 2020. Her week 5 paclitaxel was actually delayed 1 week due to neutropenia and delay in authorization from her insurance company and allowing us to utilize growth factor support for her. Authorization was not received until Friday and she received 3 doses of the filgrastim. Her ANC on day one of the filgrastim was 1090. On day 3 it was 13,700. A. Proceed with week 7 paclitaxel with growth factor support for 4 days. B. Steroid compliance confirmed. C. Today's labs reviewed in detail discussed with Ms. Bae and a copy was given to her. WBC 2.0, hemoglobin 10.8, platelets are 65,000, ANC is 1520. Creatinine 0.6 random glucose 151 potassium 4.0 LFTs are normal. Her weight is stable at 129.6. D. She may have a trial of furosemide 20 mg 1 or 2 daily as needed for lower extremity edema. She is advised if she takes it more than 3 days consecutively she will need a potassium supplement. E. We will plan to have her return in 1 week with CBC CMP for consideration of week 8/12 paclitaxel. She is reminded to take her steroids for premeds. F. Mrs. Bae was encouraged to contact us in the interim should questions or problems arise. Signed By: Rey Menash-, AOP Petra Nowak MD <<Signature on File>>
[2021-02-12 10:38] LABS: Basophils # 0.1 10^3/uL (0.0-0.1); Basophils % 0.7 %; Hemoglobin 10.5 g/dL (11.5-15.3); Lymphocytes # 0.9 10^3/uL (0.8-4.8); Lymphocytes % 12.2 %; Mean Corpuscular HGB Conc 31.8 g/dL (30.0-36.0); Mean Corpuscular Hemoglobin 29.7 pg (28.0-34.0); Mean Corpuscular Volume 93.2 fL (81-99); Mean Platelet Volume 12.4 fL (7.4-10.4); Monocytes # 0.1 10^3/uL (0.2-0.9); Monocytes % 1.5 %; Neutrophils # 5.69 10^3/uL (1.8-7.7); Nucleated Red Blood Cells % 0 %; Red Blood Count 3.54 10^6/uL (4.1-5.3); Red Cell Distribution Width 17.3 % (12.1-15.1); White Blood Count 7.3 10^3/uL (4.0-10.0)
[2021-02-12 10:55] LABS: Alanine Aminotransferase 18 U/L (0-33); Albumin Level 4.4 g/dL (3.5-5.2); Alkaline Phosphatase 76 IU/L (35-105); Aspartate Amino Transferase 19 U/L (0-32); Blood Urea Nitrogen 16 mg/dL (8-23); Calcium 8.7 mg/dL (8.5-10.5); Carbon Dioxide 21 mmol/L (22-29); Chloride 105 mmol/L (98-107); Globulin 2.4 g/dL (1.3-4.6); Glomerular Filtration Rate 161.2 mL/min (90-130); Glucose 133 mg/dL (65-115); Osmolality Calculated 285 mOsm/kg (285-295); Sodium 136 mmol/L (136-145); Total Bilirubin 0.2 mg/dL (0.15-1.2); Total Protein 6.8 g/dL (6.6-8.7)
[2021-02-12 11:12] LABS: Slide Review Slide Review Perform
[2021-02-12 11:13] LABS: Neutrophils % 85.6 %; Platelet Count 122 10^3/cmm (130-400)
[2021-02-12] MEDS: acetaminophen 325 mg Tablet 650 MG PO (12:30)
[2021-02-12] MEDS: sodium chloride 0.9% 250 ML 75 ML IV (12:32)
[2021-02-12] MEDS: diphenhydrAMINE 50 mg/mL SDV 1mL 25 MG IVP (12:32)
[2021-02-12] MEDS: famotidine 20 mg/2 mL INJ IVP (12:34)
[2021-02-12] MEDS: ondansetron 2 mg/ML SDV 2 mL 8 MG IVP (12:36)
[2021-02-19 09:12] LABS: Basophils % 0.6 %; Hematocrit 31.3 % (37.0-47.0); Hemoglobin 10.1 g/dL (11.5-15.3); Lymphocytes # 0.8 10^3/uL (0.8-4.8); Lymphocytes % 11.5 %; Mean Corpuscular HGB Conc 32.3 g/dL (30.0-36.0); Mean Corpuscular Hemoglobin 30.8 pg (28.0-34.0); Mean Corpuscular Volume 95.4 fL (81-99); Monocytes # 0.1 10^3/uL (0.2-0.9); Monocytes % 1.4 %; Neutrophils # 5.36 10^3/uL (1.8-7.7); Neutrophils % 81.2 %; Nucleated Red Blood Cells % 0 %; Platelet Count 240 10^3/cmm (130-400); Red Blood Count 3.28 10^6/uL (4.1-5.3); Red Cell Distribution Width 17.8 % (12.1-15.1); White Blood Count 6.6 10^3/uL (4.0-10.0)
[2021-02-19 09:25] LABS: Alanine Aminotransferase 18 U/L (0-33); Albumin Level 4.2 g/dL (3.5-5.2); Alkaline Phosphatase 73 IU/L (35-105); Anion Gap 16.9 (5-19); Aspartate Amino Transferase 18 U/L (0-32); Blood Urea Nitrogen 14 mg/dL (8-23); Calcium 8.4 mg/dL (8.5-10.5); Carbon Dioxide 21 mmol/L (22-29); Chloride 107 mmol/L (98-107); Globulin 2.1 g/dL (1.3-4.6); Glomerular Filtration Rate 124.2 mL/min (90-130); Glucose 231 mg/dL (65-115); Osmolality Calculated 300 mOsm/kg (285-295); Potassium 3.9 mmol/L (3.5-5.1); Sodium 141 mmol/L (136-145); Total Bilirubin 0.2 mg/dL (0.15-1.2); Total Protein 6.3 g/dL (6.6-8.7)
[2021-02-19 09:47] LABS: Slide Review Slide Review Perform
[2021-02-19] MEDS: acetaminophen 325 mg Tablet 650 MG PO (10:12)
[2021-02-19] MEDS: sodium chloride 0.9% 250 ML 75 ML IV (10:12)
[2021-02-19] MEDS: ondansetron 2 mg/ML SDV 2 mL 8 MG IVP (10:15)
[2021-02-19] MEDS: famotidine 20 mg/2 mL INJ IVP (10:17)
[2021-02-19] MEDS: diphenhydrAMINE 50 mg/mL SDV 1mL 25 MG IVP (10:19)
--- NOTE | 2021-02-21 13:02 | ONC FU_ITS ---
Nancy Aguayo Patient Note Patient: Paris Bae Unit #: [id number]: [id number] Dictated By: Rey MensahDate of Visit: February 12, 2021 Onc MED Follow-Up/Prog Note Chief Complaint: Left breast cancer History of Present Illness: Ms. Bae is a 65-year-old female with a history of progressive left breast mass. She underwent mammogram on March 07, 2020 which showed in the region of palpable abnormality. There was a hypoechoic mass measuring 1.8 x 0.8 x 1.4 cm with some mild peripheral increased vascularity at 8 o'clock position 3 cm from the nipple. And right breast showed benign calcification., On March 09, 2020 she underwent ultrasound guided left breast mass biopsy which showed high-grade invasive ductal carcinoma with chronic inflammation surrounding the tumor. Prognostic profiling confirmed triple negative disease e.g. ER less than 1% positive, IL less than 1% and HER-2/jasmyn negative. Because of location and locally advanced disease e.g. inner lower quadrant left breast, a follow-up CT PET scan was done on on May 02, 2020. It reported the left breast mass in the lower inner quadrant measuring 3.1x 5.8 cm demonstrate SUV of 23.20; Level 1 left axillary lymph node demonstrates a maximum SUV of 1.62 no other abnormality seen, no distant mets seen; Left lower paratracheal 1.0 x 2.2 cm lymph node demonstrating maximum SUV of 2.59 reflecting inflammatory changes only. Echocardiogram done on April 11, 2020 showed ejection fractions 65% with mild left ventricular hypertrophy Ms Bae has no history of previous breast biopsies; no family history of breast cancer. menarche started at age 13 and she is G3, with no miscarriages. No breast-feeding. Ms Bae started on neoadjuvant chemotherapy with dose dense Adriamycin/Cytoxan with Neulasta support on May 08, 2020. Despite the Neulasta, she developed severe chemotherapy induced neutropenia on day 8 with an ANC of 50. She was admitted to [facility] on 05/15/2020 for severe neutropenia and left breast abcess. She was treated with IV antibiotics and discharged on levofloxacinon 05/16/2020.Subsequently patient tolerated neoadjuvant chemotherapy with Adriamycin/Cytoxan and recommended completed 4 cycles on July 03, 2020 but subsequently patient developed diarrhea and C. difficile was done which came back positive treated with antibiotics and the repeat C. difficile on July 13 was still positive and patient stayed on antibiotics till last week And continued to have bone pains and off and on diarrhea but being controlled with Imodium and was also running fever as high as 101.4 on last Friday. Ms Bae had a follow-up left breast sonogram done on July 05, 2020 which showed interval improvement of left breast neoplasm with neoadjuvant chemotherapy. Because of persistent neutropenia despite of Neulasta and C. difficile infection/diarrhea, patient decided to proceed with surgery after 4 cycles of dose dense AC and eventually underwent left total mastectomy with sentinel lymph node biopsy of left axilla on October 10, 2020 and final pathology report showed no evidence of malignancy in 1 lymph node and no residual carcinoma identified in the left breast e.g. complete remission. She started on weekly Taxol x 12 on December 04, 2020. Past Medical History: C. Diff in 2019 Past Surgical History: Breast biopsy Colonoscopy Exploratory laparotomy Allergies: No Known Allergies. Medications: Citalopram Hydrobromide 1 Tablet (of 40 mg) Oral daily Family History: Ms. Bae's mother at age 69: stomach cancer. Ms. Bae's father at age 72: lung cancer. Ms. Bae has 1 brother who is : colon cancer. Social History: Ms. Bae is . Ms. Bae quit smoking 31 years ago but had smoked for 5 years. She has no history of drinking. Ms. Bae reports the following support systems: lives with spouse, significant other, family, or friends, lives in own house, supportive family/friends willing to assist with needs, and adequate transportation available for expected visits. Her diet consists of regular meals. She indicates her activity level as: regular exercise. Review Of Symptoms: <See Above> Vital Signs: Performed on February 12, 2021 14:09 Height - 63.50 in Temperature - 98.2 F (LOW) Pulse - 62 /min Respiration - 18 /min BP - 115/67 mm(hg) O2 Sat - 98 % Performed on February 12, 2021 11:57 Height - 63.50 in Weight - 131.4 lbs (HIGH) BSA - 1.63 sq.m BMI - 22.91 Temperature - 97.0 F (LOW) Pulse - 76 /min Respiration - 18 /min BP - 115/57 mm(hg) O2 Sat - 98 % Pain - 0,1 - No physically strenuous activity, but ambulatory and able to carry out light or sedentary work (e.g. office work, light house work). (ECOG) Physical Examination: Constitutional Alert, oriented, no acute distress. Skin pink, warm and dry. Head Normocephalic; atraumatic. Eyes Conjunctivae and sclerae are clear and without icterus. Pupils are reactive and equal. Neck Supple without masses or thyromegaly. No jugular venous distension. Hematologic/Lymphatic No petechiae or purpura. No tender or palpable lymph nodes in the cervical or supraclavicular areas. Respiratory Lungs are clear to auscultation without rhonchi or wheezing. Cardiovascular Regular rate and rhythm of heart without murmurs,clicks, gallops or rubs. Back/Spine Non-tender to palpation. Extremities No visible deformities, no cyanosis, clubbing or edema. Musculoskeletal No tenderness or swelling, normal range of motion without obvious weakness. Neurologic No sensory or motor deficits, normal cerebellar function, normal gait. Psychiatric Alert and oriented times three. Coherent speech. Verbalizes understanding of our discussions today. Laboratory:Test performed on February 19, 2021 08:43 Sodium 141 mmol/L Potassium 3.9 mmol/L Chloride 107 mmol/L CO2 21 mmol/L Anion Gap 16.9 BUN 14 mg/dL Creatinine 0.5 mg/dL Cr Clearance (Est) 103.5400 mL/min eGFR 124.2 mL/min Glucose 231 mg/dL Osmolality - Calculated 300 mOsm/kg Calcium 8.4 mg/dL Protein, Total 6.3 g/dL Albumin 4.2 g/dL Globulin 2.1 g/dL Bilirubin, Total 0.2 mg/dL ALT (SGPT) 18 U/L AST (SGOT) 18 U/L Alkaline Phosphatase 73 IU/L WBC 6.6 10 3/uL RBC 3.28 10 6/uL HGB 10.1 g/dL HCT 31.3 % MCV 95.4 fL MCH 30.8 pg MCHC 32.3 g/dL RDW 17.8 % Platelet Count 240 10 3/cmm MPV 11.0 fL Neutrophils 5.36 10 3/uL Lymphocytes 0.8 10 3/uL Monocytes 0.1 10 3/uL Eosinophils 0.0 10 3/uL Basophils 0.0 10 3/uL Neutrophil % 81.2 % Lymphocyte % 11.5 % Monocyte % 1.4 % Eosinophil % 0.0 % Basophils % 0.6 % NRBC % 0 % CBC Slide Review Slide Review Perform Impression: High-grade invasive ductal carcinoma per ultrasound-guided left breast biopsy done on March 09, 2020 prognostic profiling showed triple negative disease, ER less than 1%, IL less than 1% and HER-2/jasmyn negative, Ki-67 95%. Staging CT PET scan done on May 02, 2020 showed left breast mass in lower inner quadrant sized 5.8 x 3.1 cm hypermetabolic mass with SUV of 23.20 With no distant metastatic disease , Clinical stage II, (more than 5 cm) N0,M0 Echocardiogram done on April 11, 2020 showed ejection fraction 65% Started on neoadjuvant chemotherapy with dose dense Adriamycin Cytoxan every 2 weeks with Neulasta support x 4 followed by Taxol on May 08, 2020. She developed severe chemotherapy induced neutropenia with a day 8 ANC of 5. This did require hospital admission and she received IV antibiotics for a left breast abscess. She was discharged on oral levofloxacin on 05/16/2020. The breast abscess did clear with the antibiotics. Her neutropenia has recovered as well. Tolerated further treatment with Adriamycin Cytoxan well and completed Adriamycin/Cytoxan x4 on July 03, 2020. Further neoadjuvant chemotherapy with Taxol was delayed because of persistent leukopenia and C. difficile positive diarrhea Eventually patient decided to proceed with surgery and on October 10, 2020 she underwent left total mastectomy with sentinel lymph node biopsy of left axilla and final pathology report showed no evidence of disease in the breast and and sentinel lymph node from left axilla e.g. complete remission Started on weekly Taxol x12 on December 04, 2020 Plan/Problems Addressed at this Visit: 1. High-grade invasive ductal carcinoma of the left breast She is currently under going chemotherapy with weekly Taxol x12. She had completed 4 cycles of Adriamycin Cytoxan however her chemotherapy was complicated by severe chemotherapy-induced neutropenia and she developed a left breast abscess. The abscess did clear with antibiotics and her neutropenia recovered and she was able to complete the Adriamycin Cytoxan on July 03, 2020. Further neoadjuvant chemotherapy with Taxol was delayed because of persistent leukopenia and C. difficile positive diarrhea. She eventually proceeded with surgery on October 10, 2020 at which time she underwent left total mastectomy with sentinel node biopsy of the left axilla. The final pathology reported no evidence of disease in the breast and the sentinel lymph node from the left axilla was negative. She was able to start on weekly Taxol on December 04, 2020. Her week 5 paclitaxel was actually delayed 1 week due to neutropenia and delay in authorization from her insurance company and allowing us to utilize growth factor support for her. Authorization was not received until Friday and she received 3 doses of the filgrastim. Her ANC on day one of the filgrastim was 1090. On day 3 it was 13,700. A. Proceed with week 9 paclitaxel with growth factor support for 4 days. B. Steroid compliance confirmed. C. Today's labs reviewed in detail discussed with Ms. Bae and a copy was given to her. WBC 7.3, hemoglobin 10.5, platelets are 122,000, ANC is 5690. Creatinine 0.4 random glucose 133 potassium 4.0 LFTs are normal. Her weight is stable at 131.4. D. We will plan to have her return in 1 week with CBC CMP for consideration of week 9/12 paclitaxel. She is reminded to take her steroids for premeds. E. Mrs. Bae was encouraged to contact us in the interim should questions or problems arise. Signed By: Rey Mensah-, AOP Petra Nowak MD <<Signature on File>>
== END 2021-02-26 23:59 | disposition home or self-care (01) ==
LOC: ONCMED 05:36
PROVIDERS: Internal Medicine Hematology & Oncology; Nurse Practitioner; PCP Nurse Practitioner Family; Visit Provider Internal Medicine Medical Oncology
DX: Z51.11 Encounter for antineoplastic chemotherapy (principal); C50.512 Malignant neoplasm of lower-outer quadrant of left female breast; Z17.1 Estrogen receptor negative status [ER-]; D70.1 Agranulocytosis secondary to cancer chemotherapy; T45.1X5A Adverse effect of antineoplastic and immunosuppressive drugs, initial encounter; A04.72 Enterocolitis due to Clostridium difficile, not specified as recurrent; Z79.811 Long term (current) use of aromatase inhibitors; Z79.899 Other long term (current) drug therapy
CPT/HCPCS: 36415; 80053; 85025; 96367; 96372; 96375; 96413; 99214; 99215; J1100; J1200; J2405; J3490; J7050; J9267; Q5101

== ENCOUNTER 2021-03-23 05:43 | Outpatient (RCR) | payer OTHER, MEDICAID, SELFPAY ==
[2021-02-27 13:29] LABS: Basophils # 0.1 10^3/uL (0.0-0.1); Eosinophils # 0.1 10^3/uL (0.0-0.8); Eosinophils % 3.2 %; Hemoglobin 10.3 g/dL (11.5-15.3); Lymphocytes # 1.3 10^3/uL (0.8-4.8); Lymphocytes % 31.4 %; Mean Corpuscular HGB Conc 32.2 g/dL (30.0-36.0); Mean Corpuscular Hemoglobin 30.5 pg (28.0-34.0); Mean Corpuscular Volume 94.7 fL (81-99); Mean Platelet Volume 10.9 fL (7.4-10.4); Monocytes # 0.9 10^3/uL (0.2-0.9); Monocytes % 21.3 %; Neutrophils % 37.1 %; Nucleated Red Blood Cells % 0 %; Platelet Count 262 10^3/cmm (130-400); Red Blood Count 3.38 10^6/uL (4.1-5.3)
[2021-02-27 13:44] LABS: Alanine Aminotransferase 14 U/L (0-33); Albumin Level 4.4 g/dL (3.5-5.2); Alkaline Phosphatase 71 IU/L (35-105); Anion Gap 15.1 (5-19); Aspartate Amino Transferase 17 U/L (0-32); Blood Urea Nitrogen 16 mg/dL (8-23); Calcium 8.4 mg/dL (8.5-10.5); Carbon Dioxide 25 mmol/L (22-29); Chloride 104 mmol/L (98-107); Glomerular Filtration Rate 124.2 mL/min (90-130); Glucose 102 mg/dL (65-115); Osmolality Calculated 291 mOsm/kg (285-295); Potassium 4.1 mmol/L (3.5-5.1); Sodium 140 mmol/L (136-145); Total Bilirubin 0.2 mg/dL (0.15-1.2); Total Protein 6.4 g/dL (6.6-8.7)
[2021-02-28] MEDS: acetaminophen 325 mg Tablet 650 MG PO (09:40)
[2021-02-28] MEDS: sodium chloride 0.9% 250 ML 75 ML IV (09:42)
[2021-02-28] MEDS: ondansetron 2 mg/ML SDV 2 mL 8 MG IVP (09:42)
[2021-02-28] MEDS: famotidine 20 mg/2 mL INJ IVP (09:44)
[2021-02-28] MEDS: diphenhydrAMINE 50 mg/mL SDV 1mL 25 MG IVP (09:46)
--- NOTE | 2021-02-28 17:38 | ONC FU_ITS ---
Dr. Nowak follow up note Patient: Paris Bae Unit #: [id number]: 1955 Dicatated By: Petra Nowak M.D.Date of Visit:Feb 28, 2021 Onc Med Follow-up/Prog Note History of Present Illness: Ms. Bae is a 65-year-old female with a history of progressive left breast mass. She underwent mammogram on March 07, 2020 which showed in the region of palpable abnormality. There was a hypoechoic mass measuring 1.8 x 0.8 x 1.4 cm with some mild peripheral increased vascularity at 8 o'clock position 3 cm from the nipple. And right breast showed benign calcification., On March 09, 2020 she underwent ultrasound guided left breast mass biopsy which showed high-grade invasive ductal carcinoma with chronic inflammation surrounding the tumor. Prognostic profiling confirmed triple negative disease e.g. ER less than 1% positive, MT less than 1% and HER-2/jasmyn negative. Because of location and locally advanced disease e.g. inner lower quadrant left breast, a follow-up CT PET scan was done on on May 02, 2020. It reported the left breast mass in the lower inner quadrant measuring 3.1x 5.8 cm demonstrate SUV of 23.20; Level 1 left axillary lymph node demonstrates a maximum SUV of 1.62 no other abnormality seen, no distant mets seen; Left lower paratracheal 1.0 x 2.2 cm lymph node demonstrating maximum SUV of 2.59 reflecting inflammatory changes only. Echocardiogram done on April 11, 2020 showed ejection fractions 65% with mild left ventricular hypertrophy Ms Bae has no history of previous breast biopsies; no family history of breast cancer. menarche started at age 13 and she is G3, with no miscarriages. No breast-feeding. Ms Bae started on neoadjuvant chemotherapy with dose dense Adriamycin/Cytoxan with Neulasta support on May 08, 2020. Despite the Neulasta, she developed severe chemotherapy induced neutropenia on day 8 with an ANC of 50. She was admitted to [facility] on 05/15/2020 for severe neutropenia and left breast abcess. She was treated with IV antibiotics and discharged on levofloxacinon 05/16/2020.Subsequently patient tolerated neoadjuvant chemotherapy with Adriamycin/Cytoxan and recommended completed 4 cycles on July 03, 2020 but subsequently patient developed diarrhea and C. difficile was done which came back positive treated with antibiotics and the repeat C. difficile on July 13 was still positive and patient stayed on antibiotics till last week And continued to have bone pains and off and on diarrhea but being controlled with Imodium and was also running fever as high as 101.4 on last Friday. Ms Bae had a follow-up left breast sonogram done on July 05, 2020 which showed interval improvement of left breast neoplasm with neoadjuvant chemotherapy. Because of persistent neutropenia despite of Neulasta and C. difficile infection/diarrhea, patient decided to proceed with surgery after 4 cycles of dose dense AC and eventually underwent left total mastectomy with sentinel lymph node biopsy of left axilla on October 10, 2020 and final pathology report showed no evidence of malignancy in 1 lymph node and no residual carcinoma identified in the left breast e.g. complete remission. She started on weekly Taxol x 12 on December 04, 2020. Came for follow-up, denies any specific complaints, except mild numbness in the fingertips bilaterally but no issues with the toes. No fever chills, no nausea or vomiting, no diarrhea or constipation, no skin rash, no abdominal pain, no shortness of breath, tolerating adjuvant weekly Taxol well otherwise . Medications: Citalopram Hydrobromide 1 Tablet (of 40 mg) Oral daily Allergies: No Known Allergies. Review of Systems: Review of Systems is not available for this patient. Vital Signs: Performed on Feb 28, 2021 11:35 Height - 63.50 in Temperature - 98.0 F (LOW) Pulse - 64 /min Respiration - 18 /min BP - 96/56 mm(hg) O2 Sat - 98 % Pain - 0 Performed on Feb 28, 2021 08:44 Height - 63.50 in Weight - 132 lbs (HIGH) BSA - 1.63 sq.m BMI - 23.02 Temperature - 97.8 F (LOW) Pulse - 88 /min Respiration - 18 /min BP - 111/68 mm(hg) O2 Sat - 97 % Pain - 0 Fatigue - 0 Performance Status: 0 - Fully active, able to carry on all predisease activities without restrictions. (ECOG) Physical Examination: Respiratory - Lungs are clear to auscultation, Cardiovascular - Regular rate and rhythm of heart, Gastrointestinal - Soft, bowel sounds present, Extremities - No visible edema or rash. Lab/Imaging: Test performed on February 19, 2021 08:43 Sodium 141 mmol/L Potassium 3.9 mmol/L Chloride 107 mmol/L CO2 21 mmol/L Anion Gap 16.9 BUN 14 mg/dL Creatinine 0.5 mg/dL Cr Clearance (Est) 103.5400 mL/min eGFR 124.2 mL/min Glucose 231 mg/dL Osmolality - Calculated 300 mOsm/kg Calcium 8.4 mg/dL Protein, Total 6.3 g/dL Albumin 4.2 g/dL Globulin 2.1 g/dL Bilirubin, Total 0.2 mg/dL ALT (SGPT) 18 U/L AST (SGOT) 18 U/L Alkaline Phosphatase 73 IU/L WBC 6.6 10 3/uL RBC 3.28 10 6/uL HGB 10.1 g/dL HCT 31.3 % MCV 95.4 fL MCH 30.8 pg MCHC 32.3 g/dL RDW 17.8 % Platelet Count 240 10 3/cmm MPV 11.0 fL Neutrophils 5.36 10 3/uL Lymphocytes 0.8 10 3/uL Monocytes 0.1 10 3/uL Eosinophils 0.0 10 3/uL Basophils 0.0 10 3/uL Neutrophil % 81.2 % Lymphocyte % 11.5 % Monocyte % 1.4 % Eosinophil % 0.0 % Basophils % 0.6 % NRBC % 0 % CBC Slide Review Slide Review Perform Test performed on Jan 05, 2021 09:00 Manual Segs % 45 % Manual Bands % 33.0 % Manual Lymphs % 8 % Atypical Lymphs % 1.0 % Total Cells Counted 100 Manual Monos % 11.0 % Manual Eos % 2 % Manual Basos % 0.0 % Polychromasia Trace Platelet Estimate Normal Manual Segs Abs 7.9 10/cmm Manual Bands Abs 5.8 10 3/cmm Manual Neutrophils Abs 13.7 10 3/cmm Manual Lymphocytes Abs 1.6 10 3/cmm Manual Monocytes Abs 1.9 10 3/cmm Manual Eosinophils Abs 0.3 10 3/cmm Manual Basophils Abs 0.0 10 3/cmm Impression: High-grade invasive ductal carcinoma per ultrasound-guided left breast biopsy done on March 09, 2020 prognostic profiling showed triple negative disease, ER less than 1%, MT less than 1% and HER-2/jasmyn negative, Ki-67 95%. Staging CT PET scan done on May 02, 2020 showed left breast mass in lower inner quadrant sized 5.8 x 3.1 cm hypermetabolic mass with SUV of 23.20 With no distant metastatic disease , Clinical stage II, (more than 5 cm) N0,M0 Echocardiogram done on April 11, 2020 showed ejection fraction 65% Started on neoadjuvant chemotherapy with dose dense Adriamycin Cytoxan every 2 weeks with Neulasta support x 4 followed by Taxol on May 08, 2020. She developed severe chemotherapy induced neutropenia with a day 8 ANC of 5. This did require hospital admission and she received IV antibiotics for a left breast abscess. She was discharged on oral levofloxacin on 05/16/2020. The breast abscess did clear with the antibiotics. Her neutropenia has recovered as well. Tolerated further treatment with Adriamycin Cytoxan well and completed Adriamycin/Cytoxan x4 on July 03, 2020. Further neoadjuvant chemotherapy with Taxol was delayed because of persistent leukopenia and C. difficile positive diarrhea Eventually patient decided to proceed with surgery and on October 10, 2020 she underwent left total mastectomy with sentinel lymph node biopsy of left axilla and final pathology report showed no evidence of disease in the breast and and sentinel lymph node from left axilla e.g. complete remission Started on weekly Taxol x12 on December 04, 2020 Plan: Discussed with patient regarding her labs white blood count 4 hemoglobin 10.3 hematocrit 32 platelets 262,000 CMP within normal limits Clinically, patient is doing well with no new signs symptoms, tolerating adjuvant therapy with weekly Taxol well, will proceed with cycle #11 today and then she will return to clinic in 1 week with CBC CMP. If reasonable, she will conclude her adjuvant therapy, then will refer her to radiation oncology for evaluation for post mastectomy radiation therapy as at the time of diagnosis her primary was more than 5 cm in size Signed By: Petra Nowak M.D. <<Signature on File>>
[2021-03-07 13:08] LABS: Basophils % 1.3 %; Lymphocytes # 0.5 10^3/uL (0.8-4.8); Lymphocytes % 19.2 %; Mean Corpuscular HGB Conc 32.3 g/dL (30.0-36.0); Mean Corpuscular Hemoglobin 31.2 pg (28.0-34.0); Mean Corpuscular Volume 96.6 fL (81-99); Mean Platelet Volume 11.1 fL (7.4-10.4); Monocytes % 1.7 %; Neutrophils # 1.84 10^3/uL (1.8-7.7); Nucleated Red Blood Cells % 0 %; Platelet Count 236 10^3/cmm (130-400); Positive M 1; Red Blood Count 3.21 10^6/uL (4.1-5.3); Red Cell Distribution Width 17.6 % (12.1-15.1); White Blood Count 2.4 10^3/uL (4.0-10.0)
[2021-03-07 13:19] LABS: Slide Review Slide Review Perform
[2021-03-07 13:57] LABS: Alanine Aminotransferase 13 U/L (0-33); Albumin Level 4.2 g/dL (3.5-5.2); Alkaline Phosphatase 57 IU/L (35-105); Anion Gap 15.3 (5-19); Aspartate Amino Transferase 18 U/L (0-32); Blood Urea Nitrogen 16 mg/dL (8-23); Calcium 8.7 mg/dL (8.5-10.5); Carbon Dioxide 24 mmol/L (22-29); Chloride 102 mmol/L (98-107); Globulin 2.5 g/dL (1.3-4.6); Glomerular Filtration Rate 124.2 mL/min (90-130); Glucose 129 mg/dL (65-115); Osmolality Calculated 287 mOsm/kg (285-295); Potassium 4.3 mmol/L (3.5-5.1); Sodium 137 mmol/L (136-145); Total Bilirubin 0.2 mg/dL (0.15-1.2); Total Protein 6.7 g/dL (6.6-8.7)
--- NOTE | 2021-03-25 14:05 | ONC FU_ITS ---
Nancy Aguayo Patient Note Patient: Paris Bae Unit #: [id number]: 1955 Dictated By: Rey MensahDate of Visit: Mar 07, 2021 Onc MED Follow-Up/Prog Note Chief Complaint: Left breast cancer History of Present Illness: Ms. Bae is a 65-year-old female with a history of progressive left breast mass. She underwent mammogram on March 07, 2020 which showed in the region of palpable abnormality. There was a hypoechoic mass measuring 1.8 x 0.8 x 1.4 cm with some mild peripheral increased vascularity at 8 o'clock position 3 cm from the nipple. And right breast showed benign calcification., On March 09, 2020 she underwent ultrasound guided left breast mass biopsy which showed high-grade invasive ductal carcinoma with chronic inflammation surrounding the tumor. Prognostic profiling confirmed triple negative disease e.g. ER less than 1% positive, DE less than 1% and HER-2/jasmyn negative. Because of location and locally advanced disease e.g. inner lower quadrant left breast, a follow-up CT PET scan was done on on May 02, 2020. It reported the left breast mass in the lower inner quadrant measuring 3.1x 5.8 cm demonstrate SUV of 23.20; Level 1 left axillary lymph node demonstrates a maximum SUV of 1.62 no other abnormality seen, no distant mets seen; Left lower paratracheal 1.0 x 2.2 cm lymph node demonstrating maximum SUV of 2.59 reflecting inflammatory changes only. Echocardiogram done on April 11, 2020 showed ejection fractions 65% with mild left ventricular hypertrophy Ms Bae has no history of previous breast biopsies; no family history of breast cancer. menarche started at age 13 and she is G3, with no miscarriages. No breast-feeding. Ms Bae started on neoadjuvant chemotherapy with dose dense Adriamycin/Cytoxan with Neulasta support on May 08, 2020. Despite the Neulasta, she developed severe chemotherapy induced neutropenia on day 8 with an ANC of 50. She was admitted to [facility] [place]15/2020 for severe neutropenia and left breast abcess. She was treated with IV antibiotics and discharged on levofloxacinon 05/16/2020.Subsequently patient tolerated neoadjuvant chemotherapy with Adriamycin/Cytoxan and recommended completed 4 cycles on July 03, 2020 but subsequently patient developed diarrhea and C. difficile was done which came back positive treated with antibiotics and the repeat C. difficile on July 13 was still positive and patient stayed on antibiotics till last week And continued to have bone pains and off and on diarrhea but being controlled with Imodium and was also running fever as high as 101.4 on last Friday. Ms Bae had a follow-up left breast sonogram done on July 05, 2020 which showed interval improvement of left breast neoplasm with neoadjuvant chemotherapy. Because of persistent neutropenia despite of Neulasta and C. difficile infection/diarrhea, patient decided to proceed with surgery after 4 cycles of dose dense AC and eventually underwent left total mastectomy with sentinel lymph node biopsy of left axilla on October 10, 2020 and final pathology report showed no evidence of malignancy in 1 lymph node and no residual carcinoma identified in the left breast e.g. complete remission. She started on weekly Taxol x 12 on December 04, 2020. Ms. Bae is here today for follow-up. She is due for cycle 12 of 12 paclitaxel. She has no new concerns. She denies any pain. She denies any fever or chills. She states she feels good overall. She denies any peripheral neuropathy. She denies any nausea or vomiting. She has had no hemoptysis. She denies diarrhea or constipation. Her ECOG is 0. . Past Medical History: C. Diff in 2019 Past Surgical History: Breast biopsy Colonoscopy Exploratory laparotomy Allergies: No Known Allergies. Medications: Citalopram Hydrobromide 1 Tablet (of 40 mg) Oral daily Family History: Ms. Bae's mother at age 69: stomach cancer. Ms. Bae's father at age 72: lung cancer. Ms. Bae has 1 brother who is : colon cancer. Social History: Ms. Bae is . Ms. Bae quit smoking 31 years ago but had smoked for 5 years. She has no history of drinking. Ms. Bae reports the following support systems: lives with spouse, significant other, family, or friends, lives in own house, supportive family/friends willing to assist with needs, and adequate transportation available for expected visits. Her diet consists of regular meals. She indicates her activity level as: regular exercise. Review Of Symptoms: <See Above> Vital Signs: Performed on Mar 07, 2021 16:30 Height - 63.50 in Temperature - 98.3 F (LOW) Pulse - 58 /min (LOW) Respiration - 18 /min BP - 110/58 mm(hg) O2 Sat - 98 % Pain - 0 Fatigue - 0 Performed on Mar 07, 2021 14:14 Height - 63.50 in Weight - 132.6 lbs (HIGH) BSA - 1.63 sq.m BMI - 23.12 Temperature - 97.6 F (LOW) Pulse - 81 /min Respiration - 19 /min BP - 111/57 mm(hg) O2 Sat - 97 % Pain - 0,0 - Fully active, able to carry on all predisease activities without restrictions. (ECOG) Physical Examination: Constitutional Alert, oriented, no acute distress. Skin pink, warm and dry. Head Normocephalic; atraumatic. Eyes Conjunctivae and sclerae are clear and without icterus. Pupils are reactive and equal. Neck Supple without masses or thyromegaly. No jugular venous distension. Hematologic/Lymphatic No petechiae or purpura. No tender or palpable lymph nodes in the cervical or supraclavicular areas. Respiratory Lungs are clear to auscultation without rhonchi or wheezing. Cardiovascular Regular rate and rhythm of heart without murmurs,clicks, gallops or rubs. Back/Spine Non-tender to palpation. Extremities No visible deformities, no cyanosis, clubbing or edema. Musculoskeletal No tenderness or swelling, normal range of motion without obvious weakness. Integumentary No rashes or lesions. Neurologic No sensory or motor deficits, normal cerebellar function, normal gait. Psychiatric Alert and oriented times three. Coherent speech. Verbalizes understanding of our discussions today. Laboratory:Test performed on Mar 07, 2021 12:40 Sodium 137 mmol/L Potassium 4.3 mmol/L Chloride 102 mmol/L CO2 24 mmol/L Anion Gap 15.3 BUN 16 mg/dL Creatinine 0.5 mg/dL Cr Clearance (Est) 103.5400 mL/min eGFR 124.2 mL/min Glucose 129 mg/dL Osmolality - Calculated 287 mOsm/kg Calcium 8.7 mg/dL Protein, Total 6.7 g/dL Albumin 4.2 g/dL Globulin 2.5 g/dL Bilirubin, Total 0.2 mg/dL ALT (SGPT) 13 U/L AST (SGOT) 18 U/L Alkaline Phosphatase 57 IU/L WBC 2.4 10 3/uL RBC 3.21 10 6/uL HGB 10.0 g/dL HCT 31.0 % MCV 96.6 fL MCH 31.2 pg MCHC 32.3 g/dL RDW 17.6 % Platelet Count 236 10 3/cmm MPV 11.1 fL Neutrophils 1.84 10 3/uL Lymphocytes 0.5 10 3/uL Monocytes 0.0 10 3/uL Eosinophils 0.0 10 3/uL Basophils 0.0 10 3/uL Neutrophil % 77.0 % Lymphocyte % 19.2 % Monocyte % 1.7 % Eosinophil % 0.0 % Basophils % 1.3 % NRBC % 0 % CBC Slide Review Slide Review Perform Test performed on Jan 05, 2021 09:00 Manual Segs % 45 % Manual Bands % 33.0 % Manual Lymphs % 8 % Atypical Lymphs % 1.0 % Total Cells Counted 100 Manual Monos % 11.0 % Manual Eos % 2 % Manual Basos % 0.0 % Polychromasia Trace Platelet Estimate Normal Manual Segs Abs 7.9 10/cmm Manual Bands Abs 5.8 10 3/cmm Manual Neutrophils Abs 13.7 10 3/cmm Manual Lymphocytes Abs 1.6 10 3/cmm Manual Monocytes Abs 1.9 10 3/cmm Manual Eosinophils Abs 0.3 10 3/cmm Manual Basophils Abs 0.0 10 3/cmm Impression: High-grade invasive ductal carcinoma per ultrasound-guided left breast biopsy done on March 09, 2020 prognostic profiling showed triple negative disease, ER less than 1%, DE less than 1% and HER-2/jasmyn negative, Ki-67 95%. Staging CT PET scan done on May 02, 2020 showed left breast mass in lower inner quadrant sized 5.8 x 3.1 cm hypermetabolic mass with SUV of 23.20 With no distant metastatic disease , Clinical stage II, (more than 5 cm) N0,M0 Echocardiogram done on April 11, 2020 showed ejection fraction 65% Started on neoadjuvant chemotherapy with dose dense Adriamycin Cytoxan every 2 weeks with Neulasta support x 4 followed by Taxol on May 08, 2020. She developed severe chemotherapy induced neutropenia with a day 8 ANC of 5. This did require hospital admission and she received IV antibiotics for a left breast abscess. She was discharged on oral levofloxacin on 05/16/2020. The breast abscess did clear with the antibiotics. Her neutropenia has recovered as well. Tolerated further treatment with Adriamycin Cytoxan well and completed Adriamycin/Cytoxan x4 on July 03, 2020. Further neoadjuvant chemotherapy with Taxol was delayed because of persistent leukopenia and C. difficile positive diarrhea Eventually patient decided to proceed with surgery and on October 10, 2020 she underwent left total mastectomy with sentinel lymph node biopsy of left axilla and final pathology report showed no evidence of disease in the breast and and sentinel lymph node from left axilla e.g. complete remission Started on weekly Taxol x12 on December 04, 2020 Plan/Problems Addressed at this Visit: 1. High-grade invasive ductal carcinoma of the left breast She is currently under going chemotherapy with weekly Taxol x12. She had completed 4 cycles of Adriamycin Cytoxan however her chemotherapy was complicated by severe chemotherapy-induced neutropenia and she developed a left breast abscess. The abscess did clear with antibiotics and her neutropenia recovered and she was able to complete the Adriamycin Cytoxan on July 03, 2020. Further neoadjuvant chemotherapy with Taxol was delayed because of persistent leukopenia and C. difficile positive diarrhea. She eventually proceeded with surgery on October 10, 2020 at which time she underwent left total mastectomy with sentinel node biopsy of the left axilla. The final pathology reported no evidence of disease in the breast and the sentinel lymph node from the left axilla was negative. She was able to start on weekly Taxol on December 04, 2020. Her week 5 paclitaxel was actually delayed 1 week due to neutropenia and delay in authorization from her insurance company and allowing us to utilize growth factor support for her. Authorization was not received until Friday and she received 3 doses of the filgrastim. Her ANC on day one of the filgrastim was 1090. On day 3 it was 13,700. A. Proceed with week 09/09 paclitaxel with growth factor support for 2-4 days. B. Steroid compliance confirmed. C. Today's labs reviewed in detail discussed with Ms. Bae and a copy was given to her. WBC 2.4, hemoglobin is 10, platelets 1 36,000 ANC is 1840 potassium 4.3 random glucose 129 creatinine 0.5 and LFTs are normal. Her weight is stable at 132.6. D. We will plan to have her return in 3-4 weeks with CBC CMP for followup post completion of her chemotherapy. She will need referral to radiation oncology as well in the interim. E. Mrs. Bae was encouraged to contact us in the interim should questions or problems arise. Signed By: Rey Mensah-, AOP Petra Nowak MD <<Signature on File>>
== END 2021-03-28 23:59 | disposition home or self-care (01) ==
LOC: ONCMED 05:43
PROVIDERS: Nurse Practitioner; PCP Nurse Practitioner Family; Visit Provider Internal Medicine Hematology & Oncology
DX: C50.512 Malignant neoplasm of lower-outer quadrant of left female breast (principal); Z17.1 Estrogen receptor negative status [ER-]; D70.1 Agranulocytosis secondary to cancer chemotherapy; T45.1X5A Adverse effect of antineoplastic and immunosuppressive drugs, initial encounter; Z86.19 Personal history of other infectious and parasitic diseases; Z79.899 Other long term (current) drug therapy; Z92.21 Personal history of antineoplastic chemotherapy
CPT/HCPCS: 36591; 80053; 85025; 96367; 96372; 96375; 96413; 96523; 99214; 99215; J1100; J1200; J2405; J3490; J7050; J9267; Q5101

== ENCOUNTER 2021-04-24 05:46 | Outpatient (RCR) | payer OTHER, MEDICAID, SELFPAY ==
[2021-04-24 11:39] LABS: Eosinophils # 0.3 10^3/uL (0.0-0.8); Eosinophils % 6.3 %; Hematocrit 34.6 % (37.0-47.0); Lymphocytes # 1.5 10^3/uL (0.8-4.8); Lymphocytes % 36.7 %; Mean Corpuscular HGB Conc 31.8 g/dL (30.0-36.0); Mean Corpuscular Hemoglobin 30.5 pg (28.0-34.0); Mean Corpuscular Volume 95.8 fL (81-99); Mean Platelet Volume 10.2 fL (7.4-10.4); Monocytes # 0.3 10^3/uL (0.2-0.9); Neutrophils # 1.96 10^3/uL (1.8-7.7); Neutrophils % 47.8 %; Nucleated Red Blood Cells % 0 %; Platelet Count 191 10^3/cmm (130-400); Red Blood Count 3.61 10^6/uL (4.1-5.3); Red Cell Distribution Width 12.5 % (12.1-15.1); White Blood Count 4.1 10^3/uL (4.0-10.0)
[2021-04-24 12:13] LABS: Alanine Aminotransferase 13 U/L (0-33); Alkaline Phosphatase 36 IU/L (35-105); Aspartate Amino Transferase 22 U/L (0-32); Blood Urea Nitrogen 14 mg/dL (8-23); Calcium 8.4 mg/dL (8.5-10.5); Carbon Dioxide 26 mmol/L (22-29); Chloride 102 mmol/L (98-107); Globulin 2.5 g/dL (1.3-4.6); Glomerular Filtration Rate 160.7 mL/min (90-130); Glucose 87 mg/dL (65-115); Osmolality Calculated 286 mOsm/kg (285-295); Sodium 138 mmol/L (136-145); Total Bilirubin 0.4 mg/dL (0.15-1.2); Total Protein 6.5 g/dL (6.6-8.7)
--- NOTE | 2021-04-24 16:30 | N.ONRAD NP_ITS ---
Radiation Oncology New Patient Visit Patient: Paris Bae MR#: [id number] : 1955> Age: 66> Sex: Female> Dictated by: Dr. 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 Breast, left, high-grade invasive ductal carcinoma, [id number], [id number] Radiotherapy to date: Summary > No prior radiation therapy. Chief Complaint / History of Present Illness: Mrs. Bae is a 65-year-old lady who presented in February 2020 with a several month history of a palpable mass in the lower inner quadrant of the left breast. A hypoechoic mass measuring 1.8 x 0.8 x 1.4 cm was noted in the area of the palpable abnormality. It was described as in the 8 o'clock position 3 cm from the nipple. On 03/09/2020 she underwent an ultrasound-guided biopsy. 9 of 9 cores contained high-grade invasive ductal carcinoma. The cancer was triple negative. Although the measurements from imaging were not that large, the cancer was felt to be locally advanced and a PET/CT was performed 05/02/2020. The left breast mass measured 3.1 x 5.8 cm and had an SUV of 23.20. 1 left axillary lymph node and one lower left paratracheal node had slight uptake, malignancy not excluded, but more likely inflammatory in nature. Mrs. Bae proceeded to neoadjuvant chemotherapy. She received dose dense Adriamycin/Cytoxan with Neulasta support. She was hospitalized 05/15/2020 with severe neutropenia and an abscess involving the biopsy site of the left breast. The abscess responded to antibiotic therapy but she developed C. difficile. She had a rather prolonged course with C. difficile, but it finally cleared. She completed chemotherapy with 4 cycles of Adriamycin and Cytoxan. Imaging revealed improvement of the mass. On 10/10/2020 a mastectomy and sentinel node biopsy were performed. The lymph node was negative. The breast did not contain any residual carcinoma. Mrs. Juan then proceeded to 12 weeks of Taxol beginning 12/04/2020. She completed the Taxol on 03/07/2021. She tolerated those treatments well and currently feels well. She is referred for evaluation for postoperative radiation. Current Medications: Acetaminophen, benadryl, ciprofloxacin HCl, citalopram Hydrobromide, dexamethasone, dexamethasone Sodium Phosphate, diphenoxylate-Atropine, emend, famotidine, filgrastim-sndz, fluconazole, furosemide, hYDROcodone-Acetaminophen, levoFLOXacin, methylPREDNISolone, pACLitaxel, prochlorperazine Maleate, zofran. Allergies: No Known Allergies Medical History: - C. Diff on 06/26/2020. No history of collagen vascular disease. No previous radiation therapy. Surgical History: Breast biopsy, colonoscopy and exploratory laparotomy. Family History: Father is at age 72 having experienced lung cancer. Mother is at age 69 having experienced stomach cancer. Brother is at age 60 having experienced colon cancer. Social History: Last screened on 03/07/2021 - Yes - but has quit for 31 years. Smoked for 5 years. Last screened on 03/07/2021 - Never drank. Patient indicated access to the following support systems: lives with spouse, significant other, family, or friends, lives in own house, supportive family/friends willing to assist with needs, and adequate transportation available for expected visits. Patient indicated the following nutritional habits: regular meals. Patient indicated participation in the following forms of activity: regular exercise. Current Complaints / Review of Systems: . Vital Signs: Performed on 04/24/2021 10:28 AM BMI - 23.469 kg/m2 (high), Height - 63.50 in, Weight - 134.6 lbs, Temperature - 98.4 f, Pulse - 53, Respiration - 18, O2 Sat - 99 %, Pain - 7 and BP - 106/ 60 mm(hg)(/low). Physical Exam: Alert, oriented, no acute distress. She has no cervical supraclavicular or axillary lymphadenopathy. The right breast is normal in appearance and free of masses. The left chest wall is well-healed. There is no evidence of local recurrence. There is no tenderness to palpation. There are no subcutaneous masses. Lungs clear to percussion. On auscultation no rales rhonchi or wheezes. Heart rhythm regular. No murmur gallop or rub. Abdomen no distention. No organomegaly or mass or tenderness. Musculoskeletal normal gait. Got on the exam table without assistance. No bone tenderness to palpation or percussion. No lymphedema of the left upper extremity. No limitation of range of motion of the left shoulder. 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 Lab: Test performed on 01/05/2021 9:00 AM Manual Segs Abs - 7.9 10/cmm (high), Manual Bands Abs - 5.8 10 3/cmm (high), Manual Neutrophils Abs - 13.7 10 3/cmm (high), Manual Monocytes Abs - 1.9 10 3/cmm (high), Test performed on 03/07/2021 12:40 PM WBC - 2.4 10 3/ul (low), RBC - 3.21 10 6/ul (low), HGB - 10.0 g/dl (low), HCT - 31.0 % (low), RDW - 17.6 % (high), MPV - 11.1 fl (high), Lymphocytes - 0.5 10 3/ul (low), Monocytes - 0.0 10 3/ul (low) and Glucose - 129 mg/dl (high). Imaging: See HPI Impression: Locally advanced, high-grade invasive ductal carcinoma of the left breast with a complete pathologic response to neoadjuvant chemotherapy. Since her mastectomy she has gone undergone 12 cycles of Taxol with minimal side effects. She now comes for an opinion related to radiation. I discussed the situation with Mrs. Bae. I explained to her that our knowledge is incomplete in this situation of hers. The studies looking at omitting radiation in the setting of a complete response to systemic therapy have not been conclusive. According to the NCCN guidelines of 2020, it is still recommended that treatment recommendations to be based on the patient's original stage of disease. Therefore, I feel it is appropriate to proceed with postoperative radiation to give her the best chance for both local and regional control as well as cure of the disease. Mrs. Bae wishes to proceed with radiation. I discussed a 5-week course of radiation to the chest wall and regional nodes. Because this cancer was high-grade, bulky, and in the lower inner quadrant, I feel it would be appropriate to include the internal mammary nodes. This likely will require IMRT. That was discussed with the planning staff. I reviewed side effects such as fatigue, skin reaction, and chest wall pain. I discussed the very small risk of lymphedema. Also discussed the small risk of troublesome pneumonitis or negative impact on heart function. Plan: Simulation was offered for tomorrow, but Mrs. Bae is leaving town for a visit with her daughter. She will be back next week and therefore simulation will be planned for then. Signed by: 04/24/2021 4:28:07 PM <<Signature on File>> Time spent with patient: CPT Code: CPT Code:
== END 2021-04-28 23:59 | disposition home or self-care (01) ==
LOC: ONCMED 05:46
PROVIDERS: PCP Nurse Practitioner Family; Visit Provider Specialist
DX: C50.512 Malignant neoplasm of lower-outer quadrant of left female breast (principal); Z17.0 Estrogen receptor positive status [ER+]; D70.1 Agranulocytosis secondary to cancer chemotherapy; T45.1X5A Adverse effect of antineoplastic and immunosuppressive drugs, initial encounter; A04.72 Enterocolitis due to Clostridium difficile, not specified as recurrent; Z86.19 Personal history of other infectious and parasitic diseases; Z79.899 Other long term (current) drug therapy; Z92.21 Personal history of antineoplastic chemotherapy
CPT/HCPCS: 36415; 80053; 85025; 96523; 99205

== ENCOUNTER 2021-05-08 05:48 | Outpatient (RCR) | payer OTHER, SELFPAY ==
--- NOTE | 2021-05-01 | CT_ITS ---
Radiation Therapy Planning CT images; total exam DLP: 242.03 mGy-cm MTDD
--- NOTE | 2021-05-07 12:46 | ONCRAD TMN_ITS ---
Radiation Oncology Treatment Management Note Patient Name: Paris Bae Date of : 1955 Date of Service: 05/07/2021 Attending Physician: Santiago Hagan M.D. Paris Bae is a 66 year-old white female diagnosed with a clinical stage IIIC (T3N1), grade 3, invasive ductal carcinoma of the lower-inner quadrant of the left breast. Immunohistochemical stains were triple negative. Neoadjuvant chemotherapy (Adriamycin and cyclophosphamide) was administered by Santosh Nowak M.D. A left total mastectomy with sentinel lymph node biopsy was performed on October 10, 2020 by Stuart Blood M.D. A pathological complete response was noted. Adjuvant Taxol was prescribed prior to radiotherapy. She has received 6 Gy of a prescribed 50 Gy delivered with a 3D conformal radiotherapy plan utilizing opposed tangential portal yun matched to supraclavicular fossa and PAB ports. Upon review of systems, she denied any complaints to radiotherapy. On physical examination, the patient weighed 130 lbs. Her temperature was 98.4 ???F with a blood pressure of 109/59 mmHg. Her pulse was 66 bpm and her respiratory rate was 18. There was no erythema within the treatment yun of the left chest wall. Continue left chest wall and regional lymph node irradiation as prescribed. Signed by: Dr. Santiago Hagan 05/07/2021 12:45:01 PM
--- NOTE | 2021-05-29 14:58 | ONCRAD TMN_ITS ---
Radiation Oncology Weekly Treatment Management Patient: Junior Bae MR#: [id number] : 1955> Attending Physician: Dr. Cricket Montesinos Date of Service: 05/29/2021 Referring Physician(s) : Minerva Rey Diagnosis: C50.512 - Malignant neoplasm of lower-outer quadrant of left female breast, Diagnosed 04/04/2020 (Active) Radiotherapy to date: Course: Breast 2020, Treatment Site: Plan Supraclavicular Fossa, Ref. ID: [id number], Energy: 15X, Dose/Fx (cGy): 200, #Fx: 18 / 25, Dose Correction (cGy): 0, Total Dose (cGy): 3,600, Start Date: 05/03/2021, Elapsed Days: Breast 2020, Treatment Site: PMRT, Ref. ID: [id number], Energy: 6X, Dose/Fx (cGy): 200, #Fx: 18 / 25, Dose Correction (cGy): 0, Total Dose (cGy): 3,600, Start Date: 05/03/2021, Elapsed Days: Reason for visit: The patient is being seen today as part of their regularly scheduled weekly on treatment visits to assess for acute toxicities from radiotherapy. Review of Systems: She is tolerating treatment well. She has developed a moderate skin reaction. Her discomfort is minimal. She is getting relief with 2-1/2% hydrocortisone cream. She has no complaints related to the use of her arm. She questions whether a scan will be done after she completes treatment to assess disease status. Vital Signs: Performed on 05/29/2021 2:25 PM BMI - 24.306 kg/m2 (high), Height - 63.50 in, Weight - 139.4 lbs, Temperature - 98.6 f, Pulse - 72 /min, Respiration - 18 /min, O2 Sat - 96 %, Pain - 8 and BP - 105/ 62 mm(hg)(/low). Physical Exam: Alert, oriented, no acute distress. She has moderate erythema and dry desquamation over the chest wall. There is no area of accelerated skin reaction. No surface lesions seen and no subcutaneous lesions palpated. She has a good range of motion in her left arm. She does not have lymphedema. Imaging: Radiation therapy imaging related to accurate target localization (i.e. KV, MV and CBCT) was reviewed. Appropriate changes, if any, were made to ensure treatment accuracy. Plan: Continue radiation as planned. She will continue her current skin regimen. We discussed posttreatment scans. I told her there is not a firm policy. We discussed that it is very encouraging that she had a complete response to neoadjuvant chemotherapy. This makes it unlikely she has any active distant metastases. However, she will discuss this issue when she comes in for follow-up. She may need a scan simply for peace of mind. Signed by: Dr. Cricket Montesinos 05/29/2021 2:57:29 PM
== END 2021-05-09 10:30 | disposition home or self-care (01) ==
LOC: ONCMED 05:48
PROVIDERS: PCP Nurse Practitioner Family; Visit Provider Radiology Radiation Oncology
DX: Z51.0 Encounter for antineoplastic radiation therapy (principal); C50.512 Malignant neoplasm of lower-outer quadrant of left female breast; Z17.0 Estrogen receptor positive status [ER+]; D70.1 Agranulocytosis secondary to cancer chemotherapy; T45.1X5D Adverse effect of antineoplastic and immunosuppressive drugs, subsequent encounter; Z79.899 Other long term (current) drug therapy
CPT/HCPCS: 77295; 77300; 77334; 77387; 77412; Q9967

== ENCOUNTER 2021-05-09 10:37 | Outpatient (CLI) | payer OTHER, SELFPAY ==
[2021-05-09 10:57] VITALS: BP 110/63; PULSE 61; RESP 18; TEMP 36.7; O2SAT 97
[2021-05-09 11:44] VITALS: BP 109/62; PULSE 79; RESP 16; O2SAT 98
[2021-05-09 12:38] VITALS: BP 115/68; PULSE 61; RESP 14; TEMP 37.1; O2SAT 95
== END 2021-05-09 10:38 | disposition home or self-care (01) ==
LOC: OPS 10:41
PROVIDERS: PCP Nurse Practitioner Family; Visit Provider Nurse Practitioner Family
DX: U07.1 COVID-19 (principal)
CPT/HCPCS: 96365

== ENCOUNTER 2021-05-29 05:47 | Outpatient (RCR) | payer OTHER, MEDICAID, SELFPAY ==
--- NOTE | 2021-05-15 16:34 | ONCRAD TMN_ITS ---
Radiation Oncology Treatment Management Note Patient Name: Paris Bae Date of : 1955 Date of Service: 05/15/2021 Attending Physician: Santiago Hagan M.D. Paris Bae is a 66 year-old white female diagnosed with a clinical stage IIIC (T3N1), grade 3, invasive ductal carcinoma of the lower-inner quadrant of the left breast. Immunohistochemical stains were triple negative. Neoadjuvant chemotherapy (Adriamycin and cyclophosphamide) was administered by Santosh Nowak M.D. A left total mastectomy with sentinel lymph node biopsy was performed on October 10, 2020 by Stuart Blood M.D. A pathological complete response was noted. Adjuvant Taxol was prescribed prior to radiotherapy. She has received 16 Gy of a prescribed 50 Gy delivered with a 3D conformal radiotherapy plan utilizing opposed tangential portal yun matched to supraclavicular fossa and PAB ports. Upon review of systems, she denied any complaints to radiotherapy. On physical examination, the patient weighed 130 lbs. Her temperature was 96.8 ???F with a blood pressure of 101/61 mmHg. Her pulse was 64 bpm and her respiratory rate was 18. There was no erythema within the treatment yun of the left chest wall. Continue left chest wall and regional lymph node irradiation as planned. Signed by: Dr. Santiago Hagan 05/15/2021 4:32:24 PM
--- NOTE | 2021-05-22 14:49 | ONCRAD TMN_ITS ---
Radiation Oncology Treatment Management Note Patient Name: Paris Bae Date of : 1955 Date of Service: 05/22/2021 Attending Physician: Santiago Hagan M.D. Paris Bae is a 66 year-old white female diagnosed with a clinical stage IIIC (T3N1), grade 3, invasive ductal carcinoma of the lower-inner quadrant of the left breast. Immunohistochemical stains were triple negative. Neoadjuvant chemotherapy (Adriamycin and cyclophosphamide) was administered by Santosh Nowak M.D. A left total mastectomy with sentinel lymph node biopsy was performed on October 10, 2020 by Stuart Blood M.D. A pathological complete response was noted. Adjuvant Taxol was prescribed prior to radiotherapy. She has received 26 Gy of a prescribed 50 Gy delivered with a 3D conformal radiotherapy plan utilizing opposed tangential portal yun matched to supraclavicular fossa and PAB ports. Upon review of systems, she described a small area of itching that has responded to OTC hydrocortisone. On physical examination, the patient weighed 130 lbs. Her temperature was 96.8 ???F with a blood pressure of 101/61 mmHg. Her pulse was 64 bpm and her respiratory rate was 18. There was no erythema within the treatment yun of the left chest wall. Continue left chest wall and regional lymph node irradiation as prescribed. Signed by: Dr. Santiago Hagan 05/22/2021 2:49:14 PM
== END 2021-05-29 23:59 | disposition home or self-care (01) ==
LOC: ONCMED 05:47
PROVIDERS: Absent Provider Radiology Radiation Oncology; PCP Nurse Practitioner Family; Visit Provider Specialist
DX: Z51.0 Encounter for antineoplastic radiation therapy (principal); C50.512 Malignant neoplasm of lower-outer quadrant of left female breast; Z17.0 Estrogen receptor positive status [ER+]; Z79.899 Other long term (current) drug therapy
CPT/HCPCS: 77014; 77336; 77387; 77412; 77427; 96523

== ENCOUNTER 2021-06-27 06:38 | Outpatient (RCR) | payer OTHER, MEDICAID, SELFPAY ==
--- NOTE | 2021-06-05 14:14 | ONCRAD TMN_ITS ---
Radiation Oncology Treatment Management Note Patient Name: Paris Bae Date of : 1955 Date of Service: 06/05/2021 Attending Physician: Santiago Hagan M.D. Paris Bae is a 66 year-old white female diagnosed with a clinical stage IIIC (T3N1), grade 3, invasive ductal carcinoma of the lower-inner quadrant of the left breast. Immunohistochemical stains were triple negative. Neoadjuvant chemotherapy (Adriamycin and cyclophosphamide) was administered by Santosh Nowak M.D. A left total mastectomy with sentinel lymph node biopsy was performed on October 10, 2020 by Stuart Blood M.D. A pathological complete response was noted. Adjuvant Taxol was prescribed prior to radiotherapy. She has received 44 Gy of a prescribed 50 Gy delivered with a 3D conformal radiotherapy plan utilizing opposed tangential portal yun matched to supraclavicular fossa and PAB ports. Upon review of systems, she described a small area of skin breakdown. On physical examination, the patient weighed 138 lbs. Her temperature was 98.6 ???F with a blood pressure of 117/66 mmHg. Her pulse was 74 bpm and her respiratory rate was 18. There was a small grade III skin lesion within the medial left chest wall. Continue left chest wall and regional lymph node irradiation as planned. Vaseline application was recommended. Signed by: Dr. Santiago Hagan 06/05/2021 2:12:58 PM
--- NOTE | 2021-06-27 14:11 | N.ONRD TS_ITS ---
Radiation OncologyTreatment Summary Patient Name: Paris Bae Date of : 1955 Date of Service: 06/27/2021 Attending Physician: Santiago Hagan M.D. Paris Bae has completed adjuvant radiotherapy for clinical stage IIIC (T3N1), grade 3 invasive ductal carcinoma of the lower-inner quadrant of the left breast (pathological yT0yN0)). Immunohistochemical stains were triple negative. Neoadjuvant chemotherapy (Adriamycin and cyclophosphamide) was administered by Santosh Nowak M.D. A left total mastectomy with sentinel lymph node biopsy was performed on October 10, 2020 by Stuart Blood M.D. A pathological complete response was noted. Adjuvant Taxol was prescribed prior to radiotherapy. Daily radiotherapy was administered between the dates of May 03, 2021 through June 27, 2021. A dose of 50 Gy was delivered in 25 fractions encompassing 56 elapsed days. The left chest wall and regional lymph nodes were treated utilizing a 3-dimensional conformal radiotherapy plan with an opposed tangential portal field design matched to a right anterior oblique port and posterior axillary boost field. A akufg-og-wjavy treatment technique was designed. The medial tangential field utilized a 300??? gantry angle with an associated collimator angle of 0???. The field size measured 2 cm x 7 cm within the X-direction and 16 cm x 0 cm within the Y-direction. The measured SSD was 93.7 cm with the field delivering 119 monitor units with low energy photons. A supplemental medial tangential port was designed prescribing 6 MV photon energy that delivered 11 monitor units. The lateral tangential field employed a gantry angle of 122??? and an associated collimator angle of 0???. The field size measured 9 cm x 7 cm within X-direction and 16 cm x 0 cm within the Y-direction. The measured SSD was 90.2 cm with the field allocating 120 monitor units. A photon energy of 6 MV was prescribed. An additional lateral tangential field was arranged using 6 MV photon energy that delivered 11 monitor units. The supraclavicular portal field utilized an CHAND port with a gantry angle of 345??? and an associated collimator angle 0???. The port size measured 9 cm x 7 cm within the X-direction and 0 cm x 7.5 cm within the Y-direction. The measured SSD was 97.2 cm with the port apportioning 203 monitor units All treatments were performed with the Hoppit linear accelerator with an isocentric technique. The dose was calculated by anisotropic analytic algorithm. The plan normalized to deliver 95% of the prescription dose to 95% of the planning target volume. Signed by: Dr. Santiago Hagan 06/27/2021 2:10:29 PM
== END 2021-06-28 23:59 | disposition home or self-care (01) ==
LOC: ONCMED 06:38
PROVIDERS: Absent Provider Radiology Radiation Oncology; PCP Nurse Practitioner Family; Visit Provider Radiology Radiation Oncology
DX: Z51.0 Encounter for antineoplastic radiation therapy (principal); C50.512 Malignant neoplasm of lower-outer quadrant of left female breast; Z17.0 Estrogen receptor positive status [ER+]; D70.1 Agranulocytosis secondary to cancer chemotherapy; T45.1X5D Adverse effect of antineoplastic and immunosuppressive drugs, subsequent encounter; Z86.19 Personal history of other infectious and parasitic diseases; Z79.899 Other long term (current) drug therapy
CPT/HCPCS: 77014; 77336; 77387; 77412; 77427; 96523

== ENCOUNTER 2021-07-27 09:27 | Outpatient (RCR) | payer OTHER, MEDICAID, SELFPAY ==
--- NOTE | 2021-07-27 09:52 | ONCRAD EPV_ITS ---
Radiation Oncology Follow-Up Note Patient Name: Paris Bae Date of : 1955 Date of Service: 07/27/2021 Attending Physician: Santiago Hagan M.D. Paris Bae returned to my office this morning for a routinely scheduled follow-up appointment. She completed adjuvant left chest wall and axillary radiotherapy in May for the post-operative management of a pathological yT0N0 (the initial clinical stage was IIIC (T3N1)) grade 3 invasive ductal carcinoma of the lower-inner quadrant of the left breast. Immunohistochemical stains were triple negative. Neoadjuvant chemotherapy (Adriamycin and cyclophosphamide) was administered by Petra Nowak M.D. A left total mastectomy with sentinel lymph node biopsy was performed on October 10, 2020 by Stuart Blood M.D. A pathological complete response was noted. Adjuvant Taxol was prescribed prior to radiotherapy. Daily radiotherapy was administered between the dates of May 03, 2021 through June 27, 2021. A dose of 50 Gy was delivered in 25 fractions encompassing 56 elapsed days. On review of systems, she denied any complaints related to treatment. On physical examination, she weighed 142 lbs. Her temperature was 98.5??? F and the blood pressure was 112/64 mmHg. The pulse was 77 bpm and her respiratory rate was 18 breaths per minute. The left chest wall demonstrated minimal hyperpigmentation without any areas of ulceration. In summary, Ms. Bae returned for a routine post radiotherapy follow-up. There is no sequela from treatment. She will continue follow-up with her medical oncologist. Signed by: Dr. Santiago Hagan 07/27/2021 9:52:17 AM
== END 2021-07-29 23:59 | disposition home or self-care (01) ==
LOC: ONCMED 09:27
PROVIDERS: PCP Nurse Practitioner Family; Visit Provider Radiology Radiation Oncology
DX: Z08 Encounter for follow-up examination after completed treatment for malignant neoplasm (principal); Z85.3 Personal history of malignant neoplasm of breast; Z79.899 Other long term (current) drug therapy; Z92.21 Personal history of antineoplastic chemotherapy; Z92.3 Personal history of irradiation
CPT/HCPCS: 96523; 99024

== ENCOUNTER 2021-08-10 06:24 | Outpatient (RCR) | payer OTHER, MEDICAID, SELFPAY ==
[2021-08-10 09:28] LABS: Basophils # 0.1 10^3/uL (0.0-0.1); Basophils % 1.7 %; Eosinophils # 0.2 10^3/uL (0.0-0.8); Eosinophils % 7.1 %; Hemoglobin 11.8 g/dL (11.5-15.3); Lymphocytes # 0.8 10^3/uL (0.8-4.8); Lymphocytes % 25.9 %; Mean Corpuscular HGB Conc 32.8 g/dL (30.0-36.0); Mean Corpuscular Hemoglobin 29.6 pg (28.0-34.0); Mean Corpuscular Volume 90.5 fl (81-99); Mean Platelet Volume 10.1 fL (7.4-10.4); Monocytes # 0.5 10^3/uL (0.2-0.9); Monocytes % 15.8 %; Neutrophils # 1.46 10^3/uL (1.8-7.7); Neutrophils % 49.2 %; Nucleated Red Blood Cells % 0 %; Platelet Count 204 10^3/cmm (130-400); Red Blood Count 3.98 10^6/uL (4.1-5.3); Red Cell Distribution Width 14.5 % (12.1-15.1)
[2021-08-10 09:48] LABS: Alanine Aminotransferase 10 U/L (0-33); Albumin Level 4.1 g/dL (3.5-5.2); Alkaline Phosphatase 31 IU/L (35-105); Anion Gap 13.2 (5-19); Aspartate Amino Transferase 19 U/L (0-32); Blood Urea Nitrogen 14 mg/dL (8-23); Carbon Dioxide 25 mmol/L (22-29); Chloride 101 mmol/L (98-107); Globulin 2.6 g/dL (1.3-4.6); Glucose 90 mg/dL (65-115); Osmolality Calculated 280 mOsm/kg (285-295); Potassium 4.2 mmol/L (3.5-5.1); Sodium 135 mmol/L (136-145); Total Bilirubin 0.4 mg/dL (0.15-1.2); Total Protein 6.7 g/dL (6.6-8.7)
--- NOTE | 2021-08-12 18:20 | ONC FU_ITS ---
Dr. Nowak follow up note Patient: Paris Bae Unit #: [id number]: 1955 Dicatated By: Petra Nowak M.D.Date of Visit:Aug 10, 2021 Onc Med Follow-up/Prog Note History of Present Illness: Ms. Bae is a 66-year-old female with a history of progressive left breast mass. She underwent mammogram on March 07, 2020 which showed in the region of palpable abnormality. There was a hypoechoic mass measuring 1.8 x 0.8 x 1.4 cm with some mild peripheral increased vascularity at 8 o'clock position 3 cm from the nipple. And right breast showed benign calcification., On March 09, 2020 she underwent ultrasound guided left breast mass biopsy which showed high-grade invasive ductal carcinoma with chronic inflammation surrounding the tumor. Prognostic profiling confirmed triple negative disease e.g. ER less than 1% positive, MN less than 1% and HER-2/jasmyn negative. Because of location and locally advanced disease e.g. inner lower quadrant left breast, a follow-up CT PET scan was done on on May 02, 2020. It reported the left breast mass in the lower inner quadrant measuring 3.1x 5.8 cm demonstrate SUV of 23.20; Level 1 left axillary lymph node demonstrates a maximum SUV of 1.62 no other abnormality seen, no distant mets seen; Left lower paratracheal 1.0 x 2.2 cm lymph node demonstrating maximum SUV of 2.59 reflecting inflammatory changes only. Echocardiogram done on April 11, 2020 showed ejection fractions 65% with mild left ventricular hypertrophy Ms Bae has no history of previous breast biopsies; no family history of breast cancer. menarche started at age 13 and she is G3, with no miscarriages. No breast-feeding. Ms Bae started on neoadjuvant chemotherapy with dose dense Adriamycin/Cytoxan with Neulasta support on May 08, 2020. Despite the Neulasta, she developed severe chemotherapy induced neutropenia on day 8 with an ANC of 50. She was admitted to [facility] on 05/15/2020 for severe neutropenia and left breast abcess. She was treated with IV antibiotics and discharged on levofloxacinon 05/16/2020.Subsequently patient tolerated neoadjuvant chemotherapy with Adriamycin/Cytoxan and recommended completed 4 cycles on July 03, 2020 but subsequently patient developed diarrhea and C. difficile was done which came back positive treated with antibiotics and the repeat C. difficile on July 13 was still positive and patient stayed on antibiotics till last week And continued to have bone pains and off and on diarrhea but being controlled with Imodium and was also running fever as high as 101.4 on last Friday. Ms Bae had a follow-up left breast sonogram done on July 05, 2020 which showed interval improvement of left breast neoplasm with neoadjuvant chemotherapy. Because of persistent neutropenia despite of Neulasta and C. difficile infection/diarrhea, patient decided to proceed with surgery after 4 cycles of dose dense AC and eventually underwent left total mastectomy with sentinel lymph node biopsy of left axilla on October 10, 2020 and final pathology report showed no evidence of malignancy in 1 lymph node and no residual carcinoma identified in the left breast e.g. complete remission. She started on weekly Taxol x 12 on December 04, 2020. Completed on March 07, 2021, and subsequently lunderwent post left MRM radiation therapy which she completed on June 27, 2021 during radiation therapy patient did develop radiation-induced cutaneous toxicity. Came for follow-up, denies any specific complaints, no fever chills, no nausea or vomiting, no diarrhea or constipation, no melena hematochezia, no hemoptysis hematemesis, no bony pains, no jaundice, appetite is good . Medications: Citalopram Hydrobromide 1 Tablet (of 40 mg) Tablet Oral daily Allergies: No Known Allergies. Review of Systems: Review of Systems is not available for this patient. Vital Signs: Performed on Aug 10, 2021 10:25 Height - 63.50 in Weight - 140.6 lbs (LOW) BSA - 1.67 sq.m BMI - 24.52 Temperature - 98.7 F Pulse - 55 /min (LOW) Respiration - 18 /min BP - 109/65 mm(hg) O2 Sat - 98 % Pain - 0 Fatigue - 0 Performance Status: 0 - Fully active, able to carry on all predisease activities without restrictions. (ECOG) Physical Examination: Respiratory - Lungs are clear to auscultation, Cardiovascular - Regular rate and rhythm of heart, Gastrointestinal - Soft, bowel sounds present, Extremities - No visible edema. Lab/Imaging: Test performed on Mar 07, 2021 12:40 Sodium 137 mmol/L Potassium 4.3 mmol/L Chloride 102 mmol/L CO2 24 mmol/L Anion Gap 15.3 BUN 16 mg/dL Creatinine 0.5 mg/dL Cr Clearance (Est) 103.5400 mL/min eGFR 124.2 mL/min Glucose 129 mg/dL Osmolality - Calculated 287 mOsm/kg Calcium 8.7 mg/dL Protein, Total 6.7 g/dL Albumin 4.2 g/dL Globulin 2.5 g/dL Bilirubin, Total 0.2 mg/dL ALT (SGPT) 13 U/L AST (SGOT) 18 U/L Alkaline Phosphatase 57 IU/L WBC 2.4 10 3/uL RBC 3.21 10 6/uL HGB 10.0 g/dL HCT 31.0 % MCV 96.6 fL MCH 31.2 pg MCHC 32.3 g/dL RDW 17.6 % Platelet Count 236 10 3/cmm MPV 11.1 fL Neutrophils 1.84 10 3/uL Lymphocytes 0.5 10 3/uL Monocytes 0.0 10 3/uL Eosinophils 0.0 10 3/uL Basophils 0.0 10 3/uL Neutrophil % 77.0 % Lymphocyte % 19.2 % Monocyte % 1.7 % Eosinophil % 0.0 % Basophils % 1.3 % NRBC % 0 % CBC Slide Review Slide Review Perform Impression: High-grade invasive ductal carcinoma per ultrasound-guided left breast biopsy done on March 09, 2020 prognostic profiling showed triple negative disease, ER less than 1%, MN less than 1% and HER-2/jasmyn negative, Ki-67 95%. Staging CT PET scan done on May 02, 2020 showed left breast mass in lower inner quadrant sized 5.8 x 3.1 cm hypermetabolic mass with SUV of 23.20 With no distant metastatic disease , Clinical stage II, (more than 5 cm) N0,M0 Echocardiogram done on April 11, 2020 showed ejection fraction 65% Started on neoadjuvant chemotherapy with dose dense Adriamycin Cytoxan every 2 weeks with Neulasta support x 4 followed by Taxol on May 08, 2020. She developed severe chemotherapy induced neutropenia with a day 8 ANC of 5. This did require hospital admission and she received IV antibiotics for a left breast abscess. She was discharged on oral levofloxacin on 05/16/2020. The breast abscess did clear with the antibiotics. Her neutropenia has recovered as well. Tolerated further treatment with Adriamycin Cytoxan well and completed Adriamycin/Cytoxan x4 on July 03, 2020. Further neoadjuvant chemotherapy with Taxol was delayed because of persistent leukopenia and C. difficile positive diarrhea Eventually patient decided to proceed with surgery and on October 10, 2020 she underwent left total mastectomy with sentinel lymph node biopsy of left axilla and final pathology report showed no evidence of disease in the breast and and sentinel lymph node from left axilla e.g. complete remission Started on weekly Taxol x12 on December 04, 2020, Which she completed on March 07nd subsequently underwent post left MRM radiation therapy for tumor being more than 5 cm And she completed her radiation therapy on June 27, 2021 Mild leukopenia etiology unclear, now being monitored Plan: Discussed with patient regarding her labs white blood count 3 hemoglobin 11.8 hematocrit 36.0 platelets 204,000 ANC 1460 CMP within normal limits Clinically, patient is doing well with no new signs symptoms just of recurrence of disease, will flush her Port-A-Cath today then she will return to clinic in 1 month with CBC and BRCA one and 2 testing as patient has history of triple negative breast cancer. And also has persistent mild leukopenia, etiology unclear, could be underlying myelodysplasia and now being monitored. Signed By: Petra Nowak M.D. <<Signature on File>>
== END 2021-08-28 23:59 | disposition home or self-care (01) ==
LOC: ONCMED 06:24
PROVIDERS: PCP Nurse Practitioner Family; Visit Provider Internal Medicine Hematology & Oncology
DX: Z08 Encounter for follow-up examination after completed treatment for malignant neoplasm (principal); Z85.3 Personal history of malignant neoplasm of breast; D72.819 Decreased white blood cell count, unspecified; Z92.21 Personal history of antineoplastic chemotherapy; Z92.3 Personal history of irradiation
CPT/HCPCS: 36591; 80053; 85025; 99214

== ENCOUNTER 2021-09-14 06:36 | Outpatient (RCR) | payer OTHER, MEDICAID, SELFPAY ==
[2021-09-14 09:20] LABS: Basophils % 1.4 %; Eosinophils # 0.1 10^3/uL (0.0-0.8); Eosinophils % 4.7 %; Hematocrit 34.2 % (37.0-47.0); Hemoglobin 11.3 g/dL (11.5-15.3); Lymphocytes # 0.8 10^3/uL (0.8-4.8); Lymphocytes % 27.7 %; Mean Corpuscular Hemoglobin 30.1 pg (28.0-34.0); Mean Corpuscular Volume 91.2 fl (81-99); Mean Platelet Volume 9.9 fL (7.4-10.4); Monocytes # 0.5 10^3/uL (0.2-0.9); Monocytes % 19.1 %; Neutrophils # 1.31 10^3/uL (1.8-7.7); Neutrophils % 47.1 %; Nucleated Red Blood Cells % 0 %; Platelet Count 186 10^3/cmm (130-400); Red Blood Count 3.75 10^6/uL (4.1-5.3); Red Cell Distribution Width 13.1 % (12.1-15.1); White Blood Count 2.8 10^3/uL (4.0-10.0)
--- NOTE | 2021-09-14 11:17 | ONC FU_ITS ---
Dr. Nowak follow up note Patient: Paris Bae Unit #: [id number]: 1955 Dicatated By: Petra Nowak M.D.Date of Visit:Sep 14, 2021 Onc Med Follow-up/Prog Note History of Present Illness: Ms. Bae is a 66-year-old female with a history of progressive left breast mass. She underwent mammogram on March 07, 2020 which showed in the region of palpable abnormality. There was a hypoechoic mass measuring 1.8 x 0.8 x 1.4 cm with some mild peripheral increased vascularity at 8 o'clock position 3 cm from the nipple. And right breast showed benign calcification., On March 09, 2020 she underwent ultrasound guided left breast mass biopsy which showed high-grade invasive ductal carcinoma with chronic inflammation surrounding the tumor. Prognostic profiling confirmed triple negative disease e.g. ER less than 1% positive, MN less than 1% and HER-2/jasmyn negative. Because of location and locally advanced disease e.g. inner lower quadrant left breast, a follow-up CT PET scan was done on on May 02, 2020. It reported the left breast mass in the lower inner quadrant measuring 3.1x 5.8 cm demonstrate SUV of 23.20; Level 1 left axillary lymph node demonstrates a maximum SUV of 1.62 no other abnormality seen, no distant mets seen; Left lower paratracheal 1.0 x 2.2 cm lymph node demonstrating maximum SUV of 2.59 reflecting inflammatory changes only. Echocardiogram done on April 11, 2020 showed ejection fractions 65% with mild left ventricular hypertrophy Ms Bae has no history of previous breast biopsies; no family history of breast cancer. menarche started at age 13 and she is G3, with no miscarriages. No breast-feeding. Ms Bae started on neoadjuvant chemotherapy with dose dense Adriamycin/Cytoxan with Neulasta support on May 08, 2020. Despite the Neulasta, she developed severe chemotherapy induced neutropenia on day 8 with an ANC of 50. She was admitted to [facility] on 05/15/2020 for severe neutropenia and left breast abcess. She was treated with IV antibiotics and discharged on levofloxacinon 05/16/2020.Subsequently patient tolerated neoadjuvant chemotherapy with Adriamycin/Cytoxan and recommended completed 4 cycles on July 03, 2020 but subsequently patient developed diarrhea and C. difficile was done which came back positive treated with antibiotics and the repeat C. difficile on July 13 was still positive and patient stayed on antibiotics till last week And continued to have bone pains and off and on diarrhea but being controlled with Imodium and was also running fever as high as 101.4 on last Friday. Ms Bae had a follow-up left breast sonogram done on July 05, 2020 which showed interval improvement of left breast neoplasm with neoadjuvant chemotherapy. Because of persistent neutropenia despite of Neulasta and C. difficile infection/diarrhea, patient decided to proceed with surgery after 4 cycles of dose dense AC and eventually underwent left total mastectomy with sentinel lymph node biopsy of left axilla on October 10, 2020 and final pathology report showed no evidence of malignancy in 1 lymph node and no residual carcinoma identified in the left breast e.g. complete remission. She started on weekly Taxol x 12 on December 04, 2020. Completed on, and subsequently lunderwent post left MRM radiation therapy which she completed on June 27, 2021 during radiation therapy patient did develop radiation-induced cutaneous toxicity. BRCA1/2 testing done on December 22, 2020 was negative Came for follow-up, denies any specific complaints, no fever chills, no nausea or vomiting, no diarrhea or constipation, no dysuria or hematuria, no nosebleed or gum bleed no petechia or ecchymosis, no new bony pains . Medications: Citalopram Hydrobromide 1 Tablet (of 40 mg) Tablet Oral daily, traMADol HCl 1 Tablet (of 50 mg) Oral q 4 hours PRN Allergies: No Known Allergies. Review of Systems: Review of Systems is not available for this patient. Vital Signs: Performed on Sep 14, 2021 11:02 Height - 63.50 in Weight - 144.0 lbs (HIGH) BSA - 1.69 sq.m BMI - 25.11 Temperature - 98.1 F (LOW) Pulse - 63 /min Respiration - 16 /min BP - 113/69 mm(hg) O2 Sat - 98 % Pain - 0 Fatigue - 7 Performance Status: 0 - Fully active, able to carry on all predisease activities without restrictions. (ECOG) Physical Examination: Respiratory - Lungs are clear to auscultation, Cardiovascular - Regular rate and rhythm of heart, Gastrointestinal - Soft, bowel sounds present, Extremities - No visible edema. Lab/Imaging: Most recent lab results are not available for this patient. Impression: High-grade invasive ductal carcinoma per ultrasound-guided left breast biopsy done on March 09, 2020 prognostic profiling showed triple negative disease, ER less than 1%, MN less than 1% and HER-2/jasmyn negative, Ki-67 95%. Staging CT PET scan done on May 02, 2020 showed left breast mass in lower inner quadrant sized 5.8 x 3.1 cm hypermetabolic mass with SUV of 23.20 With no distant metastatic disease , Clinical stage II, (more than 5 cm) N0,M0 Echocardiogram done on April 11, 2020 showed ejection fraction 65% Started on neoadjuvant chemotherapy with dose dense Adriamycin Cytoxan every 2 weeks with Neulasta support x 4 followed by Taxol on May 08, 2020. She developed severe chemotherapy induced neutropenia with a day 8 ANC of 5. This did require hospital admission and she received IV antibiotics for a left breast abscess. She was discharged on oral levofloxacin on 05/16/2020. The breast abscess did clear with the antibiotics. Her neutropenia has recovered as well. Tolerated further treatment with Adriamycin Cytoxan well and completed Adriamycin/Cytoxan x4 on July 03, 2020. Further neoadjuvant chemotherapy with Taxol was delayed because of persistent leukopenia and C. difficile positive diarrhea Eventually patient decided to proceed with surgery and on October 10, 2020 she underwent left total mastectomy with sentinel lymph node biopsy of left axilla and final pathology report showed no evidence of disease in the breast and and sentinel lymph node from left axilla e.g. complete remission Started on weekly Taxol x12 on December 04, 2020, Which she completed on and subsequently underwent post left MRM radiation therapy for tumor being more than 5 cm And she completed her radiation therapy on June 27, 2021 Mild leukopenia etiology unclear, now being monitored Plan: Discussed with patient regarding her labs white blood count 2.8 compared to 3000 earlier hemoglobin 11.3 hematocrit 34.2 platelets 186,000 absolute neutrophil count 1310 Clinically, patient doing well with no new signs symptom suggestive of infection, follow-up labs shows progressive mild leukopenia/neutropenia and now with mild anemia, etiology unclear, could be nutritional or underlying myelodysplasia, patient is on daily multivitamin supplements. She will return to clinic in 1 month with CBC and iron studies, B12, folate level, if she has progressive leukopenia or anemia, and anemia work-up remains inconclusive, will consider bone marrow evaluation.In the meantime we will continue with monthly port flush Signed By: Petra Nowak M.D. <<Signature on File>>
== END 2021-09-28 23:59 | disposition home or self-care (01) ==
LOC: ONCMED 06:36
PROVIDERS: PCP Nurse Practitioner Family; Visit Provider Internal Medicine Hematology & Oncology
DX: Z08 Encounter for follow-up examination after completed treatment for malignant neoplasm (principal); Z85.3 Personal history of malignant neoplasm of breast; D64.9 Anemia, unspecified; D70.9 Neutropenia, unspecified; Z79.899 Other long term (current) drug therapy; Z92.21 Personal history of antineoplastic chemotherapy; Z92.3 Personal history of irradiation
CPT/HCPCS: 36415; 85025; 99214

== ENCOUNTER 2021-10-23 12:20 | Outpatient (RCR) | payer OTHER, MEDICAID, SELFPAY ==
[2021-10-19 08:38] LABS: Basophils # 0.1 10^3/uL (0.0-0.1); Basophils % 1.5 %; Eosinophils # 0.2 10^3/uL (0.0-0.8); Eosinophils % 5.3 %; Hematocrit 37.9 % (37.0-47.0); Hemoglobin 12.4 g/dL (11.5-15.3); Lymphocytes # 0.9 10^3/uL (0.8-4.8); Lymphocytes % 25.8 %; Mean Corpuscular HGB Conc 32.7 g/dL (30.0-36.0); Mean Corpuscular Hemoglobin 29.7 pg (28.0-34.0); Mean Corpuscular Volume 90.9 fl (81-99); Mean Platelet Volume 10.5 fL (7.4-10.4); Monocytes # 0.4 10^3/uL (0.2-0.9); Monocytes % 12.8 %; Neutrophils # 1.83 10^3/uL (1.8-7.7); Neutrophils % 54.3 %; Nucleated Red Blood Cells % 0 %; Platelet Count 186 10^3/cmm (130-400); Red Blood Count 4.17 10^6/uL (4.1-5.3); White Blood Count 3.4 10^3/uL (4.0-10.0)
[2021-10-19 09:16] LABS: Ferritin 91 ng/mL (15-150); Iron 105 ug/dL (37-145); Percent Saturation 38.7 % (20-50); Total Iron Binding Capacity 271 mcg/dl; Unsaturated Iron Binding 166 ug/dL (112-347)
[2021-10-19 09:33] LABS: Folate Level > 20.0 ng/mL (4.8-37.3)
[2021-10-19 09:57] LABS: Vitamin B12 309 pg/mL (232-1245)
--- NOTE | 2021-10-19 09:57 | ONC FU_ITS ---
Dr. Nowak follow up note Patient: Paris Bae Unit #: [id number]: 1955 Dicatated By: Petra Nowak M.D.Date of Visit:Oct 19, 2021 Onc Med Follow-up/Prog Note History of Present Illness: Ms. Bae is a 66-year-old female with a history of progressive left breast mass. She underwent mammogram on March 07, 2020 which showed in the region of palpable abnormality. There was a hypoechoic mass measuring 1.8 x 0.8 x 1.4 cm with some mild peripheral increased vascularity at 8 o'clock position 3 cm from the nipple. And right breast showed benign calcification., On March 09, 2020 she underwent ultrasound guided left breast mass biopsy which showed high-grade invasive ductal carcinoma with chronic inflammation surrounding the tumor. Prognostic profiling confirmed triple negative disease e.g. ER less than 1% positive, GA less than 1% and HER-2/jasmyn negative. Because of location and locally advanced disease e.g. inner lower quadrant left breast, a follow-up CT PET scan was done on on May 02, 2020. It reported the left breast mass in the lower inner quadrant measuring 3.1x 5.8 cm demonstrate SUV of 23.20; Level 1 left axillary lymph node demonstrates a maximum SUV of 1.62 no other abnormality seen, no distant mets seen; Left lower paratracheal 1.0 x 2.2 cm lymph node demonstrating maximum SUV of 2.59 reflecting inflammatory changes only. Echocardiogram done on April 11, 2020 showed ejection fractions 65% with mild left ventricular hypertrophy Ms Bae has no history of previous breast biopsies; no family history of breast cancer. menarche started at age 13 and she is G3, with no miscarriages. No breast-feeding. Ms Bae started on neoadjuvant chemotherapy with dose dense Adriamycin/Cytoxan with Neulasta support on May 08, 2020. Despite the Neulasta, she developed severe chemotherapy induced neutropenia on day 8 with an ANC of 50. She was admitted to [facility] [place] on 05/15/2020 for severe neutropenia and left breast abcess. She was treated with IV antibiotics and discharged on levofloxacinon 05/16/2020.Subsequently patient tolerated neoadjuvant chemotherapy with Adriamycin/Cytoxan and recommended completed 4 cycles on July 03, 2020 but subsequently patient developed diarrhea and C. difficile was done which came back positive treated with antibiotics and the repeat C. difficile on July 13 was still positive and patient stayed on antibiotics till last week And continued to have bone pains and off and on diarrhea but being controlled with Imodium and was also running fever as high as 101.4 on last Friday. Ms Bae had a follow-up left breast sonogram done on July 05, 2020 which showed interval improvement of left breast neoplasm with neoadjuvant chemotherapy. Because of persistent neutropenia despite of Neulasta and C. difficile infection/diarrhea, patient decided to proceed with surgery after 4 cycles of dose dense AC and eventually underwent left total mastectomy with sentinel lymph node biopsy of left axilla on October 10, 2020 and final pathology report showed no evidence of malignancy in 1 lymph node and no residual carcinoma identified in the left breast e.g. complete remission. She started on weekly Taxol x 12 on December 04, 2020. Completed on, and subsequently lunderwent post left MRM radiation therapy which she completed on June 27, 2021 during radiation therapy patient did develop radiation-induced cutaneous toxicity. BRCA1/2 testing done on December 22, 2020 was negative Came for follow-up, denies any specific complaint except discomfort/pain in right anterior lower ribs, patient denies any trauma but, said she has been helping her who recently underwent knee surgery. Denies any overlying skin changes denies any fever chills denies any cough or phlegm, denies any nausea or vomiting denies any jaundice denies any abdominal fullness. . Medications: Citalopram Hydrobromide 1 Tablet (of 40 mg) Tablet Oral daily, traMADol HCl 1 Tablet (of 50 mg) Oral q 4 hours PRN Allergies: No Known Allergies. Review of Systems: Review of Systems is not available for this patient. Vital Signs: Performed on Oct 19, 2021 09:23 Height - 63.50 in Weight - 142.8 lbs (LOW) BSA - 1.69 sq.m BMI - 24.90 Temperature - 98.7 F Pulse - 69 /min Respiration - 16 /min BP - 104/65 mm(hg) O2 Sat - 98 % Pain - 5 Fatigue - 0 Performance Status: 0 - Fully active, able to carry on all predisease activities without restrictions. (ECOG) Physical Examination: Respiratory - Lungs are clear to auscultation, Cardiovascular - Regular rate and rhythm of heart, Chest - Chest is symmetric without chest wall deformities.,Except Left MRM, mild discomfort and right anterior lower chest wall but no overlying skin changes no fullness or puffiness, Gastrointestinal - Soft, bowel sounds present, Extremities - No visible edema. Lab/Imaging: Most recent lab results are not available for this patient. Impression: High-grade invasive ductal carcinoma per ultrasound-guided left breast biopsy done on March 09, 2020 prognostic profiling showed triple negative disease, ER less than 1%, GA less than 1% and HER-2/jasmyn negative, Ki-67 95%. Staging CT PET scan done on May 02, 2020 showed left breast mass in lower inner quadrant sized 5.8 x 3.1 cm hypermetabolic mass with SUV of 23.20 With no distant metastatic disease , Clinical stage II, (more than 5 cm) N0,M0 Echocardiogram done on April 11, 2020 showed ejection fraction 65% Started on neoadjuvant chemotherapy with dose dense Adriamycin Cytoxan every 2 weeks with Neulasta support x 4 followed by Taxol on May 08, 2020. She developed severe chemotherapy induced neutropenia with a day 8 ANC of 5. This did require hospital admission and she received IV antibiotics for a left breast abscess. She was discharged on oral levofloxacin on 05/16/2020. The breast abscess did clear with the antibiotics. Her neutropenia has recovered as well. Tolerated further treatment with Adriamycin Cytoxan well and completed Adriamycin/Cytoxan x4 on July 03, 2020. Further neoadjuvant chemotherapy with Taxol was delayed because of persistent leukopenia and C. difficile positive diarrhea Eventually patient decided to proceed with surgery and on October 10, 2020 she underwent left total mastectomy with sentinel lymph node biopsy of left axilla and final pathology report showed no evidence of disease in the breast and and sentinel lymph node from left axilla e.g. complete remission Started on weekly Taxol x12 on December 04, 2020, Which she completed on and subsequently underwent post left MRM radiation therapy for tumor being more than 5 cm And she completed her radiation therapy on June 27, 2021 Mild leukopenia etiology unclear, now being monitored Plan: Discussed with patient regarding her labs white blood count 3.4 compared to 2.8 previously, hemoglobin 12.4 g compared to 11.3 g previously hematocrit 37.9 platelets 186,000 ANC 1830 iron studies shows normal values, B12 pending, folate more than 20 Clinically, patient is doing well with no new signs symptoms suggestive of disease progression except mild discomfort/pain in right anterior lower ribs, patient thinks that could be due to heavy lifting as she has been helping her who had knee surgery done recently. On exam no overlying skin changes, mild tenderness on deep palpation, no puffiness.,, Etiology unclear could be musculoskeletal due to heavy lifting or costochondritis, at this point, we will consider chest x-ray with special attention to right anterior lower ribs. In the meantime, she was advised to try heating pad and ibuprofen. As per his leukopenia is concerned, now recovering and anemia resolved moreover anemia work-up shows iron stores adequate, folate within normal range but B12 is pending, Will flush her Port-A-Cath today and then she will return to clinic in 1 month with CBC, unless chest x-ray shows otherwise. Patient was advised in case there is a worsening of right upper quadrant/rib pain, she need to call us or go to ER for evaluation. Signed By: Petra Nowak M.D. <<Signature on File>>
--- NOTE | 2021-10-23 11:41 | XR_ITS ---
WS: [id number] Chest 2 views, 10/23/2021 Clinical Data: R RIB PAIN Comparison: Portable chest, 10/17/2020. Findings: No nodules, masses or effusions are seen. The heart is normal. The pulmonary vascularity is not increased. No pneumonia or pneumothorax is seen. The left chest drain has been removed. There is a left mastectomy. There are clips in the left axilla. The right Port-A-Cath remains in the same pos ition. XR/XR chest 2V* [id number] Impression: Negative for acute cardiopulmonary disease.
== END 2021-10-29 23:59 | disposition home or self-care (01) ==
LOC: RAD 12:20
PROVIDERS: PCP Nurse Practitioner Family; Visit Provider Internal Medicine Hematology & Oncology
DX: Z08 Encounter for follow-up examination after completed treatment for malignant neoplasm (principal); Z85.3 Personal history of malignant neoplasm of breast; D72.819 Decreased white blood cell count, unspecified; R07.81 Pleurodynia; Z92.21 Personal history of antineoplastic chemotherapy
CPT/HCPCS: 36591; 71046; 82607; 82728; 82746; 83540; 83550; 85025; 99214

== ENCOUNTER 2021-11-20 13:48 | Outpatient (RCR) | payer OTHER, MEDICAID, SELFPAY ==
[2021-11-20 14:50] LABS: Basophils # 0.1 10^3/uL (0.0-0.1); Basophils % 1.4 %; Eosinophils # 0.1 10^3/uL (0.0-0.8); Eosinophils % 2.6 %; Hematocrit 35.8 % (37.0-47.0); Hemoglobin 11.9 g/dL (11.5-15.3); Lymphocytes # 1.4 10^3/uL (0.8-4.8); Lymphocytes % 39.2 %; Mean Corpuscular HGB Conc 33.2 g/dL (30.0-36.0); Mean Corpuscular Hemoglobin 30.4 pg (28.0-34.0); Mean Corpuscular Volume 91.6 fl (81-99); Mean Platelet Volume 10.4 fL (7.4-10.4); Monocytes # 0.6 10^3/uL (0.2-0.9); Monocytes % 15.6 %; Neutrophils # 1.45 10^3/uL (1.8-7.7); Neutrophils % 41.2 %; Nucleated Red Blood Cells % 0 %; Platelet Count 187 10^3/cmm (130-400); Red Blood Count 3.91 10^6/uL (4.1-5.3); Red Cell Distribution Width 13.4 % (12.1-15.1); White Blood Count 3.5 10^3/uL (4.0-10.0)
[2021-11-20 15:18] LABS: Ferritin 102 ng/mL (15-150); Iron 91 ug/dL (37-145); Percent Saturation 33.3 % (20-50); Total Iron Binding Capacity 273 mcg/dl; Unsaturated Iron Binding 182 ug/dL (112-347)
[2021-11-20 15:30] LABS: Vitamin B12 334 pg/mL (232-1245)
[2021-11-20] MEDS: cyanocobalamin 1,000 mcg/mL SDV 1000 MCG SUBCUT (16:15)
[2021-11-20 16:18] LABS: Folate Level > 20.0 ng/mL (4.8-37.3)
--- NOTE | 2021-11-21 11:37 | ONC FU_ITS ---
Dr. Nowak follow up note Patient: Paris Bae Unit #: [id number]: 1955 Dicatated By: Petra Nowak M.D.Date of Visit:Nov 20, 2021 Onc Med Follow-up/Prog Note History of Present Illness: Ms. Bae is a 66-year-old female with a history of progressive left breast mass. She underwent mammogram on March 07, 2020 which showed in the region of palpable abnormality. There was a hypoechoic mass measuring 1.8 x 0.8 x 1.4 cm with some mild peripheral increased vascularity at 8 o'clock position 3 cm from the nipple. And right breast showed benign calcification., On March 09, 2020 she underwent ultrasound guided left breast mass biopsy which showed high-grade invasive ductal carcinoma with chronic inflammation surrounding the tumor. Prognostic profiling confirmed triple negative disease e.g. ER less than 1% positive, [place] less than 1% and HER-2/jasmyn negative. Because of location and locally advanced disease e.g. inner lower quadrant left breast, a follow-up CT PET scan was done on on May 02, 2020. It reported the left breast mass in the lower inner quadrant measuring 3.1x 5.8 cm demonstrate SUV of 23.20; Level 1 left axillary lymph node demonstrates a maximum SUV of 1.62 no other abnormality seen, no distant mets seen; Left lower paratracheal 1.0 x 2.2 cm lymph node demonstrating maximum SUV of 2.59 reflecting inflammatory changes only. Echocardiogram done on April 11, 2020 showed ejection fractions 65% with mild left ventricular hypertrophy Ms Bae has no history of previous breast biopsies; no family history of breast cancer. menarche started at age 13 and she is G3, with no miscarriages. No breast-feeding. Ms Bae started on neoadjuvant chemotherapy with dose dense Adriamycin/Cytoxan with Neulasta support on May 08, 2020. Despite the Neulasta, she developed severe chemotherapy induced neutropenia on day 8 with an ANC of 50. She was admitted to [facility] [place] on 05/15/2020 for severe neutropenia and left breast abcess. She was treated with IV antibiotics and discharged on levofloxacinon 05/16/2020.Subsequently patient tolerated neoadjuvant chemotherapy with Adriamycin/Cytoxan and recommended completed 4 cycles on July 03, 2020 but subsequently patient developed diarrhea and C. difficile was done which came back positive treated with antibiotics and the repeat C. difficile on July 13 was still positive and patient stayed on antibiotics till last week And continued to have bone pains and off and on diarrhea but being controlled with Imodium and was also running fever as high as 101.4 on last Friday. Ms Bae had a follow-up left breast sonogram done on July 05, 2020 which showed interval improvement of left breast neoplasm with neoadjuvant chemotherapy. Because of persistent neutropenia despite of Neulasta and C. difficile infection/diarrhea, patient decided to proceed with surgery after 4 cycles of dose dense AC and eventually underwent left total mastectomy with sentinel lymph node biopsy of left axilla on October 10, 2020 and final pathology report showed no evidence of malignancy in 1 lymph node and no residual carcinoma identified in the left breast e.g. complete remission. She started on weekly Taxol x 12 on December 04, 2020. Completed on, and subsequently lunderwent post left MRM radiation therapy which she completed on June 27, 2021 during radiation therapy patient did develop radiation-induced cutaneous toxicity. BRCA1/2 testing done on December 22, 2020 was negative Came for follow-up, denies any specific complaint except off and on pain/discomfort in her right knee but no swelling, no overlying skin changes, no leg swelling, no numbness, denies any history of trauma to right knee. Also complaining of off and on right lower chest pain for which she underwent chest x-ray which showed no acute abnormality. Denies any fever chills denies any nausea or vomiting denies any diarrhea or constipation . Medications: Citalopram Hydrobromide 1 Tablet (of 40 mg) Tablet Oral daily, traMADol HCl 1 Tablet (of 50 mg) Oral q 4 hours PRN Allergies: No Known Allergies. Review of Systems: Review of Systems is not available for this patient. Vital Signs: Performed on Nov 20, 2021 15:56 Height - 63.50 in Weight - 139.4 lbs (LOW) BSA - 1.67 sq.m BMI - 24.31 Temperature - 98.2 F (LOW) Pulse - 66 /min Respiration - 16 /min BP - 116/73 mm(hg) O2 Sat - 99 % Pain - 5 Fatigue - 7 Performance Status: 1 - No physically strenuous activity, but ambulatory and able to carry out light or sedentary work (e.g. office work, light house work). (ECOG) Physical Examination: Respiratory - Lungs are clear to auscultation, Cardiovascular - Regular rate and rhythm of heart, Gastrointestinal - Soft, bowel sounds present, Extremities - No visible edema. Lab/Imaging: Most recent lab results are not available for this patient. Impression: High-grade invasive ductal carcinoma per ultrasound-guided left breast biopsy done on March 09, 2020 prognostic profiling showed triple negative disease, ER less than 1%, [place] less than 1% and HER-2/jasmyn negative, Ki-67 95%. Staging CT PET scan done on May 02, 2020 showed left breast mass in lower inner quadrant sized 5.8 x 3.1 cm hypermetabolic mass with SUV of 23.20 With no distant metastatic disease , Clinical stage II, (more than 5 cm) N0,M0 Echocardiogram done on April 11, 2020 showed ejection fraction 65% Started on neoadjuvant chemotherapy with dose dense Adriamycin Cytoxan every 2 weeks with Neulasta support x 4 followed by Taxol on May 08, 2020. She developed severe chemotherapy induced neutropenia with a day 8 ANC of 5. This did require hospital admission and she received IV antibiotics for a left breast abscess. She was discharged on oral levofloxacin on 05/16/2020. The breast abscess did clear with the antibiotics. Her neutropenia has recovered as well. Tolerated further treatment with Adriamycin Cytoxan well and completed Adriamycin/Cytoxan x4 on July 03, 2020. Further neoadjuvant chemotherapy with Taxol was delayed because of persistent leukopenia and C. difficile positive diarrhea Eventually patient decided to proceed with surgery and on October 10, 2020 she underwent left total mastectomy with sentinel lymph node biopsy of left axilla and final pathology report showed no evidence of disease in the breast and and sentinel lymph node from left axilla e.g. complete remission Started on weekly Taxol x12 on December 04, 2020, Which she completed on and subsequently underwent post left MRM radiation therapy for tumor being more than 5 cm And she completed her radiation therapy on June 27, 2021 Mild leukopenia etiology unclear, now being monitored Plan: Discussed with patient regarding her labs white blood count 3.5 hemoglobin 11.9 hematocrit 35.8 platelets 187,000 ANC 1450, ferritin 102, iron saturation 23.3, iron 91, B12 334, folate more than 20 Clinically, patient doing well with no new signs symptom suggestive of disease recurrence, her follow-up CBC shows persistent mild leukopenia/neutropenia, etiology remained unclear, could be due to recent chemotherapy but less likely other possibility could be underlying myelodysplasia or nutritional like B12 deficiency although her B12 level is on the low side of normal range, will try parenteral B12 supplement monthly and if there is a worsening of leukopenia/neutropenia, may consider bone marrow evaluation. As far as right knee pain/discomfort is concerned, etiology is unclear could be due to underlying inflammation or arthritis, patient was advised to try [id number] Motrin for 2 days, and also heating pad, if there is no improvement, she need to discuss with her PMD regarding referred to orthopedics. And her right lower chest/right upper quadrant pain is concerned, chest x-ray showed no abnormality, could be due to gallbladder pathology. If there is a worsening, may consider HIDA scan or referral to surgery. Starting parenteral B12 on monthly basis today and then she will return to clinic in 1 month with CBC and for port flush Signed By: Petra Nowak M.D. <<Signature on File>>
== END 2021-11-26 23:59 | disposition home or self-care (01) ==
LOC: ONCMED 13:48
PROVIDERS: PCP Nurse Practitioner Family; Visit Provider Internal Medicine Hematology & Oncology
DX: C50.812 Malignant neoplasm of overlapping sites of left female breast (principal); Z17.1 Estrogen receptor negative status [ER-]; D70.1 Agranulocytosis secondary to cancer chemotherapy; T45.1X5A Adverse effect of antineoplastic and immunosuppressive drugs, initial encounter; A04.71 Enterocolitis due to Clostridium difficile, recurrent; D51.9 Vitamin B12 deficiency anemia, unspecified; M25.561 Pain in right knee; Z79.899 Other long term (current) drug therapy
CPT/HCPCS: 36591; 82607; 82728; 82746; 83540; 83550; 85025; 96372; 99215; J3420

== ENCOUNTER 2021-12-19 11:36 | Outpatient (RCR) | payer OTHER, MEDICAID, SELFPAY ==
[2021-12-19] MEDS: cyanocobalamin 1,000 mcg/mL SDV 1000 MCG SUBCUT (12:00)
[2021-12-19 13:03] LABS: Basophils % 1.1 %; Eosinophils # 0.1 10^3/uL (0.0-0.8); Eosinophils % 3.6 %; Hematocrit 32.8 % (37.0-47.0); Hemoglobin 10.9 g/dL (11.5-15.3); Lymphocytes # 1.3 10^3/uL (0.8-4.8); Lymphocytes % 36.2 %; Mean Corpuscular HGB Conc 33.2 g/dL (30.0-36.0); Mean Corpuscular Hemoglobin 30.5 pg (28.0-34.0); Mean Corpuscular Volume 91.9 fl (81-99); Mean Platelet Volume 11.1 fL (7.4-10.4); Monocytes # 0.6 10^3/uL (0.2-0.9); Neutrophils # 1.56 10^3/uL (1.8-7.7); Neutrophils % 43.1 %; Nucleated Red Blood Cells % 0 %; Platelet Count 193 10^3/cmm (130-400); Red Blood Count 3.57 10^6/uL (4.1-5.3); Red Cell Distribution Width 13.9 % (12.1-15.1); White Blood Count 3.6 10^3/uL (4.0-10.0)
[2021-12-19 14:30] LABS: LAB Peripheral Smear Sent for Review
[2021-12-19 15:59] LABS: CA 15-3 25.4 U/mL (0-25); Iron 39 ug/dL (37-145); Total Iron Binding Capacity 259 mcg/dl; Unsaturated Iron Binding 220 ug/dL (112-347)
[2021-12-19 16:27] LABS: Vitamin B12 > 2000 pg/mL (232-1245)
[2021-12-20 11:55] LABS: Ferritin 102 ng/mL (15-150)
--- NOTE | 2021-12-26 08:11 | ONC FU_ITS ---
Shana Witt Progress Note Patient: Paris Bae Unit #: [id number]: 1955 Dicatated By: Shana Witt N.P.Date of Visit:Dec 19, 2021 Onc MED Follow-up/Prog Note Chief Complaint: Left breast cancer History of Present Illness: Ms. Bae is a 66-year-old female with a history of progressive left breast mass. She underwent mammogram on March 07, 2020 which showed in the region of palpable abnormality. There was a hypoechoic mass measuring 1.8 x 0.8 x 1.4 cm with some mild peripheral increased vascularity at 8 o'clock position 3 cm from the nipple. And right breast showed benign calcification., On March 09, 2020 she underwent ultrasound guided left breast mass biopsy which showed high-grade invasive ductal carcinoma with chronic inflammation surrounding the tumor. Prognostic profiling confirmed triple negative disease e.g. ER less than 1% positive, KS less than 1% and HER-2/jasmyn negative. Because of location and locally advanced disease e.g. inner lower quadrant left breast, a follow-up CT PET scan was done on on May 02, 2020. It reported the left breast mass in the lower inner quadrant measuring 3.1x 5.8 cm demonstrate SUV of 23.20; Level 1 left axillary lymph node demonstrates a maximum SUV of 1.62 no other abnormality seen, no distant mets seen; Left lower paratracheal 1.0 x 2.2 cm lymph node demonstrating maximum SUV of 2.59 reflecting inflammatory changes only. Echocardiogram done on April 11, 2020 showed ejection fractions 65% with mild left ventricular hypertrophy Ms Bae has no history of previous breast biopsies; no family history of breast cancer. menarche started at age 13 and she is G3, with no miscarriages. No breast-feeding. Ms Bae started on neoadjuvant chemotherapy with dose dense Adriamycin/Cytoxan with Neulasta support on May 08, 2020. Despite the Neulasta, she developed severe chemotherapy induced neutropenia on day 8 with an ANC of 50. She was admitted to [facility] on 05/15/2020 for severe neutropenia and left breast abcess. She was treated with IV antibiotics and discharged on levofloxacinon 05/16/2020.Subsequently patient tolerated neoadjuvant chemotherapy with Adriamycin/Cytoxan and recommended completed 4 cycles on July 03, 2020 but subsequently patient developed diarrhea and C. difficile was done which came back positive treated with antibiotics and the repeat C. difficile on July 13 was still positive and patient stayed on antibiotics till last week And continued to have bone pains and off and on diarrhea but being controlled with Imodium and was also running fever as high as 101.4 on last Friday. Ms Bae had a follow-up left breast sonogram done on July 05, 2020 which showed interval improvement of left breast neoplasm with neoadjuvant chemotherapy. Because of persistent neutropenia despite of Neulasta and C. difficile infection/diarrhea, patient decided to proceed with surgery after 4 cycles of dose dense AC and eventually underwent left total mastectomy with sentinel lymph node biopsy of left axilla on October 10, 2020 and final pathology report showed no evidence of malignancy in 1 lymph node and no residual carcinoma identified in the left breast e.g. complete remission. She started on weekly Taxol x 12 on December 04, 2020. Completed on, and subsequently lunderwent post left MRM radiation therapy which she completed on June 27, 2021 during radiation therapy patient did develop radiation-induced cutaneous toxicity. BRCA1/2 testing done on December 22, 2020 was negative Patient presents today for follow-up. She complains of moderate fatigue but states she is still able to do housework and other activities. Her ECOG is 1. She has been having some sinus drainage but denies sore throat shortness of breath or cough. No fever, chills, night sweats. No GI or problems. She does experience joint stiffness which is a chronic condition and she continues to have numbness and tingling in her hands. Review Of Symptoms: See above. Past Medical History: Depression C. Diff in 2019 Past Surgical History: Exploratory laparotomy Mastectomy in 2020 - left total and Allen node biopsy of the left axilla Breast biopsy in 2019 Colonoscopy in 2018 Allergies: No Known Allergies. Medications: Citalopram Hydrobromide 1 Tablet (of 40 mg) Tablet Oral daily traMADol HCl 1 Tablet (of 50 mg) Oral q 4 hours PRN Xanax 0.5 - 1 Tablet (of 0.5 mg) Oral b.i.d. PRN Family History: Ms. Bae's mother at age 69: stomach cancer. Ms. Bae's father at age 72: lung cancer. Ms. Bae has 1 brother who is : colon cancer. Social History: Ms. Bae is . Ms. Bae quit smoking 32 years ago but had smoked for 5 years. She has no history of drinking. Ms. Bae reports the following support systems: lives with spouse, significant other, family, or friends, lives in own house, supportive family/friends willing to assist with needs, and adequate transportation available for expected visits. Her diet consists of regular meals. She indicates her activity level as: regular exercise. Physical Examination: Performed on Dec 19, 2021 13:41: Height - 63.50 in, Weight - 144.0 lbs (HIGH), BSA - 1.69 sq.m, BMI - 25.11, Temperature - 98.4 F, Pulse - 78 /min, Respiration - 16 /min, BP - 114/68 mm(hg), O2 Sat - 96 %, Pain - 0, and Fatigue - 6. Performance Status: 1 - No physically strenuous activity, but ambulatory and able to carry out light or sedentary work (e.g. office work, light house work). (ECOG) Constitutional Alert, cooperative, oriented. Mood and affect appropriate. Appears close to chronological age. Well nourished. Well developed. Head Normocephalic; no scars. Respiratory Lungs are clear to auscultation without rhonchi or wheezing. Cardiovascular Regular rate and rhythm of heart without murmurs, gallops or rubs. Abdomen Non-tender, non-distended, no masses, ascites or hepatosplenomegaly. Good bowel sounds. No guarding or rebound tenderness. Extremities no edema Musculoskeletal No tenderness or swelling, normal range of motion without obvious weakness. Psychiatric Alert and oriented times three. Coherent speech. Verbalizes understanding of our discussions today. Laboratory: Test performed on Dec 19, 2021 14:20 Iron 39 mcg/dL Vitamin B12 > 2000 pg/mL Iron Binding Capacity (TIBC) 259 mcg/dl % Iron Saturation 15.0 % UIBC 220 mcg/dL CA 15-3 25.4 U/mL Test performed on Dec 19, 2021 11:54 WBC 3.6 10 3/uL RBC 3.57 10 6/uL HGB 10.9 g/dL HCT 32.8 % MCV 91.9 fl MCH 30.5 pg MCHC 33.2 g/dL RDW 13.9 % Platelet Count 193 10 3/cmm MPV 11.1 fL Neutrophils 1.56 10 3/uL Lymphocytes 1.3 10 3/uL Monocytes 0.6 10 3/uL Eosinophils 0.1 10 3/uL Basophils 0.0 10 3/uL Neutrophil % 43.1 % Lymphocyte % 36.2 % Monocyte % 16.0 % Eosinophil % 3.6 % Basophils % 1.1 % NRBC % 0 % Impression: High-grade invasive ductal carcinoma per ultrasound-guided left breast biopsy done on March 09, 2020 prognostic profiling showed triple negative disease, ER less than 1%, KS less than 1% and HER-2/jasmyn negative, Ki-67 95%. Staging CT PET scan done on May 02, 2020 showed left breast mass in lower inner quadrant sized 5.8 x 3.1 cm hypermetabolic mass with SUV of 23.20 With no distant metastatic disease , Clinical stage II, (more than 5 cm) N0,M0 Echocardiogram done on April 11, 2020 showed ejection fraction 65% Started on neoadjuvant chemotherapy with dose dense Adriamycin Cytoxan every 2 weeks with Neulasta support x 4 followed by Taxol on May 08, 2020. She developed severe chemotherapy induced neutropenia with a day 8 ANC of 5. This did require hospital admission and she received IV antibiotics for a left breast abscess. She was discharged on oral levofloxacin on 05/16/2020. The breast abscess did clear with the antibiotics. Her neutropenia has recovered as well. Tolerated further treatment with Adriamycin Cytoxan well and completed Adriamycin/Cytoxan x4 on July 03, 2020. Further neoadjuvant chemotherapy with Taxol was delayed because of persistent leukopenia and C. difficile positive diarrhea Eventually patient decided to proceed with surgery and on October 10, 2020 she underwent left total mastectomy with sentinel lymph node biopsy of left axilla and final pathology report showed no evidence of disease in the breast and and sentinel lymph node from left axilla e.g. complete remission Started on weekly Taxol x12 on December 04, 2020, Which she completed on and subsequently underwent post left MRM radiation therapy for tumor being more than 5 cm And she completed her radiation therapy on June 27, 2021 Mild leukopenia etiology unclear, now being monitored Plan: Labs were discussed with patient with WBC at 3.6, hemoglobin 10.9, hematocrit 32.8, platelet count 193,000, and neutrophils at 1.56. She is currently receiving vitamin B12 injections monthly but her CBC continues to show persistent leukopenia and neutropenia. Iron studies were performed with iron at 39, percent saturation at 15, and her B12 was greater than 2000 although she just had her injection. Her CA 15-3 was checked and it was 25.4. Leukopenia and neutropenia could be due to recent chemotherapy but less likely other possibility could be underlying myelodysplasia. We will order a PET/CT to rule out any underlying disease process causing the leukopenia and neutropenia. If that is negative and symptoms persist we will consider a bone marrow biopsy. Patient to return to clinic in 1 month with CBC and CMP. Signed By: Shana Witt N.P. <<Signature on File>>
== END 2021-12-27 23:59 | disposition home or self-care (01) ==
LOC: ONCMED 11:36
PROVIDERS: PCP Nurse Practitioner Family; Visit Provider Nurse Practitioner Family
DX: C50.812 Malignant neoplasm of overlapping sites of left female breast (principal); Z17.1 Estrogen receptor negative status [ER-]; Z90.12 Acquired absence of left breast and nipple; D70.9 Neutropenia, unspecified; D51.9 Vitamin B12 deficiency anemia, unspecified; Z79.899 Other long term (current) drug therapy; Z92.21 Personal history of antineoplastic chemotherapy; Z92.3 Personal history of irradiation; Z86.19 Personal history of other infectious and parasitic diseases
CPT/HCPCS: 36591; 82607; 82728; 83540; 83550; 85025; 86300; 96372; 99214; J3420

== ENCOUNTER 2022-06-24 12:20 | Oncology outpatient (recurring) (ONCR) | payer MEDICARE, MEDICAID, SELFPAY | END 2022-06-28 23:59 | disposition home or self-care (01) | PROVIDERS: PCP Nurse Practitioner Family; Referring Provider Nurse Practitioner Family; Visit Provider Internal Medicine Hematology & Oncology | DX: Z45.2 Encounter for adjustment and management of vascular access device (principal) | CPT/HCPCS: 96523 ==

== ENCOUNTER 2022-07-04 11:54 | Outpatient (CLI) | payer MEDICARE, MEDICAID, SELFPAY ==
--- NOTE | 2022-07-04 11:57 | MM_ITS ---
WS: [id number] DIAGNOSTIC RIGHT DIGITAL TOMOSYNTHESIS MAMMOGRAPHY WITH CAD. HISTORY: Z85.3 - Personal history of malignant neoplasm of breast COMPARISON: 03/01/2020, 10/18/2011 Technique: CC, MLO and ML views. Breast composition: The breasts are heterogeneously dense, which may obscure small masses. Benign ca lcification in the anterior breast. Port-A-Cath present in the chest wall above the breast tissue. Th ere are no suspicious masses or calcifications. No interval change since the prior exam. MM/[place] [id number] IMPRESSION: BI-RADS: 1-Negative FOLLOW UP: 1 Year Follow-up
== END 2022-07-04 11:55 | disposition home or self-care (01) ==
LOC: RAD 11:56
PROVIDERS: PCP Nurse Practitioner Family; Visit Provider Obstetrics & Gynecology
DX: Z85.3 Personal history of malignant neoplasm of breast (principal)
CPT/HCPCS: 77061; 99024

== ENCOUNTER 2022-11-25 14:46 | Oncology outpatient (recurring) (ONCR) | payer MEDICARE, MEDICAID, SELFPAY ==
--- NOTE | 2022-11-25 15:19 | PC.NURSE ---
Pt wanted to speak with Dr. Nowak regarding WBC and having port removed. I spoke with Dr. Nowak, he is requesting pt make an appointment with new labs and discuss options. Pt notified and will make appointment with Danika. Dr. Nowak wants CBC/CMP ordered for pt. - LANG
== END 2022-11-26 23:59 | disposition home or self-care (01) ==
PROVIDERS: PCP Nurse Practitioner Family; Visit Provider Internal Medicine Hematology & Oncology
DX: Z45.2 Encounter for adjustment and management of vascular access device (principal); Z95.828 Presence of other vascular implants and grafts
CPT/HCPCS: 96523

== ENCOUNTER 2023-01-02 12:19 | Oncology outpatient (recurring) (ONCR) | payer MEDICARE, MEDICAID, SELFPAY ==
[2023-01-02 12:56] VITALS: BP 118/57; PULSE 61; RESP 18; TEMP 37.2; O2SAT 99
[2023-01-02 13:00] LABS: Basophils % 0.8 %; Eosinophils # 0.1 10^3/uL (0.0-0.8); Eosinophils % 2.6 %; Hematocrit 36.3 % (37.0-47.0); Hemoglobin 11.9 g/dL (11.5-15.3); Lymphocytes # 1.4 10^3/uL (0.8-4.8); Lymphocytes % 35.5 %; Mean Corpuscular HGB Conc 32.8 g/dL (30.0-36.0); Mean Corpuscular Hemoglobin 30.6 pg (28.0-34.0); Mean Corpuscular Volume 93.3 fl (81-99); Mean Platelet Volume 9.8 fL (7.4-10.4); Monocytes # 0.5 10^3/uL (0.2-0.9); Monocytes % 12.7 %; Neutrophils # 1.86 10^3/uL (1.8-7.7); Neutrophils % 48.1 %; Nucleated Red Blood Cells % 0 %; Platelet Count 187 10^3/cmm (130-400); Red Blood Count 3.89 10^6/uL (4.1-5.3); Red Cell Distribution Width 13.3 % (12.1-15.1); White Blood Count 3.9 10^3/uL (4.0-10.0)
[2023-01-02 13:17] LABS: Alanine Aminotransferase 12 U/L (0-33); Alkaline Phosphatase 34 U/L (35-105); Aspartate Amino Transferase 24 U/L (0-32); Blood Urea Nitrogen 19 mg/dL (8-23); Calcium 8.8 mg/dL (8.5-10.5); Carbon Dioxide 24 mmol/L (22-29); Chloride 106 mmol/L (98-107); Globulin 2.8 g/dL (1.3-4.6); Glomerular Filtration Rate 123.8 mL/min (90-130); Glucose 93 mg/dL (65-115); Osmolality Calculated 290 mOsm/kg (285-295); Sodium 139 mmol/L (136-145); Total Bilirubin 0.3 mg/dL (0.15-1.2); Total Protein 6.8 g/dL (6.6-8.7)
== END 2023-01-26 23:59 | disposition home or self-care (01) ==
PROVIDERS: PCP Nurse Practitioner Family; Visit Provider Internal Medicine Hematology & Oncology
DX: Z08 Encounter for follow-up examination after completed treatment for malignant neoplasm (principal); Z85.3 Personal history of malignant neoplasm of breast; D72.818 Other decreased white blood cell count; D51.9 Vitamin B12 deficiency anemia, unspecified; Z79.899 Other long term (current) drug therapy; Z92.21 Personal history of antineoplastic chemotherapy; Z92.25 Personal history of immunosuppression therapy; Z95.828 Presence of other vascular implants and grafts
CPT/HCPCS: 36591; 80053; 85025; 99214

== ENCOUNTER 2023-07-03 10:39 | Oncology outpatient (recurring) (ONCR) | payer MEDICARE, MEDICAID, SELFPAY ==
[2023-07-03 10:55] VITALS: BP 92/57; PULSE 78; RESP 16; TEMP 37.4; O2SAT 100
[2023-07-03 11:03] LABS: Basophils # 0.1 10^3/uL (0.0-0.1); Basophils % 1.5 %; Eosinophils # 0.2 10^3/uL (0.0-0.8); Eosinophils % 2.7 %; Hematocrit 38.3 % (36-47); Lymphocytes # 2.4 10^3/uL (0.8-4.8); Lymphocytes % 42.8 %; Mean Corpuscular HGB Conc 32.6 g/dL (30-55); Mean Corpuscular Hemoglobin 29.6 pg (27-33); Mean Corpuscular Volume 90.8 fl (85-98); Mean Platelet Volume 9.8 fL (7.4-10.4); Monocytes # 0.7 10^3/uL (0.2-0.9); Monocytes % 13.2 %; Neutrophils # 2.18 10^3/uL (1.8-7.7); Neutrophils % 39.6 %; Nucleated Red Blood Cells % 0 %; Platelet Count 309 10^3/cmm (157-399); Red Blood Count 4.22 10^6/uL (3.85-5.65); Red Cell Distribution Width 13.1 % (12.1-15.1); White Blood Count 5.51 10^3/uL (3.29-11.43)
[2023-07-03 11:19] LABS: Alanine Aminotransferase 14 U/L (0-33); Albumin Level 4.5 g/dL (3.5-5.2); Alkaline Phosphatase 34 U/L (35-105); Anion Gap 14.5 (5-19); Aspartate Amino Transferase 22 U/L (0-32); Blood Urea Nitrogen 18 mg/dL (8-23); Calcium 9.9 mg/dL (8.5-10.5); Carbon Dioxide 27 mmol/L (22-29); Chloride 101 mmol/L (98-107); Globulin 3.6 g/dL (1.3-4.6); Glucose 104 mg/dL (65-115); Osmolality Calculated 288 mOsm/kg (285-295); Potassium 4.5 mmol/L (3.5-5.1); Sodium 138 mmol/L (136-145); Total Bilirubin 0.6 mg/dL (0.15-1.2); Total Protein 8.1 g/dL (6.6-8.7)
== END 2023-07-29 23:59 | disposition home or self-care (01) ==
PROVIDERS: PCP Nurse Practitioner Family; Visit Provider Internal Medicine Medical Oncology
DX: Z08 Encounter for follow-up examination after completed treatment for malignant neoplasm (principal); Z85.3 Personal history of malignant neoplasm of breast; D72.818 Other decreased white blood cell count; D51.9 Vitamin B12 deficiency anemia, unspecified; Z79.899 Other long term (current) drug therapy; Z92.21 Personal history of antineoplastic chemotherapy; Z92.25 Personal history of immunosuppression therapy; Z95.828 Presence of other vascular implants and grafts
CPT/HCPCS: 36415; 80053; 85025; 99213

== ENCOUNTER 2023-07-23 13:46 | Outpatient (CLI) | payer MEDICARE, MEDICAID, SELFPAY ==
--- NOTE | 2023-07-23 14:00 | MM_ITS ---
WS: [id number] RIGHT 3D TOMOSYNTHESIS DIGITAL MAMMOGRAPHY WITH CAD CLINICAL INFORMATION: F/U triple negative breast cancer of left breast/mastectomy HISTORY: History of breast cancer COMPARISON: 2021 TECHNIQUE: 3 views of the right breast were obtained. FINDINGS: Scattered fibroglandular densities of the right breast. Punctate calcification RIGHT breast. Vascular calcification No suspicious focal mass, asymmetry, calcifications, or architectural distortion. No evidence of toyin gnancy. IMPRESSION: MM/[place] [id number] BI-RADS: 2-Benign FOLLOW UP: 1 Year Follow-up Recommend return to annual diagnostic mammography.
== END 2023-07-23 13:47 | disposition home or self-care (01) ==
LOC: RAD 13:46
PROVIDERS: PCP Nurse Practitioner Family; Visit Provider Internal Medicine Medical Oncology
DX: Z85.3 Personal history of malignant neoplasm of breast (principal); Z90.12 Acquired absence of left breast and nipple
CPT/HCPCS: 77061; G0279

== ENCOUNTER 2023-07-31 17:07 | Outpatient (CLI) | payer MEDICARE, MEDICAID, SELFPAY ==
[2023-07-31] MEDS: iohexol 350 mg/mL 500 mL Btl (per mL) IV (17:24)
--- NOTE | 2023-07-31 17:30 | CT_ITS ---
WS: [id number] CT HEAD TECHNIQUE: Noncontrast and contrast-enhanced CT of the head. CLINICAL INFORMATION: To exclude brain mets COMPARISON: None. DLP: 2202.[address] scans at [facility] use at least one of these dose optimization techniques: automated e xposure control; mA and/or kV adjustment per patient size (includes targeted exams where dose is matc hed to clinical indication); or iterative reconstruction. FINDINGS: No evidence intracranial hemorrhage or mass effect. Ventricular system and basal cisterns are patent. Moderate small vessel changes. Mild parenchymal volume loss. No abnormal intracranial enhancement. N o evidence of enhancing intracranial metastatic disease. Paranasal sinuses and mastoid air cells well aerated. Normal posterior nasopharynx. IMPRESSION: 1. No evidence intracranial hemorrhage or mass effect. 2. No evidence of enhancing intracranial metastatic disease. 3. Moderate small vessel changes. Mild parenchymal volume loss. 4. No other suspicious findings.
== END 2023-07-31 17:08 | disposition home or self-care (01) ==
PROVIDERS: PCP Nurse Practitioner Family; Visit Provider Internal Medicine Medical Oncology
DX: R42 Dizziness and giddiness (principal); C50.912 Malignant neoplasm of unspecified site of left female breast
CPT/HCPCS: 70470; Q9967

== ENCOUNTER 2023-12-31 11:58 | Oncology outpatient (recurring) (ONCR) | payer MEDICARE, MEDICAID, SELFPAY ==
[2023-12-31 13:06] LABS: Basophils # 0.1 10^3/uL (0.0-0.1); Basophils % 1.8 %; Eosinophils # 0.4 10^3/uL (0.0-0.8); Eosinophils % 9.9 %; Hematocrit 36.5 % (36-47); Lymphocytes # 1.6 10^3/uL (0.8-4.8); Lymphocytes % 42.3 %; Mean Corpuscular HGB Conc 33.2 g/dL (30-55); Mean Corpuscular Volume 90.3 fl (85-98); Mean Platelet Volume 9.7 fL (7.4-10.4); Monocytes # 0.6 10^3/uL (0.2-0.9); Monocytes % 14.8 %; Neutrophils % 31.2 %; Nucleated Red Blood Cells % 0 %; Platelet Count 228 10^3/cmm (157-399); Red Blood Count 4.04 10^6/uL (3.85-5.65); Red Cell Distribution Width 13.2 % (12.1-15.1); White Blood Count 3.85 10^3/uL (3.29-11.43)
[2023-12-31 13:29] LABS: Alanine Aminotransferase 14 U/L (0-33); Albumin Level 4.2 g/dL (3.5-5.2); Alkaline Phosphatase 42 U/L (35-105); Anion Gap 13.2 (5-19); Aspartate Amino Transferase 24 U/L (0-32); Blood Urea Nitrogen 18 mg/dL (8-23); Calcium 9.5 mg/dL (8.5-10.5); Carbon Dioxide 27 mmol/L (22-29); Chloride 103 mmol/L (98-107); Globulin 3.1 g/dL (1.3-4.6); Glucose 91 mg/dL (65-115); Osmolality Calculated 289 mOsm/kg (285-295); Potassium 4.2 mmol/L (3.5-5.1); Sodium 139 mmol/L (136-145); Total Bilirubin 0.5 mg/dL (0.15-1.2); Total Protein 7.3 g/dL (6.6-8.7)
== END 2024-01-27 23:59 | disposition home or self-care (01) ==
PROVIDERS: Nurse Practitioner Family; PCP Nurse Practitioner Family; Visit Provider Internal Medicine Medical Oncology
DX: Z08 Encounter for follow-up examination after completed treatment for malignant neoplasm (principal); Z85.3 Personal history of malignant neoplasm of breast; D72.818 Other decreased white blood cell count; D51.9 Vitamin B12 deficiency anemia, unspecified; Z79.899 Other long term (current) drug therapy; Z92.21 Personal history of antineoplastic chemotherapy; Z92.25 Personal history of immunosuppression therapy; Z95.828 Presence of other vascular implants and grafts
CPT/HCPCS: 36415; 80053; 85025; 99214

== ENCOUNTER 2024-02-02 13:02 | Oncology outpatient (recurring) (ONCR) | payer MEDICARE, SELFPAY ==
[2024-02-02 13:23] LABS: Basophils # 0.1 10^3/uL (0.0-0.1); Basophils % 1.5 %; Eosinophils # 0.3 10^3/uL (0.0-0.8); Eosinophils % 5.3 %; Hematocrit 37.8 % (36-47); Lymphocytes # 1.8 10^3/uL (0.8-4.8); Lymphocytes % 38.2 %; Mean Corpuscular HGB Conc 32.8 g/dL (30-55); Mean Corpuscular Hemoglobin 30.6 pg (27-33); Mean Corpuscular Volume 93.3 fl (85-98); Mean Platelet Volume 9.8 fL (7.4-10.4); Monocytes # 0.6 10^3/uL (0.2-0.9); Neutrophils # 2.05 10^3/uL (1.8-7.7); Nucleated Red Blood Cells % 0 %; Platelet Count 226 10^3/cmm (157-399); Red Blood Count 4.05 10^6/uL (3.85-5.65); Red Cell Distribution Width 13.9 % (12.1-15.1); White Blood Count 4.76 10^3/uL (3.29-11.43)
== END 2024-02-27 23:59 | disposition home or self-care (01) ==
LOC: ONCMED 13:03
PROVIDERS: Nurse Practitioner Family; PCP Nurse Practitioner Family; Visit Provider Internal Medicine Medical Oncology
DX: D70.9 Neutropenia, unspecified
CPT/HCPCS: 36415; 85025

== ENCOUNTER 2024-04-05 13:46 | Oncology outpatient (recurring) (ONCR) | payer MEDICARE, SELFPAY ==
[2024-04-05 14:13] LABS: Basophils # 0.1 10^3/uL (0.0-0.1); Basophils % 1.3 %; Eosinophils # 0.2 10^3/uL (0.0-0.8); Hematocrit 40.2 % (36-47); Lymphocytes # 1.8 10^3/uL (0.8-4.8); Lymphocytes % 39.7 %; Mean Corpuscular HGB Conc 32.6 g/dL (30-55); Mean Corpuscular Hemoglobin 30.3 pg (27-33); Mean Corpuscular Volume 93.1 fl (85-98); Mean Platelet Volume 10.7 fL (7.4-10.4); Monocytes # 0.6 10^3/uL (0.2-0.9); Monocytes % 12.1 %; Neutrophils # 1.93 10^3/uL (1.8-7.7); Neutrophils % 41.9 %; Nucleated Red Blood Cells % 0 %; Platelet Count 229 10^3/cmm (157-399); Red Blood Count 4.32 10^6/uL (3.85-5.65); Red Cell Distribution Width 13.2 % (12.1-15.1); White Blood Count 4.61 10^3/uL (3.29-11.43)
[2024-04-05 14:43] LABS: Alanine Aminotransferase 12 U/L (0-33); Albumin Level 4.6 g/dL (3.5-5.2); Alkaline Phosphatase 35 U/L (35-105); Anion Gap 14.1 (5-19); Aspartate Amino Transferase 22 U/L (0-32); Blood Urea Nitrogen 20 mg/dL (8-23); Calcium 9.6 mg/dL (8.5-10.5); Carbon Dioxide 26 mmol/L (22-29); Chloride 103 mmol/L (98-107); Globulin 3.2 g/dL (1.3-4.6); Glomerular Filtration Rate 83.5 mL/min (90-130); Glucose 89 mg/dL (65-115); Osmolality Calculated 290 mOsm/kg (285-295); Potassium 4.1 mmol/L (3.5-5.1); Sodium 139 mmol/L (136-145); Total Bilirubin 0.5 mg/dL (0.15-1.2); Total Protein 7.8 g/dL (6.6-8.7)
== END 2024-04-28 23:59 | disposition home or self-care (01) ==
PROVIDERS: Nurse Practitioner Family; PCP Nurse Practitioner Family; Visit Provider Internal Medicine Medical Oncology
DX: C50.912 Malignant neoplasm of unspecified site of left female breast
CPT/HCPCS: 36415; 80053; 85025; 99214

== ENCOUNTER 2024-07-28 13:20 | Outpatient (CLI) | payer MEDICARE, SELFPAY ==
--- NOTE | 2024-07-28 13:33 | MM_ITS ---
WS: [id number] RIGHT 3D TOMOSYNTHESIS DIGITAL MAMMOGRAPHY WITH CAD HISTORY: LEFT breast cancer COMPARISON: 2022 TECHNIQUE: 3 views of the right breast were obtained. FINDINGS: The right breast is composed of heterogeneous fibroglandular density tissue, which can limit the dete ction of small underlying mass lesions. Incidental lucent centered calcification RIGHT breast. Vascul ar calcification. No suspicious focal mass, asymmetry, calcifications, or architectural distortion. No evidence of toyin gnancy. MM/MM diag RT tomosynthesis [id number] IMPRESSION: DENSITY: The breasts are heterogeneously dense, which may obscure small masses. BI-RADS: 2 - Benign FOLLOW UP: 1 Year Follow-up Recommend return to annual diagnostic mammography.
== END 2024-07-28 13:21 | disposition home or self-care (01) ==
LOC: RAD 13:23
PROVIDERS: PCP Nurse Practitioner Family; Visit Provider Nurse Practitioner Family
DX: Z85.3 Personal history of malignant neoplasm of breast (principal); R92.333 Mammographic heterogeneous density, bilateral breasts; R92.1 Mammographic calcification found on diagnostic imaging of breast
CPT/HCPCS: 77061; G0279

== ENCOUNTER 2024-09-23 07:18 | Outpatient (CLI) | payer MEDICARE, SELFPAY ==
--- NOTE | 2024-09-23 07:15 | US_ITS ---
WS: [id number] Complete ABDOMINAL ULTRASOUND HISTORY: RUQ PAIN COMPARISON: 09/20/2010 Liver: 15.9 cm in length. Slightly coarse echotexture throughout the liver. New since 2009. No mass. Liver is normal size. Portal Vein: Poorly visualized. Gallbladder: Normally distended gallbladder with no stones or wall thickening. CBD: 0.5 cm Pancreas: Normal size and echogenicity. Right kidney: 10.4 cm x 3.7 x 4.0 cm. Cortex:0.8 cm. Normal size and echogenicity. No hydronephrosis or mass. Mild cortical thinning. Left kidney: 10.0 cm x 4.4 cm x 4.9 cm. Cortex: 1.0 cm. Normal size and echogenicity. No hydronephrosis or mass. Spleen: 7.9 cm. Poorly visualized. Aorta and IVC: Unremarkable abdominal aorta and IVC. US/US abdomen complete* [id number] Impression: 1. Technically difficult abdominal ultrasound due to patient's body habitus. 2. Normal gallbladder. 3. Normal size liver with mild hepatic steatosis which is new since 2009. 4. No renal obstruction.
== END 2024-09-23 07:19 | disposition home or self-care (01) ==
PROVIDERS: PCP Nurse Practitioner Family; Visit Provider Nurse Practitioner Family
DX: R10.11 Right upper quadrant pain (principal)
CPT/HCPCS: 76700

== ENCOUNTER 2024-10-04 13:29 | Oncology outpatient (recurring) (ONCR) | payer MEDICARE, SELFPAY ==
[2024-10-04 13:54] LABS: Basophils # 0.1 10^3/uL (0.0-0.1); Basophils % 1.4 %; Eosinophils # 0.3 10^3/uL (0.0-0.8); Eosinophils % 7.4 %; Hematocrit 36.5 % (36-47); Lymphocytes # 1.6 10^3/uL (0.8-4.8); Lymphocytes % 38.1 %; Mean Corpuscular HGB Conc 33.2 g/dL (30-55); Mean Corpuscular Hemoglobin 30.3 pg (27-33); Mean Corpuscular Volume 91.3 fl (85-98); Mean Platelet Volume 10.2 fL (7.4-10.4); Monocytes # 0.5 10^3/uL (0.2-0.9); Monocytes % 10.9 %; Neutrophils # 1.82 10^3/uL (1.8-7.7); Neutrophils % 42.2 %; Nucleated Red Blood Cells % 0 %; Platelet Count 249 10^3/cmm (157-399); Red Cell Distribution Width 12.6 % (12.1-15.1); White Blood Count 4.31 10^3/uL (3.29-11.43)
[2024-10-04 14:12] LABS: Alanine Aminotransferase 13 U/L (0-33); Albumin Level 4.4 g/dL (3.5-5.2); Alkaline Phosphatase 45 U/L (35-105); Anion Gap 15.4 (5-19); Aspartate Amino Transferase 26 U/L (0-32); Blood Urea Nitrogen 20 mg/dL (8-23); Calcium 9.3 mg/dL (8.5-10.5); Carbon Dioxide 26 mmol/L (22-29); Chloride 99 mmol/L (98-107); Creatinine Clr Calc Pharmacy 62.6007; Globulin 2.8 g/dL (1.3-4.6); Glomerular Filtration Rate 99.7 mL/min (90-130); Glucose 101 mg/dL (65-115); Osmolality Calculated 285 mOsm/kg (285-295); Potassium 4.4 mmol/L (3.5-5.1); Sodium 136 mmol/L (136-145); Total Bilirubin 0.5 mg/dL (0.15-1.2); Total Protein 7.2 g/dL (6.6-8.7)
== END 2024-10-29 23:59 | disposition home or self-care (01) ==
PROVIDERS: Nurse Practitioner Family; PCP Nurse Practitioner Family; Visit Provider Internal Medicine Medical Oncology
DX: Z08 Encounter for follow-up examination after completed treatment for malignant neoplasm (principal); Z85.3 Personal history of malignant neoplasm of breast; Z90.12 Acquired absence of left breast and nipple; Z92.3 Personal history of irradiation; Z87.891 Personal history of nicotine dependence
CPT/HCPCS: 36415; 80053; 85025; 99213

== ENCOUNTER → 2024-10-12 08:53 | Outpatient (BNVA) | payer MEDICARE, SELFPAY | PROVIDERS: PCP Nurse Practitioner Family; Visit Provider Physician Assistant | DX: M25.532 Pain in left wrist (principal); M67.432 Ganglion, left wrist | CPT/HCPCS: 73110; 99204 ==

== ENCOUNTER → 2025-03-03 11:49 | Outpatient (BNVA) | payer MEDICARE, MEDICAID, SELFPAY | PROVIDERS: PCP Family Medicine; Visit Provider Family Medicine | DX: R10.11 Right upper quadrant pain (principal); G89.29 Other chronic pain; Z78.0 Asymptomatic menopausal state; Z12.11 Encounter for screening for malignant neoplasm of colon; Z13.6 Encounter for screening for cardiovascular disorders | CPT/HCPCS: 80053; 80061 ==

== ENCOUNTER → 2025-03-10 10:17 | Outpatient (BNVA) | payer MEDICARE, SELFPAY | PROVIDERS: PCP Family Medicine; Visit Provider Student in an Organized Health Care Education/Training Program | DX: Z12.11 Encounter for screening for malignant neoplasm of colon (principal); R12 Heartburn | CPT/HCPCS: 99204 ==

== ENCOUNTER 2025-03-21 08:40 | Oncology outpatient (recurring) (ONCR) | payer OTHER, SELFPAY ==
--- NOTE | 2025-03-21 08:45 | CT_ITS ---
WS: [id number] CT ABDOMEN WITH CONTRAST HISTORY: chronic ruq pain, neg us Contiguous single phase 5 mm axial imaging performed to the abdomen. Oral contrast has been provided. Coronal and sagittal reformats are submitted. All CT scans at [facility] use at least one of these dose optimization techniques: automated exposure control; mA and/or kV adjustment per patient size (includes targeted exams where dose is matched to clinical indication); or iterative reconstruction. IV CONTRAST: Omnipaque 350; 100 mL IV. Oral contrast: Yes. DLP: 166.98 mGy.cm COMPARISON: 10/11/2013 Lower thorax: Lung bases are clear. Heart is normal size. Small hiatal hernia. Liver/biliary system: Normal size with no intrahepatic dilatation. Gallbladder: Gallbladder is slightly contracted. No wall thickening or pericholecystic fluid. Pancreas: Normal size pancreas and pancreatic duct. No adjacent inflammation. Spleen: Normal size spleen. No mass or infarct. Adrenal glands: Normal. Right kidney: Normal. Left kidney: Normal. Aorta: Mild atherosclerosis with no aneurysm. Lymphadenopathy: None. Free fluid: None. GI tract: Unremarkable. Abdominal wall: Tiny umbilical hernia. Hernia contains fat only. Visualized osseous structures: Unremarkable. CT/CT abdomen w con* [id number] IMPRESSION: 1. No acute abdominal process. 2. Gallbladder is slightly contracted. This can be noted with recent fatty brian l or chronic cholecystitis. For further evaluation of gallbladder function cons ider HIDA scan if necessary clinically. 3. Mild atherosclerosis aorta. Normal enhancement of the mesenteric arteries. 4. No renal obstruction.
[2025-03-21] MEDS: iohexol 350 mg/mL 500 mL Btl (per mL) PO (09:04)
[2025-03-21] MEDS: iohexol 350 mg/mL 500 mL Btl (per mL) IV (09:24)
== END 2025-03-28 23:59 | disposition home or self-care (01) ==
LOC: RAD 08:42 → ONCMED 09:17
PROVIDERS: PCP Family Medicine; Visit Provider Family Medicine
DX: Z08 Encounter for follow-up examination after completed treatment for malignant neoplasm (principal); Z85.3 Personal history of malignant neoplasm of breast; Z90.12 Acquired absence of left breast and nipple; Z92.3 Personal history of irradiation; Z87.891 Personal history of nicotine dependence; R10.11 Right upper quadrant pain; G89.29 Other chronic pain
CPT/HCPCS: 74160

== ENCOUNTER 2025-03-29 07:01 | Day surgery (SDC) | payer OTHER, SELFPAY ==
[2025-03-29 07:19] VITALS: BMI 28.3
[2025-03-29 07:21] VITALS: BP 154/70; PULSE 52; RESP 18; TEMP 36.6; O2SAT 100
--- NOTE | 2025-03-29 08:01 | P.ANESASSM_ITS ---
Pre-Anesthetic Assessment Height/Weight: Height 1.6 m Weight 72.575 kg Temp Pulse Resp BP Pulse Ox O2 Del Method 97.8 F 52 L 18 154/70 100 Room Air 03/29/25 07:21 03/29/25 07:21 03/29/25 07:21 03/29/25 07:21 03/29/25 07:21 03/29/25 07:21 Preop Diagnosis: Abdominal Pain GERD Operation Date: 03/29/25 08:15 Proposed Procedures p EGD [id number] G0105 Z12.11 R12(Not Applicable) - Hector Lopez MD s Colonoscopy(Not Applicable) - Hector Lopez MD Familial anesthetic complications: none Was Beta Nory taken within 24 hours: N/A Was Clonidine taken within 24 hours: N/A Last intake: Intake Last Liquid Date 03/28/25 Last Liquid Time 15:00 Last Solid Date 03/27/25 Social No alcohol and No tobacco Exam alert, oriented x 3, clear to auscultation bilaterally and regular rate & rhythm Airway Submandibular: within normal limits Cervical ROM: within normal limits Mallampati: Class II Dentition: false Pulmonary None reported CV/HEM Sinus Bradycardia occassional PVC. METS > 4 None reported Hepatic None reported GI Gastroesophageal Reflux Disease Abdominal Pain Metabolic None reported status post mastectomy, chemotherapy, and radiation in 2019 [facility] None reported Neuropsych None reported Anesthetic Plan ASA status: 1 Anesthesia: MAC Medications/Allergies Home Medications ?Medication ?Instructions ?Recorded ?Confirmed ?Last Taken ?Type Memory loss Vitamin 1 tab PO DAILY 07/03/23 07/10/23 Unknown History estradiol 0.01% (0.1 mg/gram) 1 applic vaginal .WEEKLY 03/24/25 03/29/25 Unknown History vaginal cream Allergies Allergy/AdvReac Type Severity Reaction Status Date / Time No Known Allergies Allergy Verified 03/29/25 07:20 Current Medications Generic Name Dose Route Start Last Admin Trade Name Freq PRN Reason Stop Dose Admin Sodium Chloride 1,000 mls @ 15 mls/hr 03/29/25 07:12 03/29/25 07:23 Sodium Chloride 0.9% IV 03/30/25 07:11 15 mls/hr .Q24H PRN Administration COLONOSCOPY FLUIDS PFSH Anesthesia Medical History (Updated 03/15/25 @ 16:02 by Sangeeta Haque MD) Leukopenia 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 Port-A-Cath in place (~03/2020) DO NOT REMOVE - LINKED TO TREATMENT PLAN Left breast lump Surgical History History of bilateral tubal ligation H/O left mastectomy due to breast cancer History of breast biopsy (~02/2020) History of exploratory laparotomy History of colonoscopy Family History Mother Diabetes Hyperlipidemia Hypertension Father Hyperlipidemia Hypertension CAD (coronary artery disease) Lung cancer Daughter Thyroid disease Brother Colon cancer 60's Brother Lung cancer Denies family history of Ovarian cancer Clotting disorder Heart disease Breast cancer Anesthesia complication Bleeding disorder Uterine cancer Stroke Social History Smoking and tobacco/nicotine status: former use of tobacco/nicotine Alcohol intake: never Substance/Drug Use: never Lives independently: Yes Household members: children Marital status: / Number of children: 3 Current occupational status: retired Previous occupational history: [employer] x 30 years Current gender identity: Female Special nayeli needs: No Agree to transfusion: Yes Data Anesthesia Cardiac Studies: Echocardiogram Ultrasound 04/11/20
--- NOTE | 2025-03-29 08:16 | W.PM.OPSUD ---
Surgery/Procedure H&P Update DATE OF PROCEDURE: March 29, 2025 DATE H&P PERFORMED: 03/10/25 H&P UPDATE INFORMATION: I have reviewed H&P completed within last 30 days, I have examined patient prior to procedure and No changes to prior documentation PREOP DIAGNOSIS: Abdominal Pain GERD PLANNED PROCEDURE: Operation Date: 03/29/25 08:15 Proposed Procedures p EGD [id number] G0105 Z12.11 R12(Not Applicable) - Hector Lopez MD s Colonoscopy(Not Applicable) - Hector Lopez MD
[2025-03-29 08:42] VITALS: BP 114/72; PULSE 84; RESP 16; TEMP 36.4; O2SAT 98
[2025-03-29 08:58] VITALS: BP 114/67; PULSE 77; RESP 18; TEMP 36.1; O2SAT 97
== END 2025-03-29 09:27 | disposition home or self-care (01) ==
PROVIDERS: PCP Family Medicine; Visit Provider Student in an Organized Health Care Education/Training Program
PROC: 0DJ08ZZ Inspection of Upper Intestinal Tract, Via Natural or Artificial Opening Endoscopic (ICD-10-PCS; principal; 2025-03-29 08:15)
PROC: 0DJD8ZZ Inspection of Lower Intestinal Tract, Via Natural or Artificial Opening Endoscopic (ICD-10-PCS; CPT 45378; 2025-03-29 08:15)
DX: Z12.11 Encounter for screening for malignant neoplasm of colon (principal); Z80.0 Family history of malignant neoplasm of digestive organs; K21.9 Gastro-esophageal reflux disease without esophagitis; Z85.3 Personal history of malignant neoplasm of breast; Z87.891 Personal history of nicotine dependence; Z79.899 Other long term (current) drug therapy; Z79.818 Long term (current) use of other agents affecting estrogen receptors and estrogen levels
CPT/HCPCS: 43239; 45378; 88305; G0105; J2704; J3490; J7030

== ENCOUNTER 2025-04-07 13:28 | Oncology outpatient (recurring) (ONCR) | payer OTHER, SELFPAY ==
[2025-04-07 13:55] LABS: Hematocrit 38.0 % (36-47); Hemoglobin 12.40 g/dL (11.27-16.99); Mean Corpuscular HGB Conc 32.6 g/dL (30-55); Mean Corpuscular Hemoglobin 29.8 pg (27-33); Mean Corpuscular Volume 91.3 fl (85-98); Nucleated Red Blood Cells % 0 %; Platelet Count 222 10^3/cmm (157-399); Red Blood Count 4.16 10^6/uL (3.85-5.65); White Blood Count 4.04 10^3/uL (3.29-11.43)
[2025-04-07 14:13] LABS: Alanine Aminotransferase 12 U/L (0-33); Albumin Level 4.4 g/dL (3.5-5.2); Alkaline Phosphatase 45 U/L (35-105); Anion Gap 14.0 (5-19); Aspartate Amino Transferase 24 U/L (0-32); Blood Urea Nitrogen 17 mg/dL (8-23); Calcium 9.6 mg/dL (8.5-10.5); Carbon Dioxide 27 mmol/L (22-29); Chloride 101 mmol/L (98-107); Creatinine Clr Calc Pharmacy 56.9390; Globulin 3.2 g/dL (1.3-4.6); Glucose 107 mg/dL (65-115); Osmolality Calculated 288 mOsm/kg (285-295); Potassium 4.0 mmol/L (3.5-5.1); Sodium 138 mmol/L (136-145); Total Protein 7.6 g/dL (6.6-8.7)
== END 2025-04-28 23:59 | disposition home or self-care (01) ==
PROVIDERS: Nurse Practitioner Family; PCP Family Medicine; Visit Provider Internal Medicine
DX: Z08 Encounter for follow-up examination after completed treatment for malignant neoplasm (principal); Z85.3 Personal history of malignant neoplasm of breast; Z87.891 Personal history of nicotine dependence; Z90.12 Acquired absence of left breast and nipple; Z92.3 Personal history of irradiation; Z92.21 Personal history of antineoplastic chemotherapy
CPT/HCPCS: 36415; 80053; 85025; 99213

== ENCOUNTER → 2025-04-11 08:53 | Outpatient (BNVA) | payer OTHER, SELFPAY | PROVIDERS: PCP Family Medicine; Visit Provider Student in an Organized Health Care Education/Training Program | DX: Z09 Encounter for follow-up examination after completed treatment for conditions other than malignant neoplasm (principal) | CPT/HCPCS: 99213 ==

== ENCOUNTER → 2025-04-14 12:41 | Outpatient (BNVA) | payer OTHER, SELFPAY | PROVIDERS: PCP Family Medicine; Visit Provider Family Medicine | DX: R06.02 Shortness of breath (principal) | CPT/HCPCS: 80053; 83880; 85025 ==